=== PATIENT | male | born 1965 | race Caucasian/White ===

== ENCOUNTER 2017-09-16 13:00 | Inpatient (IN) | payer MEDICARE, MEDICAID ==
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
[2017-09-16 14:50] LABS: Amphetamine Screen,Urine Not Detected (NotDetected); Barbiturate Screen,Urine Not Detected (NotDetected); Benzodiazepines Screen,Urine Not Detected (NotDetected); Cocaine Screen,Urine Not Detected (NotDetected); Methadone Screen, Urine Not Detected (NotDetected); Opiate Screen,Urine Not Detected (NotDetected); Oxycodone Screen, Urine Not Detected (NotDetected); Phencyclidine Screen,Urine Not Detected (NotDetected); Tricyclic Antidepressant,Urine Not Detected (NotDetected); Urn Cannabinoid Scrn Not Detected (NotDetected)
[2017-09-16] MEDS ORDERED: MAGNESIUM HYDROXIDE 2,400 MG/10 ML CUP PO PRN (16:07)
[2017-09-16] MEDS ORDERED: ACETAMINOPHEN TAB 325 MG TAB PO PRN (16:07)
[2017-09-16] MEDS ORDERED: MAG HYDROX/AL HYDROX/SIMETH 30 ML CUP PO PRN (16:07)
[2017-09-16] MEDS ORDERED: LORazepam 1 MG TAB PO PRN (16:07)
[2017-09-16] MEDS ORDERED: ZIPRASIDONE 20 MG VIAL IM PRN (16:07)
[2017-09-16] MEDS ORDERED: busPIRone HCl 10 MG TAB PO SCH (16:15)
[2017-09-16 16:44] VITALS: BMI 35.2
[2017-09-16] MEDS ORDERED: INFLUENZA VACCINE (6 MOS+) 60 MCG/0.5 ML SYRINGE IM ONE (16:54)
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
[2017-09-16] MEDS: buPROPion XL 300 MG TAB.ER.24H PO SCH (19:01)
[2017-09-16] MEDS: OLANZapine 10 MG TAB PO SCH ×2 (19:01→21:06)
--- NOTE | 2017-09-16 20:11 | HP ---
HISTORY AND PHYSICAL DATE OF SERVICE: 09/16/2017 IDENTIFYING DATA: The patient is a 51-year-old male. He lives alone. He came to the emergency room for evaluation. CHIEF COMPLAINT: The patient was depressed. He had suicide thoughts. He had impulse to stab himself in the abdomen, which is behavior he has had in the past. He has voices that tell him to do bad things. HISTORY OF PRESENTING ILLNESS: The patient has had long-term psychiatric issues. He has had 3 previous psychiatric admission notes in this facility in the last 2 years, including October 24, November 09 and March 15, 2016. I refer the reader to admission notes and other records for Dr. Keyes and Dr. Wesley for details. His admissions at those times were similar to his current situation. In March 2016, he presented with depression and impulse to harm himself. He said he was sleeping excessively. He had decreased motivation, energy, interest. He had worthless and hopeless feelings. He had auditory hallucinations with command hallucinations telling him he is bad and that he should kill himself. He has had a lot of anxiety. He says currently he has had increasing problems over the last month. It is unclear how far back some depression has been going. He said he felt fairly well last summer, though I note from [facility] notes that he was having depression issues at least in the springtime of 2016. He has been on several psychotropic medications for an extended period of time. Currently he is on Prozac, which had been titrated up to 80 mg a day. He is on Depakote 250 mg 3 times a day, BuSpar 15 mg 3 times a day, trazodone 200 mg a day and Prolixin IM 25 mg every 2 weeks. He has been on those medications for at least 1-2 years going back. He also was on Prozac and BuSpar. In 2015, he was also on Seroquel 200 mg a day. In 2013 and 2014, he was on Tegretol up to 200 mg 3 times a day and had at a level at one point of 8.0. He was also on Invega Sustenna 234 mg monthly in 2013 and 2014. He also was on Effexor maximum dose 150 mg in 2013 and 2014. In reviewing the [facility] medication log going back to January of 2014, these have been the only medicines that he has been on. It is unclear what medications he may have been on in the more distant past. He notes that he is not very active. Mostly he is at home. He watches TV. He gets support from his mother and sister, who apparently watch over him. He is followed through [facility] and is prescribed medications by Dr. Trujillo. He was just in Mental Health August 31. He was asking for a medication change, saying his medicines were not working. He apparently he said that he saw an advertisement for Trintellix and wanted to try that. He got started on Trintellix as of Tuesday by what he reported to me 20 mg a day. He is not able to describe clear precipitants to his a downturn in mood. He is admitted for further evaluation. SUBSTANCE USE HISTORY: Uncertain. Medical records indicate a somewhat distant past history of alcohol abuse, though the patient himself denies that. There is no report of other abuse of substances. Past medical history includes obesity, vitamin B and D deficiency and shortness of breath. Further medical history and review of systems as per medical consultation of Dr. Ryan. FAMILY AND SOCIAL HISTORY: I refer the reader to previous admission notes and other medical records documented above from 2016 for details. MENTAL STATUS EXAM: The patient had an unkept appearance. Eye contact was fair. Psychomotor activity was slowed. Speech was monotone. He answered questions with brief responses. His thoughts were clear. He did not say a lot. He was not too spontaneous or interactive. His affect was flat. His mood depressed. He seemed moderately distressed. There was no immediate evidence for thought disorder. On cognitive exam, he was oriented and alert. He did make an effort to answer formal cognitive questions. Fund of knowledge and intellectual level below average. ASSESSMENT: This 51-year-old male is diagnosed with major depression with psychotic features. He has a long history of mental health difficulties. He has very limited function in the community. Strengths include that he has a family support system. Weakness includes relapsing problems with mood and impulse toward self-harm. DIAGNOSES: 1. Major depression, chronic and recurrent, severe with acute exacerbation with psychotic features. 2. Rule out mild intellectual disability. 3. Obesity. 4. Vitamin B and D deficiency. 5. Shortness of breath. RECOMMENDATIONS: Patient will be admitted for comprehensive medical psychiatric and psychosocial evaluation. We will engage the patient in individual and group therapeutic activities. Given that he has been on his current multiple medications over an extended period of time of several years without clear benefit, I will make an effort to: 1) Make a change in antidepressant therapy and 2) Make an effort to simplify medications to reduce risk of medication interactions and potentially improve compliance. I will discontinue Prozac and start the patient on Wellbutrin 300 mg a day. I will reduce BuSpar to 10 mg twice a day with the aim of tapering off altogether. For the patient's significant mood issues, the BuSpar is likely be to be not much of a contributor to therapeutic benefits. I will discontinue Trintellix. I will also discontinue Vistaril for likely minimal potential benefits. I will discontinue Latuda and start the patient on Zyprexa 10 mg twice a day. We will make an effort to get further information from family and will coordinate with [facility] for further diagnosis, treatment and discharge planning. MMREJI / CHEYENNE: [id number] /
[2017-09-16] MEDS ORDERED: traZODone HCL 100 MG TAB PO SCH (21:00)
[2017-09-16] MEDS ORDERED: LURASIDONE 40 MG TAB PO SCH (21:00)
[2017-09-16] MEDS ORDERED: DIVALPROEX ER 250 MG TAB.ER.24H PO SCH (21:00)
[2017-09-16] MEDS ORDERED: NON-FORMULARY DRUG (Omega-3 Fatty Acids/Fish Oil [Fish Oil 1,000 Mg Softgel] 1 CAP) PO SCH (21:00)
[2017-09-16] MEDS ORDERED: NON-FORMULARY DRUG (Vortioxetine Hydrobromide [Trintellix] 20 MG) PO SCH (21:00)
[2017-09-16] MEDS: busPIRone HCl 10 MG TAB PO SCH (21:06)
[2017-09-16] MEDS: traZODone HCL 100 MG TAB PO SCH (21:07)
[2017-09-17] MEDS ORDERED: FLUoxetine HCL 20 MG CAP PO SCH (08:00)
[2017-09-17] MEDS ORDERED: hydrOXYzine HCL 25 MG TAB PO SCH (09:00)
[2017-09-17 09:26] LABS: Basophils % (A) 1 %; Eosinophils # (A) 0.1 k/uL (0-0.7); Eosinophils % (A) 2 %; HCT 46.2 % (39.0-53.0); HGB 14.4 gm/dL (13.0-17.5); Lymphocytes # (A) 1.4 k/uL (1.0-4.8); Lymphocytes % (A) 22 %; MCH 29.6 pg (25.0-35.0); MCHC 31.2 g/dL (31.0-37.0); MCV 94.8 fL (80.0-100.0); Mean Platelet Volume 6.8; Monocytes # (A) 0.5 k/uL (0-1.0); Monocytes % (A) 8 %; Neutrophils # (A) 3.9 k/uL (1.3-7.7); Neutrophils % (A) 65 %; Platelet Count 435 k/uL (150-450); RBC 4.88 m/uL (4.30-5.90); RDW 14.3 % (11.5-15.5); WBC 6.1 k/uL (3.8-10.6)
[2017-09-17 09:29] LABS: Albumin 3.9 g/dL (3.5-5.0); Calcium 9.8 mg/dL (8.4-10.2); Potassium 4.9 mmol/L (3.5-5.1); Total Bilirubin 0.6 mg/dL (0.2-1.3); Total Protein 6.9 g/dL (6.3-8.2)
[2017-09-17 09:40] LABS: T4, Free (Free Thyroxine) 1.08 ng/dL (0.78-2.19)
[2017-09-17] MEDS: busPIRone HCl 10 MG TAB PO SCH ×2 (09:42→20:44)
[2017-09-17] MEDS: buPROPion XL 300 MG TAB.ER.24H PO SCH (09:42)
[2017-09-17] MEDS: OLANZapine 10 MG TAB PO SCH ×2 (09:43→20:44)
[2017-09-17 10:08] LABS: Valproic Acid (Depakene) 34.4 ug/mL
[2017-09-17] MEDS: CYANOCOBALAMIN 500 MCG TAB PO SCH (12:16)
[2017-09-17] MEDS: FERROUS SULFATE 325 MG TAB PO SCH (12:16)
[2017-09-17 18:22] LABS: Hemoglobin A1C 5.4 % (4.0-6.0)
--- NOTE | 2017-09-17 20:09 | PN ---
PROGRESS NOTE DATE OF SERVICE: 09/17/2017. CHIEF COMPLAINT: The patient was depressed. He had suicide thoughts. He had impulse to stab himself in the abdomen, which is behavior he has had in the past. He has voices telling him to do bad things. INTERVAL HISTORY: Patient has been doing fairly well. He had a quiet evening last night. He slept fair. Today he has been up. He says he feels better today. He has a better outlook. He says he has not had any problems with the change in his medications. He has been coming out in the day area. He tends to have a quiet manner. He does not interact too much with others. He tends to move about in a slow manner and keeps to himself. He has not been attending groups. He says his mood and outlook have improved with the medication changes. He has not had change in his general health. He tolerates his psychotropic medications. MENTAL STATUS: Patient gave fair eye contact. Psychomotor activity was slowed. Speech was somewhat soft. He answered questions with direct responses. His affect was somewhat blunted, though he seemed to show a little more emotional responsiveness today compared do the interview yesterday. His mood was quiet. He did not appear to be significantly distressed. ASSESSMENT: I will continue the current diagnosis and treatment plan, continue psychotropic medications the same. I reviewed issues relating to his psychotropics, noted that his Depakote level this morning was 34. I will discontinue Depakote, given that he is not likely to get much benefit from some therapeutic dosing. I would look to taper the patient off of BuSpar as well. We discussed medication management. We discussed the options of having his mother and sister come in for a family meeting. We will continue to focus on stabilization and discharge planning. MMODL / IJN: [id number] /
[2017-09-17] MEDS: BACITRACIN 500 UNIT/GM OINT 28.4 GM TUBE TOPICAL SCH (20:45)
[2017-09-17] MEDS: traZODone HCL 100 MG TAB PO SCH (20:45)
[2017-09-18] MEDS: buPROPion XL 300 MG TAB.ER.24H PO SCH (09:50)
[2017-09-18] MEDS: OLANZapine 10 MG TAB PO SCH ×2 (09:50→20:22)
[2017-09-18] MEDS: BACITRACIN 500 UNIT/GM OINT 28.4 GM TUBE TOPICAL SCH ×2 (09:50→20:22)
[2017-09-18] MEDS: busPIRone HCl 10 MG TAB PO SCH ×2 (09:50→20:22)
[2017-09-18 11:07] LABS: Anion Gap 10 mmol/L; Blood Urea Nitrogen 15 mg/dL (9-20); Carbon Dioxide 30 mmol/L (22-30); Chloride 104 mmol/L (98-107); Glucose 132 mg/dL (74-99); Potassium 4.7 mmol/L (3.5-5.1); Sodium 144 mmol/L (137-145)
[2017-09-18] MEDS: CYANOCOBALAMIN 500 MCG TAB PO SCH (12:56)
[2017-09-18] MEDS: FERROUS SULFATE 325 MG TAB PO SCH (12:57)
[2017-09-18] MEDS: traZODone HCL 100 MG TAB PO SCH (20:22)
--- NOTE | 2017-09-19 05:01 | PN ---
PROGRESS NOTE DATE OF SERVICE: 09/18/2017 CHIEF COMPLAINT: The patient was depressed. He had suicide thoughts. He had the impulse to stab himself in the abdomen, which is behavior he has had in the past. He has voices telling him to do bad things. INTERVAL HISTORY: Patient has been doing fair. He had a quiet evening last night. He slept fairly well. Today he seems to be isolating himself. He spent a lot of time in his room. He says he lays in his room, but he does not sleep. He just stares at the wall. It is not clear what his thought processes with that, when I talked about concerns that he seemed to be having problems he said the contrary that he has been getting out that he has been out several times during the day. He feels that overall his medications are helping at least to some extent. He has not been attending groups. He says if he gets into group that is over 5 people it causes him too much anxiety and then it sets off flashbacks to depression. It is not clear exactly what the issue is with this. He seemed to be a little disgruntled when I talked to him as compared yesterday when he was assuring me that his mood was better. He did say today that he thought his medications were okay and he was making some progress. He has not had change in his general health. He tolerates his psychotropic medications. MENTAL STATUS: Patient was in his room. He did not give any eye contact. Psychomotor activity was slowed. Speech was monotone. He answered questions with brief responses. His thoughts were clear. His affect was flat. His mood withdrawn. It is hard to say if he was significantly distressed. ASSESSMENT: I will continue the current diagnosis and treatment plan. Continue psychotropic medications the same. We will continue to focus on stabilization and discharge planning. We do have plans for a family meeting with the patient's mother and sister. We will continue to focus on stabilization and discharge planning. MMODL / IJN: [id number] /
[2017-09-19] MEDS: BACITRACIN 500 UNIT/GM OINT 28.4 GM TUBE TOPICAL SCH ×2 (08:54→21:55)
[2017-09-19] MEDS: OLANZapine 10 MG TAB PO SCH ×2 (08:56→21:55)
[2017-09-19] MEDS: busPIRone HCl 10 MG TAB PO SCH ×2 (08:56→21:57)
[2017-09-19] MEDS: buPROPion XL 300 MG TAB.ER.24H PO SCH (08:56)
--- NOTE | 2017-09-19 10:14 | P.PN ---
Progress Note - Text Interval history: The patient is found in his room he follows me to an interview room. The patient was admitted for acute psychosis. Medication changes were made those were reviewed. The patient feels comfortable with his current medications. It appears the plan was to continue tapering off of BuSpar. The patient is on Prolixin decanoate and he believes that is due this Tuesday. The patient states that he can't be around other people as much and is avoiding groups. He reports attending meals and reports sleeping throughout the evening. Mental status exam: The patient is a tall overweight male. He is a disheveled appearance he is dressed in clothing that appears dirty and stained. He is seated in the chair and he continually moves his upper body in a circular motion throughout the session. This continues even when we discuss it during the session. Eye contact is appropriate speech is spontaneous at times but mainly he answers questions asked. He presented with suicidal thoughts and auditory hallucinations. He reports feeling safe here in the hospital and he feels the hallucinations are manageable. He continues to states "I just want my medication right". Insight and judgment limited. He demonstrates no verbal or physical aggressiveness. He maintains a bland affect. He demonstrates no tangential thinking loose association or flight of ideas. Plan: The patient will continue on his current psychotropic medications. We will continue to monitor him for safety. He is encouraged to participate in the milieu but he feels he is not capable of being in a group setting. Labs reviewed his creatinine was elevated but mildly improved with the second measure. He is encouraged to hydrate. Vital signs reviewed.
[2017-09-19] MEDS: CYANOCOBALAMIN 500 MCG TAB PO SCH (12:50)
[2017-09-19] MEDS: FERROUS SULFATE 325 MG TAB PO SCH (12:50)
[2017-09-19] MEDS: traZODone HCL 100 MG TAB PO SCH (21:55)
[2017-09-20] MEDS: buPROPion XL 300 MG TAB.ER.24H PO SCH (09:13)
[2017-09-20] MEDS: busPIRone HCl 10 MG TAB PO SCH ×2 (09:13→21:39)
[2017-09-20] MEDS: OLANZapine 10 MG TAB PO SCH ×2 (09:13→21:39)
[2017-09-20] MEDS: BACITRACIN 500 UNIT/GM OINT 28.4 GM TUBE TOPICAL SCH ×2 (09:14→21:39)
--- NOTE | 2017-09-20 09:52 | P.PN ---
Progress Note - Text Interval history: The patient is found in his room he follows me to an interview room he reports he feels he is getting better. He is reporting no side effects from his medication. He feels he is due for his Prolixin injection tomorrow however the record indicates he just recently got that on the . We will need to confirm with [facility]. He continues to avoid attending groups but states he did get up and ambulate in the hallways during the day yesterday. He feels that his auditory hallucinations are resolving. He feels safe in the hospital and has had no self-injurious thoughts here. Again previously he presented with thoughts of stabbing himself in the abdomen. Mental status exam: The patient is alert he is a tall overweight male. He has a disheveled appearance his hair is not brushed he has been unable to shaved. He is dressed in a hospital gown. Again while seated in the chair he moves his upper body in a circular motion throughout the session. Eye contact is appropriate. He is pleasant and cooperative. He maintains a constricted affect. He is concrete in terms of thinking ability and struggles with providing answers to specific questions. Insight and judgment chronically limited. He demonstrates no verbal or physical aggressiveness. He does not appear hypomanic or manic. Plan: The patient will continue on his current medication we will verify the date of the next Prolixin Decanoate. He appears to be stabilizing here on the mental health unit he will likely be appropriate for discharge sometime this week. I will confer with the treatment team to review his behavior throughout the day. Vital signs reviewed. We will continue to monitor him for safety.
[2017-09-20] MEDS: FERROUS SULFATE 325 MG TAB PO SCH (11:36)
[2017-09-20] MEDS: CYANOCOBALAMIN 500 MCG TAB PO SCH (11:36)
[2017-09-20] MEDS ORDERED: LORazepam 1 MG TAB PO STA (17:32)
[2017-09-20] MEDS: traZODone HCL 100 MG TAB PO SCH (21:39)
[2017-09-21 06:40] VITALS: RESP 16
[2017-09-21] MEDS: buPROPion XL 300 MG TAB.ER.24H PO SCH (09:12)
[2017-09-21] MEDS: OLANZapine 10 MG TAB PO SCH ×2 (09:12→21:30)
[2017-09-21] MEDS: busPIRone HCl 10 MG TAB PO SCH ×2 (09:12→21:30)
[2017-09-21] MEDS: BACITRACIN 500 UNIT/GM OINT 28.4 GM TUBE TOPICAL SCH ×2 (09:12→21:30)
[2017-09-21] MEDS ORDERED: fluPHENAZine DECANOATE 25 MG/ML 5ML MDV IM ONE (11:32)
--- NOTE | 2017-09-21 11:35 | P.PN ---
Progress Note - Text Interval history: The patient is found in his room he follows me to an interview room. He continues to isolate in his room except for meals. He will at times walk in the hallways. He is happy to report that family will be visiting this evening. We reviewed his psychotropic medication he continues to feel it is helpful. He is due for his Prolixin Decanoate today which we will administer. Mental status exam: The patient is an overweight male he is a disheveled appearance. He is dressed in hospital gowns. Eye contact is appropriate. He does demonstrate increased psychomotor activity as previously noted. He will continue to move his upper body in a circular motion while seated. He is noted to have a rocking motion while lying in bed. He is endorsing no homicidal ideation he reports suicidal thoughts continue to fade away. He feels safe here in the hospital. He demonstrates no loose associations or flight of ideas. He can be circumstantial at times. He demonstrates no verbal or physical aggressiveness. He is oriented to person place and date. Plan: The patient is slowly stabilizing. He will most likely be appropriate for discharge towards the end of the week. We will continue his medications as written. He will be given the Prolixin Decanoate 50 mg today which has been given every 2 weeks as an outpatient. We will monitor him for safety and encourage his participation in the milieu.
[2017-09-21] MEDS: CYANOCOBALAMIN 500 MCG TAB PO SCH (12:10)
[2017-09-21] MEDS: FERROUS SULFATE 325 MG TAB PO SCH (12:10)
[2017-09-21] MEDS: traZODone HCL 100 MG TAB PO SCH (21:30)
[2017-09-22] MEDS: BACITRACIN 500 UNIT/GM OINT 28.4 GM TUBE TOPICAL SCH ×2 (08:47→21:30)
[2017-09-22] MEDS: buPROPion XL 300 MG TAB.ER.24H PO SCH (08:47)
[2017-09-22] MEDS: busPIRone HCl 10 MG TAB PO SCH ×2 (08:47→21:08)
[2017-09-22] MEDS: OLANZapine 10 MG TAB PO SCH ×2 (08:47→21:08)
--- NOTE | 2017-09-22 09:55 | P.PN ---
Progress Note - Text Interval history: The patient is found in his room he follows me to an interview room. He reports his suicidal thoughts continue to resolve. He feels safe. He expresses an unspecified discomfort around other patients and tends to isolate in his room still. He is ambulating in the halls at times and does eat his meals in the hallway. He is glad to hear that his sister will be coming for a family meeting tomorrow. He is endorsing no auditory or visual hallucinations. Mental status exam: The patient is a tall overweight male he is a disheveled appearance he is wearing his eyeglasses he is dressed in his own clothing. He does frequently moves while seated in his chair as previously noted. He reports his mood is improving he is endorsing no acute suicidal or homicidal ideation intent or plan. He is endorsing no auditory or visual hallucinations. I suspect he continues to have some residual symptoms of psychosis. He demonstrates no verbal or physical aggressiveness he is easily directed in the interview. Affect is constricted. Plan: The patient will continue on his current psychotropic medications. We will continue to monitor him for safety. He is encouraged to attend groups but he is resistant. We will await the outcome of his family meeting tomorrow we anticipate discharging him tomorrow if he demonstrates further improvement and remained stable.
[2017-09-22] MEDS: FERROUS SULFATE 325 MG TAB PO SCH (14:02)
[2017-09-22] MEDS: CYANOCOBALAMIN 500 MCG TAB PO SCH (14:02)
[2017-09-22 16:52] LABS: Appearance,Urine Clear (Clear); Bilirubin,Urine Negative (Negative); Blood,Urine Negative (Negative); Color,Urine Yellow; Glucose,Urine (UA) Negative (Negative); Ketones,Urine Negative (Negative); Leukocyte Esterase,Urine Negative (Negative); Nitrite,Urine Negative (Negative); PH, Urine 6.5 (5.0-8.0); Protein,Urine Negative (Negative); Specific Gravity,Urine 1.013 (1.001-1.035); Urobilinogen,Urine <2.0 mg/dL (<2.0)
[2017-09-22] MEDS: traZODone HCL 100 MG TAB PO SCH (21:08)
[2017-09-23 07:03] VITALS: BP 125/69; PULSE 80; TEMP 97.8
[2017-09-23] MEDS: buPROPion XL 300 MG TAB.ER.24H PO SCH (09:20)
[2017-09-23] MEDS: busPIRone HCl 10 MG TAB PO SCH (09:20)
[2017-09-23] MEDS: BACITRACIN 500 UNIT/GM OINT 28.4 GM TUBE TOPICAL SCH (09:20)
[2017-09-23] MEDS: OLANZapine 10 MG TAB PO SCH (09:20)
[2017-09-23] MEDS: CYANOCOBALAMIN 500 MCG TAB PO SCH (09:21)
[2017-09-23] MEDS: FERROUS SULFATE 325 MG TAB PO SCH (09:21)
--- NOTE | 2017-09-23 10:28 | P.DS ---
Providers Date of admission: 09/16/17 15:04 Expected date of discharge: 09/23/17 Attending physician: Robin Mojica Consults: 09/16/17 16:07 Consult Physician Routine Consulting Provider: Dipti Mccarthy Consult Reason/Comments: H&P, with medical follow up Do you want consulting provider notified?: Already Contacted Primary care physician: Stated None - Discharge Diagnosis(es) (1) Schizoaffective disorder Current Visit: No Status: Acute Priority: High Hospital Course: Brief summary of admission note: This patient is a 51-year-old single male who was admitted to the mental health unit through the emergency room for suicidal ideation in the context of experiencing command auditory hallucinations. The patient presented with thoughts of wanting to stab himself in the abdomen and stated that voices were directing him to "do bad things". The patient has a long known history of schizoaffective disorder he has had several inpatient psychiatric hospitalizations. He was initially evaluated by , and for full detail please refer to his psychiatric evaluation dated 09/16/2017. Summary of hospital course: After initial evaluation the patient was started on Zyprexa and trazodone. Latuda, Vistaril, Trintellix were discontinued BuSpar was reduced with the plan of tapering off of that medication. I assumed care of the patient the following Tuesday. The patient reported he was tolerating his medication changes well he reported a progressive improvement of symptoms while on the mental health unit. He participated in his activities of daily living in that he was eating and bathing. He did isolate from groups although he did ambulate in the hallway several times a day. He has noted a resolution of suicidal ideation and indicates he is no longer experiencing any hallucinations. We did continue his Prolixin decanoate and he was given an injection of 50 mg this past Tuesday. The patient has a family meeting scheduled involving his sister today. He demonstrates future oriented thinking and is glad he is going to be discharged soon. Mental status exam: The patient is a tall obese male he has a disheveled appearance hygiene is adequate. He is dressed in his own clothing. He is cooperative during the session. He reports his mood has improved he is reporting no suicidal or homicidal ideation intent or plan. He is reporting no auditory or visual hallucinations currently he is reporting no specific delusions however he likely has some residual delusional thought. He demonstrates no verbal or physical aggressiveness. He does continue to demonstrate movement of his upper body while seated. He remains oriented to person place and date. Affect is more appropriately expressive. Speech is fluent spontaneous nonpressured. He is directable during the session. Impressions 1. Schizoaffective disorder, rule out intellectual disability 2. Obesity 3. Issues relating to social environment when symptoms of psychosis are exacerbated Plan: The patient will be discharged from the mental health unit today to return home following a successful family meeting with his sister. The patient will continue on Prolixin decanoate 50 mg every 2 weeks his last administered dose was this past Tuesday09/21/2017. He will continue on Zyprexa 10 mg twice daily, Wellbutrin XL 300 mg daily, trazodone 100 mg at bedtime. He will continue following with [facility] for outpatient care. At this time the patient is not seen to be at an imminent safety risk, he is appropriate for transition back to outpatient care. He is instructed to return to the hospital with any acute safety concerns. He indicates he would return to the hospital if he needs help again. He will follow up with his primary care physician as needed. The patient is prescribed 2 antipsychotic medications due to the severity of his symptoms. He has not been able to be managed with a single antipsychotic medication for his psychosis. Patient Condition at Discharge: Stable Plan - Discharge Summary Discharge Rx Participant: No New Discharge Prescriptions: New buPROPion XL [Wellbutrin XL] 300 mg PO DAILY #30 tab.er.24h OLANZapine [ZyPREXA] 10 mg PO BID #60 tab traZODone HCL [Desyrel] 100 mg PO HS #30 tab fluPHENAZine DECANOATE [Prolixin Decanoate] 50 mg IM [id number] #1 vial Continue Cyanocobalamin [Vitamin B-12] 1,000 mcg PO DAILY [place]-3 Fatty Acids/Fish Oil [Fish Oil 1,000 mg Softgel] 1 cap PO BID Ergocalciferol [Vitamin D2 (DRISDOL)] 50,000 unit PO Q7D Ferrous Sulfate [Iron (65 MG Elemental)] 325 mg PO DAILY Discontinued busPIRone HCL [Buspar] 15 mg PO TID Divalproex ER [Depakote ER] 750 mg PO HS #90 tab.er.24h traZODone HCL [Desyrel] 200 mg PO HS hydrOXYzine HCL [Atarax] 25 mg PO DAILY Lurasidone HCl [Latuda] 120 mg PO HS FLUoxetine HCL [PROzac] 20 mg PO BID@0800,1200 Vortioxetine Hydrobromide [Trintellix] 20 mg PO HS Discharge Medication List Cyanocobalamin [Vitamin B-12] 1,000 mcg PO DAILY 03/15/16 [History] Ergocalciferol [Vitamin D2 (DRISDOL)] 50,000 unit PO Q7D 03/15/16 [History] [place]-3 Fatty Acids/Fish Oil [Fish Oil 1,000 mg Softgel] 1 cap PO BID 03/15/16 [ History] Ferrous Sulfate [Iron (65 MG Elemental)] 325 mg PO DAILY 09/16/17 [History] OLANZapine [ZyPREXA] 10 mg PO BID #60 tab 09/23/17 [Rx] buPROPion XL [Wellbutrin XL] 300 mg PO DAILY #30 tab.er.24h 09/23/17 [Rx] fluPHENAZine DECANOATE [Prolixin Decanoate] 50 mg IM [id number] #1 vial 09/23/17 [ Rx] traZODone HCL [Desyrel] 100 mg PO HS #30 tab 09/23/17 [Rx] Follow up Appointment(s)/Referral(s): [facility] [Outside] - 09/26/17 11:00 am (09-26-17 @ 11:[address] Trujillo 09-28-17 @ 10:30 with [facility] team ) [facility] - [facility] Week Patient Instructions/Handouts: Depression (DC), Suicide Prevention for Adults ( DC) Activity/Diet/Wound Care/Special Instructions: Take all medications as prescribed and keep your follow up appointment. Do not use alcohol or take any drugs or medications not prescribed for you. Call the crisis line if needed .
== END 2017-09-23 11:56 | disposition home or self-care (01) | DRG 885 ==
LOC: EC 13:00 → 3MHU 15:04
PROVIDERS: ADMIT Psychiatry & Neurology Psychiatry; ATTEND Psychiatry & Neurology Psychiatry
DX: F25.9 Schizoaffective disorder, unspecified (principal); R45.851 Suicidal ideations; E66.9 Obesity, unspecified; Z91.5 Personal history of self-harm; Z87.891 Personal history of nicotine dependence; I10 Essential (primary) hypertension; Z79.899 Other long term (current) drug therapy; M54.9 Dorsalgia, unspecified; G89.29 Other chronic pain; E53.8 Deficiency of other specified B group vitamins; E55.9 Vitamin D deficiency, unspecified; F90.9 Attention-deficit hyperactivity disorder, unspecified type; S31.139A Puncture wound of abdominal wall without foreign body, unspecified quadrant without penetration into peritoneal cavity, initial encounter; X78.1XXA Intentional self-harm by knife, initial encounter
CPT/HCPCS: 80048; 80053; 80061; 80164; 80306; 81003; 82075; 83036; 84439; 84443; 85025; 90686; 99285

== ENCOUNTER → 2017-11-30 | Outpatient (CLI) | payer MEDICARE, OTHER ==
[2017-11-30 12:45] LABS: Lithium 0.6 mmol/L
[2017-11-30 12:58] LABS: T4, Free (Free Thyroxine) 1.03 ng/dL (0.78-2.19)
== END | disposition home or self-care (01) ==
LOC: LABWHC1 10:12
PROVIDERS: ATTEND Psychiatry & Neurology Psychiatry
DX: Z51.81 Encounter for therapeutic drug level monitoring (principal); Z79.899 Other long term (current) drug therapy
CPT/HCPCS: 36415; 80178; 82565; 84439; 84443; 84520

== ENCOUNTER 2018-06-20 17:27 | Inpatient (IN) | payer MEDICARE, MEDICAID ==
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
[2018-06-20] MEDS ORDERED: LISINOPRIL 10 MG TAB PO STA (20:19)
[2018-06-20] MEDS ORDERED: MAG HYDROX/AL HYDROX/SIMETH 30 ML CUP PO PRN (20:23)
[2018-06-20] MEDS ORDERED: MAGNESIUM HYDROXIDE 2,400 MG/10 ML CUP PO PRN (20:23)
[2018-06-20] MEDS ORDERED: ZIPRASIDONE 20 MG VIAL IM PRN (20:23)
[2018-06-20] MEDS ORDERED: ACETAMINOPHEN TAB 325 MG TAB PO PRN (20:23)
[2018-06-20] MEDS: LORazepam 1 MG TAB PO PRN (20:36)
[2018-06-20] MEDS ORDERED: ERGOCALCIFEROL 50,000 UNIT CAP PO SCH (21:00)
[2018-06-20] MEDS ORDERED: QUEtiapine 400 MG TAB PO SCH (21:00)
[2018-06-20] MEDS ORDERED: cloNIDine HCL 0.1 MG TAB PO STA ×2 (21:07→22:23)
[2018-06-20 22:43] LABS: Appearance,Urine Clear (Clear); Bilirubin,Urine Negative (Negative); Blood,Urine Negative (Negative); Color,Urine Light Yellow; Glucose,Urine (UA) Negative (Negative); Ketones,Urine Negative (Negative); Leukocyte Esterase,Urine Negative (Negative); Nitrite,Urine Negative (Negative); PH, Urine 6.5 (5.0-8.0); Protein,Urine Negative (Negative); Specific Gravity,Urine 1.005 (1.001-1.035); Urobilinogen,Urine <2.0 mg/dL (<2.0)
[2018-06-20 22:54] LABS: Amphetamine Screen,Urine Not Detected (NotDetected); Barbiturate Screen,Urine Not Detected (NotDetected); Benzodiazepines Screen,Urine Not Detected (NotDetected); Cocaine Screen,Urine Not Detected (NotDetected); Methadone Screen, Urine Not Detected (NotDetected); Opiate Screen,Urine Not Detected (NotDetected); Oxycodone Screen, Urine Not Detected (NotDetected); Phencyclidine Screen,Urine Not Detected (NotDetected); Tricyclic Antidepressant,Urine Detected (NotDetected); Urn Cannabinoid Scrn Not Detected (NotDetected)
[2018-06-20 23:13] LABS: Albumin 3.7 g/dL (3.5-5.0); Calcium 9.4 mg/dL (8.4-10.2); Total Bilirubin 0.5 mg/dL (0.2-1.3); Total Protein 6.8 g/dL (6.3-8.2)
[2018-06-20 23:20] LABS: Basophils % (A) 0 %; Eosinophils # (A) 0.4 k/uL (0-0.7); Eosinophils % (A) 4 %; HCT 41.4 % (39.0-53.0); HGB 13.5 gm/dL (13.0-17.5); Lymphocytes # (A) 3.8 k/uL (1.0-4.8); Lymphocytes % (A) 38 %; MCH 32.1 pg (25.0-35.0); MCHC 32.7 g/dL (31.0-37.0); MCV 98.1 fL (80.0-100.0); Mean Platelet Volume 6.8; Monocytes # (A) 0.5 k/uL (0-1.0); Monocytes % (A) 5 %; Neutrophils # (A) 5.1 k/uL (1.3-7.7); Neutrophils % (A) 51 %; Platelet Count 476 k/uL (150-450); RBC 4.22 m/uL (4.30-5.90); RDW 13.1 % (11.5-15.5); WBC 10.1 k/uL (3.8-10.6)
[2018-06-20 23:35] LABS: Creatine Kinase 167 U/L (55-170)
[2018-06-20 23:48] LABS: Creatine Kinase MB 1.8 ng/mL (0.0-2.4); Troponin I <0.012 ng/mL (0.000-0.034)
[2018-06-21] MEDS: FISH OIL 1000MG PO SCH ×2 (00:08→08:23)
[2018-06-21] MEDS: busPIRone HCl 5 MG TAB PO SCH ×4 (00:09→20:54)
[2018-06-21] MEDS: NICOTINE 21MG/24HR PATCH TRANSDERM SCH (08:18)
[2018-06-21] MEDS ORDERED: amLODIPine 10 MG TAB PO STA (11:10)
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
[2018-06-21 12:17] LABS: Basophils % (A) 0 %; Eosinophils # (A) 0.2 k/uL (0-0.7); Eosinophils % (A) 3 %; Lymphocytes % (A) 26 %; MCH 31.1 pg (25.0-35.0); MCV 100.1 fL (80.0-100.0); Mean Platelet Volume 6.4; Monocytes # (A) 0.5 k/uL (0-1.0); Monocytes % (A) 6 %; Neutrophils # (A) 4.9 k/uL (1.3-7.7); Neutrophils % (A) 63 %; Platelet Count 456 k/uL (150-450); RBC 4.19 m/uL (4.30-5.90); RDW 13.2 % (11.5-15.5); WBC 7.7 k/uL (3.8-10.6)
[2018-06-21 12:36] LABS: Albumin 3.6 g/dL (3.5-5.0); Calcium 9.8 mg/dL (8.4-10.2); Potassium 4.4 mmol/L (3.5-5.1); Total Bilirubin 0.4 mg/dL (0.2-1.3); Total Protein 6.6 g/dL (6.3-8.2)
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
[2018-06-21] MEDS: FERROUS SULFATE 325 MG TAB PO SCH (13:24)
[2018-06-21 13:25] LABS: Hemoglobin A1C 5.2 % (4.0-6.0)
[2018-06-21] MEDS: LORazepam 1 MG TAB PO PRN (19:21)
[2018-06-21] MEDS ORDERED: fluPHENAZine DECANOATE 25 MG/ML 5ML MDV IM SCH (20:00)
[2018-06-21] MEDS: QUEtiapine 200 MG TAB PO SCH (20:54)
[2018-06-22] MEDS: NICOTINE 21MG/24HR PATCH TRANSDERM SCH (08:09)
[2018-06-22] MEDS: busPIRone HCl 5 MG TAB PO SCH ×3 (08:09→20:50)
[2018-06-22] MEDS: amLODIPine 10 MG TAB PO SCH (08:10)
[2018-06-22] MEDS ORDERED: HYDROCHLOROTHIAZIDE 25 MG TAB PO SCH (09:00)
[2018-06-22] MEDS ORDERED: buPROPion SR 150 MG TABLET.ER PO SCH (09:00)
[2018-06-22 10:30] LABS: Potassium 4.3 mmol/L (3.5-5.1)
--- NOTE | 2018-06-22 10:38 | P.PN ---
Subjective Progress Note Date: 06/22/18 the patient seen and examined at bedside, complain of lightheadedness and dizziness, denies any chest pain. Vision, blood pressure this morning 114/55 and 101/57 after taking morning regimen of Norvasc and hydrochlorothiazide Objective - Vital Signs Vital signs: Vital Signs Temp 98.2 F 06/21/18 00:37 Pulse 104 H 06/21/18 11:51 Resp 18 06/21/18 11:51 BP 120/68 06/21/18 11:51 Pulse Ox 97 06/21/18 00:37 - Exam Constitutional: No acute distress, conversant, pleasant Eyes: Anicteric sclerae, moist conjunctiva, no lid-lag, PERRLA ENMT: NC/AT,Oropharynx clear, no erythema, exudates Neck:Supple, FROM, no masses, or JVD, No carotid bruits; No thyromegaly Lungs: Clear to auscultation, Clear to percussion, Normal respiratory effort, no accessory muscle use Cardiovascular: Heart regular in rate and rhythm, No murmurs, gallops, or rubs no peripheral edema Abdominal: Soft Nontender, nom distended, no guarding, no rebound or rigidity, Normoactive bowel sounds No hepatomegaly, No splenomegaly, No palpable mass No abdominal wall hernia noted Skin: Normal temperature, tone, texture, turgor, No induration No subcutaneous nodules, No rash, lesions, No ulcers Extremities:No digital cyanosis No clubbing, Pedal pulses intact and symmetrical Radial pulses intact and symmetrical Normal gait and station, No calf tenderness Psychiatric: Alert and oriented to person, place and time, Appropriate affect Intact judgement Neuro: Muscles Strength 5/5 in all 4 extremities, Sensation to light touch grossly present throughout, Cranial nerves II-XII grossly intact. No focal sensory deficits - Labs CBC & Chem 7: 06/21/18 11:46 06/22/18 09:31 Labs: Abnormal Lab Results - Last 24 Hours (Table) 06/21/18 06/21/18 06/22/18 Range/Units 11:46 11:46 09:31 RBC 4.19 L (4.30-5.90) m/uL MCV 100.1 H (80.0-100.0) fL Plt Count 456 H (150-450) k/uL Chloride 110 H (98-107) mmol/L Carbon Dioxide 21 L (22-30) mmol/L Creatinine 1.58 H 1.29 H (0.66-1.25) mg/dL Glucose 118 H (74-99) mg/dL Triglycerides 172 H (<150) mg/dL LDL Cholesterol, Calc 105 H (0-99) mg/dL TSH 0.323 L (0.465-4.680) mIU/L Assessment and Plan (1) Essential hypertension Narrative/Plan: * Blood pressure improved control but now borderline, will plan to discontinue hydrochlorothiazide * Continue regimen milligrams by mouth daily Current Visit: Yes Status: Acute Code(s): I10 - ESSENTIAL (PRIMARY) HYPERTENSION SNOMED Code(s): 39704339 (2) Suicidal ideation Current Visit: Yes Status: Acute Code(s): R45.851 - SUICIDAL IDEATIONS SNOMED Code(s): 8068880 (3) Schizoaffective disorder Current Visit: No Status: Acute Priority: High Code(s): F25.9 - SCHIZOAFFECTIVE DISORDER, UNSPECIFIED SNOMED Code(s): 40117581 (4) Major depression Current Visit: No Status: Acute Code(s): F32.9 - MAJOR DEPRESSIVE DISORDER, SINGLE EPISODE, UNSPECIFIED SNOMED Code(s): 299608515 Plan: The patient is admitted to the mental health unit with suicidal ideation acute psychosis schizoaffective disorder with underlying major depression, will defer to inpatient psychiatry team regarding ongoing psychotropic medications and cognitive behavioral therapy. The patient is noted to have stage 2 hypertension and was given clonidine in the ER, will continue the patient on maintenance Norvasc 10 mg daily. We'll continue to monitor his blood pressure and follow as noted. Appreciate opportunity to be involved in ongoing care of this patient, for further questions please not hesitate to contact the [facility] inpatient team
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
[2018-06-22] MEDS: LORazepam 1 MG TAB PO PRN (18:19)
[2018-06-22] MEDS: QUEtiapine 200 MG TAB PO SCH (20:51)
[2018-06-23] MEDS: NICOTINE 21MG/24HR PATCH TRANSDERM SCH (07:41)
[2018-06-23] MEDS: busPIRone HCl 5 MG TAB PO SCH ×3 (07:41→20:29)
[2018-06-23] MEDS: buPROPion SR 100 MG TABLET.ER PO SCH (07:41)
[2018-06-23] MEDS: amLODIPine 10 MG TAB PO SCH (07:42)
--- NOTE | 2018-06-23 11:28 | P.PN ---
Subjective Progress Note Date: 06/23/18 Principal diagnosis: Schizoaffective disorder with underlying intellectual disorder, overweight, tobacco use disorder, vitamin D deficiency, vitamin D deficiency, hyperlipidemia mixed, anemia unspecified, Central primary hypertension Alexei reports that he is feeling less depressed 7 out of 10 and less thoughts of suicide today. He complains of difficulty sleeping and staying asleep. He is eating 3 meals a day. He feels slightly more motivated today after taking Wellbutrin. Objective - Vital Signs Vital signs: Vital Signs Temp 98.2 F 06/23/18 07:02 Pulse 80 06/23/18 07:02 Resp 16 06/23/18 07:02 BP 102/56 06/23/18 07:02 Pulse Ox 93 L 06/22/18 08:40 - Labs CBC & Chem 7: 06/21/18 11:46 06/22/18 09:31 Assessment and Plan Assessment: Musculoskeletal Examination - Abnormal/Involuntary Movements: [none] Strength: [greater than antigravity (greater than/equal to 3/5) in all extremities:] Muscle Tone: [no impairment] Gait: [grossly normal ] Station: [grossly normal] Mental Status Examination - General Appearance: [ disheveled, bizarre, appears stated age, Speech/Language: [slow, , rambled, mumbling, monotone, soft] Attitude/Behavior: [cooperative, guarded, withdrawn, indifferent] Mood: [depressed, euphoric, anxious, elated, irritable, angry, fearful, hopelessness] Affect: [flat, incongruent, labile, blunted constricted] Orientation: [time, person, place situation] Thought Content: [wnl, ] Risk Factors: [he has suicidal (ideations, plan), and/or Homicidal (ideations, plan), other] Perception: [wnl, hallucinations (auditory, visual,] Thought Processes: [ concrete, circumstantial, tangential, other] Concentration/Attention Span: [impaired] [Per observation and interview with the patient] Recent Memory: [ impaired] [0 out of 3 in 3 minutes] Remote Memory: [ impaired] [past events, as related history] Intelligence: [below average,] [based on history, based on vocabulary, syntax, grammar, and content] Judgement: [poor] [per patient's behavior/history of present illness] Insight: [ poor] [understanding severity of illness/history of present illness] Admitting Diagnosis: [schizophrenia versus schizoaffective] Patient Strengths - Housing stability: [] Able to vocalize needs: [] Past medications tried: Abilify, Artane, Effexor XR, invega sustenna, trazodone , Risperdal, Remeron, Pristiq, Ativan, loxapine, Geodon, Limbitrol DS, Wellbutrin, Depakote, Trileptal, Zyprexa, Lamictal, Vistaril, Cymbalta, and doxepin. Patient Limitations: [ pathological/unsupported environment, no interests, intellectual impairment, lack of social supports, other] Plan of Care: [Has been admitted in the psychiatric unit and will be treated for his depression and suicidality. He was placed on Wellbutrin 150 mg SR initially and now has been increased to 200 mg SR in the morning. His Seroquel was raised to 600 mg at bedtime due to the fact that he still is having auditory hallucinations and therefore justifying the need for her to antipsychotics in this individual since a Prolixin alone has not resolved hallucinations.] Estimated Length of Stay: [4 days] Initial Discharge Plan: [home, [facility], referred to therapist, Prognosis: guarded] Justification for Inpatient Hospitalization - [Hallucinations, delusions, agitation, anxiety, depression resulting in significant loss of functioning.] [Dangerous to self, others, or property with need for controlled environment.] [Emotional or behavioral conditions and complications requiring 24 hour medical and nursing care.] [Need for special drug therapy, or other therapeutic program requiring continuous hospitalization.] [Failure of social or occupational functioning.] [Inability to meet basic life and health needs.] (1) Suicidal ideation Current Visit: Yes Status: Acute Priority: Low Code(s): R45.851 - SUICIDAL IDEATIONS SNOMED Code(s): 9560575 (2) Major depression Current Visit: No Status: Acute Priority: Medium Code(s): F32.9 - MAJOR DEPRESSIVE DISORDER, SINGLE EPISODE, UNSPECIFIED SNOMED Code(s): 694493074 Plan: Plan: He will follow-up at [facility] for medication management and counseling. Increase Seroquel 600 mg po qhs Even though Wellbutrin is been tried before he states he has difficulty with motivation therefore I will try again Wellbutrin 200 mg SR in the morning which is made a difference in his motivation. I did discuss with him that he needs to get dressed today and participate in groups. Time with Patient: Less than 30
[2018-06-23] MEDS: FERROUS SULFATE 325 MG TAB PO SCH (11:34)
[2018-06-23] MEDS: QUEtiapine 200 MG TAB PO SCH (20:29)
[2018-06-23] MEDS ORDERED: carBAMazepine 200 MG TAB PO SCH (21:00)
[2018-06-24] MEDS: amLODIPine 10 MG TAB PO SCH (08:02)
[2018-06-24] MEDS: buPROPion SR 100 MG TABLET.ER PO SCH (08:02)
[2018-06-24] MEDS: busPIRone HCl 5 MG TAB PO SCH ×3 (08:02→20:15)
[2018-06-24] MEDS: NICOTINE 21MG/24HR PATCH TRANSDERM SCH (08:02)
--- NOTE | 2018-06-24 09:59 | P.PN ---
Progress Note - Text Interval history: The patient is found in his room he follows me to an interview room. The patient was admitted for symptoms of depression and suicidal ideation. He is well known to the psychiatric service. He states that his mood is still depressed at least moderately. He feels safe in the hospital and is reporting no suicidal ideation. He states that he was placed back on Wellbutrin his Seroquel was increased. He is not going to groups as he doesn't want to "hear other people's problems, I have my own". He states he has been ambulating in the hallway throughout the day. Sleep stable appetite stable. He reports that he showered yesterday. Mental status exam: The patient is a tall obese male he is dressed in his own clothing which appears small for him. He is very disheveled his hair is sticking out at various directions. Eye contact is appropriate. He has limited spontaneous speech she provides brief answers to questions asked. He does continue to have hopelessness thinking with depression he reports feeling safe in the hospital. He indicates having no homicidal ideation intent or plan. He is reporting no auditory or visual hallucinations or any specific delusions at this time. Insight and judgment limited is he is not willing to engage in help further by going to group. Affect is bland with little reactivity. Plan: The patient will continue on his current psychotropic medications. Typically he benefits from the supportive milieu despite his lack of participation in groups. We will monitor him for safety. Vital signs reviewed. He is encouraged ambulate throughout the day.
[2018-06-24] MEDS: LORazepam 1 MG TAB PO PRN (13:17)
[2018-06-24] MEDS: QUEtiapine 200 MG TAB PO SCH (20:15)
[2018-06-25 06:43] VITALS: RESP 16; TEMP 98.5
[2018-06-25] MEDS: NICOTINE 21MG/24HR PATCH TRANSDERM SCH (08:22)
[2018-06-25] MEDS: buPROPion SR 100 MG TABLET.ER PO SCH (08:23)
[2018-06-25] MEDS: busPIRone HCl 5 MG TAB PO SCH ×3 (08:23→20:26)
[2018-06-25] MEDS: amLODIPine 10 MG TAB PO SCH (08:24)
--- NOTE | 2018-06-25 11:23 | P.PN ---
Progress Note - Text interval history: the patient is found in his room he follows me to an interview room. he reports that he is doing better. He is hoping to be discharged soon. indicates he has no suicidal thoughts and his depression is a 5 out of 10 with 10 being the best. appetite stable. Staff report that he is showering but he is very malodorous still. We discussed having him get up and washes clothes as well as changing his bed linens. He has not been attending groups. He is hoping that his sister will visit this evening. Mental status exam: The patient is a tall obese male. He appears quite disheveled and is very malodorous. He is wearing his own clothing that is under sized. Eye contact is appropriate he's pleasant and cooperative he maintains a constricted affect. He is reporting no acute suicidal ideation intent or plan. He reports a mood that is "half way depressed". He reports no auditory or visual hallucinations or any specific delusions or is no observed evidence of psychosis at this time. He does not appear hypomanic or manic. Insight and judgment improving. He is directable. He is oriented to person place month and year. He is demonstrating no abnormal repetitive movements. Plan: the patient will continue on his current psychotropic medication. staff will direct him to attend to his hygiene better today. he is encouraged to participate in the milieu. vital signs reviewed. it does appear that he is slowly stabilizing.
[2018-06-25] MEDS: QUEtiapine 200 MG TAB PO SCH (20:26)
[2018-06-25 20:29] VITALS: BP 126/79; PULSE 108
[2018-06-26] MEDS: busPIRone HCl 5 MG TAB PO SCH (08:07)
[2018-06-26] MEDS: buPROPion SR 100 MG TABLET.ER PO SCH (08:07)
[2018-06-26] MEDS: amLODIPine 10 MG TAB PO SCH (08:07)
[2018-06-26] MEDS: NICOTINE 21MG/24HR PATCH TRANSDERM SCH (08:07)
--- NOTE | 2018-06-26 11:33 | P.DS ---
Providers Date of admission: 06/20/18 20:04 Expected date of discharge: 06/26/18 Attending physician: Stephon Booth DO Consults: 06/20/18 20:23 Consult Physician Routine Consulting Provider: Dipti Mccarthy Consult Reason/Comments: H&P for mental Health admission Do you want consulting provider notified?: Yes Primary care physician: [facility] - Discharge Diagnosis(es) (1) Suicidal ideation Patient 52-year-old male presented to the emergency room today with a chief complaint of suicidal ideations. Patient does admit that he's been having increased pressure over the last several weeks. He does admit that he's having thoughts of hurting himself. He denies also hurting anyone else patient states he has been taking medications as prescribed. Patient denies any other physical complaints. Patient denies any recent fever, chills, shortness of breath, chest pain, back pain, abdominal pain, nausea or vomiting, headaches or visual changes, or any other complaints.I have no motivation. Admitting Diagnosis: [schizophrenia versus schizoaffective] Current Visit: Yes Status: Acute Priority: Low (2) Major depression Current Visit: No Status: Acute Priority: Low Hospital Course: Mental status exam: The patient is a tall obese male. He appears quite disheveled and is very malodorous. He is wearing his own clothing that is under sized. Eye contact is appropriate he's pleasant and cooperative he maintains a constricted affect. He is reporting no acute suicidal ideation intent or plan. He reports a mood that is "half way depressed". He reports no auditory or visual hallucinations or any specific delusions or is no observed evidence of psychosis at this time. He does not appear hypomanic or manic. Insight and judgment improving. He is directable. He is oriented to person place month and year. He is demonstrating no abnormal repetitive movements. Number of Routinely Scheduled Antipsychotic Medication(s) Prescribed: [Baseline antipsychotic as Prolixin we added Seroquel to stabilize his mood. He was also because of his low motivation and Wellbutrin titrated to 200 mg SR in the morning.] Appropriate Justification for discharging the Patient on Two or More Antipsychotic Medications: [Due to his psychosis was refractory to Prolixin Seroquel was added to help his nighttime hallucinations at 300 mg.] Discharge Diagnosis: [Schizoaffective] Risk Factors: [Adherence to a medical treatment plan would be his risk and the fact that he may not take his medications. 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, and social work.] Patient Condition at Discharge: Stable Plan - Discharge Summary Discharge Rx Participant: Yes New Discharge Prescriptions: New amLODIPine [Norvasc] 10 mg PO DAILY tab buPROPion SR [Wellbutrin SR] 200 mg PO DAILY 30 Days #60 tablet.er fluPHENAZine DECANOATE [Prolixin Decanoate] 50 mg IM WE ml Nicotine 21Mg/24Hr Patch [Habitrol] 1 patch TRANSDERM DAILY 30 Days #30 patch QUEtiapine [SEROquel] 600 mg PO HS 30 Days #30 tab Continue [place]-3 Fatty Acids/Fish Oil [Fish Oil 1,000 mg Softgel] 1 cap PO BID Ferrous Sulfate [Iron (65 MG Elemental)] 325 mg PO MOWEFR hydrOXYzine HCL 25 mg PO DAILY busPIRone HCL 15 mg PO TID 30 Days #90 tablet Discontinued Ergocalciferol [Vitamin D2 (DRISDOL)] 50,000 unit PO Q7D fluPHENAZine DECANOATE [Prolixin Decanoate] 50 mg IM [id number] #1 vial QUEtiapine FUMARATE [SEROquel] 400 mg PO HS Discharge Medication List [place]-3 Fatty Acids/Fish Oil [Fish Oil 1,000 mg Softgel] 1 cap PO BID 03/15/16 [ History] Ferrous Sulfate [Iron (65 MG Elemental)] 325 mg PO MOWEFR 09/16/17 [History] hydrOXYzine HCL 25 mg PO DAILY 06/20/18 [History] Nicotine 21Mg/24Hr Patch [Habitrol] 1 patch TRANSDERM DAILY 30 Days #30 patch [Rx] QUEtiapine [SEROquel] 600 mg PO HS 30 Days #30 tab 06/26/18 [Rx] amLODIPine [Norvasc] 10 mg PO DAILY tab 06/26/18 [Rx] buPROPion SR [Wellbutrin SR] 200 mg PO DAILY 30 Days #60 tablet.er 06/26/18 [Rx] busPIRone HCL 15 mg PO TID 30 Days #90 tablet 10/22/18 [Rx] fluPHENAZine DECANOATE [Prolixin Decanoate] 50 mg IM WE ml 06/26/18 [Rx] Follow up Appointment(s)/Referral(s): [facility] [Outside] - 06/26/18 12:00 pm (06-26-18 @ 12:00 with ACT 06-29-28 @ 8:[address] Trujillo ) [facility] [Primary Care Provider] - 1-2 days Discharge Disposition: HOME SELF-CARE
[2018-06-28] MEDS ORDERED: fluPHENAZine DECANOATE 25 MG/ML 5ML MDV IM ONE (12:00)
== END 2018-06-26 12:32 | disposition home or self-care (01) | DRG 885 ==
LOC: EC 17:27 → 3MHU 20:04
PROVIDERS: ADMIT Psychiatry & Neurology Psychiatry; ATTEND Psychiatry & Neurology Psychiatry
DX: F25.9 Schizoaffective disorder, unspecified (principal); R45.851 Suicidal ideations; F32.9 Major depressive disorder, single episode, unspecified; D64.9 Anemia, unspecified; E55.9 Vitamin D deficiency, unspecified; E78.2 Mixed hyperlipidemia; F41.9 Anxiety disorder, unspecified; F90.9 Attention-deficit hyperactivity disorder, unspecified type; I10 Essential (primary) hypertension; Z72.0 Tobacco use; M54.9 Dorsalgia, unspecified; G89.29 Other chronic pain; F40.240 Claustrophobia; Z91.5 Personal history of self-harm; Z79.899 Other long term (current) drug therapy
CPT/HCPCS: 80048; 80053; 80061; 80306; 81003; 82075; 82550; 82553; 83036; 83735; 84439; 84443; 84484; 85025; 93005; 99285

== ENCOUNTER 2018-07-08 16:44 | Emergency (ER) | payer MEDICARE, OTHER ==
[2018-07-08 16:49] VITALS: TEMP 98.7
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
[2018-07-08 17:54] LABS: Basophils % (A) 0 %; Eosinophils # (A) 0.3 k/uL (0-0.7); Eosinophils % (A) 3 %; HCT 42.7 % (39.0-53.0); HGB 13.8 gm/dL (13.0-17.5); Lymphocytes # (A) 2.3 k/uL (1.0-4.8); Lymphocytes % (A) 26 %; MCH 30.6 pg (25.0-35.0); MCHC 32.3 g/dL (31.0-37.0); Mean Platelet Volume 6.4; Monocytes # (A) 0.4 k/uL (0-1.0); Monocytes % (A) 5 %; Neutrophils # (A) 5.7 k/uL (1.3-7.7); Neutrophils % (A) 65 %; Platelet Count 418 k/uL (150-450); RBC 4.51 m/uL (4.30-5.90); RDW 12.9 % (11.5-15.5); WBC 8.8 k/uL (3.8-10.6)
[2018-07-08 18:02] LABS: Albumin 3.8 g/dL (3.5-5.0); Calcium 9.6 mg/dL (8.4-10.2); Potassium 3.8 mmol/L (3.5-5.1); Total Bilirubin 0.5 mg/dL (0.2-1.3); Total Protein 6.9 g/dL (6.3-8.2)
[2018-07-08 18:05] LABS: MCV 94.7 fL (80.0-100.0)
[2018-07-08 18:34] VITALS: BP 160/82; PULSE 88; RESP 16
== END 2018-07-08 18:32 | disposition home or self-care (01) ==
LOC: EC 16:44
DX: F32.9 Major depressive disorder, single episode, unspecified (principal); I10 Essential (primary) hypertension; F17.200 Nicotine dependence, unspecified, uncomplicated; Z79.899 Other long term (current) drug therapy
CPT/HCPCS: 36415; 80053; 82075; 85025; 99284

== ENCOUNTER 2018-07-28 12:49 | Inpatient (IN) | payer MEDICARE, MEDICAID ==
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
[2018-07-28] MEDS ORDERED: ACETAMINOPHEN TAB 325 MG TAB PO PRN (15:58)
[2018-07-28] MEDS ORDERED: MAG HYDROX/AL HYDROX/SIMETH 30 ML CUP PO PRN (15:58)
[2018-07-28 16:20] LABS: Appearance,Urine Clear (Clear); Bilirubin,Urine Negative (Negative); Blood,Urine Negative (Negative); Color,Urine Light Yellow; Glucose,Urine (UA) Negative (Negative); Ketones,Urine Negative (Negative); Leukocyte Esterase,Urine Negative (Negative); Nitrite,Urine Negative (Negative); Protein,Urine Negative (Negative); Specific Gravity,Urine 1.009 (1.001-1.035); Urobilinogen,Urine <2.0 mg/dL (<2.0)
[2018-07-28 16:30] LABS: Amphetamine Screen,Urine Not Detected (NotDetected); Barbiturate Screen,Urine Not Detected (NotDetected); Benzodiazepines Screen,Urine Not Detected (NotDetected); Cocaine Screen,Urine Not Detected (NotDetected); Methadone Screen, Urine Not Detected (NotDetected); Opiate Screen,Urine Not Detected (NotDetected); Oxycodone Screen, Urine Not Detected (NotDetected); Phencyclidine Screen,Urine Not Detected (NotDetected); Tricyclic Antidepressant,Urine Detected (NotDetected); Urn Cannabinoid Scrn Not Detected (NotDetected)
[2018-07-28] MEDS ORDERED: LORazepam 1 MG TAB PO PRN (16:32)
[2018-07-28 16:38] VITALS: BMI 36.3
--- NOTE | 2018-07-28 17:53 | P.HP ---
Psychiatric H&P - . H&P Date: 07/28/18 History & Physical: Allergies Allergy/AdvReac Type Severity Reaction Status Date / Time Iodinated Contrast- Oral and Allergy Unknown Verified 07/28/18 14:02 IV Dye Vital Signs Temp 97.5 F L 07/28/18 16:30 Pulse 95 07/28/18 16:30 Resp 16 07/28/18 16:30 BP 143/94 07/28/18 16:30 Pulse Ox 98 07/28/18 16:30 Intake & Output 07/27/18 07/28/18 07/28/18 18:59 06:59 18:59 Weight 125.1 kg Laboratory Last Values Urine Color Light Yellow 07/28/18 14:53 Urine Appearance Clear (Clear) 07/28/18 14:53 Urine pH 6.0 (5.0-8.0) 07/28/18 14:53 Ur Specific [place] 1.009 (1.001-1.035) 07/28/18 14:53 Urine Protein Negative (Negative) 07/28/18 14:53 Urine Glucose (UA) Negative (Negative) 07/28/18 14:53 Urine Ketones Negative (Negative) 07/28/18 14:53 Urine Blood Negative (Negative) 07/28/18 14:53 Urine Nitrite Negative (Negative) 07/28/18 14:53 Urine Bilirubin Negative (Negative) 07/28/18 14:53 Urine Urobilinogen <2.0 mg/dL (<2.0) 07/28/18 14:53 Ur Leukocyte Esterase Negative (Negative) 07/28/18 14:53 Urine Opiates Screen Not Detected (NotDetected) 07/28/18 14:53 Ur Oxycodone Screen Not Detected (NotDetected) 07/28/18 14:53 Urine Methadone Screen Not Detected (NotDetected) 07/28/18 14:53 Ur Propoxyphene Screen Not Detected (NotDetected) 07/28/18 14:53 Ur Barbiturates Screen Not Detected (NotDetected) 07/28/18 14:53 U Tricyclic Antidepress Detected (NotDetected) H 07/28/18 14:53 Ur Phencyclidine Scrn Not Detected (NotDetected) 07/28/18 14:53 Ur Amphetamines Screen Not Detected (NotDetected) 07/28/18 14:53 U Methamphetamines Scrn Not Detected (NotDetected) 07/28/18 14:53 U Benzodiazepines Scrn Not Detected (NotDetected) 07/28/18 14:53 Urine Cocaine Screen Not Detected (NotDetected) 07/28/18 14:53 U Marijuana (THC) Screen Not Detected (NotDetected) 07/28/18 14:53 07/28/18 17:48 Chief Complaint: Suicidal attempt by cutting his wrist HPI : Mr. Ahuja is 52 yo single male with h/o Schizoaffective Disorder and Learning disorder admitted here secondary to suicidal attempt by cutting his wrist. Found him very depressed. He reports feeling very depressed for last few weeks and it was getting worse. He endorses severe anhedonia, irritability, sleep difficulties and worsening psychoses. He admits that he has been complaint on his medications. Past Psych History : Schizoaffective Disorder MSE : Patient is alert,a wake and oriented. Has fair grooming. Poor eye contact. Has thought blocking and minimally interactive. Speecj soft tomne, Mood dysphoroc with congruent affect. Has suicidal ideation. Has auditory and visual hallucination. Low intelligence. Insight and judgement poor A/P : Schizoaffective Disorder, Depressed type Will resume and dajust medications accordingly.
[2018-07-28] MEDS: QUEtiapine 200 MG TAB PO SCH (20:29)
[2018-07-28] MEDS: busPIRone HCl 5 MG TAB PO SCH (20:30)
[2018-07-28] MEDS ORDERED: NON-FORMULARY DRUG (Omega-3 Fatty Acids/Fish Oil [Fish Oil 1,000 Mg Softgel] 1 CAP) PO SCH (21:00)
[2018-07-29] MEDS: LISINOPRIL 10 MG TAB PO SCH (08:59)
[2018-07-29] MEDS: busPIRone HCl 5 MG TAB PO SCH ×3 (09:00→20:39)
[2018-07-29] MEDS: buPROPion XL 150 MG TAB.ER.24H PO SCH (09:00)
[2018-07-29] MEDS: NICOTINE 21MG/24HR PATCH TRANSDERM SCH (09:01)
--- NOTE | 2018-07-29 11:23 | P.PN ---
Subjective Progress Note Date: 07/29/18 Principal diagnosis: Major Depression Found him still very depressed and down. isolating and withdrawing. Has no energy or motivation. Still reports being suicidal. MSE : Patient is alert,a wake and oriented. Has fair grooming. Poor eye contact. Has thought blocking and minimally interactive. Speecj soft tomne, Mood dysphoroc with congruent affect. Has suicidal ideation. Has auditory and visual hallucination. Low intelligence. Insight and judgement poor A/P : Schizoaffective Disorder, Depressed type Will resume and adjust medications accordingly. Objective - Vital Signs Vital signs: Vital Signs Temp 98 F 07/29/18 06:22 Pulse 88 07/29/18 06:22 Resp 16 07/29/18 06:22 BP 80/58 07/29/18 06:22 Pulse Ox 98 07/28/18 16:30 Intake & Output 07/28/18 07/29/18 07/29/18 18:59 06:59 18:59 Weight 125.1 kg - Labs Labs: Abnormal Lab Results - Last 24 Hours (Table) 07/28/18 Range/Units 14:53 U Tricyclic Antidepress Detected H (NotDetected)
[2018-07-29 13:04] LABS: Basophils % (A) 0 %; Eosinophils # (A) 0.2 k/uL (0-0.7); Eosinophils % (A) 3 %; HCT 44.9 % (39.0-53.0); HGB 14.7 gm/dL (13.0-17.5); Lymphocytes % (A) 25 %; MCH 31.2 pg (25.0-35.0); MCHC 32.7 g/dL (31.0-37.0); MCV 95.5 fL (80.0-100.0); Mean Platelet Volume 6.6; Monocytes # (A) 0.3 k/uL (0-1.0); Monocytes % (A) 4 %; Neutrophils # (A) 5.2 k/uL (1.3-7.7); Neutrophils % (A) 66 %; Platelet Count 404 k/uL (150-450); WBC 7.8 k/uL (3.8-10.6)
[2018-07-29] MEDS: CYANOCOBALAMIN 500 MCG TAB PO SCH (13:05)
[2018-07-29 13:13] LABS: Albumin 4.2 g/dL (3.5-5.0); Calcium 9.9 mg/dL (8.4-10.2); Potassium 5.1 mmol/L (3.5-5.1); Total Bilirubin 0.5 mg/dL (0.2-1.3); Total Protein 7.2 g/dL (6.3-8.2)
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
[2018-07-29 18:06] LABS: Hemoglobin A1C 5.4 % (4.0-6.0)
[2018-07-29] MEDS: QUEtiapine 200 MG TAB PO SCH (20:39)
[2018-07-30 07:04] VITALS: RESP 18
[2018-07-30] MEDS: busPIRone HCl 5 MG TAB PO SCH ×3 (08:57→20:51)
[2018-07-30] MEDS: buPROPion XL 150 MG TAB.ER.24H PO SCH (08:57)
[2018-07-30] MEDS: LISINOPRIL 10 MG TAB PO SCH ×2 (08:57→09:03)
[2018-07-30] MEDS: NICOTINE 21MG/24HR PATCH TRANSDERM SCH (08:57)
[2018-07-30] MEDS: CYANOCOBALAMIN 500 MCG TAB PO SCH (13:01)
--- NOTE | 2018-07-30 18:25 | P.PN ---
Subjective Progress Note Date: 07/30/18 Principal diagnosis: Major Depression Found him still very depressed and down. isolating and withdrawing. Has no energy or motivation. Still reports being suicidal. MSE : Patient is alert,a wake and oriented. Has fair grooming. Poor eye contact. Has thought blocking and minimally interactive. Speecj soft tomne, Mood dysphoroc with congruent affect. Has suicidal ideation. Has auditory and visual hallucination. Low intelligence. Insight and judgement poor A/P : Schizoaffective Disorder, Depressed type Will adjust medications accordingly. Objective - Vital Signs Vital signs: Vital Signs Temp 97.6 F 07/30/18 06:39 Pulse 94 07/30/18 09:03 Resp 18 07/30/18 09:03 BP 98/57 07/30/18 09:03 Pulse Ox 98 07/28/18 16:30 - Labs CBC & Chem 7: 07/29/18 12:20 07/29/18 12:20
[2018-07-30] MEDS: QUEtiapine 200 MG TAB PO SCH (20:51)
[2018-07-31 07:04] VITALS: TEMP 97.7
[2018-07-31] MEDS: NICOTINE 21MG/24HR PATCH TRANSDERM SCH (08:02)
[2018-07-31] MEDS: busPIRone HCl 5 MG TAB PO SCH ×2 (08:02→15:10)
[2018-07-31] MEDS: LISINOPRIL 10 MG TAB PO SCH (08:02)
[2018-07-31] MEDS: buPROPion XL 150 MG TAB.ER.24H PO SCH (08:02)
[2018-07-31 08:06] VITALS: BP 105/62; PULSE 127
[2018-07-31] MEDS ORDERED: FERROUS SULFATE 325 MG TAB PO SCH (09:00)
[2018-07-31] MEDS: CYANOCOBALAMIN 500 MCG TAB PO SCH (11:57)
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
[2018-08-02] MEDS ORDERED: fluPHENAZine DECANOATE 25 MG/ML 5ML MDV IM SCH (09:00)
[2018-08-04] MEDS ORDERED: ERGOCALCIFEROL 50,000 UNIT CAP PO SCH (09:00)
== END 2018-07-31 17:25 | disposition home or self-care (01) | DRG 885 ==
LOC: EC 12:49 → 3MHU 15:33 → EEVIPCON 15:33
PROVIDERS: ADMIT Psychiatry & Neurology Psychiatry; ATTEND Psychiatry & Neurology Psychiatry
DX: F25.1 Schizoaffective disorder, depressive type (principal); R45.851 Suicidal ideations; E66.9 Obesity, unspecified; F17.200 Nicotine dependence, unspecified, uncomplicated; F41.9 Anxiety disorder, unspecified; F81.9 Developmental disorder of scholastic skills, unspecified; F90.9 Attention-deficit hyperactivity disorder, unspecified type; I12.9 Hypertensive chronic kidney disease with stage 1 through stage 4 chronic kidney disease, or unspecified chronic kidney disease; N18.3 Chronic kidney disease, stage 3 (moderate); Z79.899 Other long term (current) drug therapy; Z91.5 Personal history of self-harm; Z91.041 Radiographic dye allergy status
CPT/HCPCS: 80053; 80061; 80306; 81003; 82075; 83036; 84443; 85025; 99285

== ENCOUNTER 2018-08-12 15:33 | Inpatient (IN) | payer MEDICARE, OTHER ==
[2018-08-12] MEDS ORDERED: SODIUM CHLORIDE 0.9% 1,000 ML IV STA (16:32)
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
--- NOTE | 2018-08-12 16:51 | XR ---
Abdomen HISTORY: Pain Frontal view the abdomen on 2 images There is motion on the exam. No evident pneumoperitoneum or bowel obstruction. Surgical clips present right upper quadrant. IMPRESSION: No acute abnormalities evident.
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
[2018-08-12 17:13] LABS: Basophils % (A) 0 %; Eosinophils # (A) 0.2 k/uL (0-0.7); Eosinophils % (A) 1 %; HCT 45.3 % (39.0-53.0); HGB 14.7 gm/dL (13.0-17.5); Lymphocytes % (A) 13 %; MCH 30.6 pg (25.0-35.0); MCHC 32.4 g/dL (31.0-37.0); MCV 94.4 fL (80.0-100.0); Mean Platelet Volume 6.7; Monocytes # (A) 0.8 k/uL (0-1.0); Monocytes % (A) 5 %; Neutrophils # (A) 11.9 k/uL (1.3-7.7); Neutrophils % (A) 79 %; Platelet Count 408 k/uL (150-450); RDW 13.1 % (11.5-15.5)
[2018-08-12 17:26] LABS: Creatine Kinase 221 U/L (55-170)
[2018-08-12] MEDS ORDERED: diphenhydrAMINE 50 MG/ML 1 ML VIAL IVP STA (17:27)
[2018-08-12] MEDS ORDERED: FAMOTIDINE 20 MG/2 ML VIAL IV STA (17:27)
[2018-08-12] MEDS ORDERED: methylPREDNISolone SOD SUCCI 125 MG/2 ML VIAL IV STA (17:27)
[2018-08-12 17:28] LABS: ALT 40 U/L (21-72); AST 28 U/L (17-59); Albumin 4.1 g/dL (3.5-5.0); Alcohol <10 mg/dL; Alkaline Phosphatase 90 U/L (38-126); Amylase 40 U/L (30-110); Anion Gap 8 mmol/L; Blood Urea Nitrogen 10 mg/dL (9-20); Calcium 10.1 mg/dL (8.4-10.2); Carbon Dioxide 21 mmol/L (22-30); Chloride 109 mmol/L (98-107); Glucose 99 mg/dL (74-99); Lipase 79 U/L (23-300); Potassium 4.4 mmol/L (3.5-5.1); Sodium 138 mmol/L (137-145); Total Bilirubin 0.5 mg/dL (0.2-1.3); Total Protein 7.2 g/dL (6.3-8.2)
[2018-08-12 17:31] LABS: INR 0.9 (<1.2); Partial Thromboplastin Time 23.1 sec (22.0-30.0); Prothrombin Time 9.7 sec (9.0-12.0)
[2018-08-12 17:38] LABS: Creatine Kinase MB 1.7 ng/mL (0.0-2.4); Troponin I <0.012 ng/mL (0.000-0.034)
[2018-08-12] MEDS ORDERED: SODIUM CHLORIDE 0.9% 1,000 ML IV ONE ×2 (18:25→19:29)
[2018-08-12] MEDS ORDERED: MORPHINE SULFATE 2 MG/ML SYRINGE IV PRN (18:41)
[2018-08-12] MEDS ORDERED: HYDROmorphone 1 MG/ML 1 ML SYRINGE IVP PRN (18:41)
[2018-08-12] MEDS ORDERED: LORazepam 2 MG/ML INJ IV STA (18:43)
[2018-08-12] MEDS ORDERED: MIDAZOLAM 2 MG/2 ML VIAL ONE (19:29)
[2018-08-12] MEDS ORDERED: LIDOCAINE 1% INJ 10MG/ML (20 ML MDV) ONE (19:29)
[2018-08-12] MEDS ORDERED: ROCURONIUM BROMIDE 10 MG/ML 10 ML VIAL IV ONE (19:29)
[2018-08-12] MEDS ORDERED: PROPOFOL 10 MG/ML 20 ML VIAL IV ONE (19:29)
[2018-08-12] MEDS ORDERED: fentaNYL (PF) 50 MCG/ML 2 ML AMP ONE (19:29)
[2018-08-12] MEDS ORDERED: HEPARIN SODIUM,PORCINE 5,000 UNIT/ML 1 ML VIAL ONE (19:29)
[2018-08-12] MEDS ORDERED: GLYCOPYRROLATE 0.2 MG/ML 2 ML VIAL ONE (19:29)
[2018-08-12] MEDS ORDERED: PHENYLEPHRINE-0.9% NACL SYG 1 MG/10 ML SYRINGE ONE (19:29)
[2018-08-12] MEDS ORDERED: NEOSTIGMINE 1 MG/ML 10 ML VIAL ONE (19:29)
[2018-08-12] MEDS ORDERED: SUCCINYLCHOLINE CHLORIDE 100 MG/5 ML SYR IV ONE (19:29)
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
[2018-08-12] MEDS ORDERED: ceFAZolin 1,000 MG VIAL IVPB ONE (19:41)
[2018-08-12] MEDS ORDERED: NALOXONE 0.4 MG/ML 1 ML VIAL IV PRN (20:17)
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
[2018-08-12] MEDS: HYDROmorphone 1 MG/ML 1 ML SYRINGE IVP PRN (21:35)
[2018-08-12 21:46] VITALS: BMI 38.5
[2018-08-12] MEDS: LACTATED RINGERS 1,000 ML IV SCH (21:58)
[2018-08-12] MEDS: KETOROLAC 30 MG/ML 1 ML VIAL IVP SCH (22:37)
[2018-08-13] MEDS: HYDROmorphone 1 MG/ML 1 ML SYRINGE IVP PRN ×4 (00:38→19:48)
[2018-08-13] MEDS: HEPARIN SODIUM,PORCINE 5,000 UNIT/ML 1 ML VIAL SQ SCH ×4 (00:41→23:36)
[2018-08-13] MEDS: AMPICILLIN-SULBACTAM 3 GM in SODIUM CHLORIDE 0.9% 100 ML IVPB SCH ×4 (00:47→23:36)
[2018-08-13] MEDS: KETOROLAC 30 MG/ML 1 ML VIAL IVP SCH ×4 (03:04→20:33)
[2018-08-13 03:15] LABS: Appearance,Urine Clear (Clear); Bilirubin,Urine Negative (Negative); Blood,Urine Negative (Negative); Color,Urine Yellow; Glucose,Urine (UA) Negative (Negative); Ketones,Urine Trace (Negative); Leukocyte Esterase,Urine Negative (Negative); Nitrite,Urine Negative (Negative); PH, Urine 5.5 (5.0-8.0); Protein,Urine Trace (Negative); Specific Gravity,Urine 1.009 (1.001-1.035); Urobilinogen,Urine <2.0 mg/dL (<2.0)
[2018-08-13 03:24] LABS: Amphetamine Screen,Urine Not Detected (NotDetected); Barbiturate Screen,Urine Not Detected (NotDetected); Benzodiazepines Screen,Urine Detected (NotDetected); Cocaine Screen,Urine Not Detected (NotDetected); Methadone Screen, Urine Not Detected (NotDetected); Opiate Screen,Urine Not Detected (NotDetected); Oxycodone Screen, Urine Not Detected (NotDetected); Phencyclidine Screen,Urine Not Detected (NotDetected); Tricyclic Antidepressant,Urine Detected (NotDetected); Urn Cannabinoid Scrn Not Detected (NotDetected)
[2018-08-13] MEDS: LACTATED RINGERS 1,000 ML IV SCH ×3 (05:21→20:33)
[2018-08-13 07:21] LABS: Basophils % (A) 0 %; Eosinophils # (A) 0.1 k/uL (0-0.7); Eosinophils % (A) 1 %; HCT 42.7 % (39.0-53.0); HGB 13.5 gm/dL (13.0-17.5); Lymphocytes # (A) 1.7 k/uL (1.0-4.8); Lymphocytes % (A) 13 %; MCH 30.1 pg (25.0-35.0); MCHC 31.7 g/dL (31.0-37.0); Mean Platelet Volume 6.8; Monocytes # (A) 0.9 k/uL (0-1.0); Monocytes % (A) 7 %; Neutrophils # (A) 10.4 k/uL (1.3-7.7); Neutrophils % (A) 79 %; Platelet Count 378 k/uL (150-450); RBC 4.49 m/uL (4.30-5.90); RDW 13.1 % (11.5-15.5); WBC 13.2 k/uL (3.8-10.6)
[2018-08-13] MEDS: PANTOPRAZOLE 40 MG/10 ML VIAL IV SCH (07:38)
[2018-08-13 07:46] LABS: Albumin 3.2 g/dL (3.5-5.0); Calcium 9.1 mg/dL (8.4-10.2); Potassium 4.6 mmol/L (3.5-5.1); Total Bilirubin 0.6 mg/dL (0.2-1.3)
[2018-08-13] MEDS: HYDROcodone/APAP 5-325MG 1 EACH TAB PO PRN ×2 (09:16→14:32)
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
[2018-08-13] MEDS: busPIRone HCl 5 MG TAB PO SCH ×3 (13:17→23:36)
[2018-08-13] MEDS: LISINOPRIL 10 MG TAB PO SCH ×2 (13:17→14:01)
[2018-08-13] MEDS: buPROPion XL 150 MG TAB.ER.24H PO SCH ×2 (13:18→14:00)
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
[2018-08-13 19:06] VITALS: RESP 20
[2018-08-13] MEDS ORDERED: QUEtiapine 200 MG TAB PO SCH (21:00)
[2018-08-14] MEDS ORDERED: SODIUM CHLORIDE 0.9% 1,000 ML IV ONE (01:11)
[2018-08-14 01:48] LABS: Basophils % (A) 0 %; Eosinophils # (A) 0.2 k/uL (0-0.7); Eosinophils % (A) 2 %; HCT 37.1 % (39.0-53.0); HGB 12.5 gm/dL (13.0-17.5); Lymphocytes # (A) 2.6 k/uL (1.0-4.8); Lymphocytes % (A) 28 %; MCHC 33.6 g/dL (31.0-37.0); MCV 95.4 fL (80.0-100.0); Mean Platelet Volume 6.6; Monocytes # (A) 0.7 k/uL (0-1.0); Monocytes % (A) 8 %; Neutrophils # (A) 5.6 k/uL (1.3-7.7); Neutrophils % (A) 60 %; Platelet Count 302 k/uL (150-450); RBC 3.89 m/uL (4.30-5.90); RDW 13.2 % (11.5-15.5); WBC 9.3 k/uL (3.8-10.6)
[2018-08-14] MEDS: KETOROLAC 30 MG/ML 1 ML VIAL IVP SCH (03:16)
[2018-08-14] MEDS: LACTATED RINGERS 1,000 ML IV SCH ×2 (04:43→14:36)
[2018-08-14] MEDS: AMPICILLIN-SULBACTAM 3 GM in SODIUM CHLORIDE 0.9% 100 ML IVPB SCH ×2 (08:23→15:20)
[2018-08-14] MEDS: LISINOPRIL 10 MG TAB PO SCH (08:25)
[2018-08-14] MEDS: buPROPion XL 150 MG TAB.ER.24H PO SCH (08:29)
[2018-08-14] MEDS: HEPARIN SODIUM,PORCINE 5,000 UNIT/ML 1 ML VIAL SQ SCH ×2 (08:29→15:20)
[2018-08-14] MEDS: PANTOPRAZOLE 40 MG/10 ML VIAL IV SCH (08:29)
[2018-08-14] MEDS: busPIRone HCl 5 MG TAB PO SCH ×2 (08:29→15:20)
[2018-08-14 10:03] LABS: Basophils % (A) 0 %; Eosinophils # (A) 0.1 k/uL (0-0.7); Eosinophils % (A) 2 %; HCT 36.7 % (39.0-53.0); Lymphocytes # (A) 1.6 k/uL (1.0-4.8); Lymphocytes % (A) 18 %; MCH 31.2 pg (25.0-35.0); MCHC 32.6 g/dL (31.0-37.0); MCV 95.8 fL (80.0-100.0); Mean Platelet Volume 7.2; Monocytes # (A) 0.7 k/uL (0-1.0); Monocytes % (A) 8 %; Neutrophils % (A) 71 %; Platelet Count 318 k/uL (150-450); RBC 3.83 m/uL (4.30-5.90); RDW 13.3 % (11.5-15.5); WBC 8.5 k/uL (3.8-10.6)
[2018-08-14] MEDS: HYDROcodone/APAP 5-325MG 1 EACH TAB PO PRN ×2 (10:18→15:19)
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
[2018-08-14 10:47] LABS: Calcium 8.5 mg/dL (8.4-10.2); Potassium 4.1 mmol/L (3.5-5.1)
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
[2018-08-14 15:20] VITALS: BP 127/91; PULSE 94; TEMP 97.9
[2018-08-14] MEDS ORDERED: TAMSULOSIN 0.4 MG CAP.ER.24H PO SCH (19:15)
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
[2018-08-16] MEDS ORDERED: fluPHENAZine DECANOATE 25 MG/ML 5ML MDV IM SCH (09:00)
== END 2018-08-14 19:25 | DRG 580 ==
LOC: EC 15:33 → 4SSUR 18:25 → OBSVTOIN 08-13 12:02
PROVIDERS: ADMIT Surgery; ATTEND Surgery
PROC: 0DBU0ZZ Excision of Omentum, Open Approach (ICD-10-PCS; 2018-08-12)
PROC: 0WJG0ZZ Inspection of Peritoneal Cavity, Open Approach (ICD-10-PCS; principal; 2018-08-12 18:07)
DX: S31.119A Laceration without foreign body of abdominal wall, unspecified quadrant without penetration into peritoneal cavity, initial encounter (principal); N17.9 Acute kidney failure, unspecified; Z53.31 Laparoscopic surgical procedure converted to open procedure; D72.829 Elevated white blood cell count, unspecified; E66.01 Morbid (severe) obesity due to excess calories; Z68.38 Body mass index [BMI] 38.0-38.9, adult; E78.5 Hyperlipidemia, unspecified; F17.210 Nicotine dependence, cigarettes, uncomplicated; F25.1 Schizoaffective disorder, depressive type; F41.9 Anxiety disorder, unspecified; F79 Unspecified intellectual disabilities; F90.9 Attention-deficit hyperactivity disorder, unspecified type; I10 Essential (primary) hypertension; M19.90 Unspecified osteoarthritis, unspecified site; X78.1XXA Intentional self-harm by knife, initial encounter; Z79.899 Other long term (current) drug therapy; Z91.5 Personal history of self-harm; Z91.041 Radiographic dye allergy status
CPT/HCPCS: 36415; 71045; 74018; 80048; 80053; 80306; 80320; 81003; 82150; 82550; 82553; 83605; 83690; 84484; 85025; 85610; 85730; 86850; 86900; 86901; 88305; 93005; 96360; 96361; 99285

== ENCOUNTER 2018-08-14 18:40 | Inpatient (IN) | payer MEDICARE, MEDICAID ==
[2018-08-14] MEDS ORDERED: MAGNESIUM HYDROXIDE 2,400 MG/10 ML CUP PO PRN (20:10)
[2018-08-14] MEDS ORDERED: MAG HYDROX/AL HYDROX/SIMETH 30 ML CUP PO PRN (20:10)
[2018-08-14] MEDS: busPIRone HCl 5 MG TAB PO SCH (21:59)
[2018-08-14] MEDS: FISH OIL 1000MG PO SCH (21:59)
[2018-08-14] MEDS: MELOXICAM 7.5 MG TAB PO SCH (21:59)
[2018-08-14] MEDS: ERGOCALCIFEROL 50,000 UNIT CAP PO SCH (21:59)
[2018-08-14] MEDS: SULFAMETHOX-TMP 800-160MG 1 EACH TAB PO SCH (22:00)
[2018-08-15] MEDS: SULFAMETHOX-TMP 800-160MG 1 EACH TAB PO SCH ×2 (08:51→22:06)
[2018-08-15] MEDS: CYANOCOBALAMIN 500 MCG TAB PO SCH (08:51)
[2018-08-15] MEDS: busPIRone HCl 5 MG TAB PO SCH (08:51)
[2018-08-15] MEDS: MELOXICAM 7.5 MG TAB PO SCH ×2 (08:52→22:24)
[2018-08-15] MEDS: LISINOPRIL 10 MG TAB PO SCH (08:52)
[2018-08-15] MEDS ORDERED: buPROPion XL 150 MG TAB.ER.24H PO SCH (09:00)
[2018-08-15] MEDS: FISH OIL 1000MG PO SCH ×2 (09:05→22:05)
[2018-08-15 10:45] LABS: Albumin 3.4 g/dL (3.5-5.0); Calcium 9.3 mg/dL (8.4-10.2); Potassium 4.3 mmol/L (3.5-5.1); Total Bilirubin 0.6 mg/dL (0.2-1.3); Total Protein 6.4 g/dL (6.3-8.2)
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
[2018-08-15] MEDS: ACETAMINOPHEN TAB 325 MG TAB PO PRN ×2 (14:03→18:50)
[2018-08-15 17:22] LABS: Hemoglobin A1C 5.6 % (4.0-6.0)
[2018-08-15] MEDS: LORazepam 1 MG TAB PO PRN (18:50)
[2018-08-15] MEDS ORDERED: lamoTRIgine 25 MG TAB PO SCH (21:00)
[2018-08-15] MEDS ORDERED: PALIPERIDONE 3 MG TAB.ER.24 PO SCH (21:00)
[2018-08-16] MEDS: LISINOPRIL 10 MG TAB PO SCH (09:21)
[2018-08-16] MEDS: MELOXICAM 7.5 MG TAB PO SCH ×2 (09:21→20:38)
[2018-08-16] MEDS: buPROPion XL 300 MG TAB.ER.24H PO SCH (09:21)
[2018-08-16] MEDS: SULFAMETHOX-TMP 800-160MG 1 EACH TAB PO SCH ×2 (09:22→20:36)
[2018-08-16] MEDS: CYANOCOBALAMIN 500 MCG TAB PO SCH (09:22)
[2018-08-16] MEDS: FISH OIL 1000MG PO SCH ×2 (09:23→20:48)
[2018-08-16 10:05] LABS: Calcium 9.3 mg/dL (8.4-10.2)
[2018-08-16 10:43] LABS: Potassium 4.4 mmol/L (3.5-5.1)
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
--- NOTE | 2018-08-16 11:15 | P.PN ---
Subjective Progress Note Date: 08/16/18 Principal diagnosis: schizoaffective bipolar type acute psychosis with suicide attempt by stabbing abdomen this is the second time] "I want to go home" but is unable to discuss why or how he stabbed himself in abdomen. Discuss case in team this morning chart reviewed and discussed with nursing staff as well as social work. He has no insight into why he cuts himself other than in some impulse today he has no suicidal homicidal ideation and still remains depressed sad irritable and agitated. Objective - Vital Signs Vital signs: Vital Signs Temp 97.6 F 08/16/18 06:31 Pulse 118 H 08/16/18 10:21 Resp 22 08/16/18 10:21 BP 129/79 08/16/18 10:21 Pulse Ox 95 08/14/18 19:45 - Labs CBC & Chem 7: 08/16/18 09:28 Assessment and Plan Assessment: HPI: This is a 52-year-old the transferred from trauma service after he tried to stab himself, was taken to our appears to have some injury to the abdominal fascia. Patient was started on IV antibiotics. Patient is depressed and tried. Commit suicide. Patient denied any fever chills cough runny nose dysuria. Patient's urine is positive for benzodiazepines does have mild leukocytosis creatinine on admission was 1.5 by came down to 1.45 and the his baseline creatinine is around 1.2 Past Medical History Past Medical History: Hypertension Additional Past Medical History / Comment(s): Obesity, history of attempted suicide/33 stab wounds to abdomen History of Any Multi-Drug Resistant Organisms: None Reported Past Surgical History: Cholecystectomy Additional Past Surgical History / Comment(s): 3--16 exp lap,debridment of abd wall and lt wrist Past Anesthesia/Blood Transfusion Reactions: Motion Sickness Additional Past Anesthesia/Blood Transfusion Reaction / Comm: clausterphobia Past Psychological History: ADD/ADHD, Anxiety, Bipolar, Depression Smoking Status: Current every day smoker Past Alcohol Use History: None Reported Additional Past Alcohol Use History / Comment(s): Patient smokes 10-20 cigarettes per day since he was 10 years old. He denies any medical marijuana, marijuana, street drug use, alcohol use. Past Drug Use History: None Reported - Past Family History Mother Family Medical History: No Reported History Additional Family Medical History / Comment(s): Mother is alive at age 68 with no major medical problems. Father History Unknown: Yes Additional Family Medical History / Comment(s): Father is alive at age 69 with history of cerebral palsy. Sister(s) Additional Family Medical History / Comment(s): Patient has 3 sisters with no major medical problems. Patient does not have any brothers. Patient has one 28 -year-old son with no major medical problems. Medications and Allergies Home Medications Medication Instructions Recorded Confirmed Type busPIRone HCL 15 mg PO TID 30 Days #90 tablet 06/26/18 08/12/18 Rx Cyanocobalamin (Vitamin B-12) 1,000 mg PO DAILY 07/08/18 08/12/18 History [Vitamin B-12] Ergocalciferol [Vitamin D2 50,000 unit PO Q7D 07/08/18 08/12/18 History (DRISDOL)] buPROPion XL [Wellbutrin XL] 150 mg PO DAILY 07/08/18 08/12/18 History Lisinopril [Zestril] 10 mg PO DAILY 30 Days #30 tab 07/31/18 08/12/18 Rx QUEtiapine FUMARATE [SEROquel] 600 mg PO HS 30 Days #60 tablet 07/31/18 Rx fluPHENAZine DECANOATE [Prolixin 50 mg IM WE 7 Days #1 ml 07/31/18 08/12/18 Rx Decanoate] [place]-3 Fatty Acids/Fish Oil [Fish 1 cap PO BID 08/12/18 08/12/18 History Oil 1,000 mg Softgel] Ampicillin-Sulbactam [Unasyn] 3 gm IVPB Q8HR vial 08/13/18 Rx Allergies Allergy/AdvReac Type Severity Reaction Status Date / Time Iodinated Contrast- Oral and Allergy Unknown Verified 08/12/18 16:11 IV Dye Past psychiatric history: There is a report of a history of ADHD, being a slow reader, and he complained of memory problems. He reports that he has been with [facility] for the past 13-14 years. He reports that his mental illness started when he was about 29 years old when he started feeling depressed. He reports hearing voices when he is depressed. He reports that he has been diagnosed with bipolar and that he's had manic episodes in the past. He reports that he gets angry and agitated at times. He reports admission on this unit 2-3 times in the past. He reports that he has stabbed himself 37 different times. He reports a total of about 4 hospitalizations over the years. He denies any history of abuse or history of violence towards others. He was admitted on this unit on 11/09/2015 and was discharged on 11/13/2015. He was diagnosed with schizoaffective disorder, bipolar type and alcohol abuse in remission. According to the history when admitted on 11/09/2015: He was admitted to the mental health unit through a transfer from the medical floor. He apparently stabbed himself multiple times in the abdomen with a paring knife then attempted to cut his wrists in a suicide attempt. He apparently was upset over the prospect of being evicted. His mother and sister were in the home at the time of his impulsive act. That admission was apparently a readmission within 30 days. He has a long history of schizoaffective illness with multiple hospitalizations. He has had multiple medication trials. At the time of his admission, he was on carbamazepine 200 mg 3 times a day, Prolixin decanoate 25 mg IM every other week, BuSpar 10 mg 3 times a day, Artane 2 mg 3 times a day, Norvasc 2.5 daily, Seroquel 400 mg at bedtime, and Prozac 20 mg twice a day. His discharge medications were the same as his admission medications except that the Seroquel was increased to 600 mg at bedtime. Substance abuse history: The urine drug screen on admission was positive for tricyclics and benzodiazepine. He denies any alcohol or drug history. He admits to smoking tobacco. He reports smoking 20-40 cigarettes a day. There is a reported history of alcohol abuse. Past medical history: Hypertension, osteoarthritis, chronic back pain, history of cyst on one kidney Past surgical history: Exploratory laparotomy secondary to self-inflicted stab wound in the past, cholecystectomy, debridement of the abdominal wound and wrist wound. ALLERGIES: NO KNOWN DRUG ALLERGIES Past medications tried: He reports that he has tried Abilify in the past. He wants to try Latuda which he has seen on a TV commercial. Other medications tried per [facility] medication records: Artane, Effexor XR, Invega Sustenna, trazodone , Risperdal, Remeron, Pristiq, Ativan, loxapine, Geodon, Limbitrol DS, Wellbutrin, Depakote, Trileptal, Zyprexa, Lamictal, Vistaril, Cymbalta, and doxepin. Social history: He reports that he was born and raised in [place]. He has a seventh grade education. He reports having learning disability. He is single and has a 28-year-old son. He has no brothers but has 3 sisters. Both parents are alive. He lives with his mother and sister. He is currently on Social Security disability. He wants to be out of the hospital soon because he claims that he has a job interview on Tuesday through [facility]. Family history: None reported Musculoskeletal Examination - Abnormal/Involuntary Movements: [none] Strength: [greater than antigravity (greater than/equal to 3/5) in all extremities, weakness:] Muscle Tone: [no impairment Gait: [grossly normal Station: [unsteady Mental Status Examination - General Appearance: [casual, bizarre, appears older than stated age Speech/Language: [spontaneous, slow, rapid, slurred, rambled, mumbling, hesitant , halting, monotone, expressive, mute, loud, soft, other] Attitude/Behavior: [cooperative, guarded, irritable, withdrawn, indifferent] Mood: [ depressed, anxious, fearful, hopelessness] Affect: [flat, incongruent, labile, blunted constricted] Orientation: [time, person, place situation] Thought Content: [ delusions Risk Factors: [a significant attempt at suicidal (ideations, plan), and/or Homicidal (ideations, plan), other] Perception: [hallucinations (auditory, Thought Processes: [ concrete, circumstantial, tangential Concentration/Attention Span: impaired] [Per observation and interview with the patient] Recent Memory: [ impaired] [ 2 out of 3 in 3 minutes] Remote Memory: [impaired] [past events, as related history] Intelligence: [below average] [based on history, based on vocabulary, syntax, grammar, and content] Judgement: [ poor] [per patient's behavior/history of present illness] Insight: [ poor] [understanding severity of illness/history of present illness] Admitting Diagnosis: [schizoaffective bipolar type acute psychosis with suicide attempt by stabbing abdomen this is the second time] Patient Strengths - ] Housing stability: [x] Resources - social, interpersonal, monetary: [x] Interpersonal relationships and supports available - family, relatives, friends : [x] Patient Limitations: [medication, non-compliance, pathological/unsupported environment, no interests, intellectual impairment, complicated medical illness , legal issues, lack of social supports, other] Initial Plan of Care: [this is a voluntary admission due to his suicidal attempt and having his abdomen. He agreed to treatment for his schizoaffective bipolar type depressed at the present time. He will be evaluated by medicine, followed by surgery, psychiatry, nursing staff, social work, and recreational therapy and will be integrated in the [facility] therapeutic environment. He was discussed in team today to change in medication probably be more efficient is used Invega starting a dose of 3 and titrating to 234 mg IM injection.he will also be increased on his Wellbutrin to 300 mg XL in the morning, discontinue BuSpar, and Lamictal 25 mg by mouth daily at bedtime.] Estimated Length of Stay: [3 days] Initial Discharge Plan: [home, [facility], referred to therapist Prognosis: [guarded] Justification for Inpatient Hospitalization - [Hallucinations, delusions, agitation, anxiety, depression resulting in significant loss of functioning.] [Dangerous to self, others, or property with need for controlled environment.] [Emotional or behavioral conditions and complications requiring 24 hour medical and nursing care.] [Need for special drug therapy, or other therapeutic program requiring continuous hospitalization.] [Failure of social or occupational functioning.] [Inability to meet basic life and health needs.] (1) Schizoaffective disorder Current Visit: No Status: Acute Priority: High Code(s): F25.9 - SCHIZOAFFECTIVE DISORDER, UNSPECIFIED SNOMED Code(s): 94992907 (2) Self-inflicted injury Current Visit: No Status: Acute Priority: Low Code(s): Z72.89 - OTHER PROBLEMS RELATED TO LIFESTYLE SNOMED Code(s): 976629583 (3) Suicidal behavior Current Visit: No Status: Acute Priority: Low Code(s): R45.851 - SUICIDAL IDEATIONS SNOMED Code(s): 470613747 Plan: Increase Lamictal to 50 mg at bedtime, increase Invega to 6 mg at bedtime, maintain Wellbutrin 300 mg XL in the morning. He refuses to go to groups states that it makes him too depressed and I asked him to go to groups. Time with Patient: Less than 30
[2018-08-16] MEDS: LORazepam 1 MG TAB PO PRN (20:37)
[2018-08-16] MEDS ORDERED: ZIPRASIDONE 20 MG CAP PO STA (20:55)
[2018-08-16] MEDS ORDERED: lamoTRIgine 25 MG TAB PO SCH (21:00)
[2018-08-16] MEDS ORDERED: PALIPERIDONE 6 MG TAB.ER.24 PO SCH (21:00)
[2018-08-17] MEDS: LORazepam 1 MG TAB PO PRN (03:52)
[2018-08-17] MEDS: ACETAMINOPHEN TAB 325 MG TAB PO PRN (03:52)
[2018-08-17] MEDS: FISH OIL 1000MG PO SCH ×2 (09:09→20:44)
[2018-08-17] MEDS: buPROPion XL 300 MG TAB.ER.24H PO SCH (09:09)
[2018-08-17] MEDS: SULFAMETHOX-TMP 800-160MG 1 EACH TAB PO SCH (09:09)
[2018-08-17] MEDS: MELOXICAM 7.5 MG TAB PO SCH (09:09)
[2018-08-17] MEDS: LISINOPRIL 10 MG TAB PO SCH (09:09)
[2018-08-17] MEDS: CYANOCOBALAMIN 500 MCG TAB PO SCH (09:09)
--- NOTE | 2018-08-17 09:59 | P.PN ---
Subjective Progress Note Date: 08/17/18 Principal diagnosis: schizoaffective bipolar type acute psychosis with suicide attempt by stabbing abdomen this is the second time] "I want to go home" but I will stay until Tuesday so as to be stable on medications and is unable to discuss why or how he stabbed himself in abdomen. Discuss case in team this morning chart reviewed and discussed with nursing staff as well as social work. He has no insight into why he cuts himself other than in some impulse today he has no suicidal homicidal ideation and still remains depressed sad irritable and agitated. Today he has no suicidal homicidal ideation just low motivation Objective - Vital Signs Vital signs: Vital Signs Temp 98.1 F 08/17/18 03:55 Pulse 103 H 08/17/18 03:55 Resp 20 08/17/18 03:55 BP 133/81 08/17/18 03:55 Pulse Ox 95 08/14/18 19:45 - Labs CBC & Chem 7: 08/16/18 09:28 Assessment and Plan Assessment: HPI: This is a 52-year-old the transferred from trauma service after he tried to stab himself, was taken to our appears to have some injury to the abdominal fascia. Patient was started on IV antibiotics. Patient is depressed and tried. Commit suicide. Patient denied any fever chills cough runny nose dysuria. Patient's urine is positive for benzodiazepines does have mild leukocytosis creatinine on admission was 1.5 by came down to 1.45 and the his baseline creatinine is around 1.2 Past Medical History Past Medical History: Hypertension Additional Past Medical History / Comment(s): Obesity, history of attempted suicide/33 stab wounds to abdomen History of Any Multi-Drug Resistant Organisms: None Reported Past Surgical History: Cholecystectomy Additional Past Surgical History / Comment(s): 3-4-16 exp lap,debridment of abd wall and lt wrist Past Anesthesia/Blood Transfusion Reactions: Motion Sickness Additional Past Anesthesia/Blood Transfusion Reaction / Comm: clausterphobia Past Psychological History: ADD/ADHD, Anxiety, Bipolar, Depression Smoking Status: Current every day smoker Past Alcohol Use History: None Reported Additional Past Alcohol Use History / Comment(s): Patient smokes 10-20 cigarettes per day since he was 10 years old. He denies any medical marijuana, marijuana, street drug use, alcohol use. Past Drug Use History: None Reported - Past Family History Mother Family Medical History: No Reported History Additional Family Medical History / Comment(s): Mother is alive at age 68 with no major medical problems. Father History Unknown: Yes Additional Family Medical History / Comment(s): Father is alive at age 69 with history of cerebral palsy. Sister(s) Additional Family Medical History / Comment(s): Patient has 3 sisters with no major medical problems. Patient does not have any brothers. Patient has one 28 -year-old son with no major medical problems. Medications and Allergies Home Medications Medication Instructions Recorded Confirmed Type busPIRone HCL 15 mg PO TID 30 Days #90 tablet 06/26/18 08/12/18 Rx Cyanocobalamin (Vitamin B-12) 1,000 mg PO DAILY 07/08/18 08/12/18 History [Vitamin B-12] Ergocalciferol [Vitamin D2 50,000 unit PO Q7D 07/08/18 08/12/18 History (DRISDOL)] buPROPion XL [Wellbutrin XL] 150 mg PO DAILY 07/08/18 08/12/18 History Lisinopril [Zestril] 10 mg PO DAILY 30 Days #30 tab 07/31/18 08/12/18 Rx QUEtiapine FUMARATE [SEROquel] 600 mg PO HS 30 Days #60 tablet 07/31/18 Rx fluPHENAZine DECANOATE [Prolixin 50 mg IM WE 7 Days #1 ml 07/31/18 08/12/18 Rx Decanoate] [place]-3 Fatty Acids/Fish Oil [Fish 1 cap PO BID 08/12/18 08/12/18 History Oil 1,000 mg Softgel] Ampicillin-Sulbactam [Unasyn] 3 gm IVPB Q8HR vial 08/13/18 Rx Allergies Allergy/AdvReac Type Severity Reaction Status Date / Time Iodinated Contrast- Oral and Allergy Unknown Verified 08/12/18 16:11 IV Dye Past psychiatric history: There is a report of a history of ADHD, being a slow reader, and he complained of memory problems. He reports that he has been with [facility] for the past 13-14 years. He reports that his mental illness started when he was about 29 years old when he started feeling depressed. He reports hearing voices when he is depressed. He reports that he has been diagnosed with bipolar and that he's had manic episodes in the past. He reports that he gets angry and agitated at times. He reports admission on this unit 2-3 times in the past. He reports that he has stabbed himself 37 different times. He reports a total of about 4 hospitalizations over the years. He denies any history of abuse or history of violence towards others. He was admitted on this unit on 11/09/2015 and was discharged on 11/13/2015. He was diagnosed with schizoaffective disorder, bipolar type and alcohol abuse in remission. According to the history when admitted on 11/09/2015: He was admitted to the mental health unit through a transfer from the medical floor. He apparently stabbed himself multiple times in the abdomen with a paring knife then attempted to cut his wrists in a suicide attempt. He apparently was upset over the prospect of being evicted. His mother and sister were in the home at the time of his impulsive act. That admission was apparently a readmission within 30 days. He has a long history of schizoaffective illness with multiple hospitalizations. He has had multiple medication trials. At the time of his admission, he was on carbamazepine 200 mg 3 times a day, Prolixin decanoate 25 mg IM every other week, BuSpar 10 mg 3 times a day, Artane 2 mg 3 times a day, Norvasc 2.5 daily, Seroquel 400 mg at bedtime, and Prozac 20 mg twice a day. His discharge medications were the same as his admission medications except that the Seroquel was increased to 600 mg at bedtime. Substance abuse history: The urine drug screen on admission was positive for tricyclics and benzodiazepine. He denies any alcohol or drug history. He admits to smoking tobacco. He reports smoking 20-40 cigarettes a day. There is a reported history of alcohol abuse. Past medical history: Hypertension, osteoarthritis, chronic back pain, history of cyst on one kidney Past surgical history: Exploratory laparotomy secondary to self-inflicted stab wound in the past, cholecystectomy, debridement of the abdominal wound and wrist wound. ALLERGIES: NO KNOWN DRUG ALLERGIES Past medications tried: He reports that he has tried Abilify in the past. He wants to try Latuda which he has seen on a TV commercial. Other medications tried per [facility] medication records: Artane, Effexor XR, Invega Sustenna, trazodone , Risperdal, Remeron, Pristiq, Ativan, loxapine, Geodon, Limbitrol DS, Wellbutrin, Depakote, Trileptal, Zyprexa, Lamictal, Vistaril, Cymbalta, and doxepin. Social history: He reports that he was born and raised in [place]. He has a seventh grade education. He reports having learning disability. He is single and has a 28-year-old son. He has no brothers but has 3 sisters. Both parents are alive. He lives with his mother and sister. He is currently on Social Security disability. He wants to be out of the hospital soon because he claims that he has a job interview on Tuesday through [facility]. Family history: None reported Musculoskeletal Examination - Abnormal/Involuntary Movements: [none] Strength: [greater than antigravity (greater than/equal to 3/5) in all extremities, weakness:] Muscle Tone: [no impairment Gait: [grossly normal Station: [unsteady Mental Status Examination - General Appearance: [casual, bizarre, appears older than stated age Speech/Language: [spontaneous, slow, rapid, slurred, rambled, mumbling, hesitant , halting, monotone, expressive, mute, loud, soft, other] Attitude/Behavior: [cooperative, guarded, irritable, withdrawn, indifferent] Mood: [ depressed, anxious, fearful, hopelessness] Affect: [flat, incongruent, labile, blunted constricted] Orientation: [time, person, place situation] Thought Content: [ delusions Risk Factors: [a significant attempt at suicidal (ideations, plan), and/or Homicidal (ideations, plan), other] Perception: [hallucinations (auditory, Thought Processes: [ concrete, circumstantial, tangential Concentration/Attention Span: impaired] [Per observation and interview with the patient] Recent Memory: [ impaired] [ 2 out of 3 in 3 minutes] Remote Memory: [impaired] [past events, as related history] Intelligence: [below average] [based on history, based on vocabulary, syntax, grammar, and content] Judgement: [ poor] [per patient's behavior/history of present illness] Insight: [ poor] [understanding severity of illness/history of present illness] Admitting Diagnosis: [schizoaffective bipolar type acute psychosis with suicide attempt by stabbing abdomen this is the second time] Patient Strengths - ] Housing stability: [x] Resources - social, interpersonal, monetary: [x] Interpersonal relationships and supports available - family, relatives, friends : [x] Patient Limitations: [medication, non-compliance, pathological/unsupported environment, no interests, intellectual impairment, complicated medical illness , legal issues, lack of social supports, other] Initial Plan of Care: [this is a voluntary admission due to his suicidal attempt and having his abdomen. He agreed to treatment for his schizoaffective bipolar type depressed at the present time. He will be evaluated by medicine, followed by surgery, psychiatry, nursing staff, social work, and recreational therapy and will be integrated in the [facility] therapeutic environment. He was discussed in team today to change in medication probably be more efficient is used Invega starting a dose of 3 and titrating to 234 mg IM injection.he will also be increased on his Wellbutrin to 300 mg XL in the morning, discontinue BuSpar, and Lamictal 25 mg by mouth daily at bedtime.] Estimated Length of Stay: [1 days] Initial Discharge Plan: [home, [facility], referred to therapist Prognosis: [guarded] Justification for Inpatient Hospitalization - [Hallucinations, delusions, agitation, anxiety, depression resulting in significant loss of functioning.] [Dangerous to self, others, or property with need for controlled environment.] [Emotional or behavioral conditions and complications requiring 24 hour medical and nursing care.] [Need for special drug therapy, or other therapeutic program requiring continuous hospitalization.] [Failure of social or occupational functioning.] [Inability to meet basic life and health needs.] (1) Schizoaffective disorder Current Visit: No Status: Acute Priority: High Code(s): F25.9 - SCHIZOAFFECTIVE DISORDER, UNSPECIFIED SNOMED Code(s): 89289151 (2) Self-inflicted injury Current Visit: No Status: Acute Priority: Low Code(s): Z72.89 - OTHER PROBLEMS RELATED TO LIFESTYLE SNOMED Code(s): 458037777 (3) Suicidal behavior Current Visit: No Status: Acute Priority: Low Code(s): R45.851 - SUICIDAL IDEATIONS SNOMED Code(s): 617967732 Plan: Increase Lamictal to 100 mg at bedtime, increase Invega to 9 mg at bedtime, maintain Wellbutrin 300 mg XL in the morning. He refuses to go to groups states that it makes him too depressed and I asked him to go to groups. We will advance his diet as tolerated today Time with Patient: Less than 30
[2018-08-17 12:16] LABS: Basophils % (A) 0 %; Eosinophils # (A) 0.3 k/uL (0-0.7); Eosinophils % (A) 5 %; HCT 40.9 % (39.0-53.0); HGB 12.9 gm/dL (13.0-17.5); Lymphocytes # (A) 1.9 k/uL (1.0-4.8); Lymphocytes % (A) 28 %; MCH 29.9 pg (25.0-35.0); MCHC 31.6 g/dL (31.0-37.0); MCV 94.6 fL (80.0-100.0); Mean Platelet Volume 6.9; Monocytes # (A) 0.4 k/uL (0-1.0); Monocytes % (A) 6 %; Neutrophils % (A) 59 %; Platelet Count 450 k/uL (150-450); RBC 4.33 m/uL (4.30-5.90); RDW 13.5 % (11.5-15.5); WBC 6.7 k/uL (3.8-10.6)
[2018-08-17] MEDS ORDERED: HALOPERIDOL LACTATE 5 MG/ML 1 ML VIAL IM PRN (12:19)
[2018-08-17 13:30] LABS: Calcium 9.6 mg/dL (8.4-10.2); Potassium 3.9 mmol/L (3.5-5.1)
[2018-08-17] MEDS: lamoTRIgine 100 MG TAB PO SCH (20:45)
[2018-08-17] MEDS: PALIPERIDONE 3 MG TAB.ER.24 PO SCH (20:45)
[2018-08-18] MEDS: ACETAMINOPHEN TAB 325 MG TAB PO PRN ×3 (00:11→21:09)
[2018-08-18] MEDS ORDERED: cloZAPine 25 MG TAB PO SCH (09:00)
[2018-08-18] MEDS: FISH OIL 1000MG PO SCH ×2 (09:09→21:08)
[2018-08-18] MEDS: buPROPion XL 300 MG TAB.ER.24H PO SCH (09:09)
[2018-08-18] MEDS: CYANOCOBALAMIN 500 MCG TAB PO SCH (09:09)
[2018-08-18 09:19] LABS: Calcium 8.9 mg/dL (8.4-10.2); Potassium 4.2 mmol/L (3.5-5.1)
--- NOTE | 2018-08-18 10:25 | XR ---
EXAMINATION TYPE: XR chest 1V portable DATE OF EXAM: 08/18/2018 COMPARISON: Prior chest x-ray 08/12/2018 HISTORY: Abnormal physical exam, wheezing, abnormal chest x-ray TECHNIQUE: Single frontal view of the chest is obtained. FINDINGS: Patient is rotated. There is no focal air space opacity, pleural effusion, or pneumothorax seen. The cardiac silhouette size is enlarged, stable. The osseous structures are intact. IMPRESSION: Appearance of enlarged heart may be accentuated by rotation.
--- NOTE | 2018-08-18 11:32 | P.PN ---
Subjective Progress Note Date: 08/18/18 Principal diagnosis: schizoaffective bipolar type acute psychosis with suicide attempt by stabbing abdomen this is the second time] "I want to go home" but I will stay until Tuesday so as to be stable on medications and is unable to discuss why or how he stabbed himself in abdomen. Discuss case in team this morning chart reviewed and discussed with nursing staff as well as social work. He has no insight into why he cuts himself other than in some impulse today he has no suicidal homicidal ideation and still remains depressed sad irritable and agitated. Today he has no suicidal homicidal ideation just low motivation Objective - Vital Signs Vital signs: Vital Signs Temp 98.7 F 08/18/18 06:20 Pulse 95 08/18/18 06:20 Resp 20 08/18/18 06:20 BP 117/59 08/18/18 06:20 Pulse Ox 96 08/18/18 09:46 - Labs CBC & Chem 7: 08/17/18 11:47 08/18/18 08:57 Labs: Abnormal Lab Results - Last 24 Hours (Table) 08/17/18 08/17/18 08/18/18 Range/Units 11:47 11:47 08:57 Hgb 12.9 L (13.0-17.5) gm/dL Carbon Dioxide 21 L (22-30) mmol/L Creatinine 1.46 H 1.78 H (0.66-1.25) mg/dL Glucose 128 H 113 H (74-99) mg/dL Assessment and Plan Assessment: HPI: This is a 52-year-old the transferred from trauma service after he tried to stab himself, was taken to our appears to have some injury to the abdominal fascia. Patient was started on IV antibiotics. Patient is depressed and tried. Commit suicide. Patient denied any fever chills cough runny nose dysuria. Patient's urine is positive for benzodiazepines does have mild leukocytosis creatinine on admission was 1.5 by came down to 1.45 and the his baseline creatinine is around 1.2 Past Medical History Past Medical History: Hypertension Additional Past Medical History / Comment(s): Obesity, history of attempted suicide/33 stab wounds to abdomen History of Any Multi-Drug Resistant Organisms: None Reported Past Surgical History: Cholecystectomy Additional Past Surgical History / Comment(s): 3 exp lap,debridment of abd wall and lt wrist Past Anesthesia/Blood Transfusion Reactions: Motion Sickness Additional Past Anesthesia/Blood Transfusion Reaction / Comm: clausterphobia Past Psychological History: ADD/ADHD, Anxiety, Bipolar, Depression Smoking Status: Current every day smoker Past Alcohol Use History: None Reported Additional Past Alcohol Use History / Comment(s): Patient smokes 10-20 cigarettes per day since he was 10 years old. He denies any medical marijuana, marijuana, street drug use, alcohol use. Past Drug Use History: None Reported - Past Family History Mother Family Medical History: No Reported History Additional Family Medical History / Comment(s): Mother is alive at age 68 with no major medical problems. Father History Unknown: Yes Additional Family Medical History / Comment(s): Father is alive at age 69 with history of cerebral palsy. Sister(s) Additional Family Medical History / Comment(s): Patient has 3 sisters with no major medical problems. Patient does not have any brothers. Patient has one 28 -year-old son with no major medical problems. Medications and Allergies Home Medications Medication Instructions Recorded Confirmed Type busPIRone HCL 15 mg PO TID 30 Days #90 tablet 06/26/18 08/12/18 Rx Cyanocobalamin (Vitamin B-12) 1,000 mg PO DAILY 07/08/18 08/12/18 History [Vitamin B-12] Ergocalciferol [Vitamin D2 50,000 unit PO Q7D 07/08/18 08/12/18 History (DRISDOL)] buPROPion XL [Wellbutrin XL] 150 mg PO DAILY 07/08/18 08/12/18 History Lisinopril [Zestril] 10 mg PO DAILY 30 Days #30 tab 07/31/18 08/12/18 Rx QUEtiapine FUMARATE [SEROquel] 600 mg PO HS 30 Days #60 tablet 07/31/18 Rx fluPHENAZine DECANOATE [Prolixin 50 mg IM WE 7 Days #1 ml 07/31/18 08/12/18 Rx Decanoate] [place]-3 Fatty Acids/Fish Oil [Fish 1 cap PO BID 08/12/18 08/12/18 History Oil 1,000 mg Softgel] Ampicillin-Sulbactam [Unasyn] 3 gm IVPB Q8HR vial 08/13/18 Rx Allergies Allergy/AdvReac Type Severity Reaction Status Date / Time Iodinated Contrast- Oral and Allergy Unknown Verified 08/12/18 16:11 IV Dye Past psychiatric history: There is a report of a history of ADHD, being a slow reader, and he complained of memory problems. He reports that he has been with [facility] for the past 13-14 years. He reports that his mental illness started when he was about 29 years old when he started feeling depressed. He reports hearing voices when he is depressed. He reports that he has been diagnosed with bipolar and that he's had manic episodes in the past. He reports that he gets angry and agitated at times. He reports admission on this unit 2-3 times in the past. He reports that he has stabbed himself 37 different times. He reports a total of about 4 hospitalizations over the years. He denies any history of abuse or history of violence towards others. He was admitted on this unit on 11/09/2015 and was discharged on 11/13/2015. He was diagnosed with schizoaffective disorder, bipolar type and alcohol abuse in remission. According to the history when admitted on 11/09/2015: He was admitted to the mental health unit through a transfer from the medical floor. He apparently stabbed himself multiple times in the abdomen with a paring knife then attempted to cut his wrists in a suicide attempt. He apparently was upset over the prospect of being evicted. His mother and sister were in the home at the time of his impulsive act. That admission was apparently a readmission within 30 days. He has a long history of schizoaffective illness with multiple hospitalizations. He has had multiple medication trials. At the time of his admission, he was on carbamazepine 200 mg 3 times a day, Prolixin decanoate 25 mg IM every other week, BuSpar 10 mg 3 times a day, Artane 2 mg 3 times a day, Norvasc 2.5 daily, Seroquel 400 mg at bedtime, and Prozac 20 mg twice a day. His discharge medications were the same as his admission medications except that the Seroquel was increased to 600 mg at bedtime. Substance abuse history: The urine drug screen on admission was positive for tricyclics and benzodiazepine. He denies any alcohol or drug history. He admits to smoking tobacco. He reports smoking 20-40 cigarettes a day. There is a reported history of alcohol abuse. Past medical history: Hypertension, osteoarthritis, chronic back pain, history of cyst on one kidney Past surgical history: Exploratory laparotomy secondary to self-inflicted stab wound in the past, cholecystectomy, debridement of the abdominal wound and wrist wound. ALLERGIES: NO KNOWN DRUG ALLERGIES Past medications tried: He reports that he has tried Abilify in the past. He wants to try Latuda which he has seen on a TV commercial. Other medications tried per [facility] medication records: Artane, Effexor XR, Invega Sustenna, trazodone , Risperdal, Remeron, Pristiq, Ativan, loxapine, Geodon, Limbitrol DS, Wellbutrin, Depakote, Trileptal, Zyprexa, Lamictal, Vistaril, Cymbalta, and doxepin. Social history: He reports that he was born and raised in [place]. He has a seventh grade education. He reports having learning disability. He is single and has a 28-year-old son. He has no brothers but has 3 sisters. Both parents are alive. He lives with his mother and sister. He is currently on Social Security disability. He wants to be out of the hospital soon because he claims that he has a job interview on Tuesday through formerly [facility] [employer] mental [facility]. Family history: None reported Musculoskeletal Examination - Abnormal/Involuntary Movements: [none] Strength: [greater than antigravity (greater than/equal to 3/5) in all extremities, weakness:] Muscle Tone: [no impairment Gait: [grossly normal Station: [unsteady Mental Status Examination - General Appearance: [casual, bizarre, appears older than stated age Speech/Language: [spontaneous, slow, rapid, slurred, rambled, mumbling, hesitant , halting, monotone, expressive, mute, loud, soft, other] Attitude/Behavior: [cooperative, guarded, irritable, withdrawn, indifferent] Mood: [ depressed, anxious, fearful, hopelessness] Affect: [flat, incongruent, labile, blunted constricted] Orientation: [time, person, place situation] Thought Content: [ delusions Risk Factors: [a significant attempt at suicidal (ideations, plan), and/or Homicidal (ideations, plan), other] Perception: [hallucinations (auditory, Thought Processes: [ concrete, circumstantial, tangential Concentration/Attention Span: impaired] [Per observation and interview with the patient] Recent Memory: [ impaired] [ 2 out of 3 in 3 minutes] Remote Memory: [impaired] [past events, as related history] Intelligence: [below average] [based on history, based on vocabulary, syntax, grammar, and content] Judgement: [ poor] [per patient's behavior/history of present illness] Insight: [ poor] [understanding severity of illness/history of present illness] Admitting Diagnosis: [schizoaffective bipolar type acute psychosis with suicide attempt by stabbing abdomen this is the second time] Patient Strengths - ] Housing stability: [x] Resources - social, interpersonal, monetary: [x] Interpersonal relationships and supports available - family, relatives, friends : [x] Patient Limitations: [medication, non-compliance, pathological/unsupported environment, no interests, intellectual impairment, complicated medical illness , legal issues, lack of social supports, other] Initial Plan of Care: [this is a voluntary admission due to his suicidal attempt and having his abdomen. He agreed to treatment for his schizoaffective bipolar type depressed at the present time. He will be evaluated by medicine, followed by surgery, psychiatry, nursing staff, social work, and recreational therapy and will be integrated in the [facility] environment. He was discussed in team today to change in medication probably be more efficient is used Invega starting a dose of 3 and titrating to 234 mg IM injection.he will also be increased on his Wellbutrin to 300 mg XL in the morning, discontinue BuSpar, and Lamictal 25 mg by mouth daily at bedtime.] Estimated Length of Stay: [1 days] Initial Discharge Plan: [[facility], referred to therapist Prognosis: [guarded] Justification for Inpatient Hospitalization - [Hallucinations, delusions, agitation, anxiety, depression resulting in significant loss of functioning.] [Dangerous to self, others, or property with need for controlled environment.] [Emotional or behavioral conditions and complications requiring 24 hour medical and nursing care.] [Need for special drug therapy, or other therapeutic program requiring continuous hospitalization.] [Failure of social or occupational functioning.] [Inability to meet basic life and health needs.] (1) Schizoaffective disorder Current Visit: No Status: Acute Priority: High Code(s): F25.9 - SCHIZOAFFECTIVE DISORDER, UNSPECIFIED SNOMED Code(s): 50902132 (2) Self-inflicted injury Current Visit: No Status: Acute Priority: Low Code(s): Z72.89 - OTHER PROBLEMS RELATED TO LIFESTYLE SNOMED Code(s): 394524871 (3) Suicidal behavior Current Visit: No Status: Acute Priority: Low Code(s): R45.851 - SUICIDAL IDEATIONS SNOMED Code(s): 478489180 Plan: Increase Lamictal to 100 mg at bedtime, increase Invega to 9 mg at bedtime, maintain Wellbutrin 300 mg XL in the morning. He refuses to go to groups states that it makes him too depressed and I asked him to go to groups. We will advance his diet as tolerated today. He needs placement in a detention which one is not available today. On 08/18/2018 his creatinine continues to rise after he has gone back to a regular diet. Will ask medicine to come back and re-evaluate Time with Patient: Less than 30
[2018-08-18] MEDS ORDERED: TRIMETHOBENZAMIDE 300 MG CAP PO PRN (12:42)
--- NOTE | 2018-08-18 13:03 | P.PN ---
Subjective This is a pleasant 52 years old male with past medical history of hypertension, obesity, previous suicidal attempts by 33 stabbing wounds to the abdomen. Presents by a suicide attempt by stabbing himself in the abdomen with abdominal fascia is exposed. Today Vitas looks stable with temperature 99.1. His BMP showing sodium of 139. Potassium 4.3. Creatinine 1.1. Liver enzymes within normal limits patient already started by Bactrim and is on it already. 08/16/2018 Patient has no new complaints he is tolerating his clear liquid diet and has good bowel movement. His wound with florencia in the mid abdomen looks clean and the right wound on small ones also she looks better than yesterday. The area of cellulitis has decreased in size and discussed this pinkish today. Patient remains on Bactrim and his creatinine today is 1.2. Patient encouraged for oral hydration and he agrees. 08/17/2018 pt is seen and examined today at the psych unit. pt was lying in bed , no complaints. as per staff he was not eating or drinking enough although he was encouraged to eat and drink . no abd pain ,no nausea or vomiting. no dysuria, he is still making usual amount of urine as per pt, no change in bowel habits , no fever. abd cellulitis looks better , his antibiotic is already was stopped. BP is 08/18/18 pt is still not eating or drinking well, actually he vomited twice last night , today he was seen in the hallway and eating , he denies any other comlaint to me , no chest pain , no dyspnea, no abd pain, and his cellulites looks improving , on no antibiotic. pt states he has good urine . we will start iv fluid , zofran and call nephrology consult d/w staff Review of systems CONSTITUTIONAL: No fever, no malaise, no fatigue. HEENT: No recent visual problems or hearing problems. Denied any sore throat. CARDIOVASCULAR: No orthopnea, PND, no palpitations, no syncope. PULMONARY: No shortness of breath, no cough, no hemoptysis. GASTROINTESTINAL: No diarrhea, no nausea, no vomiting, no abdominal pain. Normoactive bowel sounds. NEUROLOGICAL: No headaches, no weakness, no numbness. HEMATOLOGICAL: Denies any bleeding or petechiae. GENITOURINARY: Denies any burning micturition, frequency, or urgency. MUSCULOSKELETAL/RHEUMATOLOGICAL: Denies any joint pain, swelling, or any muscle pain. ENDOCRINE: Denies any polyuria or polydipsia. Medication abuse and including: Tylenol, Maalox, Wellbutrin, vitamin D, vitamin B12, Lamictal, Ativan, milk of magnesia, in Lopes, normal saline, and Tigan. Objective - Vital Signs Vital signs: Vital Signs Temp 98.7 F 08/18/18 06:20 Pulse 95 08/18/18 06:20 Resp 20 08/18/18 06:20 BP 117/59 08/18/18 06:20 Pulse Ox 96 08/18/18 09:46 - Exam GENERAL: The patient is alert and oriented x3, not in any acute distress. Well developed, well nourished. HEENT: Pupils are round and equally reacting to light. EOMI. No scleral icterus. No conjunctival pallor. Normocephalic, atraumatic. No pharyngeal erythema. No thyromegaly. CARDIOVASCULAR: S1 and S2 present. No murmurs, rubs, or gallops. PULMONARY: Chest is clear to auscultation, no wheezing or crackles. -ABDOMEN: Soft, nontender, nondistended, normoactive bowel sounds. No palpable organomegaly. There is about less than centimeters wound in his right mid abdomen, looks better than yesterday . there is another larger vertical wound in the middle of the abdomen, with florencia in place. However it is surrounded by area of cellulitis about 10-15 cm in diameter, which elects less erythematous and is regressing MUSCULOSKELETAL: No joint swelling or deformity. EXTREMITIES: No cyanosis, clubbing, or pedal edema. NEUROLOGICAL: Gross neurological examination did not reveal any focal deficits. SKIN: No rashes. - Labs CBC & Chem 7: 08/17/18 11:47 08/18/18 08:57 Labs: Abnormal Lab Results - Last 24 Hours (Table) 08/17/18 08/18/18 Range/Units 11:47 08:57 Carbon Dioxide 21 L (22-30) mmol/L Creatinine 1.46 H 1.78 H (0.66-1.25) mg/dL Glucose 128 H 113 H (74-99) mg/dL Assessment and Plan Assessment: Acute kidney injury Nausea vomiting Hydration Abdominal wound, healing Abdominal wall cellulitis, improving Closed wound in the mid abdomen , from previous surgery History of hypothyroidism Depression, and other psychiatric illnesses Plan: This is a pleasant 52 years old male who presents because of suicidal attempts by stabbing himself. He has abdominal wound with surrounding cellulitis. Patient started on IV fluids, Tigan, call nephrology consult. No fever or leukocytosis. Labs and medication were reviewed.. Continue same treatment. Continue with symptomatic treatment. Resume home medication. Monitor lytes and vitals. DVT and GI prophylaxis. Further recommendations of the clinical course of the patient Prognosis is guarded
[2018-08-18] MEDS: SODIUM CHLORIDE 0.9% 1,000 ML IV SCH ×4 (13:51→22:20)
[2018-08-18] MEDS: SODIUM CHLORIDE 0.9% 500 ML 500 ML IV ONE ×2 (13:51→13:58)
[2018-08-18] MEDS: PALIPERIDONE 3 MG TAB.ER.24 PO SCH (21:08)
[2018-08-18] MEDS: lamoTRIgine 100 MG TAB PO SCH (21:08)
[2018-08-19] MEDS: LORazepam 1 MG TAB PO PRN ×2 (00:05→21:17)
[2018-08-19] MEDS: SODIUM CHLORIDE 0.9% 1,000 ML IV SCH ×2 (04:51→12:09)
[2018-08-19] MEDS: CYANOCOBALAMIN 500 MCG TAB PO SCH (07:44)
[2018-08-19] MEDS: FISH OIL 1000MG PO SCH ×2 (07:44→20:18)
[2018-08-19] MEDS: buPROPion XL 300 MG TAB.ER.24H PO SCH (07:44)
[2018-08-19 09:19] LABS: Basophils % (A) 0 %; Eosinophils # (A) 0.2 k/uL (0-0.7); Eosinophils % (A) 5 %; HCT 36.4 % (39.0-53.0); HGB 11.6 gm/dL (13.0-17.5); Lymphocytes # (A) 1.3 k/uL (1.0-4.8); Lymphocytes % (A) 29 %; MCH 30.5 pg (25.0-35.0); MCHC 31.9 g/dL (31.0-37.0); MCV 95.6 fL (80.0-100.0); Mean Platelet Volume 6.3; Monocytes # (A) 0.2 k/uL (0-1.0); Monocytes % (A) 4 %; Neutrophils # (A) 2.7 k/uL (1.3-7.7); Neutrophils % (A) 60 %; Platelet Count 437 k/uL (150-450); RBC 3.81 m/uL (4.30-5.90); RDW 13.5 % (11.5-15.5); WBC 4.5 k/uL (3.8-10.6)
[2018-08-19 09:27] LABS: Calcium 8.8 mg/dL (8.4-10.2); Potassium 4.2 mmol/L (3.5-5.1)
--- NOTE | 2018-08-19 11:31 | P.PN ---
Subjective This is a pleasant 52 years old male with past medical history of hypertension, obesity, previous suicidal attempts by 33 stabbing wounds to the abdomen. Presents by a suicide attempt by stabbing himself in the abdomen with abdominal fascia is exposed. Today Vitas looks stable with temperature 99.1. His BMP showing sodium of 139. Potassium 4.3. Creatinine 1.1. Liver enzymes within normal limits patient already started by Bactrim and is on it already. 08/16/2018 Patient has no new complaints he is tolerating his clear liquid diet and has good bowel movement. His wound with florencia in the mid abdomen looks clean and the right wound on small ones also she looks better than yesterday. The area of cellulitis has decreased in size and discussed this pinkish today. Patient remains on Bactrim and his creatinine today is 1.2. Patient encouraged for oral hydration and he agrees. 08/17/2018 pt is seen and examined today at the psych unit. pt was lying in bed , no complaints. as per staff he was not eating or drinking enough although he was encouraged to eat and drink . no abd pain ,no nausea or vomiting. no dysuria, he is still making usual amount of urine as per pt, no change in bowel habits , no fever. abd cellulitis looks better , his antibiotic is already was stopped. BP is 08/18/18 pt is still not eating or drinking well, actually he vomited twice last night , today he was seen in the hallway and eating , he denies any other comlaint to me , no chest pain , no dyspnea, no abd pain, and his cellulites looks improving , on no antibiotic. pt states he has good urine . we will start iv fluid , zofran and call nephrology consult d/w staff 08/19/2018 Patient was lying in bed comfortable but in distress. No nausea vomiting. No abdominal pain. Vitas looks stable and he is afebrile. His blood pressure this morning is 136/76. Heart rate 86. Patient creatinine came down to 1.3. And the rate of normal saline is lowered from 150 to 75 mL/h. His abdominal wound at the staff size showing some purulent discharge. will send wound culture , discussed with staff. pt was started on keflex Review of systems CONSTITUTIONAL: No fever, no malaise, no fatigue. HEENT: No recent visual problems or hearing problems. Denied any sore throat. CARDIOVASCULAR: No orthopnea, PND, no palpitations, no syncope. PULMONARY: No shortness of breath, no cough, no hemoptysis. GASTROINTESTINAL: No diarrhea, no nausea, no vomiting, no abdominal pain. Normoactive bowel sounds. NEUROLOGICAL: No headaches, no weakness, no numbness. HEMATOLOGICAL: Denies any bleeding or petechiae. GENITOURINARY: Denies any burning micturition, frequency, or urgency. MUSCULOSKELETAL/RHEUMATOLOGICAL: Denies any joint pain, swelling, or any muscle pain. ENDOCRINE: Denies any polyuria or polydipsia. Medication abuse and including: Tylenol, Maalox, Wellbutrin, vitamin D, vitamin B12, Lamictal, Ativan, milk of magnesia, in Lopes, normal saline, and Tigan. Objective - Vital Signs Vital signs: Vital Signs Temp 97.6 F 08/19/18 06:37 Pulse 86 08/19/18 06:37 Resp 16 08/19/18 06:37 BP 136/76 08/19/18 06:37 Pulse Ox 96 08/18/18 09:46 Intake & Output 08/18/18 08/19/18 08/19/18 18:59 06:59 18:59 Intake Total 1556 Balance 1556 Intake: IV 1556 Invasive Line 1 1556 - Exam GENERAL: The patient is alert and oriented x3, not in any acute distress. Well developed, well nourished. HEENT: Pupils are round and equally reacting to light. EOMI. No scleral icterus. No conjunctival pallor. Normocephalic, atraumatic. No pharyngeal erythema. No thyromegaly. CARDIOVASCULAR: S1 and S2 present. No murmurs, rubs, or gallops. PULMONARY: Chest is clear to auscultation, no wheezing or crackles. -ABDOMEN: Soft, nontender, nondistended, normoactive bowel sounds. No palpable organomegaly. There is about less than centimeters wound in his right mid abdomen, looks better than yesterday . there is another larger vertical wound in the middle of the abdomen, with florencia in place. However it is surrounded by area of cellulitis about 10-15 cm in diameter, which elects less erythematous and is regressing MUSCULOSKELETAL: No joint swelling or deformity. EXTREMITIES: No cyanosis, clubbing, or pedal edema. NEUROLOGICAL: Gross neurological examination did not reveal any focal deficits. SKIN: No rashes. - Labs CBC & Chem 7: 08/19/18 08:56 08/19/18 08:56 Labs: Abnormal Lab Results - Last 24 Hours (Table) 08/17/18 08/19/18 08/19/18 Range/Units 15:21 08:56 08:56 RBC 3.81 L (4.30-5.90) m/uL Hgb 11.6 L (13.0-17.5) gm/dL Hct 36.4 L (39.0-53.0) % Chloride 110 H (98-107) mmol/L Creatinine 1.35 H (0.66-1.25) mg/dL Glucose 165 H (74-99) mg/dL Lamotrigine 0.5 L (2.0-15.0) ug/mL Assessment and Plan Assessment: Acute kidney injury Nausea vomiting Hydration Abdominal wound, healing Abdominal wall cellulitis, improving Closed wound in the mid abdomen , from previous surgery History of hypothyroidism Depression, and other psychiatric illnesses Plan: This is a pleasant 52 years old male who presents because of suicidal attempts by stabbing himself. He has abdominal wound with surrounding cellulitis. Patient started on IV fluids, Tigan, call nephrology consult. No fever or leukocytosis. Labs and medication were reviewed.. Continue same treatment. Continue with symptomatic treatment. Resume home medication. Monitor lytes and vitals. DVT and GI prophylaxis. Further recommendations of the clinical course of the patient Prognosis is guarded
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
--- NOTE | 2018-08-19 12:01 | P.PN ---
Progress Note - Text Progress Note Date: 08/19/18 Interval history: Patient is seen in cross coverage today. He is found in his room lying in bed. He currently has an IV in. He relates that it's for his kidneys. He does not voice any adverse psychotropic medication side effects. He relates that his mood is doing all right. Mental status exam: He is alert, found in his room lying in bed. He is cooperative with the interview. His answers are somewhat brief. His affect is restricted. He describes his mood is doing all right. He denies any thoughts of harm to self or others. He does not show any agitation. He has not verbalize any hallucinations. Plan: Patient will be maintained on current psychotropic medication regimen. We 'll continue to monitor for any medication side effects monitor his ongoing response to treatment. We'll continue to cover this patient through the weekend
[2018-08-19] MEDS ORDERED: CEPHALEXIN 500 MG CAP PO SCH (13:00)
[2018-08-19] MEDS: CEPHALEXIN 500 MG CAP PO SCH ×2 (14:53→21:15)
[2018-08-19] MEDS: lamoTRIgine 100 MG TAB PO SCH (20:18)
[2018-08-19] MEDS: PALIPERIDONE 3 MG TAB.ER.24 PO SCH (20:18)
[2018-08-19] MEDS: ACETAMINOPHEN TAB 325 MG TAB PO PRN (20:19)
[2018-08-20] MEDS: ACETAMINOPHEN TAB 325 MG TAB PO PRN ×3 (01:44→20:25)
[2018-08-20] MEDS: SODIUM CHLORIDE 0.9% 1,000 ML IV SCH ×2 (05:29→13:48)
[2018-08-20 07:51] LABS: Glucose,Whole Blood 86 mg/dL (75-99)
[2018-08-20] MEDS ORDERED: FUROSEMIDE 40 MG TAB PO STA (07:57)
[2018-08-20] MEDS: buPROPion XL 300 MG TAB.ER.24H PO SCH (08:06)
[2018-08-20] MEDS: CEPHALEXIN 500 MG CAP PO SCH ×3 (08:06→20:25)
[2018-08-20] MEDS: CYANOCOBALAMIN 500 MCG TAB PO SCH (08:06)
[2018-08-20 08:58] LABS: Basophils % (A) 0 %; Eosinophils # (A) 0.2 k/uL (0-0.7); Eosinophils % (A) 5 %; HCT 36.5 % (39.0-53.0); HGB 11.7 gm/dL (13.0-17.5); Lymphocytes # (A) 1.7 k/uL (1.0-4.8); Lymphocytes % (A) 36 %; MCH 31.1 pg (25.0-35.0); MCHC 32.2 g/dL (31.0-37.0); MCV 96.6 fL (80.0-100.0); Monocytes # (A) 0.3 k/uL (0-1.0); Monocytes % (A) 7 %; Neutrophils # (A) 2.4 k/uL (1.3-7.7); Neutrophils % (A) 49 %; Platelet Count 432 k/uL (150-450); RBC 3.78 m/uL (4.30-5.90); RDW 13.6 % (11.5-15.5); WBC 4.8 k/uL (3.8-10.6)
[2018-08-20 09:09] LABS: Calcium 9.2 mg/dL (8.4-10.2); Potassium 4.7 mmol/L (3.5-5.1)
[2018-08-20] MEDS: FISH OIL 1000MG PO SCH ×2 (11:37→20:28)
[2018-08-20 12:15] LABS: Appearance,Urine Clear (Clear); Bilirubin,Urine Negative (Negative); Blood,Urine Negative (Negative); Color,Urine Yellow; Glucose,Urine (UA) Negative (Negative); Ketones,Urine Negative (Negative); Leukocyte Esterase,Urine Negative (Negative); Nitrite,Urine Negative (Negative); PH, Urine 6.5 (5.0-8.0); Protein,Urine Negative (Negative); Specific Gravity,Urine 1.013 (1.001-1.035); Urobilinogen,Urine <2.0 mg/dL (<2.0)
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
[2018-08-20] MEDS ORDERED: HYDROcodone/APAP 5-325MG 1 EACH TAB PO STA (13:04)
[2018-08-20] MEDS: LORazepam 1 MG TAB PO PRN ×2 (13:10→20:25)
--- NOTE | 2018-08-20 13:13 | P.PN ---
Progress Note - Text Progress Note Date: 08/20/18 Interval history: Patient seen in [facility] in today. Per nursing staff his blood pressure is elevated today. Patient complains of pain in his arms and legs. He is sleep was on and off last night. He does seem to be eating well. Per staff he was up and around earlier today and had his meal in the dining room. He was showing some affect. Currently he is verbalizing that he doesn't want to be a vegetable, makes reference to hospital putting him to sleep. Mental status exam: He is found in the library seated in a chair. He complains of pain in his arms and legs. His mood appears depressed. His affect is restricted. He denies any actual thoughts of suicide, makes reference to wondering if the hospital will put him to sleep, relays he doesn't want to be a vegetable. He does not show any agitation. Plan: We'll maintain current psychotropic medication regimen. Nursing staff is notified medical regarding current status with elevated blood pressure. We'll continue to monitor his status, monitor his blood pressure.
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
[2018-08-20] MEDS ORDERED: FUROSEMIDE 10 MG/ML 4 ML VIAL IV STA (15:51)
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
[2018-08-20] MEDS: PALIPERIDONE 3 MG TAB.ER.24 PO SCH (20:25)
[2018-08-20] MEDS: lamoTRIgine 100 MG TAB PO SCH (20:25)
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
[2018-08-21 08:23] VITALS: BMI 36.3
[2018-08-21] MEDS: CEPHALEXIN 500 MG CAP PO SCH ×2 (08:56→20:17)
[2018-08-21] MEDS: amLODIPine 5 MG TAB PO SCH (08:56)
[2018-08-21] MEDS: buPROPion XL 300 MG TAB.ER.24H PO SCH (08:56)
[2018-08-21] MEDS: CYANOCOBALAMIN 500 MCG TAB PO SCH (08:57)
[2018-08-21] MEDS: FISH OIL 1000MG PO SCH ×2 (09:10→21:40)
[2018-08-21 11:10] LABS: Basophils % (A) 1 %; Eosinophils # (A) 0.2 k/uL (0-0.7); Eosinophils % (A) 4 %; HCT 38.2 % (39.0-53.0); HGB 11.8 gm/dL (13.0-17.5); Lymphocytes # (A) 1.4 k/uL (1.0-4.8); Lymphocytes % (A) 25 %; MCH 29.6 pg (25.0-35.0); MCHC 30.9 g/dL (31.0-37.0); MCV 95.6 fL (80.0-100.0); Mean Platelet Volume 6.4; Monocytes # (A) 0.3 k/uL (0-1.0); Monocytes % (A) 6 %; Neutrophils # (A) 3.4 k/uL (1.3-7.7); Neutrophils % (A) 63 %; Platelet Count 545 k/uL (150-450); RDW 13.6 % (11.5-15.5); WBC 5.4 k/uL (3.8-10.6)
[2018-08-21 11:23] LABS: Calcium 9.9 mg/dL (8.4-10.2)
[2018-08-21 11:29] LABS: Potassium 4.5 mmol/L (3.5-5.1)
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
[2018-08-21] MEDS ORDERED: IPRATROPIUM-ALBUTEROL 3 ML NEB INHALATION PRN (19:03)
[2018-08-21] MEDS: ACETAMINOPHEN TAB 325 MG TAB PO PRN (19:44)
[2018-08-21 19:51] LABS: D-Dimer 1.28 mg/L FEU (<0.60); INR 0.9 (<1.2); Prothrombin Time 9.9 sec (9.0-12.0)
[2018-08-21] MEDS: lamoTRIgine 100 MG TAB PO SCH (20:17)
[2018-08-21] MEDS: PALIPERIDONE 3 MG TAB.ER.24 PO SCH (20:17)
[2018-08-21] MEDS: HEPARIN SODIUM,PORCINE 5,000 UNIT/ML 1 ML VIAL SQ SCH (20:18)
[2018-08-21] MEDS: LORazepam 1 MG TAB PO PRN (20:20)
[2018-08-21] MEDS: IPRATROPIUM-ALBUTEROL 3 ML NEB INHALATION SCH (20:41)
--- NOTE | 2018-08-21 21:25 | PN ---
PROGRESS NOTE DATE OF SERVICE: 08/21/2018. HISTORY: This 52-year-old gentleman who was admitted to the psych floor with multiple medical problems including acute kidney injury, nausea and dehydration also. The patient was hydrated. The patient apparently also given IV Lasix also. A chest x-ray done on 08/10/2018 was personally reviewed by me, showed some vascular congestion. The patient also felt cold and clammy according to the staff. The patient had presyncopal episode also. Patient is being closely monitored at this time. PAST MEDICAL HISTORY: Reviewed. REVIEW OF SYSTEMS: CARDIOVASCULAR: No angina. GI: As mentioned. : None. NERVOUS SYSTEM: No numbness or weakness. CURRENT MEDICATIONS: 1. Tylenol 650 every 4 hours p.r.n. 2. Maalox. 3. Norvasc 5 mg. 5. Vitamin D daily. 6. Vitamin B2 daily. 7. Lamictal. 8. Ativan p.r.n. 9. Milk of magnesia. 11.Tigan. PHYSICAL EXAM: Patient is alert, oriented x3. Pulse 95, blood pressure 143/87, respirations 16, temperature 97.9, pulse ox 94% room air. HEENT: Conjunctivae clear. Oral mucosa normal. NECK: No JVD. No lymph node enlargement. CARDIOVASCULAR: S1 and S2 muffled. LUNGS: Breath sounds diminished at the bases. Few scattered rhonchi and crackles. ABDOMEN: Soft, obese, nontender. EXTREMITIES: Legs no edema, no swelling. NERVOUS SYSTEM: Higher functions as mentioned. Moves all limbs equally. Focal motor deficits. LYMPHATICS: No lymph nodes palpable in the neck, axillae or groin. LYMPHATICS: No skin rashes. LAB STUDIES: WBC 5.4, hemoglobin 11.8, platelets are 545,000, glucose 112. ASSESSMENT: 1. Shortness of breath for evaluation, possibly congestive heart failure acute exacerbation or chronic obstructive pulmonary disease acute exacerbation. 2. Reason kidney injury. 3. Nausea and vomiting. 4. Rule out orthostatic hypotension. 5. Abdominal wound healing. 6. Abdominal cellulitis, improving. 7. Closed wound in the mid abdomen from previous surgery. 8. History of hypothyroidism. 9. History of depression. RECOMMENDATIONS: Recommend to continue current management and symptomatic treatment. I would recommend D- dimer. If the D-dimer is positive, I would also recommend CT angio of the chest. I would also recommend bronchodilators for possible chronic bronchitis. Continue the rest of the medications. Overall prognosis is guarded because of multiple complex medical issues. Further recommendations to follow. I would also repeat labs also on a stat basis also. See orders for further details. Further recommendations to follow. ELIGIO / MIHIRN: [id number] / MTDD
[2018-08-21] MEDS: ERGOCALCIFEROL 50,000 UNIT CAP PO SCH (22:51)
--- NOTE | 2018-08-22 | NM ---
EXAMINATION TYPE: NM pul vent and perfuse DATE OF EXAM: 08/21/2018 COMPARISON: NONE HISTORY: TECHNIQUE: Utilizing inhalation of 38.9 mCi Tc 99m DTPA aerosol and intravenous injection of 5.4 mCi of Tc 99m MAA, ventilation and perfusion images are acquired post injection in multiple projections. FINDINGS: There are linear defects along the major fissures consistent with some pulmonary congestion and pleur al fluid. There is no segmental type perfusion defect. There is no mismatch. There is fairly uniform perfusion of both lungs. IMPRESSION: There is a low probability of pulmonary embolism. There is linear defect along the fissures consisten t with congestive heart failure.
--- NOTE | 2018-08-22 00:34 | US ---
EXAMINATION TYPE: US venous doppler duplex LE BI DATE OF EXAM: 08/22/2018 12:25 AM COMPARISON: NONE CLINICAL HISTORY: r/o DVT. swelling. SIDE PERFORMED: Bilateral TECHNIQUE: The lower extremity deep venous system is examined utilizing real time linear array sonog sania with graded compression, doppler sonography and color-flow sonography. VESSELS IMAGED: External Iliac Vein (EIV) Common Femoral Vein Deep Femoral Vein Greater Saphenous Vein * Femoral Vein Popliteal Vein Small Saphenous Vein * Proximal Calf Veins (* superficial vessels) Right Leg: Negative for DVT Left Leg: Negative for DVT No evidence of DVT bilateral legs. IMPRESSION: No evidence of deep venous thrombosis in both legs. Negative exam.
[2018-08-22] MEDS: HEPARIN SODIUM,PORCINE 5,000 UNIT/ML 1 ML VIAL SQ SCH ×2 (09:05→20:38)
[2018-08-22] MEDS: CEPHALEXIN 500 MG CAP PO SCH (09:07)
[2018-08-22] MEDS: amLODIPine 5 MG TAB PO SCH (09:09)
[2018-08-22] MEDS: CYANOCOBALAMIN 500 MCG TAB PO SCH (09:09)
[2018-08-22] MEDS: buPROPion XL 300 MG TAB.ER.24H PO SCH (09:09)
[2018-08-22] MEDS: FISH OIL 1000MG PO SCH ×2 (09:10→20:36)
[2018-08-22] MEDS: IPRATROPIUM-ALBUTEROL 3 ML NEB INHALATION SCH ×3 (09:13→16:12)
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
[2018-08-22] MEDS ORDERED: IBUPROFEN 200 MG TAB PO PRN (11:50)
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
--- NOTE | 2018-08-22 12:44 | PN ---
PROGRESS NOTE DATE OF SERVICE: 08/22/2018 This 52-year-old gentleman who was admitted with shortness of breath possibly had CHF and COPD. The patient also complaining of bilateral leg pain also at this time. The D- dimer was elevated but V/Q scan is low probability. Venous Doppler was negative also. Patient was closely monitored. The patient is medically stable at this time. PHYSICAL EXAMINATION: On exam, alert and oriented x3. Pulse 92, blood pressure 145/93, respirations 18, temperature 97.8 pulse ox 100% on room air, minimal orthostatic changes. HEENT: Conjunctivae normal. Oral mucosa moist. Neck is no jugular venous distention. No carotid bruit. No lymph node enlargement. CARDIOVASCULAR: S1 and S2 muffled. RESPIRATORY: A few scattered rhonchi. Abdomen is soft, nontender. LEGS: No edema. NERVOUS SYSTEM: No focal deficits. LABS: WBC 5.4, hemoglobin 11.8. D-dimer is 1.28. ASSESSMENT: 1. Shortness of breath, possibly congestive heart failure acute exacerbation and as well as chronic obstructive pulmonary disease acute exacerbation. 2. Recent kidney injury. 3. Nausea, vomiting, improved. 4. Elevated D-dimer without any evidence of pulmonary embolism. 5. No evidence of orthostatic hypotension. 6. Bilateral leg pain, possibly musculoskeletal. 7. Abdominal wound healing. 8. Abdominal cellulitis, improving. 9. Closed wound in the abdomen from the previous surgery. 10.History of hypothyroidism. 11.History of depression. RECOMMENDATION AND DISCUSSION: This 52-year-old gentleman presented with multiple medical issues, at this time we will monitor the patient closely. Continue the current medications and continue symptomatic treatment. Otherwise at this time I recommend continue with current medications and symptomatic treatment. Also recommend close follow up with primary physician in the outpatient setting in 2 to 3 days. Also follow up with Surgery as well. Otherwise, will continue to monitor. Further recommendations to follow. MMODL / IJN: [id number] /
[2018-08-22 13:41] LABS: Basophils % (A) 0 %; Eosinophils # (A) 0.2 k/uL (0-0.7); Eosinophils % (A) 3 %; Lymphocytes # (A) 1.5 k/uL (1.0-4.8); Lymphocytes % (A) 25 %; MCH 30.6 pg (25.0-35.0); MCHC 31.6 g/dL (31.0-37.0); MCV 96.8 fL (80.0-100.0); Mean Platelet Volume 6.9; Monocytes # (A) 0.4 k/uL (0-1.0); Monocytes % (A) 6 %; Neutrophils # (A) 3.8 k/uL (1.3-7.7); Neutrophils % (A) 64 %; Platelet Count 513 k/uL (150-450); RBC 3.93 m/uL (4.30-5.90); RDW 13.6 % (11.5-15.5); WBC 5.9 k/uL (3.8-10.6)
[2018-08-22 13:46] LABS: Calcium 9.7 mg/dL (8.4-10.2); Magnesium 2.1 mg/dL (1.6-2.3); Potassium 4.7 mmol/L (3.5-5.1)
[2018-08-22] MEDS: SYMBICORT 160-4.5 MCG INHALER INHALATION SCH ×2 (16:12→19:45)
[2018-08-22] MEDS: LEVOFLOXACIN 500 MG TAB PO SCH (16:14)
[2018-08-22] MEDS ORDERED: SYMBICORT 160-4.5 MCG INHALER INHALATION SCH (20:00)
[2018-08-22] MEDS: PALIPERIDONE 3 MG TAB.ER.24 PO SCH (20:36)
[2018-08-22] MEDS: lamoTRIgine 100 MG TAB PO SCH (20:36)
[2018-08-22] MEDS: LORazepam 1 MG TAB PO PRN (20:38)
[2018-08-22] MEDS: ACETAMINOPHEN TAB 325 MG TAB PO PRN (20:45)
[2018-08-23 07:05] VITALS: TEMP 97.9
[2018-08-23] MEDS: CYANOCOBALAMIN 500 MCG TAB PO SCH (07:53)
[2018-08-23] MEDS: buPROPion XL 300 MG TAB.ER.24H PO SCH (07:53)
[2018-08-23] MEDS: amLODIPine 5 MG TAB PO SCH ×2 (07:53→21:27)
[2018-08-23] MEDS: HEPARIN SODIUM,PORCINE 5,000 UNIT/ML 1 ML VIAL SQ SCH ×2 (07:54→21:27)
[2018-08-23] MEDS: IPRATROPIUM-ALBUTEROL 3 ML NEB INHALATION SCH ×3 (09:01→21:14)
[2018-08-23] MEDS: SYMBICORT 160-4.5 MCG INHALER INHALATION SCH ×2 (09:01→21:14)
[2018-08-23 09:20] LABS: Calcium 9.4 mg/dL (8.4-10.2); Potassium 4.4 mmol/L (3.5-5.1)
[2018-08-23 09:21] LABS: Basophils % (A) 1 %; Eosinophils # (A) 0.2 k/uL (0-0.7); Eosinophils % (A) 4 %; HCT 37.6 % (39.0-53.0); HGB 11.8 gm/dL (13.0-17.5); Lymphocytes # (A) 1.5 k/uL (1.0-4.8); Lymphocytes % (A) 34 %; MCH 29.7 pg (25.0-35.0); MCHC 31.3 g/dL (31.0-37.0); MCV 94.9 fL (80.0-100.0); Mean Platelet Volume 7.1; Monocytes # (A) 0.2 k/uL (0-1.0); Monocytes % (A) 5 %; Neutrophils # (A) 2.3 k/uL (1.3-7.7); Neutrophils % (A) 55 %; Platelet Count 527 k/uL (150-450); RBC 3.97 m/uL (4.30-5.90); RDW 13.6 % (11.5-15.5); WBC 4.2 k/uL (3.8-10.6)
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
[2018-08-23] MEDS: FISH OIL 1000MG PO SCH ×2 (10:07→21:28)
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
[2018-08-23] MEDS: LEVOFLOXACIN 500 MG TAB PO SCH (15:45)
[2018-08-23] MEDS: PALIPERIDONE 3 MG TAB.ER.24 PO SCH (21:27)
[2018-08-23] MEDS: lamoTRIgine 100 MG TAB PO SCH (21:28)
[2018-08-23] MEDS: LORazepam 1 MG TAB PO PRN (23:26)
[2018-08-23] MEDS: ACETAMINOPHEN TAB 325 MG TAB PO PRN (23:27)
[2018-08-24] MEDS: HEPARIN SODIUM,PORCINE 5,000 UNIT/ML 1 ML VIAL SQ SCH (08:34)
[2018-08-24] MEDS: CYANOCOBALAMIN 500 MCG TAB PO SCH (08:35)
[2018-08-24] MEDS: buPROPion XL 300 MG TAB.ER.24H PO SCH (08:35)
[2018-08-24] MEDS: amLODIPine 5 MG TAB PO SCH (08:35)
[2018-08-24] MEDS: FISH OIL 1000MG PO SCH (08:35)
[2018-08-24] MEDS: LORazepam 1 MG TAB PO PRN (08:36)
[2018-08-24 09:36] LABS: Basophils % (A) 1 %; Eosinophils # (A) 0.2 k/uL (0-0.7); Eosinophils % (A) 4 %; HCT 36.9 % (39.0-53.0); HGB 11.9 gm/dL (13.0-17.5); Lymphocytes # (A) 1.7 k/uL (1.0-4.8); Lymphocytes % (A) 34 %; MCH 30.3 pg (25.0-35.0); MCHC 32.1 g/dL (31.0-37.0); MCV 94.3 fL (80.0-100.0); Mean Platelet Volume 6.4; Monocytes # (A) 0.3 k/uL (0-1.0); Monocytes % (A) 6 %; Neutrophils # (A) 2.7 k/uL (1.3-7.7); Neutrophils % (A) 53 %; Platelet Count 584 k/uL (150-450); RBC 3.92 m/uL (4.30-5.90); RDW 13.8 % (11.5-15.5); WBC 5.2 k/uL (3.8-10.6)
[2018-08-24] MEDS: SYMBICORT 160-4.5 MCG INHALER INHALATION SCH (09:51)
[2018-08-24] MEDS: IPRATROPIUM-ALBUTEROL 3 ML NEB INHALATION SCH (09:51)
[2018-08-24 10:01] VITALS: PULSE 84
[2018-08-24 10:07] LABS: Calcium 9.5 mg/dL (8.4-10.2); Potassium 4.6 mmol/L (3.5-5.1)
[2018-08-24 10:57] VITALS: BP 129/76; RESP 20
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
[2018-08-24] MEDS: LEVOFLOXACIN 500 MG TAB PO SCH (15:03)
[2018-08-24] MEDS ORDERED: ALBUTEROL INHALER 60 PUFF/8 GM INHALER INHALATION PRN (17:13)
== END 2018-08-24 18:21 | disposition home or self-care (01) | DRG 885 ==
LOC: 3MHU 19:30
PROVIDERS: ADMIT Psychiatry & Neurology Psychiatry; ATTEND Psychiatry & Neurology Psychiatry
DX: F25.0 Schizoaffective disorder, bipolar type (principal); N17.0 Acute kidney failure with tubular necrosis; L03.311 Cellulitis of abdominal wall; E03.9 Hypothyroidism, unspecified; E86.0 Dehydration; F10.11 Alcohol abuse, in remission; F17.200 Nicotine dependence, unspecified, uncomplicated; F41.9 Anxiety disorder, unspecified; F81.9 Developmental disorder of scholastic skills, unspecified; F90.9 Attention-deficit hyperactivity disorder, unspecified type; I10 Essential (primary) hypertension; I12.9 Hypertensive chronic kidney disease with stage 1 through stage 4 chronic kidney disease, or unspecified chronic kidney disease; N18.3 Chronic kidney disease, stage 3 (moderate); R79.1 Abnormal coagulation profile; Z91.5 Personal history of self-harm; Z79.899 Other long term (current) drug therapy; Z91.19 Patient's noncompliance with other medical treatment and regimen; Z91.041 Radiographic dye allergy status; E66.9 Obesity, unspecified; Z68.36 Body mass index [BMI] 36.0-36.9, adult; Z90.49 Acquired absence of other specified parts of digestive tract
CPT/HCPCS: 71045; 78582; 80048; 80053; 80061; 80175; 81003; 83036; 83735; 83880; 84484; 85025; 85379; 85610; 87070; 87205; 93005; 93970; 94640

== ENCOUNTER 2018-08-26 09:24 | Emergency (ER) | payer MEDICARE, OTHER ==
[2018-08-26 09:34] VITALS: RESP 16
[2018-08-26] MEDS ORDERED: ONDANSETRON 4 MG/2 ML VIAL IVP STA (09:45)
[2018-08-26] MEDS ORDERED: MORPHINE SULFATE 2 MG/ML SYRINGE IVP STA (09:45)
[2018-08-26] MEDS ORDERED: SODIUM CHLORIDE 0.9% 1,000 ML IV STA (09:45)
[2018-08-26] MEDS: diphenhydrAMINE 50 MG/ML 1 ML VIAL IVP STA ×3 (10:06→10:35)
[2018-08-26] MEDS: methylPREDNISolone SOD SUCCI 125 MG/2 ML VIAL IV STA ×2 (10:07→10:34)
[2018-08-26] MEDS: FAMOTIDINE 20 MG/2 ML VIAL IV STA ×2 (10:07→10:34)
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
[2018-08-26 10:27] LABS: Basophils % (A) 0 %; Eosinophils # (A) 0.2 k/uL (0-0.7); Eosinophils % (A) 3 %; HCT 39.7 % (39.0-53.0); Lymphocytes # (A) 1.4 k/uL (1.0-4.8); Lymphocytes % (A) 22 %; MCH 30.6 pg (25.0-35.0); MCHC 32.6 g/dL (31.0-37.0); MCV 93.8 fL (80.0-100.0); Mean Platelet Volume 6.6; Monocytes # (A) 0.4 k/uL (0-1.0); Monocytes % (A) 6 %; Neutrophils # (A) 4.2 k/uL (1.3-7.7); Neutrophils % (A) 66 %; Platelet Count 608 k/uL (150-450); RBC 4.24 m/uL (4.30-5.90); RDW 13.9 % (11.5-15.5); WBC 6.3 k/uL (3.8-10.6)
[2018-08-26 10:39] LABS: Calcium 9.6 mg/dL (8.4-10.2); Potassium 5.1 mmol/L (3.5-5.1); Total Bilirubin 0.4 mg/dL (0.2-1.3)
--- NOTE | 2018-08-26 11:15 | CT ---
EXAMINATION TYPE: CT abdomen pelvis w con DATE OF EXAM: 08/26/2018 COMPARISON: 12/01/2011 HISTORY: 52-year-old male Abdominal pain status post abdominal surgery TECHNIQUE: Contiguous axial scanning of the abdomen and pelvis following administration of 100 ml Iso kaylee 300 IV contrast. Delayed images through the kidneys and coronal/sagittal reconstructions perform ed. CT DLP: 1554.8 mGycm Automated exposure control for dose reduction was used. FINDINGS: Heart normal size without pericardial effusion. Some stringy atelectasis at the left base. No pleural effusion. Mild circumferential wall thickening of the lower esophagus may reflect esophagitis. A couple prominent nodes adjacent to the fundus of the stomach measuring up to 8 mm short axis. Liver normal size but with slightly diminished attenuation may reflect fatty infiltration. Portal iris ous system is patent. No biliary ductal dilatation. Cholecystectomy clips. A few prominent vaughn hepatic lymph nodes measuring up to 6 mm are unchanged from 2012. Adrenal glands, spleen, and pancreas appear within normal limits. Tiny cyst medial lower pole right k idney. A cyst in the upper pole of the right kidney measures 4.9 cm versus 4.0 cm in 2012 and now has suggestion of some internal thin septations. Indolent behavior suggests a benign etiology. 1.2 cm co rtical cyst lateral lower pole left kidney. No dilated small bowel, free fluid, or free air. Supraumbilical midline incision with prominent fat stranding and hazy density throughout the subcutan eous fat and within the underlying omentum. No abnormal fluid collection. The inflammatory changes sp an the distance of the skin florencia, approximately 15 cm. There is an epigastric ventral abdominal wall hernia containing omental fat. The abdominal wall defec t measures 2.0 cm and the hernia sac measures 4.4 cm, coronal image 21. No associated inflammation. Normal appendix. Mild scattered stool. No pericolonic inflammatory change. Bladder partially distended. Pelvic phlebolith. No abnormal fluid collection in the pelvis or pelvic lymphadenopathy seen. Bones: Reversal of the normal lumbar lordosis could be positional or due to muscle spasm. IMPRESSION: 1. POST LAPAROTOMY CHANGES ALONG THE SUPRAUMBILICAL REGION WITH ANTERIOR MIDLINE SKIN FLORENCIA. SPANNI NG THE DISTANCE OF THE SKIN FLORENCIA, APPROXIMATELY 15 CM, THERE IS INFLAMMATION IN THE UNDERLYING SUB CUTANEOUS ADIPOSE LAYER AND EXTENDING INTO THE UNDERLYING OMENTAL FAT WELL. CORRELATE FOR POSSIBLE INFECTION WITH CELLULITIS/OMENTITIS. IF NO SIGNS/SYMPTOMS OF INFECTION, THE INFLAMMATORY CHANGES MAY BE POSTSURGICAL. NO ABNORMAL FLUID COLLECTION. 2. EPIGASTRIC VENTRAL ABDOMINAL WALL HERNIA CONTAINING OMENTAL FAT (HERNIA NECK 2 CM AND HERNIA SAC 4 .4 CM). 3. CIRCUMFERENTIAL WALL THICKENING OF THE LOWER ESOPHAGUS COULD REPRESENT ESOPHAGITIS. 4. HEPATIC STEATOSIS. 5. A 4.9 CM RIGHT UPPER POLE RENAL CYST SHOWS APPROXIMATELY 1 CM OF ENLARGEMENT FROM 2012 AND NOW WIT H SOME INTERNAL THIN SEPTATIONS. THE INDOLENT BEHAVIOR SUGGESTS A BENIGN, BOSNIAK CATEGORY 2 CYST.
[2018-08-26 12:19] VITALS: BP 151/84; PULSE 80; TEMP 97.8
== END 2018-08-26 12:18 | disposition home or self-care (01) ==
LOC: EC 09:24
DX: R10.9 Unspecified abdominal pain (principal); M79.605 Pain in left leg; M79.604 Pain in right leg; K76.0 Fatty (change of) liver, not elsewhere classified; N28.1 Cyst of kidney, acquired; F31.9 Bipolar disorder, unspecified; F17.200 Nicotine dependence, unspecified, uncomplicated; Z79.899 Other long term (current) drug therapy; Z90.49 Acquired absence of other specified parts of digestive tract; Z98.890 Other specified postprocedural states
CPT/HCPCS: 96375 ×5; 96361 ×3; 96374 ×2; 99285 ×2; 36415; 80053; 82150; 83605; 83690; 85025; 74177; J1200; J2930; J2405; J2270; Q9967

== ENCOUNTER 2018-08-28 10:42 | Emergency (ER) | payer MEDICARE, OTHER ==
[2018-08-28] MEDS ORDERED: HYDROcodone/APAP 5-325MG 1 EACH TAB PO STA ×2 (11:16→18:40)
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
--- NOTE | 2018-08-28 12:03 | XR ---
EXAMINATION TYPE: XR Hip Bilateral and AP pelvis DATE OF EXAM: 08/28/2018 COMPARISON: CT from 2 days ago. HISTORY: Pain. TECHNIQUE: A single AP view of the pelvis is obtained. Two views of the bilateral hips are obtained. FINDINGS: There is no acute fracture/dislocation evident in the pelvis. The sacroiliac joints appea r symmetric and unremarkable. Partial visualization of overlying vertical skin florencia is noted. Two views of bilateral hips show no acute fracture or dislocation. No focal lytic or sclerotic lesio n seen in the proximal femurs bilaterally. Mild axial joint space loss in both hips is present. The overlying soft tissue is unremarkable. IMPRESSION: There is no acute fracture or dislocation in the pelvis or either hip. No significant ch kadeem from recent CT.
[2018-08-28 12:56] LABS: Basophils % (A) 0 %; Eosinophils # (A) 0.1 k/uL (0-0.7); Eosinophils % (A) 1 %; HCT 40.6 % (39.0-53.0); HGB 12.8 gm/dL (13.0-17.5); Lymphocytes # (A) 1.7 k/uL (1.0-4.8); Lymphocytes % (A) 18 %; MCH 29.7 pg (25.0-35.0); MCHC 31.6 g/dL (31.0-37.0); MCV 94.1 fL (80.0-100.0); Mean Platelet Volume 6.6; Monocytes # (A) 0.5 k/uL (0-1.0); Monocytes % (A) 5 %; Neutrophils # (A) 7.3 k/uL (1.3-7.7); Neutrophils % (A) 74 %; Platelet Count 601 k/uL (150-450); RBC 4.32 m/uL (4.30-5.90); RDW 13.8 % (11.5-15.5); WBC 9.8 k/uL (3.8-10.6)
[2018-08-28 13:02] LABS: Alcohol <10 mg/dL; Anion Gap 9 mmol/L; Blood Urea Nitrogen 24 mg/dL (9-20); Calcium 9.8 mg/dL (8.4-10.2); Carbon Dioxide 22 mmol/L (22-30); Chloride 108 mmol/L (98-107); Glucose 88 mg/dL (74-99); Potassium 4.7 mmol/L (3.5-5.1); Sodium 139 mmol/L (137-145)
[2018-08-28 16:33] LABS: Appearance,Urine Clear (Clear); Bilirubin,Urine Negative (Negative); Blood,Urine Negative (Negative); Color,Urine Yellow; Glucose,Urine (UA) Negative (Negative); Ketones,Urine 1+ (Negative); Leukocyte Esterase,Urine Negative (Negative); Nitrite,Urine Negative (Negative); PH, Urine 5.5 (5.0-8.0); Protein,Urine Trace (Negative); Specific Gravity,Urine 1.019 (1.001-1.035); Urobilinogen,Urine <2.0 mg/dL (<2.0)
[2018-08-28 16:44] LABS: Amphetamine Screen,Urine Not Detected (NotDetected); Barbiturate Screen,Urine Not Detected (NotDetected); Benzodiazepines Screen,Urine Not Detected (NotDetected); Cocaine Screen,Urine Not Detected (NotDetected); Methadone Screen, Urine Not Detected (NotDetected); Opiate Screen,Urine Detected (NotDetected); Oxycodone Screen, Urine Not Detected (NotDetected); Phencyclidine Screen,Urine Not Detected (NotDetected); Tricyclic Antidepressant,Urine Not Detected (NotDetected); Urn Cannabinoid Scrn Not Detected (NotDetected)
[2018-08-28] MEDS ORDERED: fluPHENAZine DECANOATE 25 MG/ML 5ML MDV IM SCH (22:00)
[2018-08-28] MEDS ORDERED: busPIRone HCl 5 MG TAB PO SCH (22:00)
[2018-08-28] MEDS ORDERED: QUEtiapine 200 MG TAB PO SCH (22:00)
[2018-08-28] MEDS ORDERED: lamoTRIgine 100 MG TAB PO SCH (22:00)
[2018-08-29] MEDS ORDERED: buPROPion XL 150 MG TAB.ER.24H PO SCH (09:00)
[2018-08-29] MEDS ORDERED: LISINOPRIL 10 MG TAB PO SCH (09:00)
[2018-08-29] MEDS ORDERED: amLODIPine 5 MG TAB PO SCH (09:00)
[2018-08-29] MEDS ORDERED: HYDROcodone/APAP 5-325MG 1 EACH TAB PO STA (14:22)
[2018-08-29] MEDS ORDERED: LORazepam 2 MG/ML INJ IV STA (15:27)
[2018-08-29 17:35] VITALS: BP 121/70; PULSE 84; RESP 16; TEMP 98
--- NOTE | 2018-08-31 07:21 | CDI ---
Documentation Clarification OP Dear Dr.Bayudan Gibbs Please provide clinical impression & disposition. Thank you, Sagar Amanda Window Draper If you have any questions, please contact [employer] Technician at [phone] [facility]
== END 2018-08-29 18:13 ==
LOC: EC 10:42
DX: R45.851 Suicidal ideations (principal); G89.18 Other acute postprocedural pain; M25.552 Pain in left hip; M25.551 Pain in right hip; I10 Essential (primary) hypertension; F41.9 Anxiety disorder, unspecified; F32.9 Major depressive disorder, single episode, unspecified; E66.9 Obesity, unspecified; Z68.38 Body mass index [BMI] 38.0-38.9, adult; Z91.5 Personal history of self-harm; Z87.891 Personal history of nicotine dependence; Z98.890 Other specified postprocedural states; Z53.8 Procedure and treatment not carried out for other reasons; Z79.899 Other long term (current) drug therapy
CPT/HCPCS: 36415; 80048; 85025; 81003; 80306; 73521; 99285; G0480; 80320

== ENCOUNTER → 2018-08-28 | Outpatient (CLI) | payer MEDICARE, OTHER ==
[2018-08-28 12:51] LABS: Basophils % (A) 1 %; Eosinophils # (A) 0.1 k/uL (0-0.7); Eosinophils % (A) 2 %; HCT 42.8 % (39.0-53.0); HGB 13.4 gm/dL (13.0-17.5); Lymphocytes # (A) 2.6 k/uL (1.0-4.8); Lymphocytes % (A) 31 %; MCH 30.1 pg (25.0-35.0); MCHC 31.3 g/dL (31.0-37.0); MCV 96.1 fL (80.0-100.0); Mean Platelet Volume 7.2; Monocytes # (A) 0.5 k/uL (0-1.0); Monocytes % (A) 6 %; Neutrophils % (A) 60 %; Platelet Count 694 k/uL (150-450); RBC 4.46 m/uL (4.30-5.90); WBC 8.3 k/uL (3.8-10.6)
[2018-08-28 15:54] LABS: Anion Gap 9.7 mmol/L (4.00-12.00); Calcium 9.4 mg/dL (8.7-10.3); Carbon Dioxide 22.3 mmol/L (21.6-31.8); Potassium 4.9 mmol/L (3.5-5.5)
== END ==
LOC: LABWHC1 09:29
PROVIDERS: ATTEND Nurse Practitioner
DX: N19 Unspecified kidney failure (principal); J40 Bronchitis, not specified as acute or chronic
CPT/HCPCS: 36415; 80048; 85025

== ENCOUNTER 2019-01-04 19:29 | Inpatient (IN) | payer MEDICARE, MEDICAID ==
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
[2019-01-05 06:34] LABS: Amphetamine Screen,Urine Not Detected (NotDetected); Barbiturate Screen,Urine Not Detected (NotDetected); Benzodiazepines Screen,Urine Not Detected (NotDetected); Cocaine Screen,Urine Not Detected (NotDetected); Methadone Screen, Urine Not Detected (NotDetected); Opiate Screen,Urine Not Detected (NotDetected); Oxycodone Screen, Urine Not Detected (NotDetected); Phencyclidine Screen,Urine Not Detected (NotDetected); Tricyclic Antidepressant,Urine Detected (NotDetected); Urn Cannabinoid Scrn Not Detected (NotDetected)
[2019-01-05] MEDS ORDERED: MAGNESIUM HYDROXIDE 2,400 MG/10 ML CUP PO PRN (07:43)
[2019-01-05] MEDS ORDERED: MAG HYDROX/AL HYDROX/SIMETH 30 ML CUP PO PRN (07:43)
[2019-01-05] MEDS: NICOTINE 21MG/24HR PATCH TRANSDERM SCH (09:33)
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
[2019-01-05] MEDS ORDERED: DIVALPROEX ER 250 MG TAB.ER.24H PO STA (11:52)
[2019-01-05] MEDS: LORazepam 1 MG TAB PO PRN (15:34)
[2019-01-05] MEDS: ZIPRASIDONE 20 MG VIAL IM PRN (16:31)
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
[2019-01-05] MEDS: FERROUS SULFATE 325 MG TAB PO SCH (17:30)
[2019-01-05] MEDS: DIVALPROEX ER 250 MG TAB.ER.24H PO SCH (20:44)
[2019-01-06] MEDS: amLODIPine 10 MG TAB PO SCH (07:52)
[2019-01-06] MEDS: LISINOPRIL 5 MG TAB PO SCH (07:52)
[2019-01-06] MEDS: DIVALPROEX ER 250 MG TAB.ER.24H PO SCH ×2 (07:53→20:33)
[2019-01-06] MEDS: NICOTINE 21MG/24HR PATCH TRANSDERM SCH (07:53)
[2019-01-06] MEDS: ZIPRASIDONE 20 MG VIAL IM PRN (08:24)
[2019-01-06] MEDS ORDERED: LORazepam 2 MG/ML INJ IM PRN (09:23)
[2019-01-06 10:04] LABS: Albumin 4.5 g/dL (3.5-5.0); Bilirubin, Delta 0.4 mg/dL (0.0-0.2); Bilirubin,Unconjugated 0.3 mg/dL (0.0-1.1); Calcium 9.6 mg/dL (8.4-10.2); Potassium 4.8 mmol/L (3.5-5.1); Total Bilirubin 0.7 mg/dL (0.2-1.3); Total Protein 7.6 g/dL (6.3-8.2)
--- NOTE | 2019-01-06 17:45 | P.PN ---
Subjective Progress Note Date: 01/06/19 Principal diagnosis: Schizoaffective Disorder, depressed type Found him in his room. Very withdrawn and minimally interactive. Isolating and withdrawing. Reports still hearing some voices but they are slowing down. Behaviorally well controlled. Did sleep okay last night. Has suicidal Ideaton MSE: Alert, awake, oriented in all spheres. Poor eye contact. Some what guarded appro ach. Mood anxious with flat affect. Has suicidal ideation. Has psychoses. Insight and judgment limited A/P : Schizoaffective Disorder, Depressed type Will continue to adjust medications accordingly Objective - Vital Signs Vital signs: Vital Signs Temp 98.3 F 01/06/19 06:52 Pulse 118 H 01/06/19 11:58 Resp 16 01/06/19 11:58 BP 129/77 01/06/19 11:58 Pulse Ox 98 01/05/19 11:42 - Labs CBC & Chem 7: 01/06/19 08:32 Labs: Abnormal Lab Results - Last 24 Hours (Table) 01/06/19 Range/Units 08:32 BUN 21 H (9-20) mg/dL Creatinine 1.40 H (0.66-1.25) mg/dL Glucose 145 H (74-99) mg/dL Delta Bilirubin 0.4 H (0.0-0.2) mg/dL Triglycerides 156 H (<150) mg/dL LDL Cholesterol, Calc 110 H (0-99) mg/dL
[2019-01-06 18:19] LABS: Hemoglobin A1C 5.6 % (4.0-6.0)
[2019-01-07] MEDS: IPRATROPIUM-ALBUTEROL 3 ML NEB INHALATION SCH ×5 (07:44→23:48)
[2019-01-07] MEDS: LORazepam 1 MG TAB PO PRN (08:09)
[2019-01-07] MEDS: NICOTINE 21MG/24HR PATCH TRANSDERM SCH (08:09)
[2019-01-07] MEDS: amLODIPine 10 MG TAB PO SCH (08:09)
[2019-01-07] MEDS: DIVALPROEX ER 250 MG TAB.ER.24H PO SCH ×2 (08:09→20:59)
[2019-01-07] MEDS: LISINOPRIL 5 MG TAB PO SCH (08:09)
--- NOTE | 2019-01-07 14:04 | P.PN ---
Subjective Progress Note Date: 01/07/19 Principal diagnosis: Schizoaffective Disorder, depressed type Found him in his room. Very withdrawn and minimally interactive. Isolating and withdrawing. Reports still hearing some voices but they are slowing down. Behaviorally well controlled. Did sleep okay last night. Has suicidal Ideaton MSE: Alert, awake, oriented in all spheres. Poor eye contact. Some what guarded appro ach. Mood anxious with flat affect. Has suicidal ideation. Has psychoses. Insight and judgment limited A/P : Schizoaffective Disorder, Depressed type Will continue to adjust medications accordingly Objective - Vital Signs Vital signs: Vital Signs Temp 97.3 F L 01/07/19 08:11 Pulse 109 H 01/07/19 08:11 Resp 18 01/07/19 08:11 BP 131/88 01/07/19 08:11 Pulse Ox 94 L 01/07/19 05:58 Intake & Output 01/06/19 01/07/19 01/07/19 18:59 06:59 18:59 Weight 118.1 kg - Labs CBC & Chem 7: 01/06/19 08:32
[2019-01-08] MEDS: IPRATROPIUM-ALBUTEROL 3 ML NEB INHALATION SCH ×6 (06:22→23:58)
[2019-01-08] MEDS: DIVALPROEX ER 250 MG TAB.ER.24H PO SCH ×2 (08:09→22:51)
[2019-01-08] MEDS: LISINOPRIL 5 MG TAB PO SCH (08:09)
[2019-01-08] MEDS: amLODIPine 10 MG TAB PO SCH (08:09)
[2019-01-08] MEDS: LORazepam 1 MG TAB PO PRN (09:39)
[2019-01-08] MEDS: NICOTINE 21MG/24HR PATCH TRANSDERM SCH (10:26)
[2019-01-08] MEDS: FERROUS SULFATE 325 MG TAB PO SCH (12:17)
--- NOTE | 2019-01-08 14:02 | P.PN ---
Subjective Progress Note Date: 01/08/19 Principal diagnosis: schizophrenia versus schizoaffective-depressed 01/08/2019: Chart reviewed, discussed with nursing staff and teamed this morning. Patient interviewed and discussed his treatment including that he needs to shower on a daily basis get dressed and participate in groups. He still looks severely depressed and admits to it. He is still hearing voices. D enies any suicidal or homicidal ideation at the current time. Objective - Vital Signs Vital signs: Vital Signs Temp 98.6 F 01/08/19 06:49 Pulse 89 01/08/19 06:49 Resp 20 01/08/19 06:49 BP 109/62 01/08/19 06:49 Pulse Ox 94 L 01/07/19 05:58 Intake & Output 01/07/19 01/08/19 01/08/19 18:59 06:59 18:59 Weight 118.1 kg - Labs CBC & Chem 7: 01/06/19 08:32 Assessment and Plan Assessment: Chief Complaint: 53-year-old male past medical history of hypertension, depression presents with suicidal ideation. History of Present Illness: Patient is 53-year-old male who presents today voluntarily. Patient states that been depressed for the last 2-3 days. Patient states he is afraid he might want to start hurting himself. Denies any homicidal ideation. Patient denies any visual or auditory hallucinations. Patient states he's been suicidal in the past. Patient denies any plan at this time. Pt. found resting on the stretcher and sleepy. Pt. admits to taking his HS meds prior to coming to the ER. Pt. wakes when spoken to and admits to "sitting on the porch smoking a cigarette today and just got suicidal. I called the crisis line but they told me to come here. I don't want to hurt myself." Pt. has had significant suicide attempts in the recent past. Mental Status Examination - General Appearance: [ disheveled, bizarre, appears stated age, Speech/Language: [slow, , rambled, mumbling, monotone, soft] Attitude/Behavior: [cooperative, guarded, withdrawn, indifferent] Mood: [depressed, euphoric, anxious, elated, irritable, angry, fearful, hopelessness] Affect: [flat, incongruent, labile, blunted constricted] Orientation: [time, person, place situation] Thought Content: [wnl, ] Risk Factors: [he has suicidal (ideations, plan), and/or Homicidal (ideations, plan), other] Perception: [wnl, hallucinations (auditory, visual,] Thought Processes: [ concrete, circumstantial, tangential, other] Concentration/Attention Span: [impaired] [Per observation and interview with the patient] Recent Memory: [ impaired] [0 out of 3 in 3 minutes] Remote Memory: [ impaired] [past events, as related history] Intelligence: [below average,] [based on history, based on vocabulary, syntax, grammar, and content] Judgement: [poor] [per patient's behavior/history of present illness] Insight: [ poor] [understanding severity of illness/history of present illness] Admitting Diagnosis: [schizophrenia versus schizoaffective-depressed] Past medications tried: Abilify, Artane, Effexor XR, invega sustenna, trazodone, Risperdal, Remeron, Pristiq, Ativan, loxapine, Geodon, Limbitrol DS, Wellbutrin, Depakote, Trileptal, Zyprexa, Lamictal, Vistaril, Cymbalta, and doxepin. Patient Limitations: [ pathological/unsupported environment, no interests, intellectual impairment, lack of social supports, other] Initial Plan of Care: [Patient voluntary admission to [facility] for he had suicidal thoughts from voices at nighttime that disturb his sleep. He'll be evaluated by medicine, psychiatry, nursing staff, social work and occupational therapy and teamed and a multi specialty approach. He will be placed on 15 minute checks due to his suicidal thoughts. He'll be integrated into a nicole milieu therapeutic environment whereby he'll be expected to take his medicines, go to groups and interact in a positive way with his peers within the mental health unit. After thorough evaluation reviewing his l ast hospitalizations I decided to go to more temporary approach and started using to antipsychotics, I'll maximize Prolixin and use 5 mg by mouth daily at bedtime and maintain him on the Prolixin Decanoate. Since he has depressed moods and cycling in nature and Depakote 250 mg by mouth twice a day. I will stop his Lamictal, BuSpar, Wellbutrin and further evaluate his psychiatric needs as these will take 2-3 days to leave his system. 01/08/2019: Patient remains on 15 minute checks due to his suicidal ideation. Encouraged him to get up and go to groups shower eat meals. We'll increase his Prolixin to 5 mg by mouth daily at bedtime and increase his Depakote to 750 mg extended release by mouth daily at bedtime. We'll obtain a valproic acid level in the morning on 01/09/2019.] (1) Schizoaffective disorder Current Visit: No Status: Acute Priority: High Code(s): F25.9 - SCHIZOAFFECTIVE DISORDER, UNSPECIFIED SNOMED Code(s): 77396060 Time with Patient: Less than 30
[2019-01-09] MEDS: IPRATROPIUM-ALBUTEROL 3 ML NEB INHALATION SCH ×5 (03:31→21:56)
[2019-01-09] MEDS: amLODIPine 10 MG TAB PO SCH (10:13)
[2019-01-09] MEDS: LISINOPRIL 5 MG TAB PO SCH (10:14)
[2019-01-09] MEDS: NICOTINE 21MG/24HR PATCH TRANSDERM SCH (10:19)
--- NOTE | 2019-01-09 14:11 | P.PN ---
Subjective Progress Note Date: 01/09/19 Principal diagnosis: schizophrenia versus schizoaffective-depressed 01/08/2019: Chart reviewed, discussed with nursing staff and teamed this morning. Patient interviewed and discussed his treatment including that he needs to shower on a daily basis get dressed and participate in groups. He still looks severely depressed and admits to it. He is still hearing voices. D enies any suicidal or homicidal ideation at the current time. 01/09/2019: Chart reviewed extensively with nursing staff and was also discussed in team today regarding disposition and discharge planning. Interview with the patient revealed that he has little motivation states that he is depressed but not suicidal or homicidal. He has little motivation to get up and do things throughout the day and to take care of himself. He states he does not hear any voices nor is he see things. Depression seems to be the main issue now. Objective - Vital Signs Vital signs: Vital Signs Temp 98.2 F 01/09/19 06:41 Pulse 101 H 01/09/19 09:56 Resp 20 01/09/19 09:56 BP 118/61 01/09/19 09:56 Pulse Ox 95 01/09/19 09:56 - Labs CBC & Chem 7: 01/06/19 08:32 Assessment and Plan Assessment: Chief Complaint: 53-year-old male past medical history of hypertension, depression presents with suicidal ideation. History of Present Illness: Patient is 53-year-old male who presents today voluntarily. Patient states that been depressed for the last 2-3 days. Patient states he is afraid he might want to start hurting himself. Denies any homicidal ideation. Patient denies any visual or auditory hallucinations. Patient states he's been suicidal in the past. Patient denies any plan at this time. Pt. found resting on the stretcher and sleepy. Pt. admits to taking his HS meds prior to coming to the ER. Pt. wakes when spoken to and admits to "sitting on the porch smoking a cigarette today and just got suicidal. I called the crisis line but they told me to come here. I don't want to hurt myself." Pt. has had significant suicide attempts in the recent past. Mental Status Examination - General Appearance: [ disheveled, bizarre, appears stated age, Speech/Language: [slow, , rambled, mumbling, monotone, soft] Attitude/Behavior: [cooperative, guarded, withdrawn, indifferent] Mood: [depressed, euphoric, anxious, elated, irritable, angry, fearful, hopelessness] Affect: [flat, incongruent, labile, blunted constricted] Orientation: [time, person, place situation] Thought Content: [wnl, ] Risk Factors: [he has suicidal (ideations, plan), and/or Homicidal (ideations, plan), other] Perception: [wnl, hallucinations (auditory, visual,] Thought Processes: [ concrete, circumstantial, tangential, other] Concentration/Attention Span: [impaired] [Per observation and interview with the patient] Recent Memory: [ impaired] [0 out of 3 in 3 minutes] Remote Memory: [ impaired] [past events, as related history] Intelligence: [below average,] [based on history, based on vocabulary, syntax, grammar, and content] Judgement: [poor] [per patient's behavior/history of present illness] Insight: [ poor] [understanding severity of illness/history of present illness] Admitting Diagnosis: [schizophrenia versus schizoaffective-depressed] Past medications tried: Abilify, Artane, Effexor XR, invega sustenna, trazodone, Risperdal, Remeron, Pristiq, Ativan, loxapine, Geodon, Limbitrol DS, Wellbutrin, Depakote, Trileptal, Zyprexa, Lamictal, Vistaril, Cymbalta, and doxepin. Patient Limitations: [ pathological/unsupported environment, no interests, intellectual impairment, lack of social supports, other] Initial Plan of Care: [Patient voluntary admission [facility] [place] for he had suicidal thoughts from voices at nighttime that disturb his sleep. He'll be evaluated by medicine, psychiatry, nursing staff, social work and occupational therapy and teamed and a multi specialty approach. He will be placed on 15 minute checks due to his suicidal thoughts. He'll be integrated into a nicole milieu therapeutic environment whereby he'll be expected to take his medicines, go to groups and interact in a positive way with his peers within the mental health unit. After thorough evaluation reviewing his last hospitalizations I decided to go to more temporary approach and started using to antipsychotics, I'll maximize Prolixin and use 5 mg by mouth daily at bedtime and maintain him on the Prolixin Decanoate. Since he has depressed moods and cycling in nature and Depakote 250 mg by mouth twice a day. I will stop his Lamictal, BuSpar, Wellbutrin and further evaluate his psychiatric needs as these will take 2-3 days to leave his system. 01/08/2019: Patient remains on 15 minute checks due to his suicidal ideation. Encouraged him to get up and go to groups shower eat meals. We'll increase his Prolixin to 5 mg by mouth daily at bedtime and increase his Depakote to 750 mg extended release by mouth daily at bedtime. We'll obtain a valproic acid level in the morning on 01/09/2019. 01/09/2019: Patient remains on 15 minute checks due to his history of suicidal ideation. I encouraged him each day get up and go to groups the meals shower take care of his hygiene. Due to the fact that he is stating that he is more depressed today Celexa 20 mg by mouth twice a day which will help with anxiety and depression.] (1) Schizoaffective disorder Current Visit: No Status: Acute Priority: High Code(s): F25.9 - SCHIZOAFFECTIVE DISORDER, UNSPECIFIED SNOMED Code(s): 78814108 Time with Patient: Less than 30
[2019-01-09] MEDS: DIVALPROEX ER 250 MG TAB.ER.24H PO SCH (21:13)
[2019-01-09] MEDS: CITALOPRAM HYDROBROMIDE 20 MG TAB PO SCH (21:14)
[2019-01-09] MEDS: LORazepam 1 MG TAB PO PRN (21:15)
[2019-01-10] MEDS: IPRATROPIUM-ALBUTEROL 3 ML NEB INHALATION SCH ×7 (00:36→23:49)
[2019-01-10] MEDS: NICOTINE 21MG/24HR PATCH TRANSDERM SCH (08:14)
[2019-01-10] MEDS: amLODIPine 10 MG TAB PO SCH (08:14)
[2019-01-10] MEDS: CITALOPRAM HYDROBROMIDE 20 MG TAB PO SCH ×2 (08:14→20:36)
[2019-01-10] MEDS: LISINOPRIL 5 MG TAB PO SCH (08:14)
--- NOTE | 2019-01-10 12:10 | XR ---
EXAMINATION TYPE: XR chest 2V DATE OF EXAM: 01/10/2019 COMPARISON: 08/20/2018 HISTORY: Shortness of breath TECHNIQUE: Frontal and lateral views of the chest are obtained. FINDINGS: Scattered senescent parenchymal changes noted. Hyperinflation compatible with COPD. No evidence for infiltrate. No evidence for atelectasis. Heart size is stable. Mediastinal structures are stable and grossly unremarkable. No evidence for hilar prominence. Degenerative changes dorsal spine. IMPRESSION: 1. No evidence for acute pulmonary disease.
[2019-01-10] MEDS: FERROUS SULFATE 325 MG TAB PO SCH (12:47)
[2019-01-10 13:34] LABS: Basophils # (A) 0.1 k/uL (0-0.2); Basophils % (A) 0 %; Eosinophils # (A) 0.1 k/uL (0-0.7); Eosinophils % (A) 1 %; HCT 49.1 % (39.0-53.0); Lymphocytes # (A) 2.3 k/uL (1.0-4.8); Lymphocytes % (A) 18 %; MCH 30.6 pg (25.0-35.0); MCHC 32.6 g/dL (31.0-37.0); MCV 93.9 fL (80.0-100.0); Mean Platelet Volume 6.8; Monocytes # (A) 0.6 k/uL (0-1.0); Monocytes % (A) 5 %; Neutrophils # (A) 9.3 k/uL (1.3-7.7); Neutrophils % (A) 75 %; Platelet Count 411 k/uL (150-450); RBC 5.22 m/uL (4.30-5.90); RDW 13.4 % (11.5-15.5); WBC 12.5 k/uL (3.8-10.6)
[2019-01-10 13:50] LABS: Albumin 4.6 g/dL (3.5-5.0); Calcium 10.3 mg/dL (8.4-10.2); Potassium 4.6 mmol/L (3.5-5.1); Total Bilirubin 0.7 mg/dL (0.2-1.3); Total Protein 7.6 g/dL (6.3-8.2)
--- NOTE | 2019-01-10 14:35 | P.PN ---
Subjective Progress Note Date: 01/10/19 Principal diagnosis: schizophrenia versus schizoaffective-depressed 01/08/2019: Chart reviewed, discussed with nursing staff and teamed this morning. Patient interviewed and discussed his treatment including that he needs to shower on a daily basis get dressed and participate in groups. He still looks severely depressed and admits to it. He is still hearing voices. D enies any suicidal or homicidal ideation at the current time. 01/09/2019: Chart reviewed extensively with nursing staff and was also discussed in team today regarding disposition and discharge planning. Interview with the patient revealed that he has little motivation states that he is depressed but not suicidal or homicidal. He has little motivation to get up and do things throughout the day and to take care of himself. He states he does not hear any voices nor is he see things. Depression seems to be the main issue now. 01/10/2019: Chart reviewed extensively and discussed his worsening of his breathing. He has little energy to get out he is having difficulty taking a breath and has rhonchi on examination. He remains depressed without hallucinations. Objective - Vital Signs Vital signs: Vital Signs Temp 97.9 F 01/10/19 06:34 Pulse 78 01/10/19 06:34 Resp 18 01/10/19 06:34 BP 109/59 01/10/19 06:34 Pulse Ox 95 01/09/19 09:56 Intake & Output 01/09/19 01/10/19 01/10/19 18:59 06:59 18:59 Intake Total 600 Balance 600 Intake: Oral 600 - Labs CBC & Chem 7: 01/10/19 13:16 01/10/19 13:16 Assessment and Plan Assessment: Chief Complaint: 53-year-old male past medical history of hypertension, depression presents with suicidal ideation. History of Present Illness: Patient is 53-year-old male who presents today voluntarily. Patient states that been depressed for the last 2-3 days. Patient states he is afraid he might want to start hurting himself. Denies any homicidal ideation. Patient denies any visual or auditory hallucinations. Patient states he's been suicidal in the past. Patient denies any plan at this time. Pt. found resting on the stretcher and sleepy. Pt. admits to taking his HS meds prior to coming to the ER. Pt. wakes when spoken to and admits to "sitting on the porch smoking a cigarette today and just got suicidal. I called the crisis line but they told me to come here. I don't want to hurt myself." Pt. has had significant suicide attempts in the recent past. Mental Status Examination - General Appearance: [ disheveled, bizarre, appears stated age, Speech/Language: [slow, , rambled, mumbling, monotone, soft] Attitude/Behavior: [cooperative, guarded, withdrawn, indifferent] Mood: [depressed, euphoric, anxious, elated, irritable, angry, fearful, hopelessness] Affect: [flat, incongruent, labile, blunted constricted] Orientation: [time, person, place situation] Thought Content: [wnl, ] Risk Factors: [he has suicidal (ideations, plan), and/or Homicidal (ideations, plan), other] Perception: [wnl, hallucinations (auditory, visual,] Thought Processes: [ concrete, circumstantial, tangential, other] Concentration/Attention Span: [impaired] [Per observation and interview with the patient] Recent Memory: [ impaired] [0 out of 3 in 3 minutes] Remote Memory: [ impaired] [past events, as related history] Intelligence: [below average,] [based on history, based on vocabulary, syntax, grammar, and content] Judgement: [poor] [per patient's behavior/history of present illness] Insight: [ poor] [understanding severity of illness/history of present illness] Admitting Diagnosis: [schizophrenia versus schizoaffective-depressed] Past medications tried: Abilify, Artane, Effexor XR, invega sustenna, trazodone, Risperdal, Remeron, Pristiq, Ativan, loxapine, Geodon, Limbitrol DS, Wellbutrin, Depakote, Trileptal, Zyprexa, Lamictal, Vistaril, Cymbalta, and doxepin. Patient Limitations: [ pathological/unsupported environment, no interests, intellectual impairment, lack of social supports, other] Initial Plan of Care: [Patient voluntary admission to [facility] unit [facility] for he had suicidal thoughts from voices at nighttime that disturb his sleep. He'll be evaluated by medicine, psychiatry, nursing staff, social work and occupational therapy and teamed and a multi specialty approach. He will be placed on 15 minute checks due to his suicidal thoughts. He'll be integrated into a nicole milieu therapeutic environment whereby he'll be expected to take his medicines, go to groups and interact in a positive way with his peers within the mental health unit. After thorough evaluation reviewing his last hospitalizations I decided to go to more temporary approach and started using to antipsychotics, I'll maximize Prolixin and use 5 mg by mouth daily at bedtime and maintain him on the Prolixin Decanoate. Since he has depressed moods and cycling in nature and Depakote 250 mg by mouth twice a day. I will stop his Lamictal, BuSpar, Wellbutrin and further evaluate his psychiatric needs as these will take 2-3 days to leave his system. 01/08/2019: Patient remains on 15 minute checks due to his suicidal ideation. Encouraged him to get up and go to groups shower eat meals. We'll increase his Prolixin to 5 mg by mouth daily at bedtime and increase his Depakote to 750 mg extended release by mouth daily at bedtime. We'll obtain a valproic acid level in the morning on 01/09/2019. 01/09/2019: Patient remains on 15 minute checks due to his history of suicidal ideation. I encouraged him each day get up and go to groups the meals shower take care of his hygiene. Due to the fact that he is stating that he is more depressed today Celexa 20 mg by mouth twice a day which will help with anxiety and depression. 01/10/2019: Patient remains on 15 minute checks to history of suicidal ideation. He is not able to take a deep breath and and he skin turgor looks worse in nature. He has rhonchi on examination of his lungs. We'll obtain chest x-ray CBC CMP and waiting valproic acid level and also ordering ammonia blood level. D-dimer was negative, chest x-ray -WBC 12,500, increase in BUN and creatinine, increase in neutrophils have to rule out infection and never obtained a urine analysis upon admission to the hospital will complete that today. We'll follow observed for further medication adjustments.] (1) Schizoaffective disorder Current Visit: No Status: Acute Priority: High Code(s): F25.9 - SCHIZOAFFECTIVE DISORDER, UNSPECIFIED SNOMED Code(s): 73912889
[2019-01-10] MEDS: DIVALPROEX ER 250 MG TAB.ER.24H PO SCH (20:36)
[2019-01-11] MEDS: IPRATROPIUM-ALBUTEROL 3 ML NEB INHALATION SCH ×6 (03:34→23:57)
[2019-01-11] MEDS: CITALOPRAM HYDROBROMIDE 20 MG TAB PO SCH ×2 (09:16→20:17)
[2019-01-11] MEDS: amLODIPine 10 MG TAB PO SCH (09:16)
[2019-01-11] MEDS: NICOTINE 21MG/24HR PATCH TRANSDERM SCH ×2 (09:16→09:46)
[2019-01-11] MEDS: LISINOPRIL 5 MG TAB PO SCH (09:41)
--- NOTE | 2019-01-11 12:35 | P.PN ---
Subjective Progress Note Date: 01/11/19 Principal diagnosis: schizophrenia versus schizoaffective-depressed 01/08/2019: Chart reviewed, discussed with nursing staff and teamed this morning. Patient interviewed and discussed his treatment including that he needs to shower on a daily basis get dressed and participate in groups. He still looks severely depressed and admits to it. He is still hearing voices. D enies any suicidal or homicidal ideation at the current time. 01/09/2019: Chart reviewed extensively with nursing staff and was also discussed in team today regarding disposition and discharge planning. Interview with the patient revealed that he has little motivation states that he is depressed but not suicidal or homicidal. He has little motivation to get up and do things throughout the day and to take care of himself. He states he does not hear any voices nor is he see things. Depression seems to be the main issue now. 01/10/2019: Chart reviewed extensively and discussed his worsening of his breathing. He has little energy to get out he is having difficulty taking a breath and has rhonchi on examination. He remains depressed without hallucinations. 01/11/2019: Chart reviewed and all lab work were evaluated. He still not motivated to get out of bed and do much for himself. Encouraged nursing staff to get him up and get them breakfast and participate in nicole milieu therapeutic environment. He still states that he is depressed without hallucinations. Objective - Vital Signs Vital signs: Vital Signs Temp 97.7 F 01/11/19 06:40 Pulse 88 01/11/19 09:25 Resp 16 01/11/19 06:40 BP 105/51 01/11/19 06:40 Pulse Ox 95 01/09/19 09:56 Intake & Output 01/10/19 01/11/19 01/11/19 18:59 06:59 18:59 Intake Total 600 480 Balance 600 480 Intake: Oral 600 480 - Labs CBC & Chem 7: 01/10/19 13:16 01/10/19 13:16 Labs: Abnormal Lab Results - Last 24 Hours (Table) 01/10/19 01/10/19 Range/Units 13:16 13:16 WBC 12.5 H (3.8-10.6) k/uL Neutrophils # 9.3 H (1.3-7.7) k/uL Carbon Dioxide 21 L (22-30) mmol/L BUN 23 H (9-20) mg/dL Creatinine 1.27 H (0.66-1.25) mg/dL Calcium 10.3 H (8.4-10.2) mg/dL Assessment and Plan Assessment: Chief Complaint: 53-year-old male past medical history of hypertension, depression presents with suicidal ideation. History of Present Illness: Patient is 53-year-old male who presents today voluntarily. Patient states that been depressed for the last 2-3 days. Patient states he is afraid he might want to start hurting himself. Denies any homicidal ideation. Patient denies any visual or auditory hallucinations. Patient states he's been suicidal in the past. Patient denies any plan at this time. Pt. found resting on the stretcher and sleepy. Pt. admits to taking his HS meds prior to coming to the ER. Pt. wakes when spoken to and admits to "sitting on the porch smoking a cigarette today and just got suicidal. I called the crisis line but they told me to come here. I don't want to hurt myself." Pt. has had significant suicide attempts in the recent past. Mental Status Examination - General Appearance: [ disheveled, bizarre, appears stated age, Speech/Language: [slow, , rambled, mumbling, monotone, soft] Attitude/Behavior: [cooperative, guarded, withdrawn, indifferent] Mood: [depressed, euphoric, anxious, elated, irritable, angry, fearful, hopelessness] Affect: [flat, incongruent, labile, blunted constricted] Orientation: [time, person, place situation] Thought Content: [wnl, ] Risk Factors: [he has suicidal (ideations, plan), and/or Homicidal (ideations, plan), other] Perception: [wnl, hallucinations (auditory, visual,] Thought Processes: [ concrete, circumstantial, tangential, other] Concentration/Attention Span: [impaired] [Per observation and interview with the patient] Recent Memory: [ impaired] [0 out of 3 in 3 minutes] Remote Memory: [ impaired] [past events, as related history] Intelligence: [below average,] [based on history, based on vocabulary, syntax, grammar, and content] Judgement: [poor] [per patient's behavior/history of present illness] Insight: [ poor] [understanding severity of illness/history of present illness] Admitting Diagnosis: [schizophrenia versus schizoaffective-depressed] Past medications tried: Abilify, Artane, Effexor XR, invega sustenna, trazodone, Risperdal, Remeron, Pristiq, Ativan, loxapine, Geodon, Limbitrol DS, Wellbutrin, Depakote, Trileptal, Zyprexa, Lamictal, Vistaril, Cymbalta, and doxepin. Patient Limitations: [ pathological/unsupported environment, no interests, intellectual impairment, lack of social supports, other] Initial Plan of Care: [Patient voluntary admission to [facility] for he had suicidal thoughts from voices at nighttime that disturb his sleep. He'll be evaluated by medicine, psychiatry, nursing staff, social work and occupational therapy and teamed and a multi specialty approach. He will be placed on 15 minute checks due to his suicidal thoughts. He'll be integrated into a nicole milieu therapeutic environment whereby he'll be expected to take his medicines, go to groups and interact in a positive way with his peers within the mental health unit. After thorough evaluation reviewing his last hospitalizations I decided to go to more temporary approach and started using to antipsychotics, I'll maximize Prolixin and use 5 mg by mouth daily at bedtime and maintain him on the Prolixin Decanoate. Since he has depressed moods and cycling in nature and Depakote 250 mg by mouth twice a day. I will stop his Lamictal, BuSpar, Wellbutrin and further evaluate his psychiatric needs as these will take 2-3 days to leave his system. 01/08/2019: Patient remains on 15 minute checks due to his suicidal ideation. Encouraged him to get up and go to groups shower eat meals. We'll increase his Prolixin to 5 mg by mouth daily at bedtime and increase his Depakote to 750 mg extended release by mouth daily at bedtime. We'll obtain a valproic acid level in the morning on 01/09/2019. 01/09/2019: Patient remains on 15 minute checks due to his history of suicidal ideation. I encouraged him each day get up and go to groups the meals shower take care of his hygiene. Due to the fact that he is stating that he is more depressed today Celexa 20 mg by mouth twice a day which will help with anxiety and depression. 01/10/2019: Patient remains on 15 minute checks to history of suicidal ideation. He is not able to take a deep breath and and he skin turgor looks worse in nature. He has rhonchi on examination of his lungs. We'll obtain chest x-ray CBC CMP and waiting valproic acid level and also ordering ammonia blood level. D-dimer was negative, chest x-ray -WBC 12,500, increase in BUN and creatinine, increase in neutrophils have to rule out infection and never obtained a urine analysis upon admission to the hospital will complete that today. We'll follow observed for further medication adjustments. 01/11/2019 patient remains on 15 minute checks due to his suicidal ideation. His metabolic workup yesterday revealed just an elevated 12,500 WBC and elevated BUN/creatinine. Awaiting urine analysis. Encourage him be participating in the nicole milieu therapeutic environment and will maintain his current medications until further lab work has returned.] (1) Schizoaffective disorder Current Visit: No Status: Acute Priority: High Code(s): F25.9 - SCHIZOAFFECTIVE DISORDER, UNSPECIFIED SNOMED Code(s): 73550691 Time with Patient: Less than 30
[2019-01-11] MEDS: DIVALPROEX ER 250 MG TAB.ER.24H PO SCH (20:17)
[2019-01-11] MEDS: ACETAMINOPHEN TAB 325 MG TAB PO PRN (21:45)
[2019-01-11] MEDS: ZIPRASIDONE 20 MG VIAL IM PRN (21:45)
[2019-01-12 02:21] LABS: Glucose,Whole Blood 103 mg/dL (75-99)
[2019-01-12] MEDS: IPRATROPIUM-ALBUTEROL 3 ML NEB INHALATION SCH (08:23)
[2019-01-12] MEDS: LISINOPRIL 5 MG TAB PO SCH (08:55)
[2019-01-12] MEDS: amLODIPine 10 MG TAB PO SCH (08:55)
[2019-01-12] MEDS: NICOTINE 21MG/24HR PATCH TRANSDERM SCH (08:55)
[2019-01-12] MEDS: CITALOPRAM HYDROBROMIDE 20 MG TAB PO SCH ×2 (08:55→21:30)
[2019-01-12] MEDS: FERROUS SULFATE 325 MG TAB PO SCH (11:18)
[2019-01-12] MEDS ORDERED: IPRATROPIUM-ALBUTEROL 3 ML NEB INHALATION PRN (11:36)
--- NOTE | 2019-01-12 11:43 | P.PN ---
Subjective Progress Note Date: 01/12/19 Principal diagnosis: schizophrenia versus schizoaffective-depressed 01/08/2019: Chart reviewed, discussed with nursing staff and teamed this morning. Patient interviewed and discussed his treatment including that he needs to shower on a daily basis get dressed and participate in groups. He still looks severely depressed and admits to it. He is still hearing voices. D enies any suicidal or homicidal ideation at the current time. 01/09/2019: Chart reviewed extensively with nursing staff and was also discussed in team today regarding disposition and discharge planning. Interview with the patient revealed that he has little motivation states that he is depressed but not suicidal or homicidal. He has little motivation to get up and do things throughout the day and to take care of himself. He states he does not hear any voices nor is he see things. Depression seems to be the main issue now. 01/10/2019: Chart reviewed extensively and discussed his worsening of his breathing. He has little energy to get out he is having difficulty taking a breath and has rhonchi on examination. He remains depressed without hallucinations. 01/11/2019: Chart reviewed and all lab work were evaluated. He still not motivated to get out of bed and do much for himself. Encouraged nursing staff to get him up and get them breakfast and participate in [facility] therapeutic environment. He still states that he is depressed without hallucinations. 01/12/2019: Chart reviewed reason why work and noticed that the urine and also has not been done yet. During the night and episode of being suicidal and was placed on one-to-one. He has minimal responses states that he is not hearing things or seeing things feels less depressed but he states that he is suicidal and has no plan. We'll continue one-to-one. Objective - Vital Signs Vital signs: Vital Signs Temp 98.7 F 01/12/19 06:27 Pulse 101 H 01/12/19 06:27 Resp 20 01/12/19 06:27 BP 118/65 01/12/19 06:27 Pulse Ox 94 L 01/12/19 06:27 Intake & Output 01/11/19 01/12/19 01/12/19 18:59 06:59 18:59 Intake Total 480 1 0 Balance 480 1 0 Intake: Oral 480 1 0 - Labs CBC & Chem 7: 01/10/19 13:16 01/10/19 13:16 Labs: Abnormal Lab Results - Last 24 Hours (Table) 01/12/19 Range/Units 02:09 POC Glucose (mg/dL) 103 H (75-99) mg/dL Assessment and Plan Assessment: Chief Complaint: 53-year-old male past medical history of hypertension, depression presents with suicidal ideation. History of Present Illness: Patient is 53-year-old male who presents today voluntarily. Patient states that been depressed for the last 2-3 days. Patient states he is afraid he might want to start hurting himself. Denies any homicidal ideation. Patient denies any visual or auditory hallucinations. Patient states he's been suicidal in the past. Patient denies any plan at this time. Pt. found resting on the stretcher and sleepy. Pt. admits to taking his HS meds prior to coming to the ER. Pt. wakes when spoken to and admits to "sitting on the porch smoking a cigarette today and just got suicidal. I called the crisis line but they told me to come here. I don't want to hurt myself." Pt. has had significant suicide attempts in the recent past. Mental Status Examination - General Appearance: [ disheveled, bizarre, appears stated age, Speech/Language: [slow, , rambled, mumbling, monotone, soft] Attitude/Behavior: [cooperative, guarded, withdrawn, indifferent] Mood: [depressed, euphoric, anxious, elated, irritable, angry, fearful, hopelessness] Affect: [flat, incongruent, labile, blunted constricted] Orientation: [time, person, place situation] Thought Content: [wnl, ] Risk Factors: [he has suicidal (ideations, plan), and/or Homicidal (ideations, plan), other] Perception: [wnl, hallucinations (auditory, visual,] Thought Processes: [ concrete, circumstantial, tangential, other] Concentration/Attention Span: [impaired] [Per observation and interview with the patient] Recent Memory: [ impaired] [0 out of 3 in 3 minutes] Remote Memory: [ impaired] [past events, as related history] Intelligence: [below average,] [based on history, based on vocabulary, syntax, grammar, and content] Judgement: [poor] [per patient's behavior/history of present illness] Insight: [ poor] [understanding severity of illness/history of present illness] Admitting Diagnosis: [schizophrenia versus schizoaffective-depressed] Past medications tried: Abilify, Artane, Effexor XR, invega sustenna, trazodone, Risperdal, Remeron, Pristiq, Ativan, loxapine, Geodon, Limbitrol DS, Wellbutrin, Depakote, Trileptal, Zyprexa, Lamictal, Vistaril, Cymbalta, and doxepin. Patient Limitations: [ pathological/unsupported environment, no interests, intellectual impairment, lack of social supports, other] Initial Plan of Care: [Patient voluntary admission to [facility] unit [facility] for he had suicidal thoughts from voices at nighttime that disturb his sleep. He'll be evaluated by medicine, psychiatry, nursing staff, social work and occupational therapy and teamed and a multi specialty approach. He will be placed on 15 minute checks due to his suicidal thoughts. He'll be integrated into a [facility] therapeutic environment whereby he'll be expected to take his medicines, go to groups and interact in a positive way with his peers within the mental health unit. After thorough evaluation reviewing his last hospitalizations I decided to go to more temporary approach and started using to antipsychotics, I'll maximize Prolixin and use 5 mg by mouth daily at bedtime and maintain him on the Prolixin Decanoate. Since he has depressed moods and cycling in nature and Depakote 250 mg by mouth twice a day. I will stop his Lamictal, BuSpar, Wellbutrin and further evaluate his psychiatric needs as these will take 2-3 days to leave his system. 01/08/2019: Patient remains on 15 minute checks due to his suicidal ideation. Encouraged him to get up and go to groups shower eat meals. We'll increase his Prolixin to 5 mg by mouth daily at bedtime and increase his Depakote to 750 mg extended release by mouth daily at bedtime. We'll obtain a valproic acid level in the morning on 01/09/2019. 01/09/2019: Patient remains on 15 minute checks due to his history of suicidal ideation. I encouraged him each day get up and go to groups the meals shower take care of his hygiene. Due to the fact that he is stating that he is more depressed today Celexa 20 mg by mouth twice a day which will help with anxiety and depression. 01/10/2019: Patient remains on 15 minute checks to history of suicidal ideation. He is not able to take a deep breath and and he skin turgor looks worse in nature. He has rhonchi on examination of his lungs. We'll obtain chest x-ray CBC CMP and waiting valproic acid level and also ordering ammonia blood level. D-dimer was negative, chest x-ray -WBC 12,500, increase in BUN and creatinine, increase in neutrophils have to rule out infection and never obtained a urine analysis upon admission to the hospital will complete that today. We'll follow observed for further medication adjustments. 01/11/2019 patient remains on 15 minute checks due to his suicidal ideation. His metabolic workup yesterday revealed just an elevated 12,500 WBC and elevated BUN/creatinine. Awaiting urine analysis. Encourage him be participating in the [facility] therapeutic environment and will maintain his current medications until further lab work has returned. 01/12/2019: Patient remains on 15 minute checks and now is on a one-to-one for safety due to his suicidal statement without a plan. He remains running most of the day and has to be really pushed to get any valuable information from him. I will decrease his Depakote and reevaluate his behaviors.] (1) Schizoaffective disorder Current Visit: No Status: Acute Priority: High Code(s): F25.9 - SCHIZOAFFECTIVE DISORDER, UNSPECIFIED SNOMED Code(s): 23118420
[2019-01-12] MEDS: DIVALPROEX ER 250 MG TAB.ER.24H PO SCH (21:30)
[2019-01-12] MEDS: ACETAMINOPHEN TAB 325 MG TAB PO PRN (21:42)
[2019-01-13] MEDS: NICOTINE 21MG/24HR PATCH TRANSDERM SCH (08:11)
[2019-01-13] MEDS: amLODIPine 10 MG TAB PO SCH (08:18)
[2019-01-13] MEDS: CITALOPRAM HYDROBROMIDE 20 MG TAB PO SCH ×2 (08:18→20:49)
[2019-01-13] MEDS: LISINOPRIL 5 MG TAB PO SCH (08:18)
--- NOTE | 2019-01-13 11:08 | P.PN ---
Progress Note - Text Progress Note Date: 01/13/09 Interval history: Patient seen in [facility] [place]. He reports that he is feeling down with his mood. He does seem to relay that he is trying to eat. He has one-to-one staff present. His answers to questions are very brief. Mental status exam: He is found in his room with one-to-one staff present. He is lying in bed. He describes depressed mood. He denies any thoughts of harm to self. His answers to questions are brief, sometimes he groans. He is not making reference to thoughts of harm to others. He does not show any significant agitation. Plan: We'll maintain current medication regimen. Continue to monitor for any medication side effects monitor his ongoing status. He is currently on one-to-one precautions.
[2019-01-13] MEDS: DIVALPROEX ER 250 MG TAB.ER.24H PO SCH (20:48)
[2019-01-13] MEDS: ACETAMINOPHEN TAB 325 MG TAB PO PRN (22:49)
--- NOTE | 2019-01-14 09:00 | P.PN ---
Progress Note - Text Progress Note Date: 01/14/19 Interval history: Patient is seen in [facility] today. He is found in his room lying in bed. He seems to relay he didn't sleep well last night. He her staff did have some and care this morning. He is encouraged regarding eating some lunch. Mental status exam: He is found in his room lying in bed. He describes his mood is depressed. He makes a groaning type noise frequently throughout the session. He is oriented to place. He does seem to relay having thoughts of harm to himself today. He does not show any significant agitation. Plan: We'll maintain current psychotropic medication regimen. Continue to monitor for any medication side effects monitor his ongoing response to t reatment. He is encouraged regarding trying to attend some groups and regarding eating lunch. Continue to monitor regarding any suicidal ideations.
[2019-01-14] MEDS: CITALOPRAM HYDROBROMIDE 20 MG TAB PO SCH ×2 (09:02→20:33)
[2019-01-14] MEDS: amLODIPine 10 MG TAB PO SCH (09:02)
[2019-01-14] MEDS: LISINOPRIL 5 MG TAB PO SCH (09:02)
[2019-01-14] MEDS: ACETAMINOPHEN TAB 325 MG TAB PO PRN ×3 (09:02→20:33)
[2019-01-14] MEDS: NICOTINE 21MG/24HR PATCH TRANSDERM SCH (09:06)
[2019-01-14] MEDS: LORazepam 1 MG TAB PO PRN (12:47)
[2019-01-14] MEDS: DIVALPROEX ER 250 MG TAB.ER.24H PO SCH (20:33)
[2019-01-15 08:49] LABS: Anion Gap 9 mmol/L; Blood Urea Nitrogen 21 mg/dL (9-20); Calcium 9.9 mg/dL (8.4-10.2); Carbon Dioxide 26 mmol/L (22-30); Chloride 103 mmol/L (98-107); Glucose 94 mg/dL (74-99); Potassium 4.1 mmol/L (3.5-5.1); Sodium 138 mmol/L (137-145)
[2019-01-15] MEDS: amLODIPine 10 MG TAB PO SCH (09:25)
[2019-01-15] MEDS: NICOTINE 21MG/24HR PATCH TRANSDERM SCH (09:25)
[2019-01-15] MEDS: FERROUS SULFATE 325 MG TAB PO SCH (09:26)
[2019-01-15] MEDS: LISINOPRIL 5 MG TAB PO SCH (09:26)
[2019-01-15] MEDS: CITALOPRAM HYDROBROMIDE 20 MG TAB PO SCH ×2 (09:26→20:45)
[2019-01-15 10:07] LABS: ALT 42 U/L (21-72); AST 36 U/L (17-59); Albumin 4.3 g/dL (3.5-5.0); Alkaline Phosphatase 77 U/L (38-126); Total Bilirubin 0.5 mg/dL (0.2-1.3); Total Protein 7.3 g/dL (6.3-8.2)
--- NOTE | 2019-01-15 13:14 | P.PN ---
Subjective Progress Note Date: 01/15/19 Principal diagnosis: schizophrenia versus schizoaffective-depressed 01/08/2019: Chart reviewed, discussed with nursing staff and teamed this morning. Patient interviewed and discussed his treatment including that he needs to shower on a daily basis get dressed and participate in groups. He still looks severely depressed and admits to it. He is still hearing voices. D enies any suicidal or homicidal ideation at the current time. 01/09/2019: Chart reviewed extensively with nursing staff and was also discussed in team today regarding disposition and discharge planning. Interview with the patient revealed that he has little motivation states that he is depressed but not suicidal or homicidal. He has little motivation to get up and do things throughout the day and to take care of himself. He states he does not hear any voices nor is he see things. Depression seems to be the main issue now. 01/10/2019: Chart reviewed extensively and discussed his worsening of his breathing. He has little energy to get out he is having difficulty taking a breath and has rhonchi on examination. He remains depressed without hallucinations. 01/11/2019: Chart reviewed and all lab work were evaluated. He still not motivated to get out of bed and do much for himself. Encouraged nursing staff to get him up and get them breakfast and participate in [facility] therapeutic environment. He still states that he is depressed without hallucinations. 01/12/2019: Chart reviewed reason noticed that the urine and also has not been done yet. During the night and episode of being suicidal and was placed on one-to-one. He has minimal responses states that he is not hearing things or seeing things feels less depressed but he states that he is suicidal and has no plan. We'll continue one-to-one. 01/15/2019: Chart reviewed, discussed with nursing staff and team meeting this morning. Patient still remains depressed and lethargic poor eating or sleeping not motivated and remains on one-to-one due to his suicidal ideation without a plan. He is now hearing voices. Objective - Vital Signs Vital signs: Vital Signs Temp 97.7 F 01/15/19 06:22 Pulse 107 H 01/15/19 12:48 Resp 18 01/15/19 06:22 BP 127/88 01/15/19 12:48 Pulse Ox 95 01/14/19 06:31 - Labs CBC & Chem 7: 01/10/19 13:16 01/15/19 08:17 Labs: Abnormal Lab Results - Last 24 Hours (Table) 01/15/19 Range/Units 08:17 BUN 21 H (9-20) mg/dL Assessment and Plan Assessment: Chief Complaint: 53-year-old male past medical history of hypertension, depression presents with suicidal ideation. History of Present Illness: Patient is 53-year-old male who presents today voluntarily. Patient states that been depressed for the last 2-3 days. Patient states he is afraid he might want to start hurting himself. Denies any homicidal ideation. Patient denies any visual or auditory hallucinations. Patient states he's been suicidal in the past. Patient denies any plan at this time. Pt. found resting on the stretcher and sleepy. Pt. admits to taking his HS meds prior to coming to the ER. Pt. wakes when spoken to and admits to "sitting on the porch smoking a cigarette today and just got suicidal. I called the crisis line but they told me to come here. I don't want to hurt myself." Pt. has had significant suicide attempts in the recent past. Mental Status Examination - General Appearance: [ disheveled, bizarre, appears stated age, Speech/Language: [slow, , rambled, mumbling, monotone, soft] Attitude/Behavior: [cooperative, guarded, withdrawn, indifferent] Mood: [depressed, euphoric, anxious, elated, irritable, angry, fearful, hopelessness] Affect: [flat, incongruent, labile, blunted constricted] Orientation: [time, person, place situation] Thought Content: [wnl, ] Risk Factors: [he has suicidal (ideations, plan), and/or Homicidal (ideations, plan), other] Perception: [wnl, hallucinations (auditory, visual,] Thought Processes: [ concrete, circumstantial, tangential, other] Concentration/Attention Span: [impaired] [Per observation and interview with the patient] Recent Memory: [ impaired] [0 out of 3 in 3 minutes] Remote Memory: [ impaired] [past events, as related history] Intelligence: [below average,] [based on history, based on vocabulary, syntax, grammar, and content] Judgement: [poor] [per patient's behavior/history of present illness] Insight: [ poor] [understanding severity of illness/history of present illness] Admitting Diagnosis: [schizophrenia versus schizoaffective-depressed] Past medications tried: Abilify, Artane, Effexor XR, invega sustenna, trazodone, Risperdal, Remeron, Pristiq, Ativan, loxapine, Geodon, Limbitrol DS, Wellbutrin, Depakote, Trileptal, Zyprexa, Lamictal, Vistaril, Cymbalta, and doxepin. Patient Limitations: [ pathological/unsupported environment, no interests, intellectual impairment, lack of social supports, other] Initial Plan of Care: [Patient voluntary admission to [facility] unit [facility] for he had suicidal thoughts from voices at nighttime that disturb his sleep. He'll be evaluated by medicine, psychiatry, nursing staff, social work and occupational therapy and teamed and a multi specialty approach. He will be placed on 15 minute checks due to his suicidal thoughts. He'll be integrated into a [facility] therapeutic environment whereby he'll be expected to take his medicines, go to groups and interact in a positive way with his peers within the mental health unit. After thorough evaluation reviewing his last hospitalizations I decided to go to more temporary approach and started using to antipsychotics, I'll maximize Prolixin and use 5 mg by mouth daily at bedtime and maintain him on the Prolixin Decanoate. Since he has depressed moods and cycling in nature and Depakote 250 mg by mouth twice a day. I will stop his Lamictal, BuSpar, Wellbutrin and further evaluate his psychiatric needs as these will take 2-3 days to leave his system. 01/08/2019: Patient remains on 15 minute checks due to his suicidal ideation. Encouraged him to get up and go to groups shower eat meals. We'll increase his Prolixin to 5 mg by mouth daily at bedtime and increase his Depakote to 750 mg extended release by mouth daily at bedtime. We'll obtain a valproic acid level in the morning on 01/09/2019. 01/09/2019: Patient remains on 15 minute checks due to his history of suicidal ideation. I encouraged him each day get up and go to groups the meals shower take care of his hygiene. Due to the fact that he is stating that he is more depressed today Celexa 20 mg by mouth twice a day which will help with anxiety and depression. 01/10/2019: Patient remains on 15 minute checks to history of suicidal ideation. He is not able to take a deep breath and and he skin turgor looks worse in nature. He has rhonchi on examination of his lungs. We'll obtain chest x-ray CBC CMP and waiting valproic acid level and also ordering ammonia blood level. D-dimer was negative, chest x-ray -WBC 12,500, increase in BUN and creatinine, increase in neutrophils have to rule out infection and never obtained a urine analysis upon admission to the hospital will complete that today. We'll follow observed for further medication adjustments. 01/11/2019 patient remains on 15 minute checks due to his suicidal ideation. His metabolic workup yesterday revealed just an elevated 12,500 WBC and elevated BUN/creatinine. Awaiting urine analysis. Encourage him be participating in the [facility] therapeutic environment and will maintain his current medications until further lab work has returned. 01/12/2019: Patient remains on 15 minute checks and now is on a one-to-one for safety due to his suicidal statement without a plan. He remains running most of the day and has to be really pushed to get any valuable information from him. I will decrease his Depakote and reevaluate his behaviors. 01/15/2019: Patient remains on 15 minute checks and now is on one-to-one due to his suicidal statements without a plan and now has auditory hallucinations. I've stopped his Depakote and started Lamictal again which had a better response in his previous hospitalization. I also stopped Prolixin and switch back to I nvega 3 mg by mouth daily at bedtime for his psychosis. Also added Wellbutrin 150 mg XL in the morning for his depression and suicidal thoughts which he did well on the previous hospitalization.] (1) Schizoaffective disorder Current Visit: No Status: Acute Priority: High Code(s): F25.9 - SCHIZOAFFECTIVE DISORDER, UNSPECIFIED SNOMED Code(s): 41778501 Time with Patient: Less than 30
[2019-01-15] MEDS: ACETAMINOPHEN TAB 325 MG TAB PO PRN (20:54)
[2019-01-15] MEDS ORDERED: lamoTRIgine 25 MG TAB PO SCH (21:00)
[2019-01-15] MEDS ORDERED: PALIPERIDONE 3 MG TAB.ER.24 PO SCH (21:00)
[2019-01-15] MEDS: TAMSULOSIN 0.4 MG CAP.ER.24H PO SCH (23:29)
[2019-01-16 04:31] LABS: Appearance,Urine Slightly Cloudy (Clear); Color,Urine Yellow; Glucose,Urine (UA) Negative (Negative); Ketones,Urine 1+ (Negative); Protein,Urine 2+ (Negative); Specific Gravity,Urine 1.026 (1.001-1.035)
[2019-01-16 04:32] LABS: Bilirubin,Urine Negative (Negative); Blood,Urine Small (Negative)
[2019-01-16 04:33] LABS: Leukocyte Esterase,Urine Negative (Negative); Nitrite,Urine Negative (Negative)
[2019-01-16 04:34] LABS: RBC,Urine 1 /hpf (0-5); Squamous Epithelial Cell,Urine 2 /hpf (0-4); WBC,Urine 2 /hpf (0-5)
[2019-01-16 04:35] LABS: Hyaline Casts,Urine 2 /lpf (0-2); Mucus,Urine Few /hpf
[2019-01-16] MEDS ORDERED: buPROPion XL 150 MG TAB.ER.24H PO SCH (09:00)
[2019-01-16] MEDS: FERROUS SULFATE 325 MG TAB PO SCH (09:30)
[2019-01-16] MEDS: LISINOPRIL 5 MG TAB PO SCH (09:30)
[2019-01-16] MEDS: NICOTINE 21MG/24HR PATCH TRANSDERM SCH ×2 (09:30→11:59)
[2019-01-16] MEDS: CITALOPRAM HYDROBROMIDE 20 MG TAB PO SCH ×2 (09:30→20:39)
[2019-01-16] MEDS: amLODIPine 10 MG TAB PO SCH (09:31)
--- NOTE | 2019-01-16 13:03 | P.PN ---
Subjective Progress Note Date: 01/16/19 Principal diagnosis: schizophrenia versus schizoaffective-depressed 01/08/2019: Chart reviewed, discussed with nursing staff and teamed this morning. Patient interviewed and discussed his treatment including that he needs to shower on a daily basis get dressed and participate in groups. He still looks severely depressed and admits to it. He is still hearing voices. D enies any suicidal or homicidal ideation at the current time. 01/09/2019: Chart reviewed extensively with nursing staff and was also discussed in team today regarding disposition and discharge planning. Interview with the patient revealed that he has little motivation states that he is depressed but not suicidal or homicidal. He has little motivation to get up and do things throughout the day and to take care of himself. He states he does not hear any voices nor is he see things. Depression seems to be the main issue now. 01/10/2019: Chart reviewed extensively and discussed his worsening of his breathing. He has little energy to get out he is having difficulty taking a breath and has rhonchi on examination. He remains depressed without hallucinations. 01/11/2019: Chart reviewed and all lab work were evaluated. He still not motivated to get out of bed and do much for himself. Encouraged nursing staff to get him up and get them breakfast and participate in [facility] therapeutic environment. He still states that he is depressed without hallucinations. 01/12/2019: Chart reviewed reason noticed that the urine and also has not been done yet. During the night and episode of being suicidal and was placed on one-to-one. He has minimal responses states that he is not hearing things or seeing things feels less depressed but he states that he is suicidal and has no plan. We'll continue one-to-one. 01/15/2019: Chart reviewed, discussed with nursing staff and team meeting this morning. Patient still remains depressed and lethargic poor eating or sleeping not motivated and remains on one-to-one due to his suicidal ideation without a plan. He is now hearing voices. 01/15/2019: Chart reviewed and discussed with nursing staff and treatment team this morning and discussed progress and continue one-to-one sitter due to his suicidal ideation. He is following instructions little bit better today and is able to sit up and have some food. He states he is depressed suicidal state he had a plan but did not share with me and he is hearing voices. Objective - Vital Signs Vital signs: Vital Signs Temp 98.3 F 01/16/19 03:57 Pulse 105 H 01/16/19 03:57 Resp 20 01/16/19 03:57 BP 102/73 01/16/19 03:57 Pulse Ox 95 01/16/19 03:57 Intake & Output 01/15/19 01/16/19 01/16/19 18:59 06:59 18:59 Intake Total 1920 Output Total 400 Balance -400 1920 Weight 118.1 kg Intake: Oral 1920 Output: Urine 400 Straight 400 - Labs CBC & Chem 7: 01/10/19 13:16 01/15/19 08:17 Labs: Abnormal Lab Results - Last 24 Hours (Table) 01/16/19 Range/Units 03:45 Urine Protein 2+ H (Negative) Urine Ketones 1+ H (Negative) Urine Blood Small H (Negative) Urine Mucus Few H (None) /hpf Microbiology - Last 24 Hours (Table) 01/16/19 03:45 Urine Culture - Preliminary Urine,Catheterized Assessment and Plan Assessment: Chief Complaint: 53-year-old male past medical history of hypertension, depression presents with suicidal ideation. History of Present Illness: Patient is 53-year-old male who presents today voluntarily. Patient states that been depressed for the last 2-3 days. Patient states he is afraid he might want to start hurting himself. Denies any homicidal ideation. Patient denies any visual or auditory hallucinations. Patient states he's been suicidal in the past. Patient denies any plan at this time. Pt. found resting on the stretcher and sleepy. Pt. admits to taking his HS meds prior to coming to the ER. Pt. wakes when spoken to and admits to "sitting on the porch smoking a cigarette today and just got suicidal. I called the crisis line but they told me to come here. I don't want to hurt myself." Pt. has had significant suicide attempts in the recent past. Mental Status Examination - General Appearance: [ disheveled, bizarre, appears stated age, Speech/Language: [slow, , rambled, mumbling, monotone, soft] Attitude/Behavior: [cooperative, guarded, withdrawn, indifferent] Mood: [depressed, euphoric, anxious, elated, irritable, angry, fearful, hopelessness] Affect: [flat, incongruent, labile, blunted constricted] Orientation: [time, person, place situation] Thought Content: [wnl, ] Risk Factors: [he has suicidal (ideations, plan), and/or Homicidal (ideations, plan), other] Perception: [wnl, hallucinations (auditory, visual,] Thought Processes: [ concrete, circumstantial, tangential, other] Concentration/Attention Span: [impaired] [Per observation and interview with the patient] Recent Memory: [ impaired] [0 out of 3 in 3 minutes] Remote Memory: [ impaired] [past events, as related history] Intelligence: [below average,] [based on history, based on vocabulary, syntax, grammar, and content] Judgement: [poor] [per patient's behavior/history of present illness] Insight: [ poor] [understanding severity of illness/history of present illness] Admitting Diagnosis: [schizophrenia versus schizoaffective-depressed] Past medications tried: Abilify, Artane, Effexor XR, invega sustenna, trazodone, Risperdal, Remeron, Pristiq, Ativan, loxapine, Geodon, Limbitrol DS, Wellbutrin, Depakote, Trileptal, Zyprexa, Lamictal, Vistaril, Cymbalta, and doxepin. Patient Limitations: [ pathological/unsupported environment, no interests, intellectual impairment, lack of social supports, other] Initial Plan of Care: [Patient voluntary admission to [facility] unit [facility] for he had suicidal thoughts from voices at nighttime that disturb his sleep. He'll be evaluated by medicine, psychiatry, nursing staff, social work and occupational therapy and teamed and a multi specialty approach. He will be placed on 15 minute checks due to his suicidal thoughts. He'll be integrated into a [facility] therapeutic environment whereby he'll be expected to take his medicines, go to groups and interact in a positive way with his peer s within the mental health unit. After thorough evaluation reviewing his last hospitalizations I decided to go to more temporary approach and started using to antipsychotics, I'll maximize Prolixin and use 5 mg by mouth daily at bedtime and maintain him on the Prolixin Decanoate. Since he has depressed moods and cycling in nature and Depakote 250 mg by mouth twice a day. I will stop his Lamictal, BuSpar, Wellbutrin and further evaluate his psychiatric needs as these will take 2-3 days to leave his system. 01/08/2019: Patient remains on 15 minute checks due to his suicidal ideation. Encouraged him to get up and go to groups shower eat meals. We'll increase his Prolixin to 5 mg by mouth daily at bedtime and increase his Depakote to 750 mg extended release by mouth daily at bedtime. We'll obtain a valproic acid level in the morning on 01/09/2019. 01/09/2019: Patient remains on 15 minute checks due to his history of suicidal ideation. I encouraged him each day get up and go to groups the meals shower take care of his hygiene. Due to the fact that he is stating that he is more d epressed today Celexa 20 mg by mouth twice a day which will help with anxiety and depression. 01/10/2019: Patient remains on 15 minute checks to history of suicidal ideation. He is not able to take a deep breath and and he skin turgor looks worse in nature. He has rhonchi on examination of his lungs. We'll obtain chest x-ray CBC CMP and waiting valproic acid level and also ordering ammonia blood level. D-dimer was negative, chest x-ray -WBC 12,500, increase in BUN and creatinine, increase in neutrophils have to rule out infection and never obtained a urine analysis upon admission to the hospital will complete that today. We'll follow observed for further medication adjustments. 01/11/2019 patient remains on 15 minute checks due to his suicidal ideation. His metabolic workup yesterday revealed just an elevated 12,500 WBC and elevated BUN/creatinine. Awaiting urine analysis. Encourage him be participating in the [facility] therapeutic environment and will maintain his current medications until further lab work has returned. 01/12/2019: Patient remains on 15 minute checks and now is on a one-to-one for safety due to his suicidal statement without a plan. He remains running most of the day and has to be really pushed to get any valuable information from him. I will decrease his Depakote and reevaluate his behaviors. 01/15/2019: Patient remains on 15 minute checks and now is on one-to-one due to his suicidal statements without a plan and now has auditory hallucinations. I've stopped his Depakote and started Lamictal again which had a better response in his previous hospitalization. I also stopped Prolixin and switch back to Invega 3 mg by mouth daily at bedtime for his psychosis. Also added Wellbutrin 150 mg XL in the morning for his depression and suicidal thoughts which he did well on the previous hospitalization. 01/16/2019: Patient mentions on 15 minute checks and has a one-to-one sitter due to suicidal ideation with a plan which he won't share. He states he has auditory hallucinations and remains depressed and anxious. Today will increase his Wellbutrin to 300 mg XL in the morning for depression and suicidal thoughts which he has done well on previously. Titrating his Lamictal up and currently at 50 mg by mouth daily at bedtime. His Invega was increased due to his auditory hallucinations to 6 mg by mouth daily at bedtime. We'll follow observed for symptom resolution.] (1) Schizoaffective disorder Current Visit: No Status: Acute Priority: High Code(s): F25.9 - SCHIZOAFFECTIVE DISORDER, UNSPECIFIED SNOMED Code(s): 11997997 Time with Patient: Less than 30
[2019-01-16] MEDS ORDERED: ALBUTEROL INHALER 60 PUFF/8 GM INHALER INHALATION PRN (16:03)
[2019-01-16] MEDS: TAMSULOSIN 0.4 MG CAP.ER.24H PO SCH (17:49)
[2019-01-16] MEDS: ACETAMINOPHEN TAB 325 MG TAB PO PRN (17:50)
[2019-01-16 20:07] LABS: Calcium 9.9 mg/dL (8.4-10.2); Potassium 3.6 mmol/L (3.5-5.1)
[2019-01-16] MEDS: ALBUTEROL INHALER 60 PUFF/8 GM INHALER INHALATION SCH (20:15)
--- NOTE | 2019-01-16 20:55 | P.PN ---
Subjective Progress Note Date: 01/16/19 Principal diagnosis: Follow-up for inability to urinate Patient was seen and examined, he is laying in bed with bedside sitter at bedside. Patient doesn't say much is just moaning in bed reports that he has some low back pain. Nurse has been concerned regarding his urine output, patient reports no discomfort in his abdomen at this time denies any chest pain or trouble breathing. Overnight patient went about 12 hours without any evidence of having urine output for which bladder scan was done showed possible more than 200 mL in the bladder a straight cath was done and more than 400 mL were drained. This showed no evidence of UTI upon reviewing his UA. Last night patient was started on Flomax to help him with his urine output Objective - Vital Signs Vital signs: Vital Signs Temp 98.0 F 01/16/19 18:35 Pulse 84 01/16/19 18:35 Resp 20 01/16/19 18:35 BP 104/55 01/16/19 18:35 Pulse Ox 95 01/16/19 18:35 Intake & Output 01/16/19 01/16/19 01/17/19 06:59 18:59 06:59 Intake Total 1920 Output Total 400 Balance -400 1920 Weight 118.1 kg Intake: Oral 1920 Output: Urine 400 Straight 400 - Exam Constitutional: vital signs stable, Not in acute distress, depressed mood Lungs: Clear to auscultation bilaterally, clear to percussion, normal respiratory effort no use of accessory muscles Cardiovascular: Regular rate and rhythm, no murmurs, no gallops, no rubs, no peripheral edema Gastrointestinal: Soft, no tenderness to palpation, no palpable hepatosplenomegally, bowel sounds positive, no abdominal wall hernias Extremities: No digital cyanosis or clubbing, peripheral pulses palpable and equ al over bilateral radial arteries and dorsalis pedis artery, no calf muscle tenderness - Labs CBC & Chem 7: 01/10/19 13:16 01/16/19 19:30 Labs: Abnormal Lab Results - Last 24 Hours (Table) 01/16/19 01/16/19 Range/Units 03:45 19:30 Sodium 134 L (137-145) mmol/L BUN 24 H (9-20) mg/dL Creatinine 1.38 H (0.66-1.25) mg/dL Glucose 109 H (74-99) mg/dL Urine Protein 2+ H (Negative) Urine Ketones 1+ H (Negative) Urine Blood Small H (Negative) Urine Mucus Few H (None) /hpf Microbiology - Last 24 Hours (Table) 01/16/19 03:45 Urine Culture - Preliminary Urine,Catheterized Assessment and Plan Plan: Acute kidney injury Rule out obstructive uropathy Continue to monitor urine output or evidence of urinating every 6 hours like wet pants or bruits. Perform bladder scan when needed collect urine to measure urine output over 24 hours She was started on Flomax for possible BPH which is thought to be exacerbated by his psych medications Discontinue lisinopril, avoid nephrotoxic meds Depression and suicidal ideation Management per psych Episodes of hypotension Continue close monitoring of vital signs Discontinue lisinopril Discontinue amlodipine Monitor urine output closely Monitor vital signs Check BMP in the morning Check troponins one time (patient looks clammy and sweaty however he denies any chest pain, EKG was reviewed showed normal sinus rhythm with possible right bundle branch block)
[2019-01-16] MEDS ORDERED: lamoTRIgine 25 MG TAB PO SCH (21:00)
[2019-01-16] MEDS ORDERED: PALIPERIDONE 6 MG TAB.ER.24 PO SCH (21:00)
[2019-01-17] MEDS: CITALOPRAM HYDROBROMIDE 20 MG TAB PO SCH ×2 (08:06→20:46)
[2019-01-17] MEDS: buPROPion XL 300 MG TAB.ER.24H PO SCH (08:06)
[2019-01-17] MEDS: NICOTINE 21MG/24HR PATCH TRANSDERM SCH (08:06)
[2019-01-17] MEDS: FINASTERIDE 5 MG TAB PO SCH (08:06)
[2019-01-17] MEDS ORDERED: amLODIPine 5 MG TAB PO SCH (09:00)
[2019-01-17 09:03] LABS: Basophils % (A) 0 %; Eosinophils # (A) 0.1 k/uL (0-0.7); Eosinophils % (A) 1 %; HGB 14.3 gm/dL (13.0-17.5); Lymphocytes # (A) 2.2 k/uL (1.0-4.8); Lymphocytes % (A) 19 %; MCH 31.2 pg (25.0-35.0); MCHC 33.3 g/dL (31.0-37.0); MCV 93.6 fL (80.0-100.0); Mean Platelet Volume 6.8; Monocytes # (A) 0.8 k/uL (0-1.0); Monocytes % (A) 7 %; Neutrophils # (A) 8.6 k/uL (1.3-7.7); Neutrophils % (A) 72 %; Platelet Count 403 k/uL (150-450); RBC 4.59 m/uL (4.30-5.90); RDW 13.5 % (11.5-15.5)
[2019-01-17 09:15] LABS: Calcium 9.8 mg/dL (8.4-10.2); Potassium 3.7 mmol/L (3.5-5.1)
[2019-01-17] MEDS: ACETAMINOPHEN TAB 325 MG TAB PO PRN (09:21)
[2019-01-17] MEDS: ALBUTEROL INHALER 60 PUFF/8 GM INHALER INHALATION SCH ×3 (10:15→20:41)
--- NOTE | 2019-01-17 11:27 | P.PN ---
Subjective Progress Note Date: 01/17/19 Principal diagnosis: schizophrenia versus schizoaffective-depressed 01/08/2019: Chart reviewed, discussed with nursing staff and teamed this morning. Patient interviewed and discussed his treatment including that he needs to shower on a daily basis get dressed and participate in groups. He still looks severely depressed and admits to it. He is still hearing voices. D enies any suicidal or homicidal ideation at the current time. 01/09/2019: Chart reviewed extensively with nursing staff and was also discussed in team today regarding disposition and discharge planning. Interview with the patient revealed that he has little motivation states that he is depressed but not suicidal or homicidal. He has little motivation to get up and do things throughout the day and to take care of himself. He states he does not hear any voices nor is he see things. Depression seems to be the main issue now. 01/10/2019: Chart reviewed extensively and discussed his worsening of his breathing. He has little energy to get out he is having difficulty taking a breath and has rhonchi on examination. He remains depressed without hallucinations. 01/11/2019: Chart reviewed and all lab work were evaluated. He still not motivated to get out of bed and do much for himself. Encouraged nursing staff to get him up and get them breakfast and participate in [facility] therapeutic environment. He still states that he is depressed without hallucinations. 01/12/2019: Chart reviewed reason noticed that the urine and also has not been done yet. During the night and episode of being suicidal and was placed on one-to-one. He has minimal responses states that he is not hearing things or seeing things feels less depressed but he states that he is suicidal and has no plan. We'll continue one-to-one. 01/15/2019: Chart reviewed, discussed with nursing staff and team meeting this morning. Patient still remains depressed and lethargic poor eating or sleeping not motivated and remains on one-to-one due to his suicidal ideation without a plan. He is now hearing voices. 01/16/2019: Chart reviewed and discussed with nursing staff and treatment team this morning and discussed progress and continue one-to-one sitter due to his suicidal ideation. He is following instructions little bit better today and is able to sit up and have some food. He states he is depressed suicidal state he had a plan but did not share with me and he is hearing voices. 01/17/2019: Chart reviewed and discussed nursing staff and still remains on one-to-one due to suicidal thoughts with a plan. Discussed in team and apparently he is not eating much and will add Megace 40 mg 4 times a day. Added Proscar 5 mg yesterday to help with urination. Patient states that he is hearing voices that tell him to kill himself and he is able to do that anymore articulate fashion and he did previously. He remains depressed and psychotic. Objective - Vital Signs Vital signs: Vital Signs Temp 98.1 F 01/17/19 08:12 Pulse 88 01/17/19 08:12 Resp 15 01/17/19 06:22 BP 98/57 01/17/19 08:12 Pulse Ox 95 01/16/19 18:35 Intake & Output 01/16/19 01/17/19 01/17/19 18:59 06:59 18:59 Intake Total 1920 Output Total 936 Balance 1920 -936 Weight 118.1 kg Intake: Oral 1920 Output: Urine 900 Post Void Residual 36 Other: # Voids 1 - Labs CBC & Chem 7: 01/17/19 08:40 01/17/19 08:40 Labs: Abnormal Lab Results - Last 24 Hours (Table) 01/16/19 01/17/19 01/17/19 Range/Units 19:30 08:40 08:40 WBC 12.0 H (3.8-10.6) k/uL Neutrophils # 8.6 H (1.3-7.7) k/uL Sodium 134 L 134 L (137-145) mmol/L BUN 24 H 25 H (9-20) mg/dL Creatinine 1.38 H 1.36 H (0.66-1.25) mg/dL Glucose 109 H 123 H (74-99) mg/dL Microbiology - Last 24 Hours (Table) 01/16/19 03:45 Urine Culture - Final Urine,Catheterized Assessment and Plan Assessment: Chief Complaint: 53-year-old male past medical history of hypertension, depression presents with suicidal ideation. History of Present Illness: Patient is 53-year-old male who presents today voluntarily. Patient states that been depressed for the last 2-3 days. Patient states he is afraid he might want to start hurting himself. Denies any homicidal ideation. Patient denies any visual or auditory hallucinations. Patient states he's been suicidal in the past. Patient denies any plan at this time. Pt. found resting on the stretcher and sleepy. Pt. admits to taking his HS meds prior to coming to the ER. Pt. wakes when spoken to and admits to "sitting on the porch smoking a cigarette today and just got suicidal. I called the crisis line but they told me to come here. I don't want to hurt myself." Pt. has had significant suicide attempts in the recent past. Mental Status Examination - General Appearance: [ disheveled, bizarre, appears stated age, Speech/Language: [slow, , rambled, mumbling, monotone, soft] Attitude/Behavior: [cooperative, guarded, withdrawn, indifferent] Mood: [depressed, euphoric, anxious, elated, irritable, angry, fearful, hopelessness] Affect: [flat, incongruent, labile, blunted constricted] Orientation: [time, person, place situation] Thought Content: [wnl, ] Risk Factors: [he has suicidal (ideations, plan), and/or Homicidal (ideations, plan), other] Perception: [wnl, hallucinations (auditory, visual,] Thought Processes: [ concrete, circumstantial, tangential, other] Concentration/Attention Span: [impaired] [Per observation and interview with the patient] Recent Memory: [ impaired] [0 out of 3 in 3 minutes] Remote Memory: [ impaired] [past events, as related history] Intelligence: [below average,] [based on history, based on vocabulary, syntax, grammar, and content] Judgement: [poor] [per patient's behavior/history of present illness] Insight: [ poor] [understanding severity of illness/history of present illness] Admitting Diagnosis: [schizophrenia versus schizoaffective-depressed] Past medications tried: Abilify, Artane, Effexor XR, invega sustenna, trazodone, Risperdal, Remeron, Pristiq, Ativan, loxapine, Geodon, Limbitrol DS, Wellbutrin, Depakote, Trileptal, Zyprexa, Lamictal, Vistaril, Cymbalta, and doxepin. Patient Limitations: [ pathological/unsupported environment, no interests, intellectual impairment, lack of social supports, other] Initial Plan of Care: [Patient voluntary admission to [facility] for he had suicidal thoughts from voices at nighttime that disturb his sleep. He'll be evaluated by medicine, psychiatry, nursing staff, s ocial work and occupational therapy and teamed and a multi specialty approach. He will be placed on 15 minute checks due to his suicidal thoughts. He'll be integrated into a [facility] therapeutic environment whereby he'll be expected to take his medicines, go to groups and interact in a positive way with his peers within the mental health unit. After thorough evaluation reviewing his last hospitalizations I decided to go to more temporary approach and started using to antipsychotics, I'll maximize Prolixin and use 5 mg by mouth daily at bedtime and maintain him on the Prolixin Decanoate. Since he has depressed moods and cycling in nature and Depakote 250 mg by mouth twice a day. I will stop his Lamictal, BuSpar, Wellbutrin and further evaluate his psychiatric needs as these will take 2-3 days to leave his system. 01/08/2019: Patient remains on 15 minute checks due to his suicidal ideation. Encouraged him to get up and go to groups shower eat meals. We'll increase his Prolixin to 5 mg by mouth daily at bedtime and increase his Depakote to 750 mg extended release by mouth daily at bedtime. We'll obtain a valproic acid level in the morning on 01/09/2019. 01/09/2019: Patient remains on 15 minute checks due to his history of suicidal ideation. I encouraged him each day get up and go to groups the meals shower take care of his hygiene. Due to the fact that he is stating that he is more depressed today Celexa 20 mg by mouth twice a day which will help with anxiety and depression. 01/10/2019: Patient remains on 15 minute checks to history of suicidal ideation. He is not able to take a deep breath and and he skin turgor looks worse in nature. He has rhonchi on examination of his lungs. We'll obtain chest x-ray CBC CMP and waiting valproic acid level and also ordering ammonia blood level. D-dimer was negative, chest x-ray -WBC 12,500, increase in BUN and creatinine, increase in neutrophils have to rule out infection and never obtained a urine analysis upon admission to the hospital will complete that today. We'll follow observed for further medication adjustments. 01/11/2019 patient remains on 15 minute checks due to his suicidal ideation. His metabolic workup yesterday revealed just an elevated 12,500 WBC and elevated BUN/creatinine. Awaiting urine analysis. Encourage him be participating in the [facility] therapeutic environment and will maintain his current medications until further lab work has returned. 01/12/2019: Patient remains on 15 minute checks and now is on a one-to-one for safety due to his suicidal statement without a plan. He remains running most of the day and has to be really pushed to get any valuable information from him. I will decrease his Depakote and reevaluate his behaviors. 01/15/2019: Patient remains on 15 minute checks and now is on one-to-one due to his suicidal statements without a plan and now has auditory hallucinations. I've stopped his Depakote and started Lamictal again which had a better response in his previous hospitalization. I also stopped Prolixin and switch back to Invega 3 mg by mouth daily at bedtime for his psychosis. Also added Wellbutrin 150 mg XL in the morning for his depression and suicidal thoughts which he did well on the previous hospitalization. 01/16/2019: Patient mentions on 15 minute checks and has a one-to-one sitter due to suicidal ideation with a plan which he won't share. He states he has auditory hallucinations and remains depressed and anxious. Today will increase his Wellbutrin to 300 mg XL in the morning for depression and suicidal thoughts which he has done well on previously. Titrating his Lamictal up and currently at 50 mg by mouth daily at bedtime. His Invega was increased due to his auditory hallucinations to 6 mg by mouth daily at bedtime. We'll follow observed for symptom resolution.] 01/17/2019 patient is currently on one-to-one for safety due to suicidal ideation with a plan which in relieving depression. Hallucinations are still prominent and will increase Lamictal 100 mg and increase Invega to 9 mg. . He states today that the voices are telling him that he should kill himself. He remains depressed and anxious. Increase of Wellbutrin appearing to have some result. Continue sitter for safety for him. Encourage him to be ambulate and take care of himself. (1) Schizoaffective disorder Current Visit: No Status: Acute Priority: High Code(s): F25.9 - SCHIZOAFFECTIVE DISORDER, UNSPECIFIED SNOMED Code(s): 25771472 Time with Patient: Less than 30
[2019-01-17] MEDS: MEGESTROL 40 MG TAB PO SCH ×3 (12:43→20:47)
[2019-01-17] MEDS: TAMSULOSIN 0.4 MG CAP.ER.24H PO SCH (17:03)
[2019-01-17] MEDS ORDERED: PALIPERIDONE 3 MG TAB.ER.24 PO SCH (21:00)
[2019-01-17] MEDS ORDERED: lamoTRIgine 100 MG TAB PO SCH (21:00)
[2019-01-18] MEDS ORDERED: NYSTAT-TRIAMCIN 100,000-0.1 UNIT/GM-% OINT 30 GM TUBE TOPICAL SCH (01:45)
[2019-01-18] MEDS: buPROPion XL 300 MG TAB.ER.24H PO SCH (08:49)
[2019-01-18] MEDS: CITALOPRAM HYDROBROMIDE 20 MG TAB PO SCH ×2 (08:49→20:13)
[2019-01-18] MEDS: FINASTERIDE 5 MG TAB PO SCH (08:49)
[2019-01-18] MEDS: MEGESTROL 40 MG TAB PO SCH ×4 (08:49→20:14)
[2019-01-18] MEDS: TRIAMCINOLONE ACET 0.1% OINTMENT 15 GM TUBE TOPICAL SCH ×2 (08:50→20:14)
[2019-01-18] MEDS: NYSTATIN 100,000 UNIT/GM OINT 30 GM TUBE TOPICAL SCH ×2 (08:50→20:13)
[2019-01-18] MEDS: NICOTINE 21MG/24HR PATCH TRANSDERM SCH (08:52)
[2019-01-18] MEDS: ALBUTEROL INHALER 60 PUFF/8 GM INHALER INHALATION SCH ×4 (10:00→20:48)
--- NOTE | 2019-01-18 12:30 | P.PN ---
Subjective Progress Note Date: 01/18/19 Principal diagnosis: schizophrenia versus schizoaffective-depressed 01/08/2019: Chart reviewed, discussed with nursing staff and teamed this morning. Patient interviewed and discussed his treatment including that he needs to shower on a daily basis get dressed and participate in groups. He still looks severely depressed and admits to it. He is still hearing voices. D enies any suicidal or homicidal ideation at the current time. 01/09/2019: Chart reviewed extensively with nursing staff and was also discussed in team today regarding disposition and discharge planning. Interview with the patient revealed that he has little motivation states that he is depressed but not suicidal or homicidal. He has little motivation to get up and do things throughout the day and to take care of himself. He states he does not hear any voices nor is he see things. Depression seems to be the main issue now. 01/10/2019: Chart reviewed extensively and discussed his worsening of his breathing. He has little energy to get out he is having difficulty taking a breath and has rhonchi on examination. He remains depressed without hallucinations. 01/11/2019: Chart reviewed and all lab work were evaluated. He still not motivated to get out of bed and do much for himself. Encouraged nursing staff to get him up and get them breakfast and participate in [facility] therapeutic environment. He still states that he is depressed without hallucinations. 01/12/2019: Chart reviewed reason noticed that the urine and also has not been done yet. During the night and episode of being suicidal and was placed on one-to-one. He has minimal responses states that he is not hearing things or seeing things feels less depressed but he states that he is suicidal and has no plan. We'll continue one-to-one. 01/15/2019: Chart reviewed, discussed with nursing staff and team meeting this morning. Patient still remains depressed and lethargic poor eating or sleeping not motivated and remains on one-to-one due to his suicidal ideation without a plan. He is now hearing voices. 01/16/2019: Chart reviewed and discussed with nursing staff and treatment team this morning and discussed progress and continue one-to-one sitter due to his suicidal ideation. He is following instructions little bit better today and is able to sit up and have some food. He states he is depressed suicidal state he had a plan but did not share with me and he is hearing voices. 01/17/2019: Chart reviewed and discussed nursing staff and still remains on one-to-one due to suicidal thoughts with a plan. Discussed in team and apparently he is not eating much and will add Megace 40 mg 4 times a day. Added Proscar 5 mg yesterday to help with urination. Patient states that he is hearing voices that tell him to kill himself and he is able to do that anymore articulate fashion and he did previously. He remains depressed and psychotic. 01/18/2018: Chart reviewed and discussed with nursing staff regarding his physical care and continuing his one-to-one due to suicidal thoughts or plan. This is second day of Megace and he has a slight increase in appetite. He states that he still suicidal and hears voices that are telling him to kill himself. He is not motivated to participate in treatment and tends to isolate and stay in his room. Objective - Vital Signs Vital signs: Vital Signs Temp 97.5 F L 01/18/19 06:51 Pulse 75 01/18/19 06:51 Resp 18 01/18/19 06:51 BP 131/71 01/18/19 06:51 Pulse Ox 95 01/16/19 18:35 Intake & Output 01/17/19 01/18/19 01/18/19 18:59 06:59 18:59 Intake Total 240 Output Total 1182 Balance -1182 240 Intake: Oral 240 Output: Urine 900 Post Void Residual 282 Other: # Voids 1 - Labs CBC & Chem 7: 01/17/19 08:40 01/17/19 08:40 Labs: Microbiology - Last 24 Hours (Table) 01/16/19 03:45 Urine Culture - Final Urine,Catheterized Assessment and Plan Assessment: Chief Complaint: 53-year-old male past medical history of hypertension, depression presents with suicidal ideation. History of Present Illness: Patient is 53-year-old male who presents today voluntarily. Patient states that been depressed for the last 2-3 days. Patient states he is afraid he might want to start hurting himself. Denies any homicidal ideation. Patient denies any visual or auditory hallucinations. Patient states he's been suicidal in the past. Patient denies any plan at this time. Pt. found resting on the stretcher and sleepy. Pt. admits to taking his HS meds prior to coming to the ER. Pt. wakes when spoken to and admits to "sitting on the porch smoking a cigarette today and just got suicidal. I called the crisis line but they told me to come here. I don't want to hurt myself." Pt. has had significant suicide attempts in the recent past. Mental Status Examination - General Appearance: [ disheveled, bizarre, appears stated age, Speech/Language: [slow, , rambled, mumbling, monotone, soft] Attitude/Behavior: [cooperative, guarded, withdrawn, indifferent] Mood: [depressed, euphoric, anxious, elated, irritable, angry, fearful, hopelessness] Affect: [flat, incongruent, labile, blunted constricted] Orientation: [time, person, place situation] Thought Content: [wnl, ] Risk Factors: [he has suicidal (ideations, plan), and/or Homicidal (ideations, plan), other] Perception: [wnl, hallucinations (auditory, visual,] Thought Processes: [ concrete, circumstantial, tangential, other] Concentration/Attention Span: [impaired] [Per observation and interview with the patient] Recent Memory: [ impaired] [0 out of 3 in 3 minutes] Remote Memory: [ impaired] [past events, as related history] Intelligence: [below average,] [based on history, based on vocabulary, syntax, grammar, and content] Judgement: [poor] [per patient's behavior/history of present illness] Insight: [ poor] [understanding severity of illness/history of present illness] Admitting Diagnosis: [schizophrenia versus schizoaffective-depressed] Past medications tried: Abilify, Artane, Effexor XR, invega sustenna, trazodone, Risperdal, Remeron, Pristiq, Ativan, loxapine, Geodon, Limbitrol DS, Wellbutrin, Depakote, Trileptal, Zyprexa, Lamictal, Vistaril, Cymbalta, and doxepin. Patient Limitations: [ pathological/unsupported environment, no interests, intellectual impairment, lack of social supports, other] Initial Plan of Care: [Patient voluntary admission to [facility] for he had suicidal thoughts from voices at nighttime that disturb his sleep. He'll be evaluated by medicine, psychiatry, nursing staff, social work and occupational therapy and teamed and a multi specialty approach. He will be placed on 15 minute checks due to his suicidal thoughts. He'll be integrated into a [facility] therapeutic environment whereby he'll be expected to take his medicines, go to groups and interact in a positive way with his peers within the mental health unit. After thorough evaluation reviewing his last hospitalizations I decided to go to more temporary approach and started using to antipsychotics, I'll maximize Prolixin and use 5 mg by mouth daily at bedtime and maintain him on the Prolixin Decanoate. Since he has depressed moods and cycling in nature and Depakote 250 mg by mouth twice a day. I will stop his Lamictal, BuSpar, Wellbutrin and further evaluate his psychiatric needs as these will take 2-3 days to leave his system. 01/08/2019: Patient remains on 15 minute checks due to his suicidal ideation. Encouraged him to get up and go to groups shower eat meals. We'll increase his Prolixin to 5 mg by mouth daily at bedtime and increase his Depakote to 750 mg extended release by mouth daily at bedtime. We'll obtain a valproic acid level in the morning on 01/09/2019. 01/09/2019: Patient remains on 15 minute checks due to his history of suicidal ideation. I encouraged him each day get up and go to groups the meals shower take care of his hygiene. Due to the fact that he is stating that he is more depressed today Celexa 20 mg by mouth twice a day which will help with anxiety and depression. 01/10/2019: Patient remains on 15 minute checks to history of suicidal ideation. He is not able to take a deep breath and and he skin turgor looks worse in nature. He has rhonchi on examination of his lungs. We'll obtain chest x-ray CBC CMP and waiting valproic acid level and also ordering ammonia blood level. D-dimer was negative, chest x-ray -WBC 12,500, increase in BUN and creatinine, increase in neutrophils have to rule out infection and never obtained a urine analysis upon admission to the hospital will complete that today. We'll follow observed for further medication adjustments. 01/11/2019 patient remains on 15 minute checks due to his suicidal ideation. His metabolic workup yesterday revealed just an elevated 12,500 WBC and elevated BUN/creatinine. Awaiting urine analysis. Encourage him be participating in the [facility] therapeutic environment and will maintain his current medications until further lab work has returned. 01/12/2019: Patient remains on 15 minute checks and now is on a one-to-one for safety due to his suicidal statement without a plan. He remains running most of the day and has to be really pushed to get any valuable information from him. I will decrease his Depakote and reevaluate his behaviors. 01/15/2019: Patient remains on 15 minute checks and now is on one-to-one due to his suicidal statements without a plan and now has auditory hallucinations. I've stopped his Depakote and started Lamictal again which had a better response in his previous hospitalization. I also stopped Prolixin and switch back to Invega 3 mg by mouth daily at bedtime for his psychosis. Also added Wellbutrin 150 mg XL in the morning for his depression and suicidal thoughts which he did well on the previous hospitalization. 01/16/2019: Patient mentions on 15 minute checks and has a one-to-one sitter due to suicidal ideation with a plan which he won't share. He states he has auditory hallucinations and remains depressed and anxious. Today will increase his Wellbutrin to 300 mg XL in the morning for depression and suicidal thoughts which he has done well on previously. Titrating his Lamictal up and currently at 50 mg by mouth daily at bedtime. His Invega was increased due to his auditory hallucinations to 6 mg by mouth daily at bedtime. We'll follow observed for symptom resolution.] 01/17/2019 patient is currently on one-to-one for safety due to suicidal ideation with a plan which in relieving depression. Hallucinations are still prominent and will increase Lamictal 100 mg and increase Invega to 9 mg. . He states today that the voices are telling him that he should kill himself. He remains depressed and anxious. Increase of Wellbutrin appearing to have some result. Continue sitter for safety for him. Encourage him to be ambulate and take care of himself. 01/18/2019: Patient is currently on one-to-one for safety due to suicidal ideation on maintain on that and until he is not suicidal. He still has prominent hallucinations and will increase his Invega to 12 mg by mouth daily at bedtime and increase his Lamictal to 200 mg twice a day. Continue sitter for safety for him. Encourage him to ambulate and take care of himself. (1) Schizoaffective disorder Current Visit: No Status: Acute Priority: High Code(s): F25.9 - SCHIZOAFFECTIVE DISORDER, UNSPECIFIED SNOMED Code(s): 10266105 Time with Patient: Less than 30
[2019-01-18] MEDS: TAMSULOSIN 0.4 MG CAP.ER.24H PO SCH (17:40)
[2019-01-18] MEDS: PALIPERIDONE 6 MG TAB.ER.24 PO SCH (20:13)
[2019-01-18] MEDS: lamoTRIgine 100 MG TAB PO SCH (20:13)
[2019-01-19] MEDS: ALBUTEROL INHALER 60 PUFF/8 GM INHALER INHALATION SCH ×4 (09:10→20:45)
[2019-01-19] MEDS: lamoTRIgine 100 MG TAB PO SCH ×2 (09:49→21:08)
[2019-01-19] MEDS: MEGESTROL 40 MG TAB PO SCH ×4 (09:49→21:09)
[2019-01-19] MEDS: CITALOPRAM HYDROBROMIDE 20 MG TAB PO SCH ×2 (09:50→21:08)
[2019-01-19] MEDS: FINASTERIDE 5 MG TAB PO SCH (09:50)
[2019-01-19] MEDS: buPROPion XL 300 MG TAB.ER.24H PO SCH (09:50)
[2019-01-19] MEDS: TRIAMCINOLONE ACET 0.1% OINTMENT 15 GM TUBE TOPICAL SCH ×2 (09:52→21:09)
[2019-01-19] MEDS: NYSTATIN 100,000 UNIT/GM OINT 30 GM TUBE TOPICAL SCH ×2 (09:53→21:09)
[2019-01-19] MEDS: ACETAMINOPHEN TAB 325 MG TAB PO PRN (10:02)
[2019-01-19] MEDS: FERROUS SULFATE 325 MG TAB PO SCH (12:47)
[2019-01-19] MEDS: PALIPERIDONE 6 MG TAB.ER.24 PO SCH (21:09)
[2019-01-20] MEDS: TAMSULOSIN 0.4 MG CAP.ER.24H PO SCH ×2 (06:28→17:45)
[2019-01-20] MEDS: lamoTRIgine 100 MG TAB PO SCH ×2 (08:35→20:55)
[2019-01-20] MEDS: buPROPion XL 300 MG TAB.ER.24H PO SCH (08:35)
[2019-01-20] MEDS: CITALOPRAM HYDROBROMIDE 20 MG TAB PO SCH ×2 (08:36→20:54)
[2019-01-20] MEDS: FINASTERIDE 5 MG TAB PO SCH (08:36)
[2019-01-20] MEDS: MEGESTROL 40 MG TAB PO SCH ×4 (08:36→20:55)
[2019-01-20] MEDS: NYSTATIN 100,000 UNIT/GM OINT 30 GM TUBE TOPICAL SCH ×2 (08:36→20:55)
[2019-01-20] MEDS: TRIAMCINOLONE ACET 0.1% OINTMENT 15 GM TUBE TOPICAL SCH ×2 (08:37→20:55)
--- NOTE | 2019-01-20 08:42 | P.PN ---
Progress Note - Text Interval history: The patient is found resting in bed. He is lying on his side in a bizarre position. When asked how he is doing he states terrible. He states he can't move his legs. He states he can't move his arms. He asks me to assist in moving him. With very minimal assistance and encouragement he is able to move his extremities. He describes a depressed mood with hopelessness thoughts and suicidal ideation. His breakfast tray was interviewing he consumed about half of his meal which included supplements. He seems to be isolating in his room. Mental status exam: The patient is a tall overweight male appearing his stated age. He has impaired hygiene grooming he is dressed in hospital gowns. He is partially covered with a sheet. Eye contact is intermittent. He speaks without much mouth movement. He indicates he can't move his legs but does demonstrate that he can. His movements are almost characteristic of a waxy flexibility. He reports hopelessness thinking depressed mood and suicidal ideation. He feels safe in the hospital. He initiates no conversation but provides brief answers to questions. Insight and judgment are impaired. He demonstrates no verbal or physical aggressiveness. Plan: The patient will continue on his current medications Invega has just been titrated. We will utilize more of the Ativan today just to see if this will help with his catatonic-like symptoms of psychosis. He requires continued psychiatric hospitalization. Vital signs reviewed.
[2019-01-20] MEDS: LORazepam 1 MG TAB PO PRN (08:45)
[2019-01-20] MEDS: ALBUTEROL INHALER 60 PUFF/8 GM INHALER INHALATION SCH ×4 (10:45→21:39)
[2019-01-20] MEDS: PALIPERIDONE 6 MG TAB.ER.24 PO SCH (20:54)
[2019-01-21] MEDS: ALBUTEROL INHALER 60 PUFF/8 GM INHALER INHALATION SCH ×5 (07:39→21:19)
[2019-01-21] MEDS: FINASTERIDE 5 MG TAB PO SCH (08:39)
[2019-01-21] MEDS: lamoTRIgine 100 MG TAB PO SCH ×2 (08:39→21:00)
[2019-01-21] MEDS: CITALOPRAM HYDROBROMIDE 20 MG TAB PO SCH ×2 (08:39→21:28)
[2019-01-21] MEDS: MEGESTROL 40 MG TAB PO SCH ×4 (08:39→21:00)
[2019-01-21] MEDS: NYSTATIN 100,000 UNIT/GM OINT 30 GM TUBE TOPICAL SCH ×2 (08:40→21:00)
[2019-01-21] MEDS: buPROPion XL 300 MG TAB.ER.24H PO SCH (08:40)
[2019-01-21] MEDS: TRIAMCINOLONE ACET 0.1% OINTMENT 15 GM TUBE TOPICAL SCH ×2 (08:40→21:00)
--- NOTE | 2019-01-21 12:30 | P.PN ---
Progress Note - Text Interval history: The patient is found in his room lying in bed. He is been sleeping throughout the morning. Staff report that he has been requiring much assistance in completing ADLs and getting to the dining room. He reports that he is paralyzed. He states he's embarrassed for his sister to visit him because he's like this now. He reports his mood is stable. We reviewed his psychotropic medications he has no questions or concerns. Mental status exam: The patient is an overweight male he is dressed in hospital gowns. He is lying in bed. He was observed moving his lower extremities including his feet as he describes being paralyzed. He is in no acute distress. Eye contact is appropriate he was cooperative. He reports his mood is good today. He reports no suicidal or homicidal thoughts he endorses no hallucinations. Insight and judgment are impaired. He demonstrates no involuntary repetitive movements. He is oriented to day of the week as Tuesday and the date as January 20. Plan: The patient will continue on his current psychotropic medication. He continues to experience symptoms of psychosis. During this admission his psychosis seems to be involving somatic complaints. Vital signs reviewed. He has been isolating in his room but he is encouraged to participate in the milieu. We'll continue to monitor for safety.
[2019-01-21] MEDS: TAMSULOSIN 0.4 MG CAP.ER.24H PO SCH (17:30)
[2019-01-21] MEDS: ACETAMINOPHEN TAB 325 MG TAB PO PRN ×2 (17:39→21:26)
[2019-01-21] MEDS: PALIPERIDONE 6 MG TAB.ER.24 PO SCH (21:00)
[2019-01-22] MEDS: CIPROFLOXACIN 0.3% OPHTH SOLN 5 ML BTL BOTH EYES SCH ×12 (00:05→22:09)
[2019-01-22] MEDS ORDERED: IBUPROFEN 600 MG TAB PO STA (01:17)
[2019-01-22] MEDS: LORazepam 1 MG TAB PO PRN (03:03)
[2019-01-22] MEDS: ACETAMINOPHEN TAB 325 MG TAB PO PRN (03:04)
[2019-01-22] MEDS: lamoTRIgine 100 MG TAB PO SCH ×2 (08:50→21:23)
[2019-01-22] MEDS: MEGESTROL 40 MG TAB PO SCH ×4 (08:50→21:25)
[2019-01-22] MEDS: CITALOPRAM HYDROBROMIDE 20 MG TAB PO SCH ×2 (08:51→21:23)
[2019-01-22] MEDS: buPROPion XL 300 MG TAB.ER.24H PO SCH (08:51)
[2019-01-22] MEDS: FINASTERIDE 5 MG TAB PO SCH (08:51)
[2019-01-22] MEDS: TRIAMCINOLONE ACET 0.1% OINTMENT 15 GM TUBE TOPICAL SCH ×2 (08:52→21:24)
[2019-01-22] MEDS: NYSTATIN 100,000 UNIT/GM OINT 30 GM TUBE TOPICAL SCH ×2 (08:52→21:24)
[2019-01-22] MEDS: ALBUTEROL INHALER 60 PUFF/8 GM INHALER INHALATION SCH ×3 (09:01→16:20)
[2019-01-22 10:41] VITALS: BMI 24.9
[2019-01-22] MEDS: FERROUS SULFATE 325 MG TAB PO SCH (12:08)
--- NOTE | 2019-01-22 13:08 | P.PN ---
Subjective Progress Note Date: 01/22/19 Principal diagnosis: schizophrenia versus schizoaffective-depressed 01/08/2019: Chart reviewed, discussed with nursing staff and teamed this morning. Patient interviewed and discussed his treatment including that he needs to shower on a daily basis get dressed and participate in groups. He still looks severely depressed and admits to it. He is still hearing voices. D enies any suicidal or homicidal ideation at the current time. 01/09/2019: Chart reviewed extensively with nursing staff and was also discussed in team today regarding disposition and discharge planning. Interview with the patient revealed that he has little motivation states that he is depressed but not suicidal or homicidal. He has little motivation to get up and do things throughout the day and to take care of himself. He states he does not hear any voices nor is he see things. Depression seems to be the main issue now. 01/10/2019: Chart reviewed extensively and discussed his worsening of his breathing. He has little energy to get out he is having difficulty taking a breath and has rhonchi on examination. He remains depressed without hallucinations. 01/11/2019: Chart reviewed and all lab work were evaluated. He still not motivated to get out of bed and do much for himself. Encouraged nursing staff to get him up and get them breakfast and participate in [facility] therapeutic environment. He still states that he is depressed without hallucinations. 01/12/2019: Chart reviewed reason noticed that the urine and also has not been done yet. During the night and episode of being suicidal and was placed on one-to-one. He has minimal responses states that he is not hearing things or seeing things feels less depressed but he states that he is suicidal and has no plan. We'll continue one-to-one. 01/15/2019: Chart reviewed, discussed with nursing staff and team meeting this morning. Patient still remains depressed and lethargic poor eating or sleeping not motivated and remains on one-to-one due to his suicidal ideation without a plan. He is now hearing voices. 01/16/2019: Chart reviewed and discussed with nursing staff and treatment team this morning and discussed progress and continue one-to-one sitter due to his suicidal ideation. He is following instructions little bit better today and is able to sit up and have some food. He states he is depressed suicidal state he had a plan but did not share with me and he is hearing voices. 01/17/2019: Chart reviewed and discussed nursing staff and still remains on one-to-one due to suicidal thoughts with a plan. Discussed in team and apparently he is not eating much and will add Megace 40 mg 4 times a day. Added Proscar 5 mg yesterday to help with urination. Patient states that he is hearing voices that tell him to kill himself and he is able to do that anymore articulate fashion and he did previously. He remains depressed and psychotic. 01/18/2018: Chart reviewed and discussed with nursing staff regarding his physical care and continuing his one-to-one due to suicidal thoughts or plan. This is second day of Megace and he has a slight increase in appetite. He states that he still suicidal and hears voices that are telling him to kill himself. He is not motivated to participate in treatment and tends to isolate and stay in his room. 01/22/2018: Chart reviewed and discussed nursing staff regarding his physical care. He was taken off one-to-one on 01/19/2019. He is able to ambulate to breakfast lunch and dinner and then returns to his room to isolate. He denies any suicidal or homicidal ideation. He denies any auditory or visual hallucinations. He is not motivated in treatment. Objective - Vital Signs Vital signs: Vital Signs Temp 98.6 F 01/22/19 03:22 Pulse 92 01/22/19 03:22 Resp 20 01/22/19 03:22 BP 132/92 01/22/19 03:22 Pulse Ox 94 L 01/21/19 06:41 Intake & Output 01/21/19 01/22/19 01/22/19 18:59 06:59 18:59 Weight 118.1 kg 85.729 kg 85.729 kg - Labs CBC & Chem 7: 01/17/19 08:40 01/17/19 08:40 Assessment and Plan Assessment: Chief Complaint: 53-year-old male past medical history of hypertension, depression presents with suicidal ideation. History of Present Illness: Patient is 53-year-old male who presents today voluntarily. Patient states that been depressed for the last 2-3 days. Patient states he is afraid he might want to start hurting himself. Denies any homicidal ideation. Patient denies any visual or auditory hallucinations. Patient states he's been suicidal in the past. Patient denies any plan at this time. Pt. found resting on the stretcher and sleepy. Pt. admits to taking his HS meds prior to coming to the ER. Pt. wakes when spoken to and admits to "sitting on the porch smoking a cigarette today and just got suicidal. I called the crisis line but they told me to come here. I don't want to hurt myself." Pt. has had significant suicide attempts in the recent past. Mental Status Examination - General Appearance: [ disheveled, bizarre, appears stated age, Speech/Language: [slow, , rambled, mumbling, monotone, soft] Attitude/Behavior: [cooperative, guarded, withdrawn, indifferent] Mood: [depressed, euphoric, anxious, elated, irritable, angry, fearful, hopelessness] Affect: [flat, incongruent, labile, blunted constricted] Orientation: [time, person, place situation] Thought Content: [wnl, ] Risk Factors: [he has suicidal (ideations, plan), and/or Homicidal (ideations, plan), other] Perception: [wnl, hallucinations (auditory, visual,] Thought Processes: [ concrete, circumstantial, tangential, other] Concentration/Attention Span: [impaired] [Per observation and interview with the patient] Recent Memory: [ impaired] [0 out of 3 in 3 minutes] Remote Memory: [ impaired] [past events, as related history] Intelligence: [below average,] [based on history, based on vocabulary, syntax, grammar, and content] Judgement: [poor] [per patient's behavior/history of present illness] Insight: [ poor] [understanding severity of illness/history of present illness] Admitting Diagnosis: [schizophrenia versus schizoaffective-depressed] Past medications tried: Abilify, Artane, Effexor XR, invega sustenna, trazodone, Risperdal, Remeron, Pristiq, Ativan, loxapine, Geodon, Limbitrol DS, Wellbutrin, Depakote, Trileptal, Zyprexa, Lamictal, Vistaril, Cymbalta, and doxepin. Patient Limitations: [ pathological/unsupported environment, no interests, inte llectual impairment, lack of social supports, other] Initial Plan of Care: [Patient voluntary admission to [facility] for he had suicidal thoughts from voices at nighttime that disturb his sleep. He'll be evaluated by medicine, psychiatry, nursing staff, social work and occupational therapy and teamed and a multi specialty approach. He will be placed on 15 minute checks due to his suicidal thoughts. He'll be integrated into a [facility] therapeutic environment whereby he'll be expected to take his medicines, go to groups and interact in a positive way with his peers within the mental health unit. After thorough evaluation reviewing his last hospitalizations I decided to go to more temporary approach and started using to antipsychotics, I'll maximize Prolixin and use 5 mg by mouth daily at bedtime and maintain him on the Prolixin Decanoate. Since he has depressed moods and cycling in nature and Depakote 250 mg by mouth twice a day. I will stop his Lamictal, BuSpar, Wellbutrin and further evaluate his psychiatric needs as these will take 2-3 days to leave his system. 01/08/2019: Patient remains on 15 minute checks due to his suicidal ideation. Encouraged him to get up and go to groups shower eat meals. We'll increase his Prolixin to 5 mg by mouth daily at bedtime and increase his Depakote to 750 mg extended release by mouth daily at bedtime. We'll obtain a valproic acid level in the morning on 01/09/2019. 01/09/2019: Patient remains on 15 minute checks due to his history of suicidal ideation. I encouraged him each day get up and go to groups the meals shower take care of his hygiene. Due to the fact that he is stating that he is more depressed today Celexa 20 mg by mouth twice a day which will help with anxiety and depression. 01/10/2019: Patient remains on 15 minute checks to history of suicidal ideation. He is not able to take a deep breath and and he skin turgor looks worse in nature. He has rhonchi on examination of his lungs. We'll obtain chest x-ray CBC CMP and waiting valproic acid level and also ordering ammonia blood level. D-dimer was negative, chest x-ray -WBC 12,500, increase in BUN and creatinine, increase in neutrophils have to rule out infection and never obtained a urine analysis upon admission to the hospital will complete that today. We'll follow observed for further medication adjustments. 01/11/2019 patient remains on 15 minute checks due to his suicidal ideation. His metabolic workup yesterday revealed just an elevated 12,500 WBC and elevated BUN/creatinine. Awaiting urine analysis. Encourage him be participating in the [facility] therapeutic environment and will maintain his current medications until further lab work has returned. 01/12/2019: Patient remains on 15 minute checks and now is on a one-to-one for safety due to his suicidal statement without a plan. He remains running most of the day and has to be really pushed to get any valuable information from him. I will decrease his Depakote and reevaluate his behaviors. 01/15/2019: Patient remains on 15 minute checks and now is on one-to-one due to his suicidal statements without a plan and now has auditory hallucinations. I've stopped his Depakote and started Lamictal again which had a better response in his previous hospitalization. I also stopped Prolixin and switch back to Invega 3 mg by mouth daily at bedtime for his psychosis. Also added Wellbutrin 150 mg XL in the morning for his depression and suicidal thoughts which he did well on the previous hospitalization. 01/16/2019: Patient mentions on 15 minute checks and has a one-to-one sitter due to suicidal ideation with a plan which he won't share. He states he has auditory hallucinations and remains depressed and anxious. Today will increase his Wellbutrin to 300 mg XL in the morning for depression and suicidal thoughts which he has done well on previously. Titrating his Lamictal up and currently at 50 mg by mouth daily at bedtime. His Invega was increased due to his auditory hallucinations to 6 mg by mouth daily at bedtime. We'll follow observed for symptom resolution.] 01/17/2019 patient is currently on one-to-one for safety due to suicidal ideation with a plan which in relieving depression. Hallucinations are still prominent and will increase Lamictal 100 mg and increase Invega to 9 mg. . He states today that the voices are telling him that he should kill himself. He remains depressed and anxious. Increase of Wellbutrin appearing to have some result. Continue sitter for safety for him. Encourage him to be ambulate and take care of himself. 01/18/2019: Patient is currently on one-to-one for safety due to suicidal ideation on maintain on that and until he is not suicidal. He still has promin ent hallucinations and will increase his Invega to 12 mg by mouth daily at bedtime and increase his Lamictal to 200 mg twice a day. Continue sitter for safety for him. Encourage him to ambulate and take care of himself. 01/22/2019: Patient currently off one-to-one and is on 15 minute checks usual protocol.. He remains on Invega and Lamictal which seems has improved his mood. Since he is not suicidal homicidal need to talk with [facility] regarding disposition and discharge planning. He has had trouble sleeping and then gets and Ativan in the morning and then sleeps all day. We'll stop the Ativan. We'll add Cogentin 2 mg at bedtime because he may be having tardive dyskinesia side effects to the increased Invega. (1) Schizoaffective disorder Current Visit: No Status: Acute Priority: Medium Code(s): F25.9 - SCHIZOAFFECTIVE DISORDER, UNSPECIFIED SNOMED Code(s): 68984569 Time with Patient: Less than 30
[2019-01-22] MEDS: TAMSULOSIN 0.4 MG CAP.ER.24H PO SCH (17:44)
[2019-01-22] MEDS: BENZTROPINE MESYLATE 1 MG TAB PO SCH (21:23)
[2019-01-22] MEDS: PALIPERIDONE 6 MG TAB.ER.24 PO SCH (21:23)
[2019-01-23] MEDS: CIPROFLOXACIN 0.3% OPHTH SOLN 5 ML BTL BOTH EYES SCH ×11 (03:41→23:12)
[2019-01-23] MEDS: ALBUTEROL INHALER 60 PUFF/8 GM INHALER INHALATION SCH ×4 (07:54→20:23)
[2019-01-23] MEDS: lamoTRIgine 100 MG TAB PO SCH ×2 (08:36→20:20)
[2019-01-23] MEDS: MEGESTROL 40 MG TAB PO SCH ×4 (08:37→20:21)
[2019-01-23] MEDS: FINASTERIDE 5 MG TAB PO SCH (08:37)
[2019-01-23] MEDS: CITALOPRAM HYDROBROMIDE 20 MG TAB PO SCH ×2 (08:37→20:20)
[2019-01-23] MEDS: buPROPion XL 300 MG TAB.ER.24H PO SCH (08:37)
[2019-01-23] MEDS: NYSTATIN 100,000 UNIT/GM OINT 30 GM TUBE TOPICAL SCH ×2 (08:38→20:22)
[2019-01-23] MEDS: TRIAMCINOLONE ACET 0.1% OINTMENT 15 GM TUBE TOPICAL SCH ×2 (08:38→20:19)
--- NOTE | 2019-01-23 12:22 | P.PN ---
Subjective Progress Note Date: 01/23/19 Principal diagnosis: schizophrenia versus schizoaffective-depressed 01/08/2019: Chart reviewed, discussed with nursing staff and teamed this morning. Patient interviewed and discussed his treatment including that he needs to shower on a daily basis get dressed and participate in groups. He still looks severely depressed and admits to it. He is still hearing voices. D enies any suicidal or homicidal ideation at the current time. 01/09/2019: Chart reviewed extensively with nursing staff and was also discussed in team today regarding disposition and discharge planning. Interview with the patient revealed that he has little motivation states that he is depressed but not suicidal or homicidal. He has little motivation to get up and do things throughout the day and to take care of himself. He states he does not hear any voices nor is he see things. Depression seems to be the main issue now. 01/10/2019: Chart reviewed extensively and discussed his worsening of his breathing. He has little energy to get out he is having difficulty taking a breath and has rhonchi on examination. He remains depressed without hallucinations. 01/11/2019: Chart reviewed and all lab work were evaluated. He still not motivated to get out of bed and do much for himself. Encouraged nursing staff to get him up and get them breakfast and participate in [facility] therapeutic environment. He still states that he is depressed without hallucinations. 01/12/2019: Chart reviewed reason noticed that the urine and also has not been done yet. During the night and episode of being suicidal and was placed on one-to-one. He has minimal responses states that he is not hearing things or seeing things feels less depressed but he states that he is suicidal and has no plan. We'll continue one-to-one. 01/15/2019: Chart reviewed, discussed with nursing staff and team meeting this morning. Patient still remains depressed and lethargic poor eating or sleeping not motivated and remains on one-to-one due to his suicidal ideation without a plan. He is now hearing voices. 01/16/2019: Chart reviewed and discussed with nursing staff and treatment team this morning and discussed progress and continue one-to-one sitter due to his suicidal ideation. He is following instructions little bit better today and is able to sit up and have some food. He states he is depressed suicidal state he had a plan but did not share with me and he is hearing voices. 01/17/2019: Chart reviewed and discussed nursing staff and still remains on one-to-one due to suicidal thoughts with a plan. Discussed in team and apparently he is not eating much and will add Megace 40 mg 4 times a day. Added Proscar 5 mg yesterday to help with urination. Patient states that he is hearing voices that tell him to kill himself and he is able to do that anymore articulate fashion and he did previously. He remains depressed and psychotic. 01/18/2018: Chart reviewed and discussed with nursing staff regarding his physical care and continuing his one-to-one due to suicidal thoughts or plan. This is second day of Megace and he has a slight increase in appetite. He states that he still suicidal and hears voices that are telling him to kill himself. He is not motivated to participate in treatment and tends to isolate and stay in his room. 01/22/2019: Chart reviewed and discussed nursing staff regarding his physical care. He was taken off one-to-one on 01/19/2019. He is able to ambulate to breakfast lunch and dinner and then returns to his room to isolate. He denies any suicidal or homicidal ideation. He denies any auditory or visual hallucinations. He is not motivated in treatment. 01/23/2019: Chart reviewed and discussed with team as well as nursing and social work. He is sitting up today and Sotero chair out in the hallway with a smile on his face and communicating but still low motivation and not able to ambulate on his own. He denies any suicidal or homicidal ideation. Denies any auditory command hallucinations. Objective - Vital Signs Vital signs: Vital Signs Temp 98.6 F 01/23/19 06:20 Pulse 78 01/23/19 06:20 Resp 13 01/23/19 06:20 BP 119/58 01/23/19 06:20 Pulse Ox 94 L 01/21/19 06:41 Intake & Output 01/22/19 01/23/19 01/23/19 18:59 06:59 18:59 Weight 85.729 kg - Labs CBC & Chem 7: 01/17/19 08:40 01/17/19 08:40 Assessment and Plan Assessment: Chief Complaint: 53-year-old male past medical history of hypertension, depression presents with suicidal ideation. History of Present Illness: Patient is 53-year-old male who presents today voluntarily. Patient states that been depressed for the last 2-3 days. Patient states he is afraid he might want to start hurting himself. Denies any homicidal ideation. Patient denies any visual or auditory hallucinations. Patient states he's been suicidal in the past. Patient denies any plan at this time. Pt. found resting on the stretcher and sleepy. Pt. admits to taking his HS meds prior to coming to the ER. Pt. wakes when spoken to and admits to "sitting on the porch smoking a cigarette today and just got suicidal. I called the crisis line but they told me to come here. I don't want to hurt myself." Pt. has had significant suicide attempts in the recent past. Mental Status Examination - General Appearance: [ disheveled, bizarre, appears stated age, Speech/Language: [slow, , rambled, mumbling, monotone, soft] Attitude/Behavior: [cooperative, guarded, withdrawn, indifferent] Mood: [depressed, euphoric, anxious, elated, irritable, angry, fearful, hopelessness] Affect: [flat, incongruent, labile, blunted constricted] Orientation: [time, person, place situation] Thought Content: [wnl, ] Risk Factors: [he has suicidal (ideations, plan), and/or Homicidal (ideations, plan), other] Perception: [wnl, hallucinations (auditory, visual,] Thought Processes: [ concrete, circumstantial, tangential, other] Concentration/Attention Span: [impaired] [Per observation and interview with the patient] Recent Memory: [ impaired] [0 out of 3 in 3 minutes] Remote Memory: [ impaired] [past events, as related history] Intelligence: [below average,] [based on history, based on vocabulary, syntax, grammar, and content] Judgement: [poor] [per patient's behavior/history of present illness] Insight: [ poor] [understanding severity of illness/history of present illness] Admitting Diagnosis: [schizophrenia versus schizoaffective-depressed] Past medications tried: Abilify, Artane, Effexor XR, invega sustenna, trazodone, Risperdal, Remeron, Pristiq, Ativan, loxapine, Geodon, Limbitrol DS, Wellbutrin, Depakote, Trileptal, Zyprexa, Lamictal, Vistaril, Cymbalta, and doxepin. Patient Limitations: [ pathological/unsupported environment, no interests, intellectual impairment, lack of social supports, other] Initial Plan of Care: [Patient voluntary admission to [facility] for he had suicidal thoughts from voices at nighttime that disturb his sleep. He'll be evaluated by medicine, psychiatry, nursing staff, social work and occupational therapy and teamed and a multi specialty approach. He will be placed on 15 minute checks due to his suicidal thoughts. He'll be integrated into a [facility] therapeutic environment whereby he'll be expected to take his medicines, go to groups and interact in a positive way with his peers within the mental health unit. After thorough evaluation reviewing his last hospitalizations I decided to go to more temporary approach and started using to antipsychotics, I'll maximize Prolixin and use 5 mg by mouth daily at bedtime and maintain him on the Prolixin Decanoate. Since he has depressed moods and cycling in nature and Depakote 250 mg by mouth twice a day. I will stop his Lamictal, BuSpar, Wellbutrin and further evaluate his psychiatric needs as these will take 2-3 days to leave his system. 01/08/2019: Patient remains on 15 minute checks due to his suicidal ideation. Encouraged him to get up and go to groups shower eat meals. We'll increase his Prolixin to 5 mg by mouth daily at bedtime and increase his Depakote to 750 mg extended release by mouth daily at bedtime. We'll obtain a valproic acid level in the morning on 01/09/2019. 01/09/2019: Patient remains on 15 minute checks due to his history of suicidal ideation. I encouraged him each day get up and go to groups the meals shower take care of his hygiene. Due to the fact that he is stating that he is more depressed today Celexa 20 mg by mouth twice a day which will help with anxiety and depression. 01/10/2019: Patient remains on 15 minute checks to history of suicidal ideation. He is not able to take a deep breath and and he skin turgor looks worse in nature. He has rhonchi on examination of his lungs. We'll obtain chest x-ray CBC CMP and waiting valproic acid level and also ordering ammonia blood level. D-dimer was negative, chest x-ray -WBC 12,500, increase in BUN and creatinine, increase in neutrophils have to rule out infection and never obtained a urine analysis upon admission to the hospital will complete that today. We'll follow observed for further medication adjustments. 01/11/2019 patient remains on 15 minute checks due to his suicidal ideation. His metabolic workup yesterday revealed just an elevated 12,500 WBC and elevated BUN/creatinine. Awaiting urine analysis. Encourage him be participating in the [facility] therapeutic environment and will maintain his current medications until further lab work has returned. 01/12/2019: Patient remains on 15 minute checks and now is on a one-to-one for safety due to his suicidal statement without a plan. He remains running most of the day and has to be really pushed to get any valuable information from him. I will decrease his Depakote and reevaluate his behaviors. 01/15/2019: Patient remains on 15 minute checks and now is on one-to-one due to his suicidal statements without a plan and now has auditory hallucinations. I've stopped his Depakote and started Lamictal again which had a better response in his previous hospitalization. I also stopped Prolixin and switch back to Invega 3 mg by mouth daily at bedtime for his psychosis. Also added Wellbutrin 150 mg XL in the morning for his depression and suicidal thoughts which he did well on the previous hospitalization. 01/16/2019: Patient mentions on 15 minute checks and has a one-to-one sitter due to suicidal ideation with a plan which he won't share. He states he has auditory hallucinations and remains depressed and anxious. Today will increase his Wellbutrin to 300 mg XL in the morning for depression and suicidal thoughts which he has done well on previously. Titrating his Lamictal up and currently at 50 mg by mouth daily at bedtime. His Invega was increased due to his auditory hallucinations to 6 mg by mouth daily at bedtime. We'll follow observed for symptom resolution.] 01/17/2019 patient is currently on one-to-one for safety due to suicidal ideation with a plan which in relieving depression. Hallucinations are still prominent and will increase Lamictal 100 mg and increase Invega to 9 mg. . He states today that the voices are telling him that he should kill himself. He remains depressed and anxious. Increase of Wellbutrin appearing to have some result. Continue sitter for safety for him. Encourage him to be ambulate and take care of himself. 01/18/2019: Patient is currently on one-to-one for safety due to suicidal ideation on maintain on that and until he is not suicidal. He still has prominent hallucinations and will increase his Invega to 12 mg by mouth daily at bedtime and increase his Lamictal to 200 mg twice a day. Continue sitter for safety for him. Encourage him to ambulate and take care of himself. 01/22/2019: Patient currently off one-to-one and is on 15 minute checks usual protocol.. He remains on Invega and Lamictal which seems has improved his mood. Since he is not suicidal homicidal need to talk with [facility] regarding disposition and discharge planning. He has had trouble sleeping and then gets and Ativan in the morning and then sleeps all day. We'll stop the Ativan. We'll add Cogentin 2 mg at bedtime because he may be having tardive dyskinesia side effects to the increased Invega. 01/23/2019: Patient currently off his one-to-one and doing well. He remains on 15 minute checks. He remains on Invega Lamictal which is stabilized his mood and his thought disorder. The addition of the Cogentin 2 mg at bedtime has relieved his anxiety and made him feel better. He slept 7 hours last night continuously with the addition of Cogentin 2 mg. He is more alert and awake today and first day without Ativan so he isn't narcotized. (1) Schizoaffective disorder Current Visit: No Status: Acute Priority: Medium Code(s): F25.9 - SCHIZOAFFECTIVE DISORDER, UNSPECIFIED SNOMED Code(s): 44321442 Time with Patient: Less than 30
[2019-01-23] MEDS: TAMSULOSIN 0.4 MG CAP.ER.24H PO SCH (17:20)
[2019-01-23] MEDS: BENZTROPINE MESYLATE 1 MG TAB PO SCH (20:20)
[2019-01-23] MEDS: PALIPERIDONE 6 MG TAB.ER.24 PO SCH (20:22)
[2019-01-23] MEDS: ACETAMINOPHEN TAB 325 MG TAB PO PRN (21:55)
[2019-01-24] MEDS: CIPROFLOXACIN 0.3% OPHTH SOLN 5 ML BTL BOTH EYES SCH ×4 (08:33→20:58)
[2019-01-24] MEDS: ALBUTEROL INHALER 60 PUFF/8 GM INHALER INHALATION SCH ×5 (08:33→21:53)
[2019-01-24] MEDS: buPROPion XL 300 MG TAB.ER.24H PO SCH (08:34)
[2019-01-24] MEDS: MEGESTROL 40 MG TAB PO SCH ×4 (08:34→20:57)
[2019-01-24] MEDS: CITALOPRAM HYDROBROMIDE 20 MG TAB PO SCH ×2 (08:34→20:57)
[2019-01-24] MEDS: lamoTRIgine 100 MG TAB PO SCH ×2 (08:35→20:57)
[2019-01-24] MEDS: FINASTERIDE 5 MG TAB PO SCH (08:35)
[2019-01-24] MEDS: TRIAMCINOLONE ACET 0.1% OINTMENT 15 GM TUBE TOPICAL SCH ×2 (10:11→20:58)
[2019-01-24] MEDS: NYSTATIN 100,000 UNIT/GM OINT 30 GM TUBE TOPICAL SCH ×2 (10:11→20:59)
--- NOTE | 2019-01-24 11:14 | P.PN ---
Subjective Progress Note Date: 01/24/19 Principal diagnosis: schizophrenia versus schizoaffective-depressed 01/08/2019: Chart reviewed, discussed with nursing staff and teamed this morning. Patient interviewed and discussed his treatment including that he needs to shower on a daily basis get dressed and participate in groups. He still looks severely depressed and admits to it. He is still hearing voices. D enies any suicidal or homicidal ideation at the current time. 01/09/2019: Chart reviewed extensively with nursing staff and was also discussed in team today regarding disposition and discharge planning. Interview with the patient revealed that he has little motivation states that he is depressed but not suicidal or homicidal. He has little motivation to get up and do things throughout the day and to take care of himself. He states he does not hear any voices nor is he see things. Depression seems to be the main issue now. 01/10/2019: Chart reviewed extensively and discussed his worsening of his breathing. He has little energy to get out he is having difficulty taking a breath and has rhonchi on examination. He remains depressed without hallucinations. 01/11/2019: Chart reviewed and all lab work were evaluated. He still not motivated to get out of bed and do much for himself. Encouraged nursing staff to get him up and get them breakfast and participate in [facility] therapeutic environment. He still states that he is depressed without hallucinations. 01/12/2019: Chart reviewed reason noticed that the urine and also has not been done yet. During the night and episode of being suicidal and was placed on one-to-one. He has minimal responses states that he is not hearing things or seeing things feels less depressed but he states that he is suicidal and has no plan. We'll continue one-to-one. 01/15/2019: Chart reviewed, discussed with nursing staff and team meeting this morning. Patient still remains depressed and lethargic poor eating or sleeping not motivated and remains on one-to-one due to his suicidal ideation without a plan. He is now hearing voices. 01/16/2019: Chart reviewed and discussed with nursing staff and treatment team this morning and discussed progress and continue one-to-one sitter due to his suicidal ideation. He is following instructions little bit better today and is able to sit up and have some food. He states he is depressed suicidal state he had a plan but did not share with me and he is hearing voices. 01/17/2019: Chart reviewed and discussed nursing staff and still remains on one-to-one due to suicidal thoughts with a plan. Discussed in team and apparently he is not eating much and will add Megace 40 mg 4 times a day. Added Proscar 5 mg yesterday to help with urination. Patient states that he is hearing voices that tell him to kill himself and he is able to do that anymore articulate fashion and he did previously. He remains depressed and psychotic. 01/18/2018: Chart reviewed and discussed with nursing staff regarding his physical care and continuing his one-to-one due to suicidal thoughts or plan. This is second day of Megace and he has a slight increase in appetite. He states that he still suicidal and hears voices that are telling him to kill himself. He is not motivated to participate in treatment and tends to isolate and stay in his room. 01/22/2019: Chart reviewed and discussed nursing staff regarding his physical care. He was taken off one-to-one on 01/19/2019. He is able to ambulate to breakfast lunch and dinner and then returns to his room to isolate. He denies any suicidal or homicidal ideation. He denies any auditory or visual hallucinations. He is not motivated in treatment. 01/23/2019: Chart reviewed and discussed with team as well as nursing and social work. He is sitting up today and Sotero chair out in the hallway with a smile on his face and communicating but still low motivation and not able to ambulate on his own. He denies any suicidal or homicidal ideation. Denies any auditory command hallucinations. 01/24/2019: Chart reviewed and discussed in team this morning he is sitting up today doing some walking minimal interaction denies suicidal or homicidal ideation Objective - Vital Signs Vital signs: Vital Signs Temp 98 F 01/24/19 06:24 Pulse 67 01/24/19 06:24 Resp 16 01/24/19 06:24 BP 108/67 01/24/19 06:24 Pulse Ox 94 L 01/21/19 06:41 - Labs CBC & Chem 7: 01/17/19 08:40 01/17/19 08:40 Assessment and Plan Assessment: Chief Complaint: 53-year-old male past medical history of hypertension, depression presents with suicidal ideation. History of Present Illness: Patient is 53-year-old male who presents today voluntarily. Patient states that been depressed for the last 2-3 days. Patient states he is afraid he might want to start hurting himself. Denies any homicidal ideation. Patient denies any visual or auditory hallucinations. Patient states he's been suicidal in the past. Patient denies any plan at this time. Pt. found resting on the stretcher and sleepy. Pt. admits to taking his HS meds prior to coming to the ER. Pt. wakes when spoken to and admits to "sitting on the porch smoking a cigarette today and just got suicidal. I called the crisis line but they told me to come here. I don't want to hurt myself." Pt. has had significant suicide attempts in the recent past. Mental Status Examination - General Appearance: [ disheveled, bizarre, appears stated age, Speech/Language: [slow, , rambled, mumbling, monotone, soft] Attitude/Behavior: [cooperative, guarded, withdrawn, indifferent] Mood: [depressed, euphoric, anxious, elated, irritable, angry, fearful, hopelessness] Affect: [flat, incongruent, labile, blunted constricted] Orientation: [time, person, place situation] Thought Content: [wnl, ] Risk Factors: [he has suicidal (ideations, plan), and/or Homicidal (ideations, plan), other] Perception: [wnl, hallucinations (auditory, visual,] Thought Processes: [ concrete, circumstantial, tangential, other] Concentration/Attention Span: [impaired] [Per observation and interview with the patient] Recent Memory: [ impaired] [0 out of 3 in 3 minutes] Remote Memory: [ impaired] [past events, as related history] Intelligence: [below average,] [based on history, based on vocabulary, syntax, grammar, and content] Judgement: [poor] [per patient's behavior/history of present illness] Insight: [ poor] [understanding severity of illness/history of present illness] Admitting Diagnosis: [schizophrenia versus schizoaffective-depressed] Past medications tried: Abilify, Artane, Effexor XR, invega sustenna, trazodone, Risperdal, Remeron, Pristiq, Ativan, loxapine, Geodon, Limbitrol DS, Wellbutrin, Depakote, Trileptal, Zyprexa, Lamictal, Vistaril, Cymbalta, and doxepin. Patient Limitations: [ pathological/unsupported environment, no interests, intellectual impairment, lack of social supports, other] Initial Plan of Care: [Patient voluntary admission to [facility] unit [facility] for he had suicidal thoughts from voices at nighttime that disturb his sleep. He'll be evaluated by medicine, psychiatry, nursing staff, social work and occupational therapy and teamed and a multi specialty approach. He will be placed on 15 minute checks due to his suicidal thoughts. He'll be integrated into a [facility] therapeutic environment whereby he'll be expected to take his medicines, go to groups and interact in a positive way with his peers within the mental health unit. After thorough evaluation reviewing his last hospitalizations I decided to go to more temporary approach and started using to antipsychotics, I'll maximize Prolixin and use 5 mg by mouth daily at bedtime and maintain him on the Prolixin Decanoate. Since he has depressed moods and cycling in nature and Depakote 250 mg by mouth twice a day. I will stop his Lamictal, BuSpar, Wellbutrin and further evaluate his psychiatric needs as these will take 2-3 days to leave his system. 01/08/2019: Patient remains on 15 minute checks due to his suicidal ideation. Encouraged him to get up and go to groups shower eat meals. We'll increase his Prolixin to 5 mg by mouth daily at bedtime and increase his Depakote to 750 mg extended release by mouth daily at bedtime. We'll obtain a valproic acid level in the morning on 01/09/2019. 01/09/2019: Patient remains on 15 minute checks due to his history of suicidal ideation. I encouraged him each day get up and go to groups the meals shower take care of his hygiene. Due to the fact that he is stating that he is more depressed today Celexa 20 mg by mouth twice a day which will help with anxiety and depression. 01/10/2019: Patient remains on 15 minute checks to history of suicidal ideation. He is not able to take a deep breath and and he skin turgor looks worse in nature. He has rhonchi on examination of his lungs. We'll obtain chest x-ray CBC CMP and waiting valproic acid level and also ordering ammonia blood level. D-dimer was negative, chest x-ray -WBC 12,500, increase in BUN and creatinine, increase in neutrophils have to rule out infection and never obtained a urine analysis upon admission to the hospital will complete that today. We'll follow observed for further medication adjustments. 01/11/2019 patient remains on 15 minute checks due to his suicidal ideation. His metabolic workup yesterday revealed just an elevated 12,500 WBC and elevated BUN/creatinine. Awaiting urine analysis. Encourage him be participating in the [facility] therapeutic environment and will maintain his current medications until further lab work has returned. 01/12/2019: Patient remains on 15 minute checks and now is on a one-to-one for safety due to his suicidal statement without a plan. He remains running most of the day and has to be really pushed to get any valuable information from him. I will decrease his Depakote and reevaluate his behaviors. 01/15/2019: Patient remains on 15 minute checks and now is on one-to-one due to his suicidal statements without a plan and now has auditory hallucinations. I've stopped his Depakote and started Lamictal again which had a better response in his previous hospitalization. I also stopped Prolixin and switch back to Invega 3 mg by mouth daily at bedtime for his psychosis. Also added Wellbutrin 150 mg XL in the morning for his depression and suicidal thoughts which he did well on the previous hospitalization. 01/16/2019: Patient mentions on 15 minute checks and has a one-to-one sitter due to suicidal ideation with a plan which he won't share. He states he has auditory hallucinations and remains depressed and anxious. Today will increase his Wellbutrin to 300 mg XL in the morning for depression and suicidal thoughts which he has done well on previously. Titrating his Lamictal up and currently at 50 mg by mouth daily at bedtime. His Invega was increased due to his auditory hallucinations to 6 mg by mouth daily at bedtime. We'll follow observed for symptom resolution.] 01/17/2019 patient is currently on one-to-one for safety due to suicidal ideation with a plan which in relieving depression. Hallucinations are still prominent and will increase Lamictal 100 mg and increase Invega to 9 mg. . He states today that the voices are telling him that he should kill himself. He remains depressed and anxious. Increase of Wellbutrin appearing to have some result. Continue sitter for safety for him. Encourage him to be ambulate and take care of himself. 01/18/2019: Patient is currently on one-to-one for safety due to suicidal ideation on maintain on that and until he is not suicidal. He still has prominent hallucinations and will increase his Invega to 12 mg by mouth daily at bedtime and increase his Lamictal to 200 mg twice a day. Continue sitter for safety for him. Encourage him to ambulate and take care of himself. 01/22/2019: Patient currently off one-to-one and is on 15 minute checks usual pr otocol.. He remains on Invega and Lamictal which seems has improved his mood. Since he is not suicidal homicidal need to talk with [facility] regarding disposition and discharge planning. He has had trouble sleeping and then gets and Ativan in the morning and then sleeps all day. We'll stop the Ativan. We'll add Cogentin 2 mg at bedtime because he may be having tardive dyskinesia side effects to the increased Invega. 01/23/2019: Patient currently off his one-to-one and doing well. He remains on 15 minute checks. He remains on Invega Lamictal which is stabilized his mood an d his thought disorder. The addition of the Cogentin 2 mg at bedtime has relieved his anxiety and made him feel better. He slept 7 hours last night continuously with the addition of Cogentin 2 mg. He is more alert and awake today and first day without Ativan so he isn't narcotized. 01/24/2019: Patient currently is ambulating and eating. He remains on 15 minute checks. He remains on Invega Lamictal which is stabilized his mood and his thought disorder. The Cogentin has helped him sleep and decrease demand for anxiolytic (1) Schizoaffective disorder Current Visit: No Status: Acute Priority: Medium Code(s): F25.9 - SCHIZOAFFECTIVE DISORDER, UNSPECIFIED SNOMED Code(s): 66134176 Time with Patient: Less than 30
[2019-01-24] MEDS: FERROUS SULFATE 325 MG TAB PO SCH (12:18)
[2019-01-24] MEDS: TAMSULOSIN 0.4 MG CAP.ER.24H PO SCH (18:32)
[2019-01-24] MEDS: ACETAMINOPHEN TAB 325 MG TAB PO PRN (18:37)
[2019-01-24] MEDS: PALIPERIDONE 6 MG TAB.ER.24 PO SCH (20:57)
[2019-01-24] MEDS: BENZTROPINE MESYLATE 1 MG TAB PO SCH (20:57)
[2019-01-25] MEDS: CIPROFLOXACIN 0.3% OPHTH SOLN 5 ML BTL BOTH EYES SCH ×6 (01:24→21:15)
--- NOTE | 2019-01-25 10:24 | P.PN ---
Subjective Progress Note Date: 01/25/19 Principal diagnosis: schizophrenia versus schizoaffective-depressed 01/08/2019: Chart reviewed, discussed with nursing staff and teamed this morning. Patient interviewed and discussed his treatment including that he needs to shower on a daily basis get dressed and participate in groups. He still looks severely depressed and admits to it. He is still hearing voices. D enies any suicidal or homicidal ideation at the current time. 01/09/2019: Chart reviewed extensively with nursing staff and was also discussed in team today regarding disposition and discharge planning. Interview with the patient revealed that he has little motivation states that he is depressed but not suicidal or homicidal. He has little motivation to get up and do things throughout the day and to take care of himself. He states he does not hear any voices nor is he see things. Depression seems to be the main issue now. 01/10/2019: Chart reviewed extensively and discussed his worsening of his breathing. He has little energy to get out he is having difficulty taking a breath and has rhonchi on examination. He remains depressed without hallucinations. 01/11/2019: Chart reviewed and all lab work were evaluated. He still not motivated to get out of bed and do much for himself. Encouraged nursing staff to get him up and get them breakfast and participate in [facility]ole milieu therapeutic environment. He still states that he is depressed without hallucinations. 01/12/2019: Chart reviewed reason noticed that the urine and also has not been done yet. During the night and episode of being suicidal and was placed on one-to-one. He has minimal responses states that he is not hearing things or seeing things feels less depressed but he states that he is suicidal and has no plan. We'll continue one-to-one. 01/15/2019: Chart reviewed, discussed with nursing staff and team meeting this morning. Patient still remains depressed and lethargic poor eating or sleeping not motivated and remains on one-to-one due to his suicidal ideation without a plan. He is now hearing voices. 01/16/2019: Chart reviewed and discussed with nursing staff and treatment team this morning and discussed progress and continue one-to-one sitter due to his suicidal ideation. He is following instructions little bit better today and is able to sit up and have some food. He states he is depressed suicidal state he had a plan but did not share with me and he is hearing voices. 01/17/2019: Chart reviewed and discussed nursing staff and still remains on one-to-one due to suicidal thoughts with a plan. Discussed in team and apparently he is not eating much and will add Megace 40 mg 4 times a day. Added Proscar 5 mg yesterday to help with urination. Patient states that he is hearing voices that tell him to kill himself and he is able to do that anymore articulate fashion and he did previously. He remains depressed and psychotic. 01/18/2018: Chart reviewed and discussed with nursing staff regarding his physical care and continuing his one-to-one due to suicidal thoughts or plan. This is second day of Megace and he has a slight increase in appetite. He states that he still suicidal and hears voices that are telling him to kill himself. He is not motivated to participate in treatment and tends to isolate and stay in his room. 01/22/2019: Chart reviewed and discussed nursing staff regarding his physical care. He was taken off one-to-one on 01/19/2019. He is able to ambulate to breakfast lunch and dinner and then returns to his room to isolate. He denies any suicidal or homicidal ideation. He denies any auditory or visual hallucinations. He is not motivated in treatment. 01/23/2019: Chart reviewed and discussed with team as well as nursing and social work. He is sitting up today and Sotero chair out in the hallway with a smile on his face and communicating but still low motivation and not able to ambulate on his own. He denies any suicidal or homicidal ideation. Denies any auditory command hallucinations. 01/24/2019: Chart reviewed and discussed in team this morning he is sitting up today doing some walking minimal interaction denies suicidal or homicidal ideation 01/25/2019: Chart reviewed and discussed in team with nursing staff. Patient s grey he is unable to walk well even though he walked to breakfast went to dinner last night lunch yesterday. He denies any suicidal homicidal ideation. He actually has a smile after I woke him up at 9:30 in the morning. He denies any auditory or visual hallucinations. Objective - Vital Signs Vital signs: Vital Signs Temp 98.6 F 01/25/19 06:57 Pulse 76 01/25/19 06:57 Resp 16 01/25/19 06:57 BP 125/71 01/25/19 06:57 Pulse Ox 94 L 01/21/19 06:41 - Labs CBC & Chem 7: 01/17/19 08:40 01/17/19 08:40 Assessment and Plan Assessment: Chief Complaint: 53-year-old male past medical history of hypertension, de pression presents with suicidal ideation. History of Present Illness: Patient is 53-year-old male who presents today voluntarily. Patient states that been depressed for the last 2-3 days. Patient states he is afraid he might want to start hurting himself. Denies any homicidal ideation. Patient denies any visual or auditory hallucinations. Patient states he's been suicidal in the past. Patient denies any plan at this time. Pt. found resting on the stretcher and sleepy. Pt. admits to taking his HS meds prior to coming to the ER. Pt. wakes when spoken to and admits to "sitting on the porch smoking a cigarette today and just got suicidal. I called the crisis line but they told me to come here. I don't want to hurt myself." Pt. has had significant suicide attempts in the recent past. Mental Status Examination - General Appearance: [ disheveled, bizarre, appears stated age, Speech/Language: [slow, , rambled, mumbling, monotone, soft] Attitude/Behavior: [cooperative, guarded, withdrawn, indifferent] Mood: [depressed, euphoric, anxious, elated, irritable, angry, fearful, hopelessness] Affect: [flat, incongruent, labile, blunted constricted] Orientation: [time, person, place situation] Thought Content: [wnl, ] Risk Factors: [he has suicidal (ideations, plan), and/or Homicidal (ideations, plan), other] Perception: [wnl, hallucinations (auditory, visual,] Thought Processes: [ concrete, circumstantial, tangential, other] Concentration/Attention Span: [impaired] [Per observation and interview with the patient] Recent Memory: [ impaired] [0 out of 3 in 3 minutes] Remote Memory: [ impaired] [past events, as related history] Intelligence: [below average,] [based on history, based on vocabulary, syntax, grammar, and content] Judgement: [poor] [per patient's behavior/history of present illness] Insight: [ poor] [understanding severity of illness/history of present illness] Admitting Diagnosis: [schizophrenia versus schizoaffective-depressed] Past medications tried: Abilify, Artane, Effexor XR, invega sustenna, trazodone, Risperdal, Remeron, Pristiq, Ativan, loxapine, Geodon, Limbitrol DS, Wellbutrin, Depakote, Trileptal, Zyprexa, Lamictal, Vistaril, Cymbalta, and doxepin. Patient Limitations: [ pathological/unsupported environment, no interests, intellectual impairment, lack of social supports, other] Initial Plan of Care: [Patient voluntary admission to [facility] for he had suicidal thoughts from voices at nighttime that disturb his sleep. He'll be evaluated by medicine, psychiatry, nursing staff, social work and occupational therapy and teamed and a multi specialty approach. He will be placed on 15 minute checks due to his suicidal thoughts. He'll be integrated into a nicole milieu therapeutic environment whereby he'll be expected to take his medicines, go to groups and interact in a positive way with his peers within the mental health unit. After thorough evaluation reviewing his last hospitalizations I decided to go to more temporary approach and started using to antipsychotics, I'll maximize Prolixin and use 5 mg by mouth daily at bedtime and maintain him on the Prolixin Decanoate. Since he has depressed moods and cycling in nature and Depakote 250 mg by mouth twice a day. I will stop his Lamictal, BuSpar, Wellbutrin and further evaluate his psychiatric needs as these will take 2-3 days to leave his system. 01/08/2019: Patient remains on 15 minute checks due to his suicidal ideation. Encouraged him to get up and go to groups shower eat meals. We'll increase his Prolixin to 5 mg by mouth daily at bedtime and increase his Depakote to 750 mg extended release by mouth daily at bedtime. We'll obtain a valproic acid level in the morning on 01/09/2019. 01/09/2019: Patient remains on 15 minute checks due to his history of suicidal ideation. I encouraged him each day get up and go to groups the meals shower take care of his hygiene. Due to the fact that he is stating that he is more depressed today Celexa 20 mg by mouth twice a day which will help with anxiety and depression. 01/10/2019: Patient remains on 15 minute checks to history of suicidal ideation. He is not able to take a deep breath and and he skin turgor looks worse in nature. He has rhonchi on examination of his lungs. We'll obtain chest x-ray CBC CMP and waiting valproic acid level and also ordering ammonia blood level. D-dimer was negative, chest x-ray -WBC 12,500, increase in BUN and creatinine, increase in neutrophils have to rule out infection and never obtained a urine analysis upon admission to the hospital will complete that today. We'll follow observed for further medication adjustments. 01/11/2019 patient remains on 15 minute checks due to his suicidal ideation. His metabolic workup yesterday revealed just an elevated 12,500 WBC and elevated BUN/creatinine. Awaiting urine analysis. Encourage him be participating in the nicole milieu therapeutic environment and will maintain his current medications until further lab work has returned. 01/12/2019: Patient remains on 15 minute checks and now is on a one-to-one for safety due to his suicidal statement without a plan. He remains running most of the day and has to be really pushed to get any valuable information from him. I will decrease his Depakote and reevaluate his behaviors. 01/15/2019: Patient remains on 15 minute checks and now is on one-to-one due to his suicidal statements without a plan and now has auditory hallucinations. I've stopped his Depakote and started Lamictal again which had a better response in his previous hospitalization. I also stopped Prolixin and switch back to Invega 3 mg by mouth daily at bedtime for his psychosis. Also added Wellbutrin 150 mg XL in the morning for his depression and suicidal thoughts which he did well on the previous hospitalization. 01/16/2019: Patient mentions on 15 minute checks and has a one-to-one sitter due to suicidal ideation with a plan which he won't share. He states he has auditory hallucinations and remains depressed and anxious. Today will increase his Wellbutrin to 300 mg XL in the morning for depression and suicidal thoughts which he has done well on previously. Titrating his Lamictal up and currently at 50 mg by mouth daily at bedtime. His Invega was increased due to his auditory hallucinations to 6 mg by mouth daily at bedtime. We'll follow observed for symptom resolution.] 01/17/2019 patient is currently on one-to-one for safety due to suicidal ideation with a plan which in relieving depression. Hallucinations are still prominent and will increase Lamictal 100 mg and increase Invega to 9 mg. . He states today that the voices are telling him that he should kill himself. He remains depressed and anxious. Increase of Wellbutrin appearing to have some result. Continue sitter for safety for him. Encourage him to be ambulate and take care of himself. 01/18/2019: Patient is currently on one-to-one for safety due to suicidal ideation on maintain on that and until he is not suicidal. He still has prominent hallucinations and will increase his Invega to 12 mg by mouth daily at bedtime and increase his Lamictal to 200 mg twice a day. Continue sitter for safety for him. Encourage him to ambulate and take care of himself. 01/22/2019: Patient currently off one-to-one and is on 15 minute checks usual protocol.. He remains on Invega and Lamictal which seems has improved his mood. Since he is not suicidal homicidal need to [facility] with [facility] regarding disposition and discharge planning. He has had trouble sleeping and then gets and Ativan in the morning and then sleeps all day. We'll stop the Ativan. We'll add Cogentin 2 mg at bedtime because he may be having tardive dyskinesia side effects to the increased Invega. 01/23/2019: Patient currently off his one-to-one and doing well. He remains on 15 minute checks. He remains on Invega Lamictal which is stabilized his mood and his thought disorder. The addition of the Cogentin 2 mg at bedtime has relieved his anxiety and made him feel better. He slept 7 hours last night continuously with the addition of Cogentin 2 mg. He is more alert and awake today and first day without Ativan so he isn't narcotized. 01/24/2019: Patient currently is ambulating and eating. He remains on 15 minute checks. He remains on Invega Lamictal which is stabilized his mood and his t hought disorder. The Cogentin has helped him sleep and decrease demand for anxiolytic. 01/25/2019: Patient remains on 15 minute checks. He remains on Invega Lamictal and his mood is stable and his thought disorder has stabilized. He'll be teamed smiling for whether to discharge or transfer for physical therapy. I ordered a physical therapy and recommendation on his ambulation. (1) Schizoaffective disorder Current Visit: No Status: Acute Priority: Medium Code(s): F25.9 - S CHIZOAFFECTIVE DISORDER, UNSPECIFIED SNOMED Code(s): 71894759
[2019-01-25] MEDS: lamoTRIgine 100 MG TAB PO SCH ×2 (11:00→21:16)
[2019-01-25] MEDS: CITALOPRAM HYDROBROMIDE 20 MG TAB PO SCH ×2 (11:00→21:16)
[2019-01-25] MEDS: buPROPion XL 300 MG TAB.ER.24H PO SCH (11:00)
[2019-01-25] MEDS: MEGESTROL 40 MG TAB PO SCH ×4 (11:01→21:16)
[2019-01-25] MEDS: FERROUS SULFATE 325 MG TAB PO SCH (11:01)
[2019-01-25] MEDS: POLYETHYLENE GLYCOL 3350 17 GM POWD.PACK PO SCH ×2 (11:39→21:15)
[2019-01-25] MEDS: TRIAMCINOLONE ACET 0.1% OINTMENT 15 GM TUBE TOPICAL SCH ×2 (11:40→21:16)
[2019-01-25] MEDS: NYSTATIN 100,000 UNIT/GM OINT 30 GM TUBE TOPICAL SCH ×2 (11:40→21:16)
--- NOTE | 2019-01-25 11:50 | XR ---
Abdomen HISTORY: Chronic constipation, distended abdomen Abdomen submitted on 3 images Compared to previous exam 08/12/2018 Metallic density in the left hemipelvis is stable, there are vascular calcifications also present. Zhao rgical clips present right upper quadrant. Lung bases are clear. There is no evident pneumoperitoneum or bowel obstruction. Some retained fecal debris present within the colon and rectum. Degenerative d isc changes in the visualized spine. IMPRESSION: Nonspecific bowel gas pattern. There is retained fecal debris rectum.
[2019-01-25] MEDS: FINASTERIDE 5 MG TAB PO SCH (12:14)
[2019-01-25] MEDS: ALBUTEROL INHALER 60 PUFF/8 GM INHALER INHALATION SCH ×3 (13:02→21:15)
[2019-01-25] MEDS: TAMSULOSIN 0.4 MG CAP.ER.24H PO SCH (18:02)
[2019-01-25] MEDS: PALIPERIDONE 6 MG TAB.ER.24 PO SCH (21:16)
[2019-01-25] MEDS: BENZTROPINE MESYLATE 1 MG TAB PO SCH (21:16)
[2019-01-25] MEDS: ACETAMINOPHEN TAB 325 MG TAB PO PRN (21:28)
[2019-01-26] MEDS: CIPROFLOXACIN 0.3% OPHTH SOLN 5 ML BTL BOTH EYES SCH ×6 (04:37→21:05)
[2019-01-26] MEDS: FINASTERIDE 5 MG TAB PO SCH (09:13)
[2019-01-26] MEDS: MEGESTROL 40 MG TAB PO SCH ×4 (09:13→21:05)
[2019-01-26] MEDS: lamoTRIgine 100 MG TAB PO SCH ×2 (09:13→21:04)
[2019-01-26] MEDS: buPROPion XL 300 MG TAB.ER.24H PO SCH (09:13)
[2019-01-26] MEDS: CITALOPRAM HYDROBROMIDE 20 MG TAB PO SCH ×2 (09:13→21:05)
[2019-01-26] MEDS: POLYETHYLENE GLYCOL 3350 17 GM POWD.PACK PO SCH ×2 (09:14→21:06)
[2019-01-26] MEDS: TRIAMCINOLONE ACET 0.1% OINTMENT 15 GM TUBE TOPICAL SCH ×2 (09:14→21:06)
[2019-01-26] MEDS: NYSTATIN 100,000 UNIT/GM OINT 30 GM TUBE TOPICAL SCH ×2 (09:14→21:06)
[2019-01-26] MEDS: ALBUTEROL INHALER 60 PUFF/8 GM INHALER INHALATION SCH ×4 (09:14→21:05)
[2019-01-26] MEDS: ACETAMINOPHEN TAB 325 MG TAB PO PRN (12:04)
[2019-01-26] MEDS: TAMSULOSIN 0.4 MG CAP.ER.24H PO SCH (17:19)
[2019-01-26] MEDS ORDERED: IBUPROFEN 800 MG TAB PO PRN (20:36)
[2019-01-26] MEDS: BENZTROPINE MESYLATE 1 MG TAB PO SCH (21:05)
[2019-01-26] MEDS: PALIPERIDONE 6 MG TAB.ER.24 PO SCH (21:05)
--- NOTE | 2019-01-26 21:49 | PN ---
PROGRESS NOTE DATE OF SERVICE: 01/26/2019 CHIEF COMPLAINT: The patient was depressed with thoughts and impulses towards self-harm and suicide. INTERVAL HISTORY: The patient had a quiet evening last night. He did not make an effort to get involved in some paperwork that was a part of the admission process. He slept fairly well last night. Today he has been up. He tends to keep to himself. He will watch TV. He did attend one group though was somewhat withdrawn and did not make a lot of effort in engagement. He seemed to be attentive, verbal and appropriate. When I saw the patient, he did not say much. He did not have any complaints today. He was uncertain about discharge planning, though my understanding is that he may be set up to go into a detention. When I asked him about this, he said he did not know. He said he had been living in an apartment independently with others. He did not provide details. He reported no problems with mood or thoughts. He tolerates his psychotropic medications. MENTAL STATUS: Patient gave fair eye contact. He walked slowly when he came into the room. He was generally slowed in his movements. He answered questions with brief responses. His affect was flat, his mood reserved. He did not say a lot. He was not interactive. He did not appear to be significantly distressed. There was no indication of thought disorder. ASSESSMENT: I will continue the current diagnosis and treatment plan. We will continue to engage the patient in individual and group therapeutic activities. I will continue psychotropic medications the same, including Wellbutrin 300 mg a day, Celexa 20 mg twice a day, Lamictal 200 mg twice a day, Invega 12 mg a day and Cogentin 2 mg twice a day. We will focus on stabilization and discharge planning. MMODL / IJN: [id number] /
[2019-01-27] MEDS: CIPROFLOXACIN 0.3% OPHTH SOLN 5 ML BTL BOTH EYES SCH ×6 (00:48→20:13)
[2019-01-27] MEDS: POLYETHYLENE GLYCOL 3350 17 GM POWD.PACK PO SCH ×2 (09:21→20:13)
[2019-01-27] MEDS: FINASTERIDE 5 MG TAB PO SCH (09:22)
[2019-01-27] MEDS: CITALOPRAM HYDROBROMIDE 20 MG TAB PO SCH ×2 (09:22→20:14)
[2019-01-27] MEDS: buPROPion XL 300 MG TAB.ER.24H PO SCH (09:22)
[2019-01-27] MEDS: ALBUTEROL INHALER 60 PUFF/8 GM INHALER INHALATION SCH ×4 (09:22→20:20)
[2019-01-27] MEDS: lamoTRIgine 100 MG TAB PO SCH ×2 (09:22→20:14)
[2019-01-27] MEDS: MEGESTROL 40 MG TAB PO SCH ×4 (09:22→20:14)
[2019-01-27] MEDS: IBUPROFEN 800 MG TAB PO SCH ×3 (09:24→22:17)
[2019-01-27] MEDS: TRIAMCINOLONE ACET 0.1% OINTMENT 15 GM TUBE TOPICAL SCH ×2 (09:29→20:13)
[2019-01-27] MEDS: NYSTATIN 100,000 UNIT/GM OINT 30 GM TUBE TOPICAL SCH ×2 (09:29→20:13)
--- NOTE | 2019-01-27 12:02 | PN ---
PROGRESS NOTE DATE OF SERVICE: 01/27/2019 CHIEF COMPLAINT: The patient was depressed with thoughts and impulses toward self-harm and suicide. INTERVAL HISTORY: The patient has been doing fair. He had a quiet evening last night. Mostly he sat in the TV lounge and watched TV. He does not interact much with others. He will come out on the unit and walk around some, though he walks in a very slow manner and is limited. He continues to have complaint of sore legs in both legs from his hips on down. He asked about a medical consult for that, saying that Dr. Booth had indicated that that would happen. He notes that he was at [facility] about one month ago, and at that time he got some kind of topical wrap that he said helped significantly. He is on Motrin, though he has only been taking about one tablet a day. He says his mood is fair. He understands that he will need to get guidance from [facility] in regards to follow-up plans and housing. He tolerates his psychotropic medications. MENTAL STATUS: Patient was slow to walk from the lounge to the office. He sat quietly. He was a little restless. He answered questions with brief responses. His thoughts were clear, his affect flat, his mood reserved. It was difficult to say if he was significantly distressed. There was no outward evidence of thought disorder. ASSESSMENT: I will continue the current diagnosis and treatment plan. I will increase his Motrin so he gets 800 mg 3 times a day on a regular basis. We will try to get records from [facility] in regards to treatment for leg pain. We will be getting a medical consultation for that as well. I discussed discharge planning issues. We will continue to focus on stabilization and discharge planning. MMSUJITL / MIHIRN: [id number] /
[2019-01-27] MEDS: TAMSULOSIN 0.4 MG CAP.ER.24H PO SCH (17:52)
[2019-01-27] MEDS: BENZTROPINE MESYLATE 1 MG TAB PO SCH (20:14)
[2019-01-27] MEDS: PALIPERIDONE 6 MG TAB.ER.24 PO SCH (20:14)
[2019-01-28] MEDS: CIPROFLOXACIN 0.3% OPHTH SOLN 5 ML BTL BOTH EYES SCH ×7 (01:34→21:13)
[2019-01-28] MEDS: ALBUTEROL INHALER 60 PUFF/8 GM INHALER INHALATION SCH ×4 (09:29→21:26)
[2019-01-28] MEDS: CITALOPRAM HYDROBROMIDE 20 MG TAB PO SCH ×2 (09:30→21:14)
[2019-01-28] MEDS: buPROPion XL 300 MG TAB.ER.24H PO SCH (09:30)
[2019-01-28] MEDS: IBUPROFEN 800 MG TAB PO SCH ×3 (09:30→21:14)
[2019-01-28] MEDS: lamoTRIgine 100 MG TAB PO SCH ×2 (09:30→21:14)
[2019-01-28] MEDS: NYSTATIN 100,000 UNIT/GM OINT 30 GM TUBE TOPICAL SCH ×3 (09:31→21:20)
[2019-01-28] MEDS: TRIAMCINOLONE ACET 0.1% OINTMENT 15 GM TUBE TOPICAL SCH ×3 (09:32→21:21)
[2019-01-28] MEDS: POLYETHYLENE GLYCOL 3350 17 GM POWD.PACK PO SCH ×2 (09:32→21:17)
[2019-01-28] MEDS: ACETAMINOPHEN TAB 325 MG TAB PO PRN (10:25)
[2019-01-28] MEDS: MEGESTROL 40 MG TAB PO SCH ×4 (10:26→21:53)
[2019-01-28] MEDS: FINASTERIDE 5 MG TAB PO SCH (10:26)
[2019-01-28] MEDS: DICLOFENAC SODIUM GEL 100 GM TUBE TOPICAL SCH ×3 (14:19→21:19)
[2019-01-28] MEDS: TAMSULOSIN 0.4 MG CAP.ER.24H PO SCH (18:08)
[2019-01-28] MEDS: BENZTROPINE MESYLATE 1 MG TAB PO SCH (21:14)
[2019-01-28] MEDS: PALIPERIDONE 6 MG TAB.ER.24 PO SCH (21:14)
--- NOTE | 2019-01-28 21:31 | PN ---
PROGRESS NOTE DATE OF SERVICE: 01/28/2019. CHIEF COMPLAINT: The patient was depressed with thoughts and impulses towards self-harm and suicide. INTERVAL HISTORY: Patient has been doing fair. He had a quiet evening last night. He tends to keep to himself. He will interact a little with others. Typically, he watches TV in the evening. He will just sit in 1 chair quietly. He slept fairly well last night. Today he has been up. It is noted that he is walking a little bit more. He attended 1 group. He did not engage a lot in the group though states through the whole group he is showing some improvement in his mood. He has been smiling some. Staff note that he would initiate some conversation and was joking some with staff. He has been paying a little more attention to things going on around him. He still has some complaints about leg pain. Based on the patient's report of what seemed to help him at [facility] a month ago, we started him on Voltaren cream. We are trying to get records from [facility]. Other than that, the patient seems to be making progress. He has a better outlook. He talked some about discharge planning. He tolerates his psychotropic medications. MENTAL STATUS: Patient gave fair eye contact. Psychomotor activity was a little restless. He answered questions with brief responses. He did not say a lot. His thoughts were clear. His affect somewhat blunted. He smiled some. His mood was in a good range. He did not appear to be distressed. ASSESSMENT: I will continue the current diagnosis and treatment plan. We will continue psychotropic medications the same. The patient appears to be making good progress. He has shown significant brightening of his mood today. He was doing a little better yesterday compared to the day before. We will continue to focus on stabilization and discharge planning. MMODL / IJN: [id number] /
[2019-01-29] MEDS: CITALOPRAM HYDROBROMIDE 20 MG TAB PO SCH ×2 (09:26→19:59)
[2019-01-29] MEDS: MEGESTROL 40 MG TAB PO SCH ×3 (09:26→17:26)
[2019-01-29] MEDS: lamoTRIgine 100 MG TAB PO SCH ×2 (09:26→19:59)
[2019-01-29] MEDS: buPROPion XL 300 MG TAB.ER.24H PO SCH (09:26)
[2019-01-29] MEDS: FINASTERIDE 5 MG TAB PO SCH (09:26)
[2019-01-29] MEDS: IBUPROFEN 800 MG TAB PO SCH ×3 (09:27→20:00)
[2019-01-29] MEDS: ALBUTEROL INHALER 60 PUFF/8 GM INHALER INHALATION SCH ×4 (09:32→19:59)
[2019-01-29] MEDS: DICLOFENAC SODIUM GEL 100 GM TUBE TOPICAL SCH ×4 (09:33→20:04)
[2019-01-29] MEDS: POLYETHYLENE GLYCOL 3350 17 GM POWD.PACK PO SCH ×2 (09:53→19:59)
[2019-01-29] MEDS: NYSTATIN 100,000 UNIT/GM OINT 30 GM TUBE TOPICAL SCH ×2 (09:54→20:05)
[2019-01-29] MEDS: TRIAMCINOLONE ACET 0.1% OINTMENT 15 GM TUBE TOPICAL SCH ×2 (09:54→20:05)
--- NOTE | 2019-01-29 10:59 | PN ---
PROGRESS NOTE DATE OF SERVICE: 01/29/2019. CHIEF COMPLAINT: The patient was depressed with thoughts and impulses towards self-harm and suicide. INTERVAL HISTORY: Patient continues to do about the same. He had a quiet evening last night. He continues to be fairly reserved. He watches TV, does not make too much effort to interact with others. He may attend 1 group a day though generally declines making most of the groups. He had no specific complaint today when I talked to him. His only concern was when he would be discharged. He asked if he could be discharged today or what plans could be put in place so that he could be discharged tomorrow. He has a good appetite. He sleeps well at night. He tolerates his psychotropic medications. MENTAL STATUS: Patient gave fair eye contact. Psychomotor activity was slowed. Speech was monotone. He did not say a lot. His affect was blunted. His mood quiet. He did not appear to be distressed. ASSESSMENT: I will continue the current diagnosis and treatment plan. I will continue psychotropic medications the same. The patient may be approaching baseline. I would anticipate discharge fairly soon. He will continue to focus on stabilization and discharge planning. Will need to coordinate with [facility] in regards to placement. MMODL / IJN: [id number] /
[2019-01-29] MEDS: FERROUS SULFATE 325 MG TAB PO SCH (13:01)
[2019-01-29] MEDS: ACETAMINOPHEN TAB 325 MG TAB PO PRN (15:51)
[2019-01-29] MEDS: TAMSULOSIN 0.4 MG CAP.ER.24H PO SCH (17:36)
[2019-01-29] MEDS: PALIPERIDONE 6 MG TAB.ER.24 PO SCH (20:01)
[2019-01-29] MEDS: BENZTROPINE MESYLATE 1 MG TAB PO SCH (20:01)
[2019-01-30 06:32] VITALS: BP 140/59; PULSE 85; RESP 16; TEMP 98.7
[2019-01-30] MEDS: CITALOPRAM HYDROBROMIDE 20 MG TAB PO SCH (08:11)
[2019-01-30] MEDS: lamoTRIgine 100 MG TAB PO SCH (08:11)
[2019-01-30] MEDS: IBUPROFEN 800 MG TAB PO SCH (08:11)
[2019-01-30] MEDS: POLYETHYLENE GLYCOL 3350 17 GM POWD.PACK PO SCH (08:11)
[2019-01-30] MEDS: buPROPion XL 300 MG TAB.ER.24H PO SCH (08:11)
[2019-01-30] MEDS: FINASTERIDE 5 MG TAB PO SCH (08:14)
[2019-01-30] MEDS: DICLOFENAC SODIUM GEL 100 GM TUBE TOPICAL SCH ×2 (08:14→13:32)
[2019-01-30] MEDS: TRIAMCINOLONE ACET 0.1% OINTMENT 15 GM TUBE TOPICAL SCH (08:16)
[2019-01-30] MEDS: NYSTATIN 100,000 UNIT/GM OINT 30 GM TUBE TOPICAL SCH (08:16)
--- NOTE | 2019-01-30 12:38 | P.DS ---
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 1 % Basophils % 0 % Neutrophils # 8.6 H (1.3-7.7) k/uL Lymphocytes # 2.2 (1.0-4.8) k/uL Monocytes # 0.8 (0-1.0) k/uL Eosinophils # 0.1 (0-0.7) k/uL Basophils # 0.0 (0-0.2) k/uL D-Dimer (<0.60) mg/L FEU Sodium 134 L (137-145) mmol/L Potassium 3.7 (3.5-5.1) mmol/L Chloride 102 (98-107) mmol/L Carbon Dioxide 24 (22-30) mmol/L Anion Gap 8 mmol/L BUN 25 H (9-20) mg/dL Creatinine 1.36 H (0.66-1.25) mg/dL Est GFR (CKD-EPI)AfAm 69 (>60 ml/min/1.73 sqM) Est GFR (CKD-EPI)NonAf 59 (>60 ml/min/1.73 sqM) Glucose 123 H (74-99) mg/dL POC Glucose (mg/dL) (75-99) mg/dL POC Glu Booster Pump Operator ID Estimated Ave Glu mg/dL Hemoglobin A1c (4.0-6.0) % Calcium 9.8 (8.4-10.2) mg/dL Total Bilirubin (0.2-1.3) mg/dL Conjugated Bilirubin (0.0-0.3) mg/dL Unconjugated Bilirubin (0.0-1.1) mg/dL Delta Bilirubin (0.0-0.2) mg/dL AST (17-59) U/L ALT (21-72) U/L Alkaline Phosphatase (38-126) U/L Ammonia (<30) umol/L Troponin I <0.012 (0.000-0.034) ng/mL Total Protein (6.3-8.2) g/dL Albumin (3.5-5.0) g/dL Triglycerides (<150) mg/dL Cholesterol (<200) mg/dL LDL Cholesterol, Calc (0-99) mg/dL HDL Cholesterol (40-60) mg/dL TSH (0.465-4.680) mIU/L Urine Color Urine Appearance (Clear) Urine pH (5.0-8.0) Ur Specific [place] (1.001-1.035) Urine Protein (Negative) Urine Glucose (UA) (Negative) Urine Ketones (Negative) Urine Blood (Negative) Urine Nitrite (Negative) Urine Bilirubin (Negative) Urine Urobilinogen (<2.0) mg/dL Ur Leukocyte Esterase (Negative) Urine RBC (0-5) /hpf Urine WBC (0-5) /hpf Ur Squamous Epith Cells (0-4) /hpf Hyaline Casts (0-2) /lpf Urine Mucus (None) /hpf Urine Opiates Screen (NotDetected) Ur Oxycodone Screen (NotDetected) Urine Methadone Screen (NotDetected) Ur Propoxyphene Screen (NotDetected) Ur Barbiturates Screen (NotDetected) Free Valproic Acid (4.8-17.3) mg/L U Tricyclic Antidepress (NotDetected) Ur Phencyclidine Scrn (NotDetected) Ur Amphetamines Screen (NotDetected) U Methamphetamines Scrn (NotDetected) U Benzodiazepines Scrn (NotDetected) Urine Cocaine Screen (NotDetected) U Marijuana (THC) Screen (NotDetected) Patient Condition at Discharge: Stable Plan - Discharge Summary Discharge Rx Participant: Yes New Discharge Prescriptions: New Citalopram Hydrobromide [CeleXA] 20 mg PO BID 30 Days #60 tab Benztropine Mesylate [Cogentin] 2 mg PO HS 30 Days #60 tab Tamsulosin [Flomax] 0.4 mg PO PC-SUPPER 30 Days #30 cap.er.24h Paliperidone [Invega] 12 mg PO 2100 30 Days #60 tab.er.24 lamoTRIgine [LaMICtal] 200 mg PO BID 30 Days #120 tab Ibuprofen [Motrin] 800 mg PO TID tab Nystatin 100,000 Unit/gm Oint [Mycostatin Oint] 1 tube TOPICAL BID 30 Days #1 applic Finasteride [Proscar] 5 mg PO DAILY 30 Days #30 tab Albuterol Inhaler [Ventolin Hfa Inhaler] 2 puff INHALATION RT-QID 30 Days #1 puff Diclofenac Sodium Gel [Voltaren Gel] 4 gm TOPICAL QID 30 Days #1 tube Continue [place]-3 Fatty Acids/Fish Oil [Fish Oil 1,000 mg Softgel] 1 cap PO BID Ferrous Sulfate [Feosol] 325 mg PO MOWEFR Cyanocobalamin (Vitamin B-12) [Vitamin B-12] 1,000 mcg PO DAILY Docusate [Colace] 100 mg PO BID Hydrochlorothiazide 25 mg PO DAILY 30 Days #30 tablet amLODIPine [Norvasc] 10 mg PO DAILY 30 Days #30 tab Lisinopril [Prinivil] 5 mg PO DAILY 30 Days #30 tablet Ergocalciferol [Vitamin D2 (DRISDOL)] 50,000 unit PO Q7D 30 Days #4 cap buPROPion HCL [Wellbutrin XL] 300 mg PO DAILY 30 Days #30 tab.er.24h Discontinued QUEtiapine FUMARATE 600 mg PO HS fluPHENAZine DECANOATE [Prolixin Decanoate] 50 mg IM Q14D busPIRone HCL [Buspar] 15 mg PO TID lamoTRIgine [LaMICtal] 200 mg PO DAILY Discharge Medication List Cyanocobalamin (Vitamin B-12) [Vitamin B-12] 1,000 mcg PO DAILY 12/24/18 [History] Ferrous Sulfate [Feosol] 325 mg PO MOWEFR 08/28/18 [History] [place]-3 Fatty Acids/Fish Oil [Fish Oil 1,000 mg Softgel] 1 cap PO BID 08/28/18 [History] Docusate [Colace] 100 mg PO BID 01/04/19 [History] Albuterol Inhaler [Ventolin Hfa Inhaler] 2 puff INHALATION RT-QID 30 Days #1 puff 01/30/19 [Rx] Benztropine Mesylate [Cogentin] 2 mg PO HS 30 Days #60 tab 01/30/19 [Rx] Citalopram Hydrobromide [CeleXA] 20 mg PO BID 30 Days #60 tab 01/30/19 [Rx] Diclofenac Sodium Gel [Voltaren Gel] 4 gm TOPICAL QID 30 Days #1 tube 01/30/19 [Rx] Ergocalciferol [Vitamin D2 (DRISDOL)] 50,000 unit PO Q7D 30 Days #4 cap 01/30/19 [Rx] Finasteride [Proscar] 5 mg PO DAILY 30 Days #30 tab 01/30/19 [Rx] Hydrochlorothiazide 25 mg PO DAILY 30 Days #30 tablet 01/30/19 [Rx] Ibuprofen [Motrin] 800 mg PO TID tab 01/30/19 [Rx] Lisinopril [Prinivil] 5 mg PO DAILY 30 Days #30 tablet 01/30/19 [Rx] Nystatin 100,000 Unit/gm Oint [Mycostatin Oint] 1 tube TOPICAL BID 30 Days #1 applic 01/30/19 [Rx] Paliperidone [Invega] 12 mg PO 2100 30 Days #60 tab.er.24 01/30/19 [Rx] Tamsulosin [Flomax] 0.4 mg PO PC-SUPPER 30 Days #30 cap.er.24h 01/30/19 [Rx] amLODIPine [Norvasc] 10 mg PO DAILY 30 Days #30 tab 01/30/19 [Rx] buPROPion HCL [Wellbutrin XL] 300 mg PO DAILY 30 Days #30 tab.er.24h 01/30/19 [Rx] lamoTRIgine [LaMICtal] 200 mg PO BID 30 Days #120 tab 01/30/19 [Rx] Follow up Appointment(s)/Referral(s): [facility] [Primary Care Provider] - 1-2 days Patient Instructions/Handouts: Depression (ED), Help Prevent Suicide (DC) Activity/Diet/Wound Care/Special Instructions: Activity and diet as tolerated. No guns or weapons in the home. Refrain from alcohol and street drugs, not prescribed by your physician. Take all medications as prescribed. Attend all follow up appointments as scheduled. If in need of medications please go to your primary care physician, or your out patient psychiatric provider. If in crisis, please call
== END 2019-01-30 15:49 | disposition home or self-care (01) | DRG 885 ==
LOC: EC 19:29 → 3MHU 01-05 05:53
PROVIDERS: ADMIT Psychiatry & Neurology Psychiatry; ATTEND Psychiatry & Neurology Psychiatry
DX: F25.1 Schizoaffective disorder, depressive type (principal); R45.851 Suicidal ideations; N17.9 Acute kidney failure, unspecified; I95.9 Hypotension, unspecified; I10 Essential (primary) hypertension; M54.5 Low back pain; R26.2 Difficulty in walking, not elsewhere classified; M79.606 Pain in leg, unspecified; F41.9 Anxiety disorder, unspecified; E66.9 Obesity, unspecified; Z68.34 Body mass index [BMI] 34.0-34.9, adult; F17.210 Nicotine dependence, cigarettes, uncomplicated; Z79.899 Other long term (current) drug therapy; Z91.5 Personal history of self-harm; Z71.3 Dietary counseling and surveillance; Z90.49 Acquired absence of other specified parts of digestive tract; Z98.890 Other specified postprocedural states; F90.9 Attention-deficit hyperactivity disorder, unspecified type; Z82.0 Family history of epilepsy and other diseases of the nervous system
CPT/HCPCS: 71046; 74018; 80048; 80053; 80061; 80165; 80306; 81001; 82075; 82140; 82248; 83036; 84443; 84484; 85025; 85379; 87086; 93005; 94640; 99285

== ENCOUNTER → 2019-09-18 | Outpatient (CLI) | payer MEDICARE, MEDICAID ==
[2019-09-18 19:30] LABS: African American GFR (CKD) 72.7 (60.0-200.0); BUN/Creat Ratio 16.15 Ratio (12.00-20.00); Calcium 9.2 mg/dL (8.7-10.3); Carbon Dioxide 25.2 mmol/L (21.6-31.8); Chloride 103 mmol/L (96-109); Glucose 134 mg/dL (70-110); Non-African American GFR(CKD) 62.7 (60.0-200.0); Phosphorus 3.1 mg/dL (2.4-5.1); Sodium 136 mmol/L (135-145)
[2019-09-24 08:49] LABS: Total Protein 6.4
[2019-09-24 08:50] LABS: Total Bilirubin 0.3
[2019-09-24 08:51] LABS: AST 35; Bilirubin, Conjugated <0.20
[2019-09-24 08:52] LABS: ALT 40; Alkaline Phosphatase 56
== END | disposition home or self-care (01) ==
LOC: LABWHC1 14:26
PROVIDERS: ATTEND Psychiatry & Neurology Psychiatry
DX: Z51.81 Encounter for therapeutic drug level monitoring (principal); Z79.899 Other long term (current) drug therapy
CPT/HCPCS: 36415; 80069; 80076; 84443

== ENCOUNTER → 2019-11-21 | Outpatient (CLI) | payer MEDICARE, MEDICAID | END | disposition home or self-care (01) | LOC: LABWHC1 07:31 | PROVIDERS: ATTEND Psychiatry & Neurology Psychiatry | DX: Z51.81 Encounter for therapeutic drug level monitoring (principal); Z79.899 Other long term (current) drug therapy | CPT/HCPCS: 36415; 80299 ==

== ENCOUNTER 2022-01-07 16:25 | Observation (INO) | payer MEDICARE, OTHER ==
[2022-01-07] MEDS ORDERED: SODIUM CHLORIDE 0.9% 1,000 ML IV STA ×2 (17:04→17:52)
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
[2022-01-07 17:31] LABS: Basophils % (A) 0 %; Eosinophils # (A) 0.2 k/uL (0-0.7); Eosinophils % (A) 2 %; HCT 46.8 % (39.0-53.0); HGB 15.8 gm/dL (13.0-17.5); Lymphocytes # (A) 2.3 k/uL (1.0-4.8); Lymphocytes % (A) 21 %; MCH 32.6 pg (25.0-35.0); MCHC 33.7 g/dL (31.0-37.0); MCV 96.8 fL (80.0-100.0); Mean Platelet Volume 7.1; Monocytes # (A) 0.8 k/uL (0-1.0); Monocytes % (A) 7 %; Neutrophils # (A) 7.7 k/uL (1.3-7.7); Neutrophils % (A) 69 %; Platelet Count 452 k/uL (150-450); RBC 4.83 m/uL (4.30-5.90); RDW 13.1 % (11.5-15.5); WBC 11.2 k/uL (3.8-10.6)
[2022-01-07 17:41] LABS: Albumin 4.1 g/dL (3.5-5.0); Calcium 9.6 mg/dL (8.4-10.2); Magnesium 2.1 mg/dL (1.6-2.3); Total Bilirubin 0.6 mg/dL (0.2-1.3); Total Protein 6.9 g/dL (6.3-8.2)
--- NOTE | 2022-01-07 17:44 | XR ---
EXAMINATION TYPE: XR chest 1V portable DATE OF EXAM: 01/07/2022 5:24 PM COMPARISON: Chest radiograph 01/10/2019 TECHNIQUE: XR chest 1V portable Frontal view of the chest. CLINICAL INDICATION:Male, 56 years old with history of epigastric pain; FINDINGS: Lungs/Pleura: Low lung volumes are present with bibasilar atelectasis. There is no evidence of pleura l effusion, focal consolidation, or pneumothorax. Pulmonary vascularity: Unremarkable. Heart/mediastinum: Cardiomediastinal silhouette is prominent in size. Musculoskeletal: No acute osseous pathology. IMPRESSION: Low lung volumes with a generalized hazy appearance which could represent atelectasis.
[2022-01-07 17:52] LABS: INR 0.9 (<1.2); Partial Thromboplastin Time 23.6 sec (22.0-30.0); Prothrombin Time 9.9 sec (9.0-12.0)
--- NOTE | 2022-01-07 18:36 | CT ---
EXAMINATION TYPE: CT chest abdomen wo con CT DLP: 1311.8 mGycm, Automated exposure control for dose reduction was used. DATE OF EXAM: 01/07/2022 6:20 PM COMPARISON: CT of the chest 08/26/2018. CLINICAL INDICATION:Male, 56 years old with history of odynophagia, hypotension, Sensation of food st uck Technique: Multiple axial images of the chest, and abdomen,were obtained following the intravenous ad ministration of 100 mL Isovue-300. Two-dimensional coronal and sagittal reconstructions were obtained . Findings: CHEST: LUNGS/ PLEURA: No evidence focal consolidation, pneumothorax or pleural effusion. Left apical scarrin g atelectasis changes are present. Mild paraseptal emphysema changes are noted in the right lung apex . AIRWAY: Patent and unremarkable.. HEART: Size within normal limits. Prominent left epicardial fat pad extending into the left major fis sure. MEDIASTINUM: No gross evidence of adenopathy. No evidence of large quantity of ingested contents with in the esophagus. Esophageal mohmaud appear within normal limits for thickness. VASCULATURE: No aortic aneurysm. MUSCULOSKELETAL: No acute osseous abnormalities. Straightening of the thoracic spine. There is multil evel disc degeneration changes. Subacute fracture of left rib #6 with healing changes. SOFT TISSUES/LYMPH NODES: Unremarkable. LOWER NECK: No significant findings. ABDOMEN: ABDOMEN LIVER: Unremarkable GALLBLADDER AND BILE DUCTS: The gallbladder is surgically absent. PANCREAS: Fat stranding changes around the duodenum and pancreatic head are present SPLEEN: Unremarkable. ADRENAL GLANDS: Unremarkable. KIDNEYS AND URETERS: No evidence of hydronephrosis or renal calculus. The ureters are unremarkable. Similar right renal cyst measuring before the 44 mm with similar calcification present.. Left renal c yst measuring up to 17 mm. ABDOMEN STOMACH AND BOWEL: No evidence of bowel obstruction. PERITONEUM: No evidence of pneumoperitoneum or free fluid. VASCULATURE: No evidence of aortic aneurysm. Atherosclerosis of the arterial vasculature. MUSCULOSKELETAL: No acute osseous abnormalities LYMPH NODES: No gross evidence for lymphadenopathy. SOFT TISSUE/ABDOMINAL WALL: Multiple ventral hernias containing fat largest in the lower abdomen jean-paul uring 3.4 x 7.8 cm. IMPRESSION: 1. No evidence for acute process within the chest. Subacute left rib 6 fracture. 2. Fat stranding centered around the pancreatic head and duodenum, correlate for pancreatitis with li pase. 3. Multiple ventral abdominal wall hernias containing fat. 4. Similar bilateral renal cysts. On the right calcification similar prior.
[2022-01-07] MEDS ORDERED: NITROGLYCERIN SL TABS 0.4 MG TAB SUBLINGUAL STA (18:40)
[2022-01-07] MEDS ORDERED: HEPARIN SODIUM 1,000 UN/ML (10ML VL) IV ONE (18:41)
[2022-01-07] MEDS ORDERED: MAG HYDROX/AL HYDROX/SIMETH 30 ML, HYOSCYAMINE ELIXIR 10 ML, LIDOCAINE VISCOUS 2% 10 ML PO STA ×3 (18:41)
[2022-01-07] MEDS ORDERED: HEPARIN SODIUM 1,000 UN/ML (10ML VL) IV PRN (18:41)
[2022-01-07] MEDS ORDERED: ASPIRIN 81 MG PO STA (18:42)
[2022-01-07] MEDS ORDERED: HEPARIN SOD,PORK IN 0.45% NACL 25,000 UNIT in 0.45% NACL 1 250ML.BAG IV SCH (18:45)
[2022-01-07] MEDS ORDERED: NITROGLYCERIN SL TABS 0.4 MG TAB SUBLINGUAL PRN (19:08)
[2022-01-07] MEDS: SODIUM CHLORIDE 0.9% 1,000 ML IV SCH (20:39)
[2022-01-07] MEDS ORDERED: CYCLOBENZAPRINE 5 MG TAB PO PRN (22:21)
[2022-01-07] MEDS: busPIRone HCl 10 MG TAB PO SCH (22:48)
[2022-01-07] MEDS: QUEtiapine 200 MG TAB PO SCH (22:58)
[2022-01-07] MEDS: PANTOPRAZOLE 40 MG/10 ML VIAL IVP SCH (22:58)
[2022-01-07] MEDS: LORazepam 1 MG TAB PO SCH (22:58)
[2022-01-08] MEDS ORDERED: ASPIRIN 325 MG TAB PO SCH (09:00)
[2022-01-08] MEDS ORDERED: CAFFEINE CITRATE 60 MG/3 ML VIAL IV PRN (09:11)
[2022-01-08] MEDS ORDERED: AMINOPHYLLINE 500 MG/20 ML VIAL IV PRN (09:11)
[2022-01-08] MEDS ORDERED: REGADENOSON 0.4 MG/5 ML SYRINGE IV PRN (09:11)
[2022-01-08 09:30] LABS: Chol/HDL Ratio 2.85 Ratio; LDL Cholesterol,Calculated 52.5 mg/dL (0.0-131.0)
[2022-01-08] MEDS: busPIRone HCl 10 MG TAB PO SCH ×4 (09:47→21:18)
[2022-01-08] MEDS: PANTOPRAZOLE 40 MG/10 ML VIAL IVP SCH ×2 (09:47→21:19)
[2022-01-08] MEDS: ASPIRIN 81 MG PO SCH (09:51)
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
[2022-01-08 11:29] LABS: Calcium 8.4 mg/dL (8.4-10.2); Potassium 4.3 mmol/L (3.5-5.1)
[2022-01-08] MEDS ORDERED: ERGOCALCIFEROL 1,250 MCG (50,000 IU) CAPSULE PO SCH (11:45)
[2022-01-08] MEDS ORDERED: FERROUS SULFATE 325 MG TAB PO SCH (11:45)
--- NOTE | 2022-01-08 12:35 | CA ---
Transthoracic Echo Report Name: Alexei Ahuja Age: 56 Gender: M : 1965 Exam Date: 01/08/2022 10:50 Exam Location: [place] [facility] Ht (in): 73 Wt (lb): 272 Ordering Physician: Binta Herrera Attending/Referring Phys: Parking Assistant Jaye Hebert RDCS Procedure CPT: Indications: Chest Pain Cardiac Hx: Technical Quality: Very technically difficult study Contrast 1: Lumason Total Dose (mL): 4 Contrast 2: Total Dose (mL): MEASUREMENTS (Male / Female) Normal Values 2D ECHO LV Diastolic Diameter PLAX 4.1 cm 4.2 - 5.9 / 3.9 - 5.3 cm LV Systolic Diameter PLAX 2.5 cm IVS Diastolic Thickness 1.6 cm 0.6 - 1.0 / 0.6 - 0.9 cm LVPW Diastolic Thickness 1.4 cm 0.6 - 1.0 / 0.6 - 0.9 cm LV Relative Wall Thickness 0.7 M-MODE Aortic Root Diameter MM 4.1 cm LA Systolic Diameter MM 3.4 cm LA Ao Ratio MM 0.8 AV Cusp Separation MM 2.1 cm DOPPLER AV Peak Velocity 118.2 cm/s AV Peak Gradient 5.6 mmHg LVOT Peak Velocity 96.9 cm/s LVOT Peak Gradient 3.8 mmHg MV Area PHT 4.4 cm??? Mitral E Point Velocity 59.4 cm/s Mitral A Point Velocity 67.4 cm/s Mitral E to A Ratio 0.9 MV Deceleration Time 172.8 ms TR Peak Velocity 213.0 cm/s TR Peak Gradient 18.2 mmHg Right Ventricular Systolic Press 22.9 mmHg FINDINGS Left Ventricle Left ventricular cavity size normal. Moderately increased left ventricular wall thickness. Left ventricular ejection fraction is estimated at 50-55 %. Right Ventricle Right ventricle not well visualized. Right Atrium Right atrium not well visualized. Left Atrium Normal left atrial size. No evidence for an atrial septal defect. Mitral Valve Mitral valve not well visualized. No mitral stenosis. Mild mitral regurgitation. Aortic Valve Aortic valve sclerosis. No aortic stenosis. No aortic regurgitation. Tricuspid Valve Mild tricuspid regurgitation. Pulmonic Valve Pulmonic valve not well visualized. Pericardium No pericardial effusion. Aorta Aortic root and proximal ascending aorta not well visualized. CONCLUSIONS Normal LV systolic function without segmental wall motion abnormalities Previewed by: Dr. Nito Winn MD (Electronically Signed) Final Date: 08 Jan 2022 12:35
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
[2022-01-08] MEDS: SODIUM CHLORIDE 0.9% 1,000 ML IV SCH ×4 (17:15→23:36)
[2022-01-08] MEDS ORDERED: ACETAMINOPHEN TAB 500 MG TAB PO PRN (17:30)
[2022-01-08] MEDS: LORazepam 1 MG TAB PO SCH (21:18)
[2022-01-08] MEDS: QUEtiapine 200 MG TAB PO SCH (21:19)
[2022-01-09 07:51] LABS: Basophils # (A) 0.1 k/uL (0-0.2); Basophils % (A) 1 %; Calcium 8.3 mg/dL (8.4-10.2); Eosinophils # (A) 0.3 k/uL (0-0.7); Eosinophils % (A) 5 %; HCT 37.8 % (39.0-53.0); Lymphocytes # (A) 2.9 k/uL (1.0-4.8); Lymphocytes % (A) 45 %; MCH 32.3 pg (25.0-35.0); MCHC 32.7 g/dL (31.0-37.0); MCV 98.8 fL (80.0-100.0); Mean Platelet Volume 6.8; Monocytes # (A) 0.5 k/uL (0-1.0); Monocytes % (A) 7 %; Neutrophils # (A) 2.5 k/uL (1.3-7.7); Neutrophils % (A) 40 %; Platelet Count 366 k/uL (150-450); Potassium 4.4 mmol/L (3.5-5.1); RBC 3.83 m/uL (4.30-5.90); RDW 13.3 % (11.5-15.5); WBC 6.4 k/uL (3.8-10.6)
[2022-01-09 07:56] LABS: HGB 12.4 gm/dL (13.0-17.5)
--- NOTE | 2022-01-09 08:53 | P.PN ---
Subjective Progress Note Date: 01/09/22 Principal diagnosis: Renal failure The patient is a 56-year-old gentleman with hypertension and dyslipidemia and history of psychiatric disease who was admitted to the hospital with epigastric discomfort we felt to be noncardiac in nature. He also was found to be in acute renal failure which is related to acute kidney injury and dehydration. He was seen this morning. He reports no angina or chest pain or chest discomfort and no shortness of breath. He is hemodynamically stable. Was still awaiting for the result of the blood work this morning. He underwent an echo which revealed normal LV function with no significant valvular abnormalities and no evidence of any wall motion abnormalities concerning for severe underlying coronary artery disease. From the cardiac vascular standpoint of view, the patient did initially E discharge home and he might benefit from a stress test as an outpatient. Objective - Vital Signs Vital signs: Vital Signs Temp 97.9 F 01/09/22 04:00 Pulse 91 01/09/22 04:00 Resp 16 01/09/22 04:00 BP 114/73 01/09/22 04:00 Pulse Ox 96 01/09/22 07:57 Intake & Output 01/08/22 01/09/22 01/09/22 18:59 06:59 18:59 Intake Total 1200 480 Output Total 1300 1740 Balance -100 -1740 480 Intake: Oral 1200 480 Output: Urine 1300 1740 Other: # Bowel Movements 1 - Constitutional General appearance: Present: no acute distress - Respiratory Respiratory: bilateral: CTA - Cardiovascular Rhythm: regular Heart sounds: normal: S1, S2 - Labs CBC & Chem 7: 01/09/22 07:10 01/09/22 07:10 Labs: Abnormal Lab Results - Last 24 Hours (Table) 01/08/22 01/09/22 01/09/22 Range/Units 10:27 07:10 07:10 RBC 3.83 L (4.30-5.90) m/uL Hgb 12.4 L D (13.0-17.5) gm/dL Hct 37.8 L (39.0-53.0) % Sodium 135 L (137-145) mmol/L Chloride 112 H 115 H (98-107) mmol/L Carbon Dioxide 18 L 18 L (22-30) mmol/L BUN 32 H 24 H (9-20) mg/dL Creatinine 1.73 H 1.38 H (0.66-1.25) mg/dL Calcium 8.3 L (8.4-10.2) mg/dL Microbiology - Last 24 Hours (Table) 01/08/22 17:01 Gram Stain - Preliminary Toe - Left Fifth Wound Culture - Preliminary 01/08/22 17:01 Anaerobic Culture - Preliminary Toe - Left Fifth 01/07/22 17:37 Blood Culture - Preliminary Blood No Growth after 24 hours Assessment and Plan Assessment: Assessment #1 atypical chest discomfort #2 acute renal failure #3 I'll double comorbid conditions Plan #1 the patient can be discharged home if the kidney function normalized #2 acute coronary event was ruled out #3 he'll benefit from a stress test as an outpatient
[2022-01-09] MEDS: busPIRone HCl 10 MG TAB PO SCH ×4 (09:05→20:56)
[2022-01-09] MEDS: DOCUSATE 100 MG CAP PO SCH (09:05)
[2022-01-09] MEDS: ASPIRIN 81 MG PO SCH (09:06)
[2022-01-09] MEDS: ATORVASTATIN 10 MG TAB PO SCH (09:06)
[2022-01-09] MEDS: PANTOPRAZOLE 40 MG/10 ML VIAL IVP SCH ×2 (09:06→20:56)
[2022-01-09] MEDS: METOPROLOL TARTRATE 25 MG TAB PO SCH ×2 (15:44→23:20)
[2022-01-09] MEDS: SODIUM CHLORIDE 0.9% 1,000 ML IV SCH ×2 (15:48→20:55)
--- NOTE | 2022-01-09 18:49 | P.PN ---
Subjective Progress Note Date: 01/09/22 56-year-old male past medical history significant for hypertension, chronic nicotine dependence, dyslipidemia and obesity, ADHD/AHT, anxiety, bipolar, depression, history of suicidal attempts. 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 Patient did used to have a guardian. We have been asked to see in consultation for "acute coronary syndrome symptoms". Patient presents to the emergency department with complaints of epigastric pain, right-sided chest pain. He also endorses food/water being stuck in his throat. This has been occurring for 2-3 days. Pain is non-radiating, non-exertional. He has no associated symptoms. Denies shortness of breath, leg numbness, dizziness, syncope or near-syncope, nausea, vomiting, diaphoresis. He denies any history of coronary disease, [place], stroke, diabetes. He currently smokes 510 cigarettes per day. Denies any alcohol or illicit drug use. He has no further chest discomfort. Workup in ED reveals acute kidney injury. EKG with no acute findings. Troponin negative x 3. EKG reveals sinus rhythm, heart rate 71, right bundle-branch block, no acute ST- T wave abnormalities. Prior EKG in 2019 with similar findings. Telemetry tracings indicate sinus mechanism Chest xray no acute cardiopulmonary process CT chest abdomen and pelvis, no evidence of acute process chest. Subacute left rib 6 fracture. Fat stranding incidentally pancreaticoduodenal. Multiple ventral abdominal wall hernias, similar bilateral renal cysts Laboratory reviewed, troponin negative 3, d-dimer 0.8, decrease 11.2, hemoglobin 15.8, platelets 452, sodium 131, potassium 4.0, BUN/creatinine 39, serum creatinine 2.99, magnesium 2.1 Current home cardiac medications include lisinopril 10 mg daily, atorvastatin 10 mg daily Objective - Vital Signs Vital signs: Vital Signs Temp 98.0 F 01/09/22 12:00 Pulse 91 01/09/22 12:00 Resp 18 01/09/22 12:00 BP 152/79 01/09/22 12:00 Pulse Ox 97 01/09/22 12:00 Intake & Output 01/08/22 01/09/22 01/09/22 18:59 06:59 18:59 Intake Total 1200 480 Output Total 1300 1740 675 Balance -100 -1740 -195 Intake: Oral 1200 480 Output: Urine 1300 1740 675 Other: # Bowel Movements 1 - Exam GENERAL: The patient is alert and oriented x3, not in any acute distress. Well developed, well nourished. HEENT: Pupils are round and equally reacting to light. EOMI. No scleral icterus. No conjunctival pallor. Normocephalic, atraumatic. No pharyngeal erythema. No thyromegaly. CARDIOVASCULAR: S1 and S2 present. No murmurs, rubs, or gallops. PULMONARY: Chest is clear to auscultation, no wheezing or crackles. ABDOMEN: Soft, nontender, nondistended, normoactive bowel sounds. No palpable organomegaly. MUSCULOSKELETAL: No joint swelling or deformity. EXTREMITIES: No cyanosis, clubbing, or pedal edema. NEUROLOGICAL: Gross neurological examination did not reveal any focal deficits. SKIN: No rashes. - Labs CBC & Chem 7: 01/09/22 07:10 01/09/22 07:10 Labs: Abnormal Lab Results - Last 24 Hours (Table) 01/09/22 01/09/22 Range/Units 07:10 07:10 RBC 3.83 L (4.30-5.90) m/uL Hgb 12.4 L D (13.0-17.5) gm/dL Hct 37.8 L (39.0-53.0) % Chloride 115 H (98-107) mmol/L Carbon Dioxide 18 L (22-30) mmol/L BUN 24 H (9-20) mg/dL Creatinine 1.38 H (0.66-1.25) mg/dL Calcium 8.3 L (8.4-10.2) mg/dL Microbiology - Last 24 Hours (Table) 01/08/22 17:01 Gram Stain - Preliminary Toe - Left Fifth Wound Culture - Preliminary 01/08/22 17:01 Anaerobic Culture - Preliminary Toe - Left Fifth 01/07/22 17:37 Blood Culture - Preliminary Blood No Growth after 24 hours Assessment and Plan Assessment: 1. Chest pain rule out acute coronary syndrome - We will monitor EKG and trend troponin; cardiology is consulted; EKG reveals NSR with right bundle branch block without any acute ST or T-wave changes; cardiology recommends 2-D echo for further evaluation 2. Epigastric discomfort/intractable nausea; patient is placed on Protonix 40 mg IV every 12 hours; symptomatic treatment for nausea; consult GI for further recommendations 3. Acute renal injury; IV fluid hydration in form of normal saline at rate of 120 mL an hour; creatinine upon admission was found to be 2.9 and has trended down to 1.73; we will continue to hold all nephrotoxic agents; monitor renal fu nction and electrolytes; monitor strict CAROL ANN's; avoid hypotension 4. Ulcers/cellulitis left fifth toe; we will start patient on cefazolin 1 g IV every 8 hours; order wound cultures; consult ID for further recommendations; monitor CBC, CMP and pro-calcitonin 5. Hypertension; blood pressure is soft at this time; patient takes lisinopril at home which has been placed on hold until blood pressure improves 6. Hyperlipidemia; Lipitor 10 mg by mouth daily at bedtime 7. Subacute left sixth rib fracture; patient is currently asymptomatic; saturating above 95% on room air DVT prophylaxis; SCDs/subcu heparin CODE STATUS; full code
[2022-01-09] MEDS: LORazepam 1 MG TAB PO SCH (20:56)
[2022-01-09] MEDS: QUEtiapine 200 MG TAB PO SCH (20:56)
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
[2022-01-10 04:16] VITALS: RESP 18
[2022-01-10 07:36] LABS: Basophils % (A) 1 %; Eosinophils # (A) 0.4 k/uL (0-0.7); Eosinophils % (A) 6 %; HCT 40.6 % (39.0-53.0); HGB 12.7 gm/dL (13.0-17.5); Lymphocytes # (A) 2.8 k/uL (1.0-4.8); Lymphocytes % (A) 42 %; MCH 31.6 pg (25.0-35.0); MCHC 31.4 g/dL (31.0-37.0); MCV 100.5 fL (80.0-100.0); Mean Platelet Volume 6.9; Monocytes # (A) 0.5 k/uL (0-1.0); Monocytes % (A) 7 %; Neutrophils # (A) 2.8 k/uL (1.3-7.7); Neutrophils % (A) 42 %; Platelet Count 343 k/uL (150-450); RBC 4.04 m/uL (4.30-5.90); RDW 12.6 % (11.5-15.5); WBC 6.6 k/uL (3.8-10.6)
[2022-01-10 07:45] LABS: Calcium 8.9 mg/dL (8.4-10.2); Potassium 5.2 mmol/L (3.5-5.1)
[2022-01-10] MEDS: SODIUM CHLORIDE 0.9% 1,000 ML IV SCH ×2 (08:36→14:18)
[2022-01-10] MEDS: METOPROLOL TARTRATE 25 MG TAB PO SCH (08:41)
[2022-01-10] MEDS: DOCUSATE 100 MG CAP PO SCH (08:41)
[2022-01-10] MEDS: ATORVASTATIN 10 MG TAB PO SCH (08:41)
[2022-01-10] MEDS: ASPIRIN 81 MG PO SCH (08:41)
[2022-01-10] MEDS: busPIRone HCl 10 MG TAB PO SCH ×2 (08:41→11:57)
[2022-01-10] MEDS: PANTOPRAZOLE 40 MG/10 ML VIAL IVP SCH (08:42)
--- NOTE | 2022-01-10 09:44 | P.PN ---
Subjective Progress Note Date: 01/10/22 Principal diagnosis: Renal failure The patient is a 56-year-old gentleman with hypertension and dyslipidemia and history of psychiatric disease who was admitted to the hospital with epigastric discomfort we felt to be noncardiac in nature. He also was found to be in acute renal failure which is related to acute kidney injury and dehydration. The patient underwent an echo which revealed normal LV function with no significant valvular abnormalities. The patient was seen this morning. He remains chest pain-free. He requested to go home. His pressure continues to be slightly elevated and I'm going to add oral nitrates with isosorbide mononitrate to the current medical regimen. The chest discomfort need to be investigated as an outpatient with possible stress test. Objective - Vital Signs Vital signs: Vital Signs Temp 98.0 F 01/10/22 04:00 Pulse 64 01/10/22 04:00 Resp 18 01/10/22 04:00 BP 154/84 01/10/22 04:00 Pulse Ox 98 01/10/22 04:00 Intake & Output 01/09/22 01/10/22 01/10/22 18:59 06:59 18:59 Intake Total 1440 600 Output Total 1575 1500 Balance -135 -900 Intake: Oral 1440 600 Output: Urine 1575 1500 - Constitutional General appearance: Present: no acute distress - Respiratory Respiratory: bilateral: CTA - Cardiovascular Rhythm: regular Heart sounds: normal: S1, S2 - Labs CBC & Chem 7: 01/10/22 07:21 01/10/22 07:21 Labs: Abnormal Lab Results - Last 24 Hours (Table) 01/10/22 01/10/22 Range/Units 07:21 07:21 RBC 4.04 L (4.30-5.90) m/uL Hgb 12.7 L (13.0-17.5) gm/dL MCV 100.5 H (80.0-100.0) fL Potassium 5.2 H (3.5-5.1) mmol/L Chloride 113 H (98-107) mmol/L BUN 22 H (9-20) mg/dL Creatinine 1.41 H (0.66-1.25) mg/dL Microbiology - Last 24 Hours (Table) 01/07/22 17:37 Blood Culture - Preliminary Blood No Growth after 48 hours 01/08/22 17:01 Gram Stain - Preliminary Toe - Left Fifth Wound Culture - Preliminary Assessment and Plan Assessment: Assessment #1 atypical chest discomfort #2 acute renal failure #3 hypertension Plan #1 continue the current medical regimen #2 add oral nitrates to the current medical regimen #3 stress test probably as an outpatient
[2022-01-10 11:55] VITALS: BP 138/74; PULSE 62; TEMP 98.4
--- NOTE | 2022-01-10 21:38 | P.PN ---
Subjective Progress Note Date: 01/10/22 Principal diagnosis: Left fifth toe wound and cellulitis Patient is a 56-year-old male presented to hospital with multiple symptoms including some chest pain shortness of breath in this patient who did have a wound to the left fifth toe on the medial border of the last few weeks. Was concern for possible cellulitis. On today's evaluation that is 01/10/2022, the patient denies having any fever or chills, the patient is breathing comfortably no chest pain shortness of breath or cough no abdominal pain or pain to the left fifth toe wound area Objective - Vital Signs Vital signs: Vital Signs Temp 98.4 F 01/10/22 11:54 Pulse 62 01/10/22 11:54 Resp 18 01/10/22 11:54 BP 138/74 01/10/22 11:54 Pulse Ox 98 01/10/22 11:54 Intake & Output 01/09/22 01/10/22 01/10/22 18:59 06:59 18:59 Intake Total 1440 600 Output Total 1575 1500 1100 Balance -135 -900 -1100 Intake: Oral 1440 600 Output: Urine 1575 1500 1100 Other: # Voids 2 # Bowel Movements 1 - Exam GENERAL DESCRIPTION: A middle-age male lying in bed in no distress RESPIRATORY SYSTEM: Unlabored breathing , decreased breath sounds at bases HEART: S1 S2 regular rate and rhythm , ABDOMEN: Soft , no tenderness EXTREMITIES: No edema feet, left fifth toe medial border with no slough tissue no redness or drainage - Labs CBC & Chem 7: 01/10/22 07:21 01/10/22 07:21 Labs: Abnormal Lab Results - Last 24 Hours (Table) 01/10/22 01/10/22 Range/Units 07:21 07:21 RBC 4.04 L (4.30-5.90) m/uL Hgb 12.7 L (13.0-17.5) gm/dL MCV 100.5 H (80.0-100.0) fL Potassium 5.2 H (3.5-5.1) mmol/L Chloride 113 H (98-107) mmol/L BUN 22 H (9-20) mg/dL Creatinine 1.41 H (0.66-1.25) mg/dL Microbiology - Last 24 Hours (Table) 01/07/22 17:37 Blood Culture - Preliminary Blood No Growth after 48 hours Assessment and Plan (1) Open toe wound Status: Acute Code(s): S91.109A - UNSP OPEN WOUND OF UNSP TOE(S) W/O DAMAGE TO NAIL, INIT SNOMED Code(s): 443509980 Plan: 1patient with a left fifth toe medial border wound more likely a pressure ulcer with fifth toe pressing against his left fourth toe and possible mild cellulitis more likely from gram-positive skin alexa 2patient is feeling better and insisting on going home, will give short course of oral Keflex 3local wound care with dry Aquacel silver dressing and put a spacer between the fourth and fifth toe to take the pressure off Time with Patient: Less than 30
[2022-01-11] MEDS ORDERED: ISOSORBIDE MONONITRATE ER 30 MG TAB.ER.24H PO SCH (09:00)
--- NOTE | 2022-02-05 18:58 | P.DS ---
Providers Date of admission: 01/07/22 19:08 Attending physician: Radha Dinero MD Consults: 01/07/22 19:08 Consult Physician Urgent Consulting Provider: Houston Whalen Consult Reason/Comments: ACS symptoms Do you want consulting provider notified?: Yes 01/08/22 11:39 Consult Physician Routine Consulting Provider: Mayte Marie Consult Reason/Comments: Epigastric pain/prersistent Nausea Do you want consulting provider notified?: Yes 01/08/22 16:34 Consult Physician Routine Consulting Provider: Vi Trujillo Consult Reason/Comments: Cellulitis/abscess R toe Do you want consulting provider notified?: Yes Primary care physician: Stated None Hospital Course: 56-year-old male past medical history significant for hypertension, chronic nicotine dependence, dyslipidemia and obesity, ADHD/AHT, anxiety, bipolar, depression, history of suicidal attempts. 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 Patient did used to have a guardian. We have been asked to see in consultation for "acute coronary syndrome symptoms". Patient presents to the emergency department with complaints of epigastric pain, right-sided chest pain. He also endorses food/water being stuck in his throat. This has been occurring for 2-3 days. Pain is non-radiating, non-exertional. He has no associated symptoms. Denies shortness of breath, leg numbness, dizziness, syncope or near-syncope, nausea, vomiting, diaphoresis. He denies any history of coronary disease, AR, stroke, diabetes. He currently smokes 510 cigarettes per day. Denies any alcohol or illicit drug use. He has no further chest discomfort. Workup in ED reveals acute kidney injury. EKG with no acute findings. Troponin negative x 3. EKG reveals sinus rhythm, heart rate 71, right bundle-branch block, no acute ST- T wave abnormalities. Prior EKG in 2019 with similar findings. Telemetry tracings indicate sinus mechanism Chest xray no acute cardiopulmonary process CT chest abdomen and pelvis, no evidence of acute process chest. Subacute left rib 6 fracture. Fat stranding incidentally pancreaticoduodenal. Multiple ventral abdominal wall hernias, similar bilateral renal cysts Laboratory reviewed, troponin negative 3, d-dimer 0.8, decrease 11.2, hemoglobin 15.8, platelets 452, sodium 131, potassium 4.0, BUN/creatinine 39, serum creatinine 2.99, magnesium 2.1 Current home cardiac medications include lisinopril 10 mg daily, atorvastatin 10 mg daily 1. Chest pain rule out acute coronary syndrome - We will monitor EKG and trend troponin; cardiology is consulted; EKG reveals NSR with right bundle branch block without any acute ST or T-wave changes; cardiology recommends 2-D echo for further evaluation 2. Epigastric discomfort/intractable nausea; patient is placed on Protonix 40 mg IV every 12 hours; symptomatic treatment for nausea; consult GI for further recommendations 3. Acute renal injury; IV fluid hydration in form of normal saline at rate of 120 mL an hour; creatinine upon admission was found to be 2.9 and has trended down to 1.73; we will continue to hold all nephrotoxic agents; monitor renal function and electrolytes; monitor strict CAROL ANN's; avoid hypotension 4. Ulcers/cellulitis left fifth toe; we will start patient on cefazolin 1 g IV every 8 hours; order wound cultures; consult ID for further recommendations; monitor CBC, CMP and pro-calcitonin 5. Hypertension; blood pressure is soft at this time; patient takes lisinopril at home which has been placed on hold until blood pressure improves 6. Hyperlipidemia; Lipitor 10 mg by mouth daily at bedtime 7. Subacute left sixth rib fracture; patient is currently asymptomatic; saturating above 95% on room air DVT prophylaxis; SCDs/subcu heparin CODE STATUS; full code Patient Condition at Discharge: Serious Plan - Discharge Summary Discharge Rx Participant: No New Discharge Prescriptions: New Aspirin 81 mg PO DAILY Cephalexin [Keflex] 500 mg PO Q8HR 10 Days #30 cap Metoprolol Tartrate [Lopressor] 25 mg PO BID 30 Days #30 tab Pantoprazole Sodium [Protonix] 40 mg PO AC-BRKFST 30 Days #30 tab Continue Ferrous Sulfate [Feosol] 325 mg PO MOWEFR Docusate [Colace] 100 mg PO DAILY Atorvastatin [Lipitor] 10 mg PO DAILY busPIRone HCL 15 mg PO QID LORazepam [Ativan] 1 mg PO HS QUEtiapine FUMARATE [SEROquel] 600 mg PO HS Cyclobenzaprine [Flexeril] 5 mg PO BID PRN PRN Reason: Muscle Spasm Meloxicam [Mobic] 15 mg PO DAILY [place]-3 Acid Ethyl Esters [Lovaza] 2 gm PO BID No Action Ergocalciferol [Vitamin D2 (DRISDOL)] 50,000 unit PO FR Isosorbide Mononitrate ER [Imdur] 15 mg PO DAILY 30 Days #30 Discharge Medication List Ferrous Sulfate [Feosol] 325 mg PO MOWEFR 08/28/18 [History] Docusate [Colace] 100 mg PO DAILY 01/04/19 [History] Atorvastatin [Lipitor] 10 mg PO DAILY 01/07/22 [History] Cyclobenzaprine [Flexeril] 5 mg PO BID PRN 01/07/22 [History] LORazepam [Ativan] 1 mg PO HS 01/07/22 [History] Meloxicam [Mobic] 15 mg PO DAILY 01/07/22 [History] [place]-3 Acid Ethyl Esters [Lovaza] 2 gm PO BID 01/07/22 [History] QUEtiapine FUMARATE [SEROquel] 600 mg PO HS 01/07/22 [History] busPIRone HCL 15 mg PO QID 01/07/22 [History] Aspirin 81 mg PO DAILY 01/10/22 [Rx] Cephalexin [Keflex] 500 mg PO Q8HR 10 Days #30 cap 01/10/22 [Rx] Metoprolol Tartrate [Lopressor] 25 mg PO BID 30 Days #30 tab 01/10/22 [Rx] Pantoprazole Sodium [Protonix] 40 mg PO AC-BRKFST 30 Days #30 tab 01/10/22 [Rx] Ergocalciferol [Vitamin D2 (DRISDOL)] 50,000 unit PO FR 01/14/22 [History] Isosorbide Mononitrate ER [Imdur] 15 mg PO DAILY 30 Days #30 01/17/22 [Rx] Follow up Appointment(s)/Referral(s): [facility] [REFERRING] - Ajith Cuellar MD [STAFF PHYSICIAN] - 1 Week (Office closed, please call to schedule) None,Stated [Primary Care Provider] - 1-2 days Discharge/Stand Alone Forms: Who Do I Call?, Personal Java Engineer Discharge Disposition: HOME SELF-CARE
== END 2022-01-10 15:12 | disposition home or self-care (01) ==
LOC: EC 16:25 → INTOOBSV 19:08 → 3SCARD 19:08 → EEVIPCON 19:08 → 3SCARD 19:31 → UNDODISIN 01-10 15:12
PROVIDERS: ADMIT Internal Medicine; ATTEND Internal Medicine
DX: R07.89 Other chest pain (principal); I45.10 Unspecified right bundle-branch block; R10.13 Epigastric pain; R11.2 Nausea with vomiting, unspecified; N17.9 Acute kidney failure, unspecified; L03.031 Cellulitis of right toe; L89.899 Pressure ulcer of other site, unspecified stage; L02.611 Cutaneous abscess of right foot; L03.032 Cellulitis of left toe; I10 Essential (primary) hypertension; E78.5 Hyperlipidemia, unspecified; S22.32XD Fracture of one rib, left side, subsequent encounter for fracture with routine healing; I08.3 Combined rheumatic disorders of mitral, aortic and tricuspid valves; E86.0 Dehydration; E66.9 Obesity, unspecified; Z68.36 Body mass index [BMI] 36.0-36.9, adult; F90.9 Attention-deficit hyperactivity disorder, unspecified type; F41.9 Anxiety disorder, unspecified; F31.9 Bipolar disorder, unspecified; K43.2 Incisional hernia without obstruction or gangrene; N28.1 Cyst of kidney, acquired; I95.9 Hypotension, unspecified; F17.210 Nicotine dependence, cigarettes, uncomplicated; Z91.51 Personal history of suicidal behavior; Z79.899 Other long term (current) drug therapy; Z79.1 Long term (current) use of non-steroidal anti-inflammatories (NSAID); Z90.49 Acquired absence of other specified parts of digestive tract; Z71.9 Counseling, unspecified; Z82.69 Family history of other diseases of the musculoskeletal system and connective tissue
CPT/HCPCS: 96376 ×4; 96361 ×3; 96366 ×4; 96367; 96375; 96365; 99285; 36415; 94760; 93005; 85379; 80061; 80053; 80048 ×3; 83605; 83690; 83735; 84484 ×2; 85025 ×3; 85610; 85730 ×2; 87040; 87070; 87205; 87075; 84145; 71045; 71250; 74150; G0378 ×4; C8929; J0690 ×3; J1644 ×2; C9113 ×4; Q9950; 93306; 96374

== ENCOUNTER 2022-01-14 10:48 | Inpatient (IN) | payer MEDICARE, OTHER ==
[2022-01-14] MEDS ORDERED: ALBUTEROL NEBULIZED 2.5 MG/3 ML INHALATION STA (15:20)
[2022-01-14] MEDS ORDERED: SODIUM CHLORIDE 0.9% 500 ML 500 ML IV STA (15:20)
[2022-01-14] MEDS ORDERED: methylPREDNISolone SOD SUCCI 125 MG/2 ML VIAL IV STA (15:20)
[2022-01-14] MEDS ORDERED: IPRATROPIUM 0.5 MG/2.5 ML NEBU INHALATION STA (15:20)
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
[2022-01-14 15:57] LABS: Basophils # (A) 0.1 k/uL (0-0.2); Basophils % (A) 1 %; Eosinophils # (A) 0.4 k/uL (0-0.7); Eosinophils % (A) 3 %; HCT 44.8 % (39.0-53.0); Lymphocytes # (A) 3.7 k/uL (1.0-4.8); Lymphocytes % (A) 30 %; MCH 31.2 pg (25.0-35.0); MCHC 31.3 g/dL (31.0-37.0); MCV 99.7 fL (80.0-100.0); Monocytes # (A) 0.8 k/uL (0-1.0); Monocytes % (A) 6 %; Neutrophils # (A) 7.2 k/uL (1.3-7.7); Neutrophils % (A) 59 %; Platelet Count 431 k/uL (150-450); RBC 4.49 m/uL (4.30-5.90); RDW 12.5 % (11.5-15.5); WBC 12.3 k/uL (3.8-10.6)
[2022-01-14 16:05] LABS: INR 0.9 (<1.2); Partial Thromboplastin Time 22.7 sec (22.0-30.0); Prothrombin Time 9.9 sec (9.0-12.0)
[2022-01-14 16:08] LABS: Albumin 3.8 g/dL (3.5-5.0); Calcium 9.8 mg/dL (8.4-10.2); Magnesium 1.9 mg/dL (1.6-2.3); Potassium 4.9 mmol/L (3.5-5.1); Total Bilirubin 0.4 mg/dL (0.2-1.3); Total Protein 6.4 g/dL (6.3-8.2)
--- NOTE | 2022-01-14 16:35 | XR ---
EXAMINATION TYPE: XR chest 2V DATE OF EXAM: 01/14/2022 COMPARISON: CT dated 01/07/2022 HISTORY: Difficulty breathing TECHNIQUE: Frontal and lateral views of the chest are obtained. FINDINGS: Small left upper lung zone atelectasis/fibrotic changes, appreciated previously. Slightly increased d ensity of the left lower lung zone, likely artifactual. Subtle groundglass opacity at that location c annot be excluded. Grossly unremarkable remainder of the lungs. No sizable pleural effusion or definite pneumothorax. No gross cardiomegaly. No gross aggressive bone lesion. IMPRESSION: As above.
[2022-01-14] MEDS ORDERED: ACETAMINOPHEN TAB 325 MG TAB PO PRN (16:36)
[2022-01-14] MEDS ORDERED: NALOXONE 0.4 MG/ML 1 ML VIAL IV PRN (16:36)
--- NOTE | 2022-01-14 18:31 | HP ---
HISTORY AND PHYSICAL DATE OF SERVICE: 01/14/2022 CHIEF COMPLAINTS: Weakness, shortness of breath and chest pain. HISTORY OF PRESENT ILLNESS: This 56-year-old gentleman with a past medical history of multiple medical problems, including hypertension and obesity, was recently admitted to [facility] with features of chest pain, acute renal failure, ulcers and cellulitis. The patient apparently felt better and went home, and currently the patient is complaining of some shortness of breath for the last 5 days and chest pain in the anterior part of the chest. Patient was found to have hypotension with blood pressure systolic 70. The renal function is also impaired more than indicating acute on chronic renal failure. Patient was admitted for further evaluation and treatment. The basic labs are not available at this time. Chest x-ray is underway. The patient at this point. There is no history any headache, loss of consciousness or seizures. PAST MEDICAL HISTORY: History of recent chest pain, renal failure, multiple complex medical issues. HOME MEDICATIONS: Reviewed. Again list is not confirmed. They include Zestril, buspirone. Doses and the rest of the medications are reviewed. ALLERGIES: NONE. FAMILY HISTORY: No history of heart disease or strokes in the family. SOCIAL HISTORY: Smoking. REVIEW OF SYSTEMS: Fourteen-point review of systems negative except as mentioned earlier. PHYSICAL EXAMINATION: Pulse is 71, blood pressure 70/54, respiration 18. HEENT: Conjunctivae normal. Oral mucosa dry. NECK: No jugular venous distention. CARDIOVASCULAR: S1, S2 muffled. RESPIRATION: A few scattered rhonchi. ABDOMEN: Soft, non-tender. LEGS: Bilateral leg edema. NERVOUS SYSTEM: Diffusely weak. SKIN: No ulcer, rash, bleeding. JOINTS: No active deforming arthropathy. LABS: WBC . Hemoglobin noted. Other labs are noted. ASSESSMENT: 1. Dehydration with hypovolemic shock and acute renal failure with creatinine 2.93. 2. Chronic kidney disease, stage 3. 3. Rule out pneumonia. 4. Chest pain for evaluation. 5. History of recent kidney failure. 6. Hypertension. 7. Anxiety, bipolar, attention deficit disorder, attention deficit hyperactivity disorder. RECOMMENDATIONS AND DISCUSSION: In this 56-year-old gentleman with multiple complex medical issues, we will monitor the patient closely. Will continue IV fluids. Repeat labs. Chest x-ray. Cultures. Nephrology evaluation. Resume the home medications. Discontinue any nephrotoxic medications. Further recommendations to follow. Prognosis guarded. Discussed with the patient. See orders for further details. And further control prognosis guarded discussed the patient. See orders for details. Will wait for the initial lab reports to come back at this time. MMODL / IJN: [id number] /
[2022-01-15] MEDS: SODIUM CHLORIDE 0.9% 1,000 ML IV SCH ×3 (12:24→17:10)
[2022-01-15] MEDS ORDERED: CYCLOBENZAPRINE 5 MG TAB PO PRN (14:01)
[2022-01-15] MEDS ORDERED: LORazepam 1 MG TAB PO PRN (14:04)
--- NOTE | 2022-01-15 15:01 | P.PN ---
Subjective Progress Note Date: 01/15/22 56-year-old male presents for evaluation of dyspnea. Patient symptoms have been present throughout the day today. He denies fever. He states she's had a mild cough and some mild chest discomfort in the center of his chest. No vomiting. Patient states he had minor fall which she felt was related to his medication. He does have a history of schizophrenia and states that when he takes his medication he sometimes feels lightheaded. He's not had fever. Cough is nonproductive. Patient states he has not been drinking much water. Patient was found to be hypotensive and had had workup completed in ED which revealed an elevated white blood count of 12.3, BUN and creatinine markedly elevated at 37/2.93 Patient was given IV fluid hydration in ED with slight improvement in blood pressure; given patient's acute renal failure and hypotension he was admitted to the hospital for further evaluation and treatment Objective - Vital Signs Vital signs: Vital Signs Temp 97.5 F L 01/15/22 14:06 Pulse 78 01/15/22 14:06 Resp 14 01/15/22 14:06 BP 117/77 01/15/22 14:06 Pulse Ox 99 01/15/22 14:06 Intake & Output 01/14/22 01/15/22 01/15/22 18:59 06:59 18:59 Intake Total 420 Output Total 550 Balance -130 Weight 130.635 kg 130.635 kg Intake: Oral 420 Output: Urine 550 - Exam - Constitutional General appearance: Present: average body habitus, cooperative, no acute distress - EENT Eyes: Present: anicteric sclerae, EOMI, PERRLA, normal appearance ENT: Present: hearing grossly normal, normal oropharynx Ears: bilateral: normal - Neck Neck: Present: normal ROM. Absent: lymphadenopathy, rigidity, thyromegaly Carotids: negative: bruit present Thyroid: bilateral: normal size, negative: enlarged, nodule - Respiratory Respiratory: bilateral: CTA, negative: rales, rhonchi, wheezing - Cardiovascular Rhythm: regular Heart sounds: normal: S1, S2 Abnormal Heart Sounds: Absent: systolic murmur, diastolic murmur - Gastrointestinal General gastrointestinal: Present: normal bowel sounds, soft. Absent: distended, organomegaly, tenderness - Genitourinary Genitourinary Comment(s): deferred - Integumentary Integumentary: Present: normal turgor. Absent: jaundiced, rash, ulcer - Neurologic Neurologic: Present: CNII-XII intact. Absent: focal deficits - Musculoskeletal Musculoskeletal: Present: gait normal, strength equal bilaterally - Psychiatric Psychiatric: Present: A&O x's 3, appropriate affect, intact judgment & insight - Labs CBC & Chem 7: 01/14/22 15:35 01/14/22 15:35 Labs: Abnormal Lab Results - Last 24 Hours (Table) 01/14/22 01/14/22 Range/Units 15:35 15:35 WBC 12.3 H (3.8-10.6) k/uL Sodium 132 L (137-145) mmol/L BUN 37 H (9-20) mg/dL Creatinine 2.93 H (0.66-1.25) mg/dL Glucose 101 H (74-99) mg/dL Assessment and Plan Assessment: 1. Acute renal failure/ history of CKD stage III; patient has a baseline creatinine of 1.3; admitted with markedly elevated creatinine of 2.93; we will continue with IV fluid hydration in form of normal saline at rate of 1 30 mL an hour 2. Chest pain; acute coronary syndrome ruled out - Patient was evaluated by cardiology past admission at which time no acute EKG Changes are found and patient had the echocardiogram completed 3. Possible pneumonia; chest x-ray completed in ED didn't reveal some changes consistent with possible pneumonia; we will plan to repeat chest x-ray and make further recommendations 4. Ulcers/cellulitis left fifth toe; patient was recently admitted to the hospital and treated with IV cefazolin with transition to oral Augmentin at time of discharge; patient does show improvement in cellulitis; we will continue with oral antibiotics at this time 5. Hypertension/ currently hypotensive; likely hypovolemic shock; patient has been placed on IV fluid hydration; we will continue to hold antihypertensive medications 6. Hyperlipidemia; Lipitor 10 mg by mouth daily at bedtime 7. Subacute left sixth rib fracture; patient remains asymptomatic 8. Bipolar disorder; continue with Seroquel 300 mg daily at bedtime DVT prophylaxis; SCDs/subcu heparin CODE STATUS; full code
[2022-01-15 16:35] LABS: African American GFR (CKD) 60 (>60 ml/min/1.73 sqM); Anion Gap 7 mmol/L; Blood Urea Nitrogen 33 mg/dL (9-20); Calcium 9.5 mg/dL (8.4-10.2); Carbon Dioxide 23 mmol/L (22-30); Chloride 106 mmol/L (98-107); Glucose 96 mg/dL (74-99); Non-African American GFR(CKD) 52 (>60 ml/min/1.73 sqM); Potassium 4.3 mmol/L (3.5-5.1); Sodium 136 mmol/L (137-145)
[2022-01-15] MEDS: CEPHALEXIN 500 MG CAP PO SCH (17:10)
[2022-01-15] MEDS: busPIRone HCl 5 MG TAB PO SCH ×2 (17:10→20:52)
[2022-01-15] MEDS: QUEtiapine 200 MG TAB PO SCH (20:54)
[2022-01-16] MEDS: SODIUM CHLORIDE 0.9% 1,000 ML IV SCH ×3 (00:03→23:43)
[2022-01-16] MEDS: CEPHALEXIN 500 MG CAP PO SCH ×3 (00:56→17:21)
[2022-01-16] MEDS: ATORVASTATIN 10 MG TAB PO SCH (08:45)
[2022-01-16] MEDS: PANTOPRAZOLE 40 MG TABLET PO SCH (08:45)
[2022-01-16] MEDS: ASPIRIN 81 MG PO SCH (08:46)
[2022-01-16] MEDS: DOCUSATE 100 MG CAP PO SCH (08:46)
[2022-01-16] MEDS: busPIRone HCl 5 MG TAB PO SCH ×4 (08:46→20:26)
[2022-01-16 08:56] LABS: Basophils # (A) 0.03 X 10*3/uL (0.00-0.10); Basophils % (A) 0.3 %; Eosinophils % (A) 1.1 %; HCT 41.7 % (39.6-50.0); HGB 13.5 g/dL (13.0-17.0); Immature Grans, Automated 0.2 %; Lymphocytes % (A) 48.5 %; MCH 31.5 pg (27.0-32.0); MCHC 32.4 g/dL (32.0-37.0); MCV 97.2 fL (80.0-97.0); Monocytes # (A) 0.73 X 10*3/uL (0.20-1.00); Monocytes % (A) 8.2 %; NRBC Per 100 WBC 0 /100 WBCS (0.0-0.0); Neutrophils # (A) 3.69 X 10*3/uL (1.80-7.70); Neutrophils % (A) 41.7 %; Platelet Count 378 X 10*3/uL (140-440); RBC 4.29 X 10*6/uL (4.40-5.60); RDW 13.6 % (11.5-14.5); WBC 8.87 X 10*3/uL (4.50-10.00)
[2022-01-16] MEDS ORDERED: ISOSORBIDE MONONITRATE ER 30 MG TAB.ER.24H PO SCH (09:00)
[2022-01-16 11:41] LABS: African American GFR (CKD) 55.4 (60.0-200.0); Anion Gap 9.8 mmol/L (10.00-18.00); BUN/Creat Ratio 17.38 Ratio (12.00-20.00); Blood Urea Nitrogen 27.8 mg/dL (9.0-27.0); Calcium 9.2 mg/dL (8.7-10.3); Carbon Dioxide 22.2 mmol/L (20.0-27.5); Non-African American GFR(CKD) 47.8 (60.0-200.0); Potassium 4.9 mmol/L (3.5-5.5)
--- NOTE | 2022-01-16 16:05 | P.PN ---
Subjective Progress Note Date: 01/16/22 56-year-old male presents for evaluation of dyspnea. Patient symptoms have been present throughout the day today. He denies fever. He states she's had a mild cough and some mild chest discomfort in the center of his chest. No vomiting. Patient states he had minor fall which she felt was related to his medication. He does have a history of schizophrenia and states that when he takes his medication he sometimes feels lightheaded. He's not had fever. Cough is nonproductive. Patient states he has not been drinking much water. Patient was found to be hypotensive and had had workup completed in ED which revealed an elevated white blood count of 12.3, BUN and creatinine markedly elevated at 37/2.93 Patient was given IV fluid hydration in ED with slight improvement in blood pressure; given patient's acute renal failure and hypotension he was admitted to the hospital for further evaluation and treatment 01/16/2022 Patient is seen and evaluated in room at bedside; reports improvement in symptoms Vital signs are reviewed and patient remains hypotensive despite holding lisinopril and metoprolol We will plan to continue IV fluids still blood pressure improves and decrease Imdur from 30 mg down to 15 mg daily Labs are reviewed and revealed downtrending creatinine with hold off nephrotoxins agents including lisinopril Objective - Vital Signs Vital signs: Vital Signs Temp 97.4 F L 01/16/22 07:00 Pulse 85 01/16/22 07:00 Resp 16 01/16/22 07:00 BP 95/67 01/16/22 07:00 Pulse Ox 94 L 01/16/22 07:00 Intake & Output 01/15/22 01/16/22 01/16/22 18:59 06:59 18:59 Intake Total 1058 180 Output Total 1000 1050 Balance 58 -1050 180 Weight 130.635 kg Intake: Intake, IV Titration 520 Amount Sodium Chloride 0.9% 1, 520 000 ml @ 130 mls/hr IV . Q7H42M [facility] Rx#:[id number] Oral 538 180 Output: Urine 1000 1050 Other: # Voids 3 - Exam - Constitutional General appearance: Present: average body habitus, cooperative, no acute distress - EENT Eyes: Present: anicteric sclerae, EOMI, PERRLA, normal appearance ENT: Present: hearing grossly normal, normal oropharynx Ears: bilateral: normal - Neck Neck: Present: normal ROM. Absent: lymphadenopathy, rigidity, thyromegaly Carotids: negative: bruit present Thyroid: bilateral: normal size, negative: enlarged, nodule - Respiratory Respiratory: bilateral: CTA, negative: rales, rhonchi, wheezing - Cardiovascular Rhythm: regular Heart sounds: normal: S1, S2 Abnormal Heart Sounds: Absent: systolic murmur, diastolic murmur - Gastrointestinal General gastrointestinal: Present: normal bowel sounds, soft. Absent: distended, organomegaly, tenderness - Genitourinary Genitourinary Comment(s): deferred - Integumentary Integumentary: Present: normal turgor. Absent: jaundiced, rash, ulcer - Neurologic Neurologic: Present: CNII-XII intact. Absent: focal deficits - Musculoskeletal Musculoskeletal: Present: gait normal, strength equal bilaterally - Psychiatric Psychiatric: Present: A&O x's 3, appropriate affect, intact judgment & insight - Labs CBC & Chem 7: 01/16/22 06:37 01/16/22 06:37 Labs: Abnormal Lab Results - Last 24 Hours (Table) 01/15/22 01/16/22 01/16/22 Range/Units 15:53 06:37 06:37 RBC 4.29 L (4.40-5.60) X 10*6/uL MCV 97.2 H (80.0-97.0) fL MPV 9.0 L (9.5-12.2) fL Sodium 136 L (137-145) mmol/L Anion Gap 9.80 L (10.00-18.00) mmol/L BUN 33 H 27.8 H (9-20) mg/dL Creatinine 1.51 H 1.6 H (0.66-1.25) mg/dL Est GFR (CKD-EPI)AfAm 55.4 L (60.0-200.0) Est GFR (CKD-EPI)NonAf 47.8 L (60.0-200.0) Assessment and Plan Assessment: 1. Acute renal failure/ history of CKD stage III; patient has a baseline creatinine of 1.3; admitted with markedly elevated creatinine of 2.93; we will continue with IV fluid hydration in form of normal saline at rate of 1 30 mL an hour 2. Chest pain; acute coronary syndrome ruled out - Patient was evaluated by cardiology past admission at which time no acute EKG Changes are found and patient had the echocardiogram completed 3. Possible pneumonia; chest x-ray completed in ED didn't reveal some changes consistent with possible pneumonia; we will plan to repeat chest x-ray and make further recommendations 4. Ulcers/cellulitis left fifth toe; patient was recently admitted to the [facility] and treated with IV cefazolin with transition to oral Augmentin at time of discharge; patient does show improvement in cellulitis; we will continue with oral antibiotics at this time 5. Hypertension/ currently hypotensive; likely hypovolemic shock; patient has been placed on IV fluid hydration; we will continue to hold antihypertensive medications 6. Hyperlipidemia; Lipitor 10 mg by mouth daily at bedtime 7. Subacute left sixth rib fracture; patient remains asymptomatic 8. Bipolar disorder; continue with Seroquel 300 mg daily at bedtime DVT prophylaxis; SCDs/subcu heparin CODE STATUS; full code
[2022-01-16] MEDS: QUEtiapine 200 MG TAB PO SCH (20:26)
[2022-01-17] MEDS: CEPHALEXIN 500 MG CAP PO SCH ×2 (00:10→08:08)
[2022-01-17 02:34] VITALS: PULSE 79
[2022-01-17] MEDS: SODIUM CHLORIDE 0.9% 1,000 ML IV SCH (05:24)
[2022-01-17 07:38] VITALS: BP 114/82; RESP 18; TEMP 97
[2022-01-17] MEDS: busPIRone HCl 5 MG TAB PO SCH ×2 (08:08→12:32)
[2022-01-17] MEDS: DOCUSATE 100 MG CAP PO SCH (08:08)
[2022-01-17] MEDS: ASPIRIN 81 MG PO SCH (08:08)
[2022-01-17] MEDS: ATORVASTATIN 10 MG TAB PO SCH (08:08)
[2022-01-17] MEDS: PANTOPRAZOLE 40 MG TABLET PO SCH (08:08)
[2022-01-17] MEDS ORDERED: ISOSORBIDE MONONITRATE ER 15 MG TAB PO SCH (09:00)
--- NOTE | 2022-01-17 16:06 | P.DS ---
Providers Date of admission: 01/16/22 14:10 Expected date of discharge: 01/17/22 Attending physician: Alex Mcconnell Primary care physician: Stated None Hospital Course: 56-year-old male presents for evaluation of dyspnea. Patient symptoms have been present throughout the day today. He denies fever. He states she's had a mild cough and some mild chest discomfort in the center of his chest. No vomiting. Patient states he had minor fall which she felt was related to his medication. He does have a history of schizophrenia and states that when he takes his medication he sometimes feels lightheaded. He's not had fever. Cough is non productive. Patient states he has not been drinking much water. Patient was found to be hypotensive and had had workup completed in ED which revealed an elevated white blood count of 12.3, BUN and creatinine markedly elevated at 37/2.93 Patient was given IV fluid hydration in ED with slight improvement in blood pressure; given patient's acute renal failure and hypotension he was admitted to the hospital for further evaluation and treatment 01/16/2022 Patient is seen and evaluated in room at bedside; reports improvement in symptoms Vital signs are reviewed and patient remains hypotensive despite holding lisinopril and metoprolol We will plan to continue IV fluids still blood pressure improves and decrease Imdur from 30 mg down to 15 mg daily Labs are reviewed and revealed downtrending creatinine with hold off nephrotoxins agents including lisinopril 01/17/2022 ; Patient is seen and evaluated; blood pressure remained soft; we will hold lisinopril and discharge patient home on low dose of Imdur Patient Condition at Discharge: Stable Plan - Discharge Summary Discharge Rx Participant: No New Discharge Prescriptions: New Isosorbide Mononitrate ER [Imdur] 15 mg PO DAILY 30 Days #30 Continue Ferrous Sulfate [Feosol] 325 mg PO MOWEFR Docusate [Colace] 100 mg PO DAILY Atorvastatin [Lipitor] 10 mg PO DAILY busPIRone HCL 15 mg PO QID LORazepam [Ativan] 1 mg PO HS QUEtiapine FUMARATE [SEROquel] 600 mg PO HS Aspirin 81 mg PO DAILY Cephalexin [Keflex] 500 mg PO Q8HR 10 Days #30 cap Metoprolol Tartrate [Lopressor] 25 mg PO BID 30 Days #30 tab Pantoprazole Sodium [Protonix] 40 mg PO AC-BRKFST 30 Days #30 tab Cyclobenzaprine [Flexeril] 5 mg PO BID PRN PRN Reason: Muscle Spasm Meloxicam [Mobic] 15 mg PO DAILY [place]-3 Acid Ethyl Esters [Lovaza] 2 gm PO BID Ergocalciferol [Vitamin D2 (DRISDOL)] 50,000 unit PO FR Discontinued lisinopriL [Zestril] 10 mg PO DAILY Isosorbide Mononitrate ER [Imdur] 30 mg PO DAILY 30 Days #30 Discharge Medication List Ferrous Sulfate [Feosol] 325 mg PO MOWEFR 08/28/18 [History] Docusate [Colace] 100 mg PO DAILY 01/04/19 [History] Atorvastatin [Lipitor] 10 mg PO DAILY 01/07/22 [History] Cyclobenzaprine [Flexeril] 5 mg PO BID PRN 01/07/22 [History] LORazepam [Ativan] 1 mg PO HS 01/07/22 [History] Meloxicam [Mobic] 15 mg PO DAILY 01/07/22 [History] [place]-3 Acid Ethyl Esters [Lovaza] 2 gm PO BID 01/07/22 [History] QUEtiapine FUMARATE [SEROquel] 600 mg PO HS 01/07/22 [History] busPIRone HCL 15 mg PO QID 01/07/22 [History] Aspirin 81 mg PO DAILY 01/10/22 [Rx] Cephalexin [Keflex] 500 mg PO Q8HR 10 Days #30 cap 01/10/22 [Rx] Metoprolol Tartrate [Lopressor] 25 mg PO BID 30 Days #30 tab 01/10/22 [Rx] Pantoprazole Sodium [Protonix] 40 mg PO AC-BRKFST 30 Days #30 tab 01/10/22 [Rx] Ergocalciferol [Vitamin D2 (DRISDOL)] 50,000 unit PO FR 01/14/22 [History] Isosorbide Mononitrate ER [Imdur] 15 mg PO DAILY 30 Days #30 01/17/22 [Rx] Follow up Appointment(s)/Referral(s): None,Stated [Primary Care Provider] - 1-2 days Discharge Disposition: HOME SELF-CARE
== END 2022-01-17 15:02 | disposition home or self-care (01) | DRG 682 ==
LOC: EC 10:48 → 6NMEDSUR 16:36 → OBSVTOIN 01-16 14:10
PROVIDERS: ADMIT Hospitalist; ATTEND Hospitalist
DX: N17.9 Acute kidney failure, unspecified (principal); R57.1 Hypovolemic shock; S22.32XA Fracture of one rib, left side, initial encounter for closed fracture; E86.0 Dehydration; I12.9 Hypertensive chronic kidney disease with stage 1 through stage 4 chronic kidney disease, or unspecified chronic kidney disease; N18.30 Chronic kidney disease, stage 3 unspecified; F31.9 Bipolar disorder, unspecified; R07.89 Other chest pain; F90.9 Attention-deficit hyperactivity disorder, unspecified type; E66.9 Obesity, unspecified; F20.9 Schizophrenia, unspecified; F40.240 Claustrophobia; F17.200 Nicotine dependence, unspecified, uncomplicated; L97.529 Non-pressure chronic ulcer of other part of left foot with unspecified severity; F41.9 Anxiety disorder, unspecified; L03.032 Cellulitis of left toe; W19.XXXA Unspecified fall, initial encounter; Z68.38 Body mass index [BMI] 38.0-38.9, adult; Z79.82 Long term (current) use of aspirin; Z79.1 Long term (current) use of non-steroidal anti-inflammatories (NSAID); Z91.51 Personal history of suicidal behavior
CPT/HCPCS: 36415; 71046; 80048; 80053; 80178; 83605; 83735; 83880; 84484; 85025; 85610; 85730; 93005; 94640; 96361; 96374; 99285

== ENCOUNTER → 2022-08-24 | Outpatient (CLI) | payer MEDICARE, OTHER ==
--- NOTE | 2022-08-24 15:03 | US ---
EXAMINATION TYPE: US kidneys/renal and bladder DATE OF EXAM: 08/24/2022 COMPARISON: CT 01/07/2022. CLINICAL HISTORY: R94.4 ABNORMAL RESULTS OF KIDNEY FUNCTION STUDIES. Abnormal labs EXAM MEASUREMENTS: Right Kidney: 10.4 x 5.6 x 5.6 cm Left Kidney: 10.5 x 5.7 x 5.3 cm Right Kidney: Cyst with thick septation upper pole as visualized on prior CT= 5.0 x 4.0 x 4.2 cm. No evidence of hydro, lobulated contour Left Kidney: Cyst mid/lower pole= 1.6 x 1.6 x 1.8 cm. No evidence of hydro, lobulated contour . Bladder: wnl Bilateral Jets seen: Yes There is no evidence for hydronephrosis at this point in time. No nephrolithiasis is seen. Simple le ft renal cyst measuring up to 1.8 cm. A cyst within the upper pole the right kidney with thick septat ion measures up to 5.0 cm as demonstrated on prior CT. The urinary bladder is anechoic. Bilateral u reteral jets are seen. IMPRESSION: 1. No hydronephrosis or shadowing renal calculi. 2. Complex right upper pole renal cystic lesion with thick septation as demonstrated on prior CT. Fur ther evaluation with CT or MR abdomen renal mass protocol with IV contrast is recommended. Otherwise consider short-term follow-up ultrasound in 6 months if patient cannot receive contrast. 3. Simple 1.6 cm left renal cyst.
--- NOTE | 2022-08-24 15:32 | XR ---
EXAMINATION TYPE: XR abdomen acute w cxr DATE OF EXAM: 08/24/2022 COMPARISON: NONE HISTORY: Pain TECHNIQUE: Single view of the chest and 2 views of the abdomen are submitted. FINDINGS: Single view of the chest fails demonstrate evidence for acute pulmonary disease. There is no evidence for pneumoperitoneum. The bowel gas pattern is unremarkable as there is air throughout nondilated small and large bowel. No sizeable air fluid levels.No mass effects are seen. No unusual calcifications. IMPRESSION: 1. Unremarkable study.
--- NOTE | 2022-08-24 15:40 | XR ---
EXAMINATION TYPE: XR thoracic spine complete DATE OF EXAM: 08/24/2022 CLINICAL HISTORY: pain TECHNIQUE: Frontal, lateral, and swimmer's view of thoracic spine are obtained. COMPARISON: None. FINDINGS: Thoracic spine show satisfactory alignment without evidence of acute fracture or dislocatio n. Vertebral body heights are preserved. [id number] multilevel degenerative disc space narrowi ng and spondylosis. Visualized ribs are unremarkable. IMPRESSION: No acute fracture or dislocation is seen in the thoracic spine. ICD 10 NO FRACTURE, INIT IAL EVALUATION
--- NOTE | 2022-08-24 15:45 | XR ---
EXAMINATION TYPE: XR lumbosacral spine min 4V DATE OF EXAM: 08/24/2022 CLINICAL HISTORY: pain COMPARISON: NONE TECHNIQUE: Frontal, lateral, and oblique images of the lumbar spine are obtained. FINDINGS: There are 5 lumbar type vertebral bodies identified. The lumbar spine shows satisfactory alignment without evidence of acute fracture or dislocation. Vertebral body heights are within normal limits. Mild multilevel degenerative disc space narrowing and spondylosis. The overlying soft tiss ue appears unremarkable. IMPRESSION: No acute fracture or dislocation is seen in the lumbar spine.ICD 10 NO FRACTURE, INITIAL EVALUATION
--- NOTE | 2022-08-24 16:54 | XR ---
EXAMINATION TYPE: XR cervical spine comp DATE OF EXAM: 08/24/2022 CLINICAL HISTORY: pain COMPARISON: NONE TECHNIQUE: Frontal, lateral, oblique, swimmers, and open mouth view of the cervical spine are obtaine d. FINDINGS: The cervical spine is visualized in its entirety from C1 thru the top of T1 level. It is s atisfactory in alignment without evidence of acute fracture or dislocation. The pre-vertebral soft t issue appears within normal limits. Mild degenerative narrowing at C6-7. The C1-C2 articulation is un remarkable on the open mouth view. The oblique images are within normal limits. IMPRESSION: No acute fracture or dislocation is seen in the cervical spine.ICD 10 NO FRACTURE, INITI AL EVALUATION
== END | disposition home or self-care (01) ==
LOC: RADUSWWP 14:08
PROVIDERS: ATTEND Family Medicine
DX: N28.1 Cyst of kidney, acquired (principal); N28.9 Disorder of kidney and ureter, unspecified; G89.29 Other chronic pain; M54.50 Low back pain, unspecified; M54.2 Cervicalgia; R94.4 Abnormal results of kidney function studies
CPT/HCPCS: 72050; 72072; 72110; 74022; 76770

== ENCOUNTER → 2022-09-30 | Outpatient (CLI) | payer MEDICARE, OTHER ==
--- NOTE | 2022-09-30 15:07 | CT ---
EXAMINATION TYPE: CT abdomen pelvis w con DATE OF EXAM: 09/30/2022 COMPARISON: 01/07/2022 HISTORY: abdominal and back pain. abn ultrasound of kidneys. CT DLP: 1764 mGycm CONTRAST: CT scan of the abdomen and pelvis is performed with Oral Contrast and with IV Contrast, patient injec bryan with 70 mL of Isovue 300. FINDINGS: LUNG BASES-: No visible nodule. No infiltrate. LIVER/GB: No calcified gallstones. No space occupying hepatic lesion. Biliary tree is of normal ca liber. PANCREAS: No inflammation. No distinct mass. SPLEEN: No splenic enlargement. No lesion seen. ADRENALS: No nodule. No thickening. KIDNEYS/BLADDER: No hydronephrosis. No nephrolithiasis. Cystic mass upper pole right kidney demonst rates internal septations and measures approximately 4.0 x 3.8 x 3.9 cm. Further characterization wit h MRI is advised to exclude malignancy. Exophytic simple appearing cyst lower pole left kidney measur es 1.3 cm. Urinary bladder grossly unremarkable. BOWEL: Normal appendix. Normal bowel caliber. No inflammation. Moderate fecal stasis sigmoid colon. Mural wall thickening or spasm proximal sigmoid colon seen best on coronal image 65 of 139 sequence 5. If felt to be clinically indicated consider colonoscopy GENITAL ORGANS: No gross abnormality. LYMPH NODES: No greater than 1cm abdominal or pelvic lymph nodes are appreciated. AORTA: No significant abnormality. OSSEOUS STRUCTURES: No significant abnormality is seen. OTHER: [place] fat containing umbilical hernia. Additional fat-containing epigastric hernia within the midline and just to the right of midline. IMPRESSION: 1. Nonspecific cystic lesion upper pole right kidney with internal septations which I cannot classify as a simple cyst. MRI correlation is recommended. 2.Mural wall thickening or spasm proximal sigmoid colon seen best on coronal image 65 of 139 sequence 5. If felt to be clinically indicated consider colonoscopy 3. anterior abdominal wall ventral hernias containing fat.
== END | disposition home or self-care (01) ==
LOC: RADCTMAIN 12:25
PROVIDERS: ATTEND Family Medicine
DX: N28.9 Disorder of kidney and ureter, unspecified (principal); K44.9 Diaphragmatic hernia without obstruction or gangrene; R93.429 Abnormal radiologic findings on diagnostic imaging of unspecified kidney
CPT/HCPCS: 82565; 84520; 74177; 36415; Q9967

== ENCOUNTER 2022-10-04 12:05 | Day surgery (SDC) | payer MEDICARE, OTHER ==
[2022-10-01 11:26] VITALS: BMI 35.2
[~2022-10-04 12:05] MED LIST: LACTATED RINGERS 1,000 ML IV SCH; LIDOCAINE 1% (10MG/ML) FOR IV START INTRADERMA PRN
[2022-10-04 12:47] VITALS: TEMP 97.2
[2022-10-04] MEDS ORDERED: LIDOCAINE 2% INJ 20 MG/ML (2 ML VIAL) ONE (14:14)
[2022-10-04] MEDS ORDERED: PROPOFOL 10 MG/ML 20 ML VIAL IV ONE (14:14)
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
--- NOTE | 2022-10-04 14:42 | P.OP ---
Date of Procedure: 10/04/22 Preoperative Diagnosis: GERD Screening colonoscopy Postoperative Diagnosis: Eitshe will gastritis Hiatal hernia Colon polyp DiverticulosisD Procedure(s) Performed: EGD Colonoscopy Anesthesia: MAC Surgeon: Homero Lawler Pathology: other (antrum, esophagus, colon polyp) Condition: stable Disposition: PACU Description of Procedure: the patient was placed on the endoscopy table in the lateral position. She received IV sedation. The gastro-/oropharynx passed in the esophagus and stomach. Scope was placed through the pylorus. The first and second portion of the duodenum appeared normal. Scope was then brought back the antrum this was mildly inflamed. A biopsies performed. Scope was unretroflexed and remainder of the stomach appeared normal. The GE junction was at 38 cm. There was a small hiatal hernia. The distal esophagus appeared inflamed. A biopsies performed. The proximal esophagus appeared normal. Scope withdrawn for patient. Next digital rectal exam was performed.. This revealed some external hemorrhoids the flexible colonoscope was then placed patient anus and passed throughout the entire colon. Tthe cecum a large liquid stool which reminded me from using the ileocecal valve. Scope was then brought back. In the right colon there was a plica polyp was removed with the snare. The remainder the transverse colon appeared normal. In the descending; a few diverticula. The scope was brought back the rectum this appeared normal. Scope withdrawn for patient.
[2022-10-04 14:46] VITALS: RESP 16
[2022-10-04 15:45] VITALS: BP 135/72; PULSE 72
== END 2022-10-04 15:30 | disposition home or self-care (01) ==
LOC: ORWHC2ENDO 12:05
PROVIDERS: ATTEND Surgery
DX: Z12.11 Encounter for screening for malignant neoplasm of colon (principal); K63.5 Polyp of colon; K21.00 Gastro-esophageal reflux disease with esophagitis, without bleeding; E78.5 Hyperlipidemia, unspecified; F17.210 Nicotine dependence, cigarettes, uncomplicated; F52.9 Unspecified sexual dysfunction not due to a substance or known physiological condition; E66.9 Obesity, unspecified; F25.9 Schizoaffective disorder, unspecified; I10 Essential (primary) hypertension; K29.70 Gastritis, unspecified, without bleeding; K31.9 Disease of stomach and duodenum, unspecified; K44.9 Diaphragmatic hernia without obstruction or gangrene; M19.90 Unspecified osteoarthritis, unspecified site; Z90.49 Acquired absence of other specified parts of digestive tract
CPT/HCPCS: 88305; 45385; 43239; J2704; J2001

== ENCOUNTER → 2022-11-15 | Outpatient (CLI) | payer MEDICARE, OTHER | END | disposition home or self-care (01) | LOC: RADCTMAIN 13:31 | PROVIDERS: ATTEND Family Medicine | DX: Z53.9 Procedure and treatment not carried out, unspecified reason (principal) ==

== ENCOUNTER 2022-11-27 19:06 | Inpatient (IN) | payer MEDICARE, MEDICAID ==
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
[2022-11-27] MEDS ORDERED: ACETAMINOPHEN TAB 325 MG TAB PO PRN (22:34)
[2022-11-27] MEDS ORDERED: HALOPERIDOL LACTATE 5 MG/ML 1 ML VIAL IM PRN (22:34)
[2022-11-27] MEDS ORDERED: MAG HYDROX/AL HYDROX/SIMETH 30 ML CUP PO PRN (22:34)
[2022-11-27] MEDS ORDERED: MAGNESIUM HYDROXIDE 2,400 MG/10 ML CUP PO PRN (22:34)
[2022-11-27] MEDS ORDERED: LORazepam 2 MG/ML INJ IM PRN (22:39)
[2022-11-27] MEDS ORDERED: haloperidoL 5 MG TAB PO PRN (22:40)
[2022-11-28] MEDS: DIVALPROEX ER 500 MG TAB.ER.24H PO SCH ×2 (00:04→21:04)
[2022-11-28] MEDS: QUEtiapine 200 MG TAB PO SCH ×2 (00:04→21:04)
[2022-11-28] MEDS: ATORVASTATIN 10 MG TAB PO SCH ×2 (00:10→08:09)
[2022-11-28 07:35] LABS: ALT 23 U/L (4-49); AST 28 U/L (17-59); African American GFR (CKD) 86 (>60 ml/min/1.73 sqM); Alkaline Phosphatase 64 U/L (38-126); Anion Gap 6 mmol/L; Basophils % (A) 1 %; Bilirubin, Delta 0.3 mg/dL (0.0-0.2); Bilirubin,Unconjugated 0.3 mg/dL (0.0-1.1); Blood Urea Nitrogen 11 mg/dL (9-20); Calcium 9.5 mg/dL (8.4-10.2); Carbon Dioxide 27 mmol/L (22-30); Chloride 109 mmol/L (98-107); Eosinophils # (A) 0.4 k/uL (0-0.7); Eosinophils % (A) 8 %; Glucose 81 mg/dL (74-99); HCT 45.5 % (39.0-53.0); Lymphocytes # (A) 2.6 k/uL (1.0-4.8); Lymphocytes % (A) 49 %; MCH 31.5 pg (25.0-35.0); MCHC 32.2 g/dL (31.0-37.0); MCV 97.8 fL (80.0-100.0); Mean Platelet Volume 6.9; Monocytes # (A) 0.4 k/uL (0-1.0); Monocytes % (A) 6 %; Neutrophils # (A) 1.9 k/uL (1.3-7.7); Neutrophils % (A) 35 %; Non-African American GFR(CKD) 75 (>60 ml/min/1.73 sqM); Platelet Count 466 k/uL (150-450); Potassium 4.9 mmol/L (3.5-5.1); RBC 4.65 m/uL (4.30-5.90); RDW 14.3 % (11.5-15.5); Sodium 142 mmol/L (137-145); Total Bilirubin 0.6 mg/dL (0.2-1.3); Total Protein 6.8 g/dL (6.3-8.2); WBC 5.4 k/uL (3.8-10.6)
[2022-11-28 07:36] LABS: HGB 14.6 gm/dL (13.0-17.5)
[2022-11-28] MEDS: PANTOPRAZOLE 40 MG TABLET PO SCH (08:09)
[2022-11-28] MEDS: TAMSULOSIN 0.4 MG CAP.ER.24H PO SCH (08:09)
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
[2022-11-28] MEDS ORDERED: NICOTINE 14MG/24HR PATCH TRANSDERM SCH (09:00)
[2022-11-28 11:53] LABS: Chol/HDL Ratio 3.63 Ratio; LDL Cholesterol,Calculated 73.9 mg/dL (0.0-131.0)
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
[2022-11-28] MEDS: LORazepam 1 MG TAB PO PRN (21:05)
[2022-11-29] MEDS: ATORVASTATIN 10 MG TAB PO SCH (08:16)
[2022-11-29] MEDS: NICOTINE 21MG/24HR PATCH TRANSDERM SCH (08:16)
[2022-11-29] MEDS: PANTOPRAZOLE 40 MG TABLET PO SCH (08:16)
[2022-11-29] MEDS: TAMSULOSIN 0.4 MG CAP.ER.24H PO SCH (08:16)
[2022-11-29] MEDS ORDERED: SERTRALINE 25 MG TAB PO STA (10:09)
--- NOTE | 2022-11-29 11:58 | P.PN ---
Progress Note - Text Progress Note Date: 11/29/22 Interval History: Patient was seen resting in bed and was directable and agreeable to speak with senior underwriter in the office. Currently, the patient is not reporting any suicidal or homicidal ideation, intention, and/or plan. He does report elevated anxiety. He states that he feels like he is not able to accomplish things he wants to accomplish. He remains fixated on receiving education. He is asking this provider if he is able to obtain his GED while admitted into the psychiatric unit. He is informed that this is not possible here on the psychiatric unit. He is otherwise not reporting any auditory or visual hallucinations. He is denying any paranoia or other delusions. He has been adherent with his medication and is not endorsing any significant side effects at this time. He is denying any overt symptoms of depression however does endorse feeling overwhelmed and helpless. He is in agreement to start Zoloft for management of depression and anxiety. Mental Status Exam: General Appearance: Patient appears to be stated age is alert, directable, and cooperative. Behavior: Patient is calmly seated without any agitated behavior. Speech: Patient's speech is fluent and nonpressured. Mood/Affect: Mood is "I'm depressed." Affect is constricted Suicidality/Homicidality: Patient is not endorsing any suicidal or homicidal ideation. Perceptions: Patient denies any visual hallucinations and denies any auditory hallucinations Though content/process: There is no evidence of any delusional thought content and thought process is linear and goal-directed. Fixated on education. Memory and concentration: AOX3, grossly intact for the purposes of this session Judgment and insight: Fair Vital Signs Temp 97.9 F 11/29/22 06:33 Pulse 79 11/29/22 06:33 Resp 16 11/29/22 06:33 BP 137/63 11/29/22 06:33 Pulse Ox 98 11/29/22 06:33 FiO2 Assessment Schizophrenia Unspecified anxiety disorder Plan: -Patient continues to meet criteria for inpatient psychiatric admission for symptom stabilization and safety. Patient has signed adult voluntary form and medication consent and was placed in patient's chart. -Medications: Continue Seroquel 400 mg by mouth at bedtime for schizophrenia Continue Depakote 1000 mg by mouth at bedtime for mood augmentation/stabilization Start Zoloft 25 mg by mouth daily for depression/anxiety -When necessary Ativan and Haldol for agitation/aggression. -NRT - nicotine patch -SW on board for discharge planning. Encouraged the patient to participate in milieu.
[2022-11-29] MEDS: DIVALPROEX ER 500 MG TAB.ER.24H PO SCH (20:24)
[2022-11-29] MEDS: QUEtiapine 200 MG TAB PO SCH (20:24)
[2022-11-29] MEDS: LORazepam 1 MG TAB PO PRN (20:25)
[2022-11-30] MEDS: NICOTINE 21MG/24HR PATCH TRANSDERM SCH (08:19)
[2022-11-30] MEDS: TAMSULOSIN 0.4 MG CAP.ER.24H PO SCH (08:19)
[2022-11-30] MEDS: PANTOPRAZOLE 40 MG TABLET PO SCH (08:20)
[2022-11-30] MEDS: ATORVASTATIN 10 MG TAB PO SCH (08:20)
[2022-11-30] MEDS ORDERED: SERTRALINE 25 MG TAB PO SCH (09:00)
--- NOTE | 2022-11-30 11:54 | P.PN ---
Progress Note - Text Progress Note Date: 11/30/22 Interval History: Patient was seen resting in bed and was directable and agreeable to speak with racebook writer in the office. Currently, the patient continues to be fixated on "receiving my education, I want a GED." He was informed that he can read books in the common area however states that he does not want to. He is not reporting any suicidal or homicidal ideation, intention, and/or plan. He is not reporting any auditory or visual hallucinations. He is denying any paranoia or other delusions. The patient denies any issues regarding his sleep or his appetite. He has been adherent with his medication and is not endorsing any significant side effects. Mental Status Exam: General Appearance: Patient appears to be stated age is alert, directable, and cooperative. Behavior: Patient is calmly seated without any agitated behavior. Speech: Patient's speech is fluent and nonpressured. Mood/Affect: Mood is "I feel so-so." Affect is constricted Suicidality/Homicidality: Patient is not endorsing any suicidal or homicidal ideation. Perceptions: Patient denies any visual hallucinations and denies any auditory hallucinations Though content/process: There is no evidence of any delusional thought content and thought process is linear and goal-directed. Fixated on education. Memory and concentration: AOX3, grossly intact for the purposes of this session Judgment and insight: Fair Vital Signs Temp 97.8 F 11/30/22 07:15 Pulse 74 11/30/22 07:15 Resp 18 11/30/22 07:15 BP 119/70 11/30/22 07:15 Pulse Ox 95 11/30/22 07:15 FiO2 Assessment Schizophrenia Unspecified anxiety disorder Plan: -Patient continues to meet criteria for inpatient psychiatric admission for symptom stabilization and safety. Patient has signed adult voluntary form and medication consent and was placed in patient's chart. -Medications: Continue Seroquel 400 mg by mouth at bedtime for schizophrenia Continue Depakote 1000 mg by mouth at bedtime for mood augmentation/stabilization Increase Zoloft to 50 mg by mouth daily for depression/anxiety -When necessary Ativan and Haldol for agitation/aggression. -NRT - nicotine patch -SW on board for discharge planning. Encouraged the patient to participate in milieu.
[2022-11-30] MEDS: QUEtiapine 200 MG TAB PO SCH (20:15)
[2022-11-30] MEDS: LORazepam 1 MG TAB PO PRN (20:15)
[2022-11-30] MEDS: DIVALPROEX ER 500 MG TAB.ER.24H PO SCH (20:15)
[2022-12-01 06:39] VITALS: BP 107/61; PULSE 73; RESP 16; TEMP 98.3
[2022-12-01] MEDS ORDERED: SERTRALINE 50 MG TAB PO SCH (09:00)
[2022-12-01] MEDS: TAMSULOSIN 0.4 MG CAP.ER.24H PO SCH (09:57)
[2022-12-01] MEDS: NICOTINE 21MG/24HR PATCH TRANSDERM SCH (09:57)
[2022-12-01] MEDS: ATORVASTATIN 10 MG TAB PO SCH (09:57)
[2022-12-01] MEDS: PANTOPRAZOLE 40 MG TABLET PO SCH (09:57)
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
== END 2022-12-01 14:10 | disposition home or self-care (01) | DRG 885 ==
LOC: EC 19:06 → 3MHU 22:31
PROVIDERS: ADMIT Psychiatry & Neurology Psychiatry; ATTEND Psychiatry & Neurology Psychiatry
DX: F25.9 Schizoaffective disorder, unspecified (principal); R45.851 Suicidal ideations; F17.210 Nicotine dependence, cigarettes, uncomplicated; F79 Unspecified intellectual disabilities; I10 Essential (primary) hypertension; Z20.822 Contact with and (suspected) exposure to COVID-19; Z79.82 Long term (current) use of aspirin; Z79.899 Other long term (current) drug therapy; Z91.51 Personal history of suicidal behavior
CPT/HCPCS: 80053; 80061; 82075; 82248; 83036; 84443; 85025; 87635; 99285

== ENCOUNTER 2022-12-16 18:52 | Inpatient (IN) | payer MEDICARE, MEDICAID ==
[2022-12-16 23:19] LABS: Amphetamine Screen,Urine Not Detected (NotDetected); Barbiturate Screen,Urine Not Detected (NotDetected); Benzodiazepines Screen,Urine Not Detected (NotDetected); Cocaine Screen,Urine Not Detected (NotDetected); Methadone Screen, Urine Not Detected (NotDetected); Opiate Screen,Urine Not Detected (NotDetected); Oxycodone Screen, Urine Not Detected (NotDetected); Phencyclidine Screen,Urine Not Detected (NotDetected); Tricyclic Antidepressant,Urine Not Detected (NotDetected); Urn Cannabinoid Scrn Not Detected (NotDetected)
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
[2022-12-17] MEDS ORDERED: MAG HYDROX/AL HYDROX/SIMETH 30 ML CUP PO PRN (01:01)
[2022-12-17] MEDS ORDERED: ACETAMINOPHEN TAB 325 MG TAB PO PRN (01:01)
[2022-12-17] MEDS ORDERED: HALOPERIDOL LACTATE 5 MG/ML 1 ML VIAL IM PRN (01:01)
[2022-12-17] MEDS ORDERED: MAGNESIUM HYDROXIDE 2,400 MG/10 ML CUP PO PRN (01:01)
[2022-12-17] MEDS ORDERED: haloperidoL 5 MG TAB PO PRN (01:05)
[2022-12-17] MEDS ORDERED: LORazepam 2 MG/ML INJ IM PRN (01:06)
[2022-12-17] MEDS: LORazepam 1 MG TAB PO PRN ×4 (03:47→20:12)
[2022-12-17] MEDS: DIVALPROEX ER 250 MG TAB.ER.24H PO SCH ×3 (08:04→17:53)
[2022-12-17] MEDS: NICOTINE 14MG/24HR PATCH TRANSDERM SCH (08:04)
[2022-12-17] MEDS: SERTRALINE 50 MG TAB PO SCH (08:04)
[2022-12-17] MEDS: TAMSULOSIN 0.4 MG CAP.ER.24H PO SCH (08:04)
[2022-12-17] MEDS: DIVALPROEX ER 500 MG TAB.ER.24H PO SCH (20:12)
[2022-12-17] MEDS: QUEtiapine 400 MG TAB PO SCH (20:13)
[2022-12-17] MEDS: QUEtiapine 100 MG TAB PO SCH (20:13)
[2022-12-18] MEDS: TAMSULOSIN 0.4 MG CAP.ER.24H PO SCH (08:27)
[2022-12-18] MEDS: SERTRALINE 50 MG TAB PO SCH (08:28)
[2022-12-18] MEDS: DIVALPROEX ER 250 MG TAB.ER.24H PO SCH ×3 (08:28→16:26)
[2022-12-18] MEDS: NICOTINE 14MG/24HR PATCH TRANSDERM SCH (08:28)
[2022-12-18] MEDS: QUEtiapine 400 MG TAB PO SCH (20:04)
[2022-12-18] MEDS: LORazepam 1 MG TAB PO PRN (20:04)
[2022-12-18] MEDS: DIVALPROEX ER 500 MG TAB.ER.24H PO SCH ×2 (20:04→22:09)
[2022-12-18] MEDS: QUEtiapine 100 MG TAB PO SCH (20:04)
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
--- NOTE | 2022-12-18 21:34 | P.PN ---
Progress Note - Text Progress Note Date: 12/18/22 Interval history: Patient was seen wandering the hallways and was directable and agreeable to speak with verse writer. He reports his mood is better today. Thought process is concrete and he still perseverates on the medications he gets from Dr. Martinez not being the same as the one's he gets from here. At this time patient denies any suicidal or homicidal ideation, intent or plan. Denies any auditory or visual hallucinations. Patient denies any side effects from the medications and has been compliant with meds. He requests an increase in his Depakote to 3,000 mg gabby; We discussed this may be too high for him, but we can increase the dose slightly and he agrees. Labs reviewed today with patient and his ammonia level is normal at 22. Mental status exam: General Appearance: Patient appears to be stated age is alert, tall mildly obese male, fair hygiene and grooming. Behavior: Patient is seated without any agitated behavior. Speech: Patient's speech is fluent and non-pressured. Mood/Affect: Patient reports their mood is "down, feeling bad about myself" and "messing me up", affect is congruent and constricted. Suicidality/Homicidality: Patient denies having any homicidal ideation intent or plan. Denies any suicidal ideation, intent or plan. Perceptions: Patient denies any visual hallucinations, and reports some auditory hallucinations. Though content/process: There is evidence of delusional thought content (paranoid about his meds). Thought process is concrete and perseverative. Memory and concentration: AOX3, grossly intact for the purposes of this session. Judgment and insight: fair Assessment/Plan: Continue with current diagnosis. Patient continues to meet criteria for inpatient psychiatric admission for symptom stabilization and safety. Continue Seroquel at 500 mg QHS with plan to increase to 600 mg QHS as tolerated. Increase Depakote to 1500 mg QHS plus 250 mg TID starting tomorrow for mood stabilization. Recheck Depakote level in 3-4 days. Continue Zoloft 50 mg daily for depression. Continue Risperdal Consta 50 mg q2 weeks. Next dose due 12/22/22 per records. Monitor for medication compliance and for any psychotropic medication side effects. Will continue to monitor ongoing response to treatment. Encouraged participation in milieu.
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
[2022-12-19] MEDS: DIVALPROEX ER 250 MG TAB.ER.24H PO SCH ×3 (08:06→17:01)
[2022-12-19] MEDS: TAMSULOSIN 0.4 MG CAP.ER.24H PO SCH (08:06)
[2022-12-19] MEDS: SERTRALINE 50 MG TAB PO SCH (08:06)
[2022-12-19] MEDS: NICOTINE 14MG/24HR PATCH TRANSDERM SCH (08:21)
--- NOTE | 2022-12-19 17:19 | P.PN ---
Progress Note - Text Progress Note Date: 12/19/22 Interval history: Patient was seen attending group and was directable and agreeable to speak with insurance writer. He reports his mood is down, reports he is still feeling down but wants to go home on Tuesday or Tuesday. He reports he sleep "like a rock" last night. Thought process is concrete and he still perseverates on wanting the same director religious education of the medications he is getting here. At this time patient denies any suicidal or homicidal ideation, intent or plan. Denies any auditory or visual hallucinations. Patient denies any side effects from the medications and has been compliant with meds. Ammonia level is normal at 22 on 12/18/21. Mental status exam: General Appearance: Patient appears to be stated age is alert, tall mildly obese male, fair hygiene and grooming. Behavior: Patient is seated without any agitated behavior. Speech: Patient's speech is fluent and non-pressured. Mood/Affect: Patient reports their mood is "down, feeling bad about myself" and "messing me up", affect is congruent and constricted. Suicidality/Homicidality: Patient denies having any homicidal ideation intent or plan. Denies any suicidal ideation, intent or plan. Perceptions: Patient denies any visual hallucinations, and reports some auditory hallucinations. Though content/process: There is evidence of delusional thought content (paranoid about his meds). Thought process is concrete and perseverative. Memory and concentration: AOX3, grossly intact for the purposes of this session. Judgment and insight: fair Assessment/Plan: Continue with current diagnosis. Patient continues to meet criteria for inpatient psychiatric admission for symptom stabilization and safety. Continue Seroquel 500 mg QHS for mood. Continue Depakote 1500 mg QHS plus 250 mg TID for mood stabilization. Continue Zoloft 50 mg daily for depression. Continue Risperdal Consta 50 mg q2 weeks. Next dose due 12/22/22 per records. Check Depakote level on Tuesday morning. Monitor for medication compliance and for any psychotropic medication side effects. Will continue to monitor ongoing response to treatment. Encouraged participation in milieu.
[2022-12-19] MEDS: QUEtiapine 400 MG TAB PO SCH (19:45)
[2022-12-19] MEDS: QUEtiapine 100 MG TAB PO SCH (19:45)
[2022-12-19] MEDS: DIVALPROEX ER 500 MG TAB.ER.24H PO SCH (19:46)
[2022-12-19] MEDS: LORazepam 1 MG TAB PO PRN (19:47)
[2022-12-20] MEDS: DIVALPROEX ER 250 MG TAB.ER.24H PO SCH ×3 (08:08→16:12)
[2022-12-20] MEDS: SERTRALINE 50 MG TAB PO SCH (08:08)
[2022-12-20] MEDS: NICOTINE 14MG/24HR PATCH TRANSDERM SCH (08:08)
[2022-12-20] MEDS: TAMSULOSIN 0.4 MG CAP.ER.24H PO SCH (08:10)
--- NOTE | 2022-12-20 17:03 | P.PN ---
Progress Note - Text Progress Note Date: 12/20/22 Interval history: Patient was seen this morning walking the hallway and was directable and agreeable to speak with editorial writer. He reports his mood is "so-so" and reports he is ready to go home. His sleep was good, slept through the night. Thought process is concrete. At this time patient denies any suicidal or homicidal ideation, intent or plan. Denies any auditory or visual hallucinations. Patient denies any side effects from the medications and has been compliant with meds. Ammonia level is normal at 22 on 12/18/21. Mental status exam: General Appearance: Patient appears to be stated age is alert, tall mildly obese male, fair hygiene and grooming. Behavior: Patient is seated without any agitated behavior. Speech: Patient's speech is fluent and non-pressured. Mood/Affect: Patient reports their mood is improving, affect is congruent and constricted. Suicidality/Homicidality: Patient denies having any homicidal ideation intent or plan. Denies any suicidal ideation, intent or plan. Perceptions: Patient denies any visual hallucinations, and reports some auditory hallucinations. Though content/process: There is evidence of delusional thought content (paranoid about his meds) but improving. Thought process is concrete. Memory and concentration: AOX3, grossly intact for the purposes of this session. Judgment and insight: fair Assessment/Plan: Continue with current diagnosis. Patient continues to meet criteria for inpatient psychiatric admission for symptom stabilization and safety. Continue Seroquel 500 mg QHS for mood. Continue Depakote 1500 mg QHS plus 250 mg TID for mood stabilization. Continue Zoloft 50 mg daily for depression. Continue Risperdal Consta 50 mg q2 weeks. Last dose given on 12/08/22. Next dose due 12/22/22 per records. Can given on 12/21/22 prior to discharge, but will defer to primary psychiatrist for that day. Check Depakote level on Tuesday morning; order placed. Monitor for medication compliance and for any psychotropic medication side effects. Will continue to monitor ongoing response to treatment. Encouraged participat ion in milieu. Consider discharge tomorrow if continues to stabilize.
[2022-12-20] MEDS: DIVALPROEX ER 500 MG TAB.ER.24H PO SCH (20:04)
[2022-12-20] MEDS: QUEtiapine 100 MG TAB PO SCH (20:04)
[2022-12-20] MEDS: QUEtiapine 400 MG TAB PO SCH (20:04)
[2022-12-20] MEDS: LORazepam 1 MG TAB PO PRN (20:05)
[2022-12-21 06:28] VITALS: BP 117/63; PULSE 68; RESP 18; TEMP 97.5
[2022-12-21] MEDS: NICOTINE 14MG/24HR PATCH TRANSDERM SCH (08:52)
[2022-12-21] MEDS: SERTRALINE 50 MG TAB PO SCH (08:52)
[2022-12-21] MEDS: TAMSULOSIN 0.4 MG CAP.ER.24H PO SCH (08:52)
[2022-12-21] MEDS: DIVALPROEX ER 250 MG TAB.ER.24H PO SCH ×2 (10:05→12:42)
--- NOTE | 2022-12-21 11:19 | P.DS ---
Providers Date of admission: 12/17/22 00:31 Expected date of discharge: 12/21/22 Attending physician: Flaquito Mark MD Consults: 12/17/22 01:01 Consult Physician Routine Consulting Provider: Alex Mcconnell Consult Reason/Comments: H&P medical managment Do you want consulting provider notified?: Yes, Notify in am Primary care physician: Ava Vera - Discharge Diagnosis(es) (1) Schizoaffective disorder, bipolar type Current Visit: Yes Status: Acute Priority: High (2) Nicotine dependence Current Visit: Yes Status: Acute Priority: Low Hospital Course: Admission HPI: Admission note was completed by Dr Knapp "Patient is a 57 yo male with history of schizophrenia and depression, who lives with his sister. Patient presented to the hospital on 12/17/22, and per ER notes he presented to the emergency room due to "suicidal ideations. Per patient's report he has had multiple episodes of suicide attempt. Does have history of schizoaffective disorder. He denies any attempt at harming himself tonight. States that he has been taking his medications without any missed doses. Denies drug and alcohol use. No other alleviating, precipitating or modifying factors". I evaluated patient on 12/17/22 with nurse and nursing students present. Patient presents with somewhat anxious demeanor but is cooperative with concrete and perseverative thought process. He states she doesn't like "Dr. Martinez's meds" because they "are going right through me" and states they have a different number on the pill likely from a different sole sewer hand. He likes for his pills to look the same. The numbers have pills on them. He denies depressed mood. He denies wishes. He denies thoughts of killing myself, but does report feeling down and feeling bad about himself. He was having thoughts of hurting himself prior to getting his medications. He reports medication compliance, and takes his medications daily at 9am, 1pm, 4pm, 9pm. He sleeps about 7-8 hours per night but stays in bed between 7-9pm, wake up between 7-9am. He denies auditory or visual hallucinations. He reports auditory hallucinations "I hear voices from God saying save your life, Go get help from [facility]." He reports decreased sleep. His current medications are: Risperdal Consta 50 mg q2 weeks Zoloft 50 mg depression - Seroquel 400 mg QHS - wants it increased for sleep Depakote ER 1000 mg QHS plus 250 mg TID but he wants it at 2000 mg QHS He reports difficulty with concentration, has difficulty paying attention while watching movies, feeling down. Patient denies any suicidal or homicidal ideations intent or plan. He reports fair sleep and good appetite. Patient admits to using smoking 20-30 cigarettes per day; wearing patch, goal is to quit He denies drug or alcohol use." Hospital course: Upon admission to the unit patient was directable and agreeable to commence treatment and signed adult voluntary form. Patient got along well with other patients on the unit and followed unit protocol. Patient was compliant with the medications and denied any side effects throughout hospital course. Patient was started on Seroquel and increased to a dose of 500 mg daily at bedtime for psychosis/insomnia/mood stabilization, Depakote 1000 mg daily at bedtime +250 mg 3 times a day for mood stabilization, Zoloft 50 mg daily for mood/anxiety, Risperdal Consta 50 mg IM every 2 weeks, will be given last dose on day of discharge 12/21 and will be due for next dose in 2 weeks on 01/04. Patient spoke of his stressors and engaged in therapy both group and individual. Patient was also seen by medical team for history and physical exam. Patient had 2 Depakote levels which showed 58.3 and 81.8.] Throughout the course of the hospitalization patient gradually improved with regards to mood, anxiety, psychosis, sleep and returned back to their baseline level of functioning. On the day of discharge patient denied any suicidal or homicidal ideations intent or plan denied any auditory or visual hallucinations. Patient endorsed wanting to live for his health and family. The patient denied any access to guns or weapons. Patient denied any paranoia and did not endorse any delusions. Patient does not have a significant history of substance abuse and was counseled on abstaining from all substances including alcohol and marijuana. Patient was also counseled on the medications and need for regular compliance and was encouraged to follow-up with their outpatient appointment for mental health and also for primary care. Prior to discharge a family meeting will be arranged by family welfare social work professor to answer any questions and ensure safety upon discharge. She will be followed by his outpatient psychiatrist and team at [facility]. Mental status exam: General Appearance: Patient appears to be tall, wearing glasses, stated age is alert, pleasant, and cooperative. Patient is in no acute distress and has improved hygiene and grooming Behavior: Patient is calmly seated without any agitated behavior. Speech: Patient's speech is fluent and nonpressured. Mood/Affect: Patient reports their mood is "good", affect is congruent Suicidality/Homicidality: Patient denies having any suicidal or homicidal larissa ation intent or plan. Perceptions: Patient denies any auditory or visual hallucinations. Though content/process: There is no evidence of any delusional thought content and thought process is linear and goal-directed. Memory and concentration: AOX3, grossly intact for the purposes of this session. Can spell "WORLD" backwards correctly. Judgment and insight: improved with guarded prognosis Impression: Schizoaffective disorder bipolar type Nicotine dependence Plan: -Continue with discharge today as patient has improved and stabilized psychiatrically and is not currently an imminent threat to himself and/or others. Patient will remain at chronically elevated risk for harm to self and/or others due to his impulsivity and chronic mental illness. -Continue medications: Seroquel 500 mg daily at bedtime for psychosis/insomnia/mood stabilization, Depakote 1000 mg daily at bedtime +250 mg 3 times a day for mood stabilization, Zoloft 50 mg daily for mood/anxiety, Risperdal Consta 50 mg IM every 2 weeks, last dose given on day of discharge 12/21 next dose will be due at [facility] on 01/04. -Patient was counseled on the need for medication compliance and appropriate follow-up at mental health and also primary care for medical issues. Patient verbalized understanding and agreed. -Social work to arrange for and conduct family meeting to ensure safety upon discharge and answer any questions/concerns. Social work also to arrange for patients follow up appointments with [facility] for psychiatric care along with follow up with primary care provider. -Patient counseled on abstaining from recreational drugs and marijuana and alcohol. Was informed/educated on the adverse effects on their physical and mental health. Patient verbally agreed and understood. -Patient was instructed to return to the hospital or seek immediate medical care if their psychiatric or medical symptoms do worsen or reoccur. Allergies Allergy/AdvReac Type Severity Reaction Status Date / Time Iodinated Contrast Media Allergy Unknown Verified 12/17/22 02:25 latex Allergy Rash/Hives Verified 12/17/22 02:25 lithium Allergy Chronic Verified 12/17/22 02:25 Kidney Disease Laboratory Results Ammonia 22 umol/L (<30) 12/17/22 14:30 Vit D 1,25-Dihydroxy 43 pg/mL (20 - 79) 12/17/22 14:30 Urine Opiates Screen Not Detected (NotDetected) 12/16/22 22:35 Ur Oxycodone Screen Not Detected (NotDetected) 12/16/22 22:35 Urine Methadone Screen Not Detected (NotDetected) 12/16/22 22:35 Ur Propoxyphene Screen Not Detected (NotDetected) 12/16/22 22:35 Ur Barbiturates Screen Not Detected (NotDetected) 12/16/22 22:35 Valproic Acid 81.8 ug/mL 12/21/22 09:25 U Tricyclic Antidepress Not Detected (NotDetected) 12/16/22 22:35 Ur Phencyclidine Scrn Not Detected (NotDetected) 12/16/22 22:35 Ur Amphetamines Screen Not Detected (NotDetected) 12/16/22 22:35 U Methamphetamines Scrn Not Detected (NotDetected) 12/16/22 22:35 U Benzodiazepines Scrn Not Detected (NotDetected) 12/16/22 22:35 Urine Cocaine Screen Not Detected (NotDetected) 12/16/22 22:35 U Marijuana (THC) Screen Not Detected (NotDetected) 12/16/22 22:35 Coronavirus (PCR) Not Detected (Not Detectd) 12/17/22 01:00 Vital Signs Temp 97.5 F L 12/21/22 06:00 Pulse 68 12/21/22 06:00 Resp 18 12/21/22 06:00 BP 117/63 12/21/22 06:00 Pulse Ox 96 12/21/22 06:00 FiO2 Patient Condition at Discharge: Stable Plan - Discharge Summary Discharge Rx Participant: Yes New Discharge Prescriptions: New Nicotine 14Mg/24Hr Patch [Habitrol] 1 patch TRANSDERM DAILY 14 Days #14 patch QUEtiapine [SEROquel] 100 mg PO HS 30 Days #30 tab Continue Divalproex ER [Depakote ER] 250 mg PO TID@0900,1200,1700 30 Days #90 tab QUEtiapine [SEROquel] 400 mg PO HS 30 Days #60 tab Divalproex ER [Depakote ER] 1,000 mg PO HS 30 Days #60 tab Tamsulosin [Flomax] 0.4 mg PO PC-BRKFST 30 Days #30 cap risperiDONE MICROSPHERES [RisperDAL CONSTA] 50 mg IM Q14D #1 each Sertraline [Zoloft] 50 mg PO DAILY 30 Days #30 tab Discharge Medication List Divalproex ER [Depakote ER] 1,000 mg PO HS 30 Days #60 tab 12/21/22 [Rx] Divalproex ER [Depakote ER] 250 mg PO TID@0900,1200,1700 30 Days #90 tab 12/21/22 [Rx] Nicotine 14Mg/24Hr Patch [Habitrol] 1 patch TRANSDERM DAILY 14 Days #14 patch 12/21/22 [Rx] QUEtiapine [SEROquel] 100 mg PO HS 30 Days #30 tab 12/21/22 [Rx] QUEtiapine [SEROquel] 400 mg PO HS 30 Days #60 tab 12/21/22 [Rx] Sertraline [Zoloft] 50 mg PO DAILY 30 Days #30 tab 12/21/22 [Rx] Tamsulosin [Flomax] 0.4 mg PO PC-BRKFST 30 Days #30 cap 12/21/22 [Rx] risperiDONE MICROSPHERES [RisperDAL CONSTA] 50 mg IM Q14D #1 each 12/21/22 [Rx] Follow up Appointment(s)/Referral(s): [facility] [Outside] - 01/05/23 3:00 pm (01/05/2023 3:00PM - 3:30PM [facility] ) Ava Vera MD [Primary Care Provider] - 1-2 days Activity/Diet/Wound Care/Special Instructions: Avoid the use of street drugs and alcohol. Take all medications as prescribed. When you are in need of refills on your medications, please contact your medical provider and/or outpatient psychiatrist to have this done. Please go to scheduled outpatient appointments for aftercare treatment. If symptoms return or become worse, call the crisis line at and/or go to the nearest emergency room for evaluation. Discharge Disposition: HOME SELF-CARE
== END 2022-12-21 13:50 | disposition home or self-care (01) | DRG 885 ==
LOC: EC 18:52 → 3MHU 12-17 00:31
PROVIDERS: ADMIT Psychiatry & Neurology Psychiatry; ATTEND Psychiatry & Neurology Psychiatry
DX: F25.0 Schizoaffective disorder, bipolar type (principal); R45.851 Suicidal ideations; F41.9 Anxiety disorder, unspecified; F90.9 Attention-deficit hyperactivity disorder, unspecified type; G47.00 Insomnia, unspecified; I10 Essential (primary) hypertension; F79 Unspecified intellectual disabilities; Z71.89 Other specified counseling; Z28.311 Partially vaccinated for COVID-19; Z28.21 Immunization not carried out because of patient refusal; Z79.899 Other long term (current) drug therapy; Z91.51 Personal history of suicidal behavior; F17.210 Nicotine dependence, cigarettes, uncomplicated; Z91.041 Radiographic dye allergy status; Z91.040 Latex allergy status; Z88.8 Allergy status to other drugs, medicaments and biological substances; E66.9 Obesity, unspecified; Z68.31 Body mass index [BMI] 31.0-31.9, adult
CPT/HCPCS: 80164; 80306; 82075; 82140; 82652; 87635; 99285

== ENCOUNTER → 2023-04-21 | Outpatient (CLI) | payer MEDICARE, OTHER ==
--- NOTE | 2023-04-21 11:54 | MR ---
EXAMINATION TYPE: MR lumbar spine wo con DATE OF EXAM: 04/21/2023 11:37 AM COMPARISON: None. CLINICAL INDICATION: Male, 57 years old with history of M43.07 SPONDYLOLYSIS, LUMBOSACRAL REGION; Low back pain into олег lower extremities TECHNIQUE: Multi planar, multi sequence imaging was performed utilizing: T1-weighted, T2-weighted, a nd turbo inversion recovery imaging of the lumbar spine. IV Contrast: None. FINDINGS: Alignment: The lumbar vertebral bodies have preserved heights. There is straightening of the spine. G rade 1 anterolisthesis of L1 on L2 and L2 on L3. Cord: The conus medullaris and the distal spinal cord appear unremarkable with regards to their signa l intensity and morphology. Bones/Discs: High T1/high T2 signal L3 vertebral body hemangioma. Bone signal is within normal limits . No abnormal bony edema on inversion recovery sequences. Multilevel disc degenerative is noted and m ost pronounced at the . Intervertebral disc signal is maintained. T12-L1: No evidence of significant spinal canal stenosis or neural foraminal stenosis. L1-L2: Disc uncovering from grade 1 anterolisthesis and facet joint arthropathy with to moderate spin al canal stenosis and moderate bilateral neural foraminal stenosis. L2-L3: Disc uncovering from grade 1 anterolisthesis and facet joint arthropathy with moderate to tali re spinal canal stenosis and moderate bilateral neural foraminal stenosis. L3-L4: Disc bulge and facet joint arthropathy result in mild to moderate spinal canal and moderate bi lateral neural foraminal stenosis. L4-L5: Disc bulge and facet joint arthropathy result in mild spinal canal and moderate to severe bila teral neural foraminal stenosis. L5-S1: The disc is rounded posterior morphology without significant spinal canal stenosis. Facet join t arthropathy with mild neural foraminal stenosis. No significant spinal canal or neural foraminal stenosis in the remainder of the visualized levels. Other findings: Right renal cyst. IMPRESSION: 1. L2-L3 Grade 1 anterolisthesis of L2 on L3 with facet joint arthropathy result in moderate to sever e spinal canal stenosis. 2. L1-L2 grade 1 atrial listhesis L1-L2 with facet joint arthropathy result in moderate spinal canal stenosis. 3. Multilevel disc degeneration changes with moderate to severe neural foraminal stenosis at L4-L5
== END | disposition home or self-care (01) ==
LOC: RADMRIMAIN 10:31
PROVIDERS: ATTEND Orthopaedic Surgery
DX: M51.16 Intervertebral disc disorders with radiculopathy, lumbar region (principal); M99.73 Connective tissue and disc stenosis of intervertebral foramina of lumbar region; M48.061 Spinal stenosis, lumbar region without neurogenic claudication; M43.16 Spondylolisthesis, lumbar region; M47.26 Other spondylosis with radiculopathy, lumbar region
CPT/HCPCS: 72148

== ENCOUNTER → 2023-05-05 | Outpatient (CLI) | payer MEDICARE, OTHER ==
--- NOTE | 2023-05-05 12:57 | CT ---
EXAMINATION TYPE: CT lumbar spine wo con CT DLP: 2166.6 mGycm, Automated exposure control for dose reduction was used. DATE OF EXAM: 05/05/2023 11:28 AM COMPARISON: MR lumbar spine 04/21/2023, lumbar spine radiographs 03/07/2023. CT head and pelvis 09/30/19. CLINICAL INDICATION:Male, 57 years old with history of M54.50 LUMBAGO WITH SCIATICA; PHH, Low back pa in TECHNIQUE: Multiple axial images were obtained from the midportion of T11 through the sacroiliac jayne nts. Soft tissue and bone windows in coronal and sagittal planes were obtained and reviewed. FINDINGS: Alignment: There are 5 lumbar type vertebral bodies. Grade 1 anterior stasis of L1 on L2 and L2 on L3 are redemonstrated. Mild retrolisthesis of L3 on L4 and L4 on L5. Bone: No evidence of fracture is identified. Discs: T12-L1: No spinal canal or neural foraminal stenosis is identified. L1-L2: Greater 1 anterolisthesis. Broad-based disc bulge with facet arthropathy contribute to moderat e central canal stenosis. Moderate bilateral neuroforaminal stenosis. L2-L3: Grade 1 anterolisthesis. Broad-based disc bulge with bilateral facet arthropathy contributing to moderate central canal stenosis. Moderate bilateral neuroforaminal stenosis. L3-L4: Disc bulge with endm-rd-xvprloez central canal stenosis. Bilateral facet arthropathy with mode rate bilateral neuroforaminal stenosis. L4-L5: Disc bulge with mild effacement of anterior thecal sac. Bilateral facet arthropathy. Moderate bilateral neuroforaminal stenosis. L5-S1: No spinal canal or neural foraminal stenosis is identified. Other: Right upper pole 3.7 cm cyst with thin peripheral calcification consistent with a Bosniak [address] Atherosclerotic calcification of the aorta. IMPRESSION: 1. No evidence of fracture of the lumbar spine. 2. L1-L2 and L2-L3 grade 1 anterolisthesis with mild retrolisthesis at L3-L4 and L4-L5. 3. Multilevel degenerative disc disease and facet arthropathy as described above. This is most promin ent at L1-L4. This corresponds to recent lumbar spine MRI.
== END | disposition home or self-care (01) ==
LOC: RADCTMAIN 11:02
PROVIDERS: ATTEND Orthopaedic Surgery
DX: M51.36 Other intervertebral disc degeneration, lumbar region (principal); M47.817 Spondylosis without myelopathy or radiculopathy, lumbosacral region; M54.40 Lumbago with sciatica, unspecified side; M43.16 Spondylolisthesis, lumbar region
CPT/HCPCS: 72131

== ENCOUNTER → 2023-07-07 | Outpatient (CLI) | payer MEDICARE, OTHER ==
--- NOTE | 2023-07-07 15:34 | CT ---
EXAMINATION TYPE: CT chest wo con CT DLP: 673.6 mGycm, Automated exposure control for dose reduction was used. DATE OF EXAM: 07/07/2023 3:21 PM COMPARISON: CT chest abdomen 01/07/2022, chest radiograph 11/01/2022, CT abdomen pelvis 09/30/2022 CLINICAL INDICATION:Male, 57 years old with history of R93.89 abnormal chest xray; PHH, abnormal cxr TECHNIQUE: Multiple axial images were obtained through the chest without IV contrast. Lack of IV or o ral contrast limits evaluation of solid and hollow organ viscera. . Coronal and sagittal reformats re viewed. FINDINGS: LUNGS/ PLEURA: Stable scarring within the left upper lobe. Mild paraseptal emphysematous changes. No suspicious pulmonary nodule or mass. No pleural effusion, pneumothorax, focal consolidation. AIRWAY: Patent and unremarkable.. HEART: Size within normal limits. No pericardial effusion.. MEDIASTINUM: No gross evidence of adenopathy. VASCULATURE: No aortic aneurysm. Mild atherosclerotic calcification of the aorta and its branches. MUSCULOSKELETAL: No acute osseous abnormalities SOFT TISSUES/LYMPH NODES: Unremarkable. LOWER NECK: No significant findings. UPPER ABDOMEN: Postcholecystectomy changes. Similar right renal upper pole cystic lesion within calci fication measuring 3.9 cm. Moderate size epigastric fat filled ventral wall hernia with defect measur ing 3.0 cm in diameter. IMPRESSION: 1. No acute thoracic process. 2. Redemonstration of indeterminate right renal upper pole complex cystic lesion. Further evaluation with MR abdomen renal mass protocol is again recommended. 3. Redemonstration of moderate-sized epigastric fat filled ventral wall hernia.
--- NOTE | 2023-07-07 15:51 | US ---
EXAMINATION TYPE: US thyroid st tissue head/neck DATE OF EXAM: 07/07/2023 COMPARISON: NONE CLINICAL INDICATION: Male, 57 years old with history of E04.1 THYROID B-SCAN; GLAND SIZE: Right Lobe: 5.0 x 1.8 x 1.8 cm Overall Parenchyma: homogenous Left Lobe: 4.8 x 1.9 x cm Overall Parenchyma: homogenous Isthmus Thickness: 0.4 cm NODULES RIGHT: # of nodules measured on right: 1 1. 1.5 X 1.2 x 1.0 cm, lower lateral, mixed cystic and solid, hypoechoic nodule, which is circular, with ill-defined margins, with echogenic foci. TR 4 no prior ultrasound LEFT: # of nodules measured on left: 1 1. 0.6 X 0.5 x 0.5 cm, mid lateral, solid or almost completely solid, hypoechoic nodule, which is w ider than tall, with ill-defined margins, without echogenic foci. TR 4 no prior ultrasound ISTHMUS: # of nodules measured in the isthmus: 0 Bilateral neck scanned, no evidence of lymphadenopathy. Difficult exam IMPRESSION: 1. Right thyroid lobe 1.5 cm TR 4 nodule. Fine-needle aspiration is recommended. 2. Left thyroid lobe 0.6 cm TR 4 nodule. Follow-up ultrasound in one year is recommended.
== END | disposition home or self-care (01) ==
LOC: RADCTMAIN 14:55
PROVIDERS: ATTEND Family Medicine
DX: E04.2 Nontoxic multinodular goiter (principal); K43.6 Other and unspecified ventral hernia with obstruction, without gangrene; R93.89 Abnormal findings on diagnostic imaging of other specified body structures; Z72.0 Tobacco use
CPT/HCPCS: 71250; 76536

== ENCOUNTER → 2023-08-25 | Outpatient (CLI) | payer MEDICARE, OTHER ==
[2023-08-25 13:52] VITALS: BP 129/80; PULSE 95; RESP 16
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
--- NOTE | 2023-08-25 19:21 | XR ---
EXAMINATION TYPE: XR cervical spine limited DATE OF EXAM: 08/25/2023 2:05 PM CLINICAL INDICATION:Male, 57 years old with history of M50.30 OTHER CERVICAL DISC DEGENERA; COMPARISON: 08/24/2022 TECHNIQUE: The cervical spine was imaged in frontal, lateral, and odontoid. FINDINGS: The osseous structures show normal alignment without evidence of an acute fracture. There are osteoph ytes noted throughout the cervical spine on the anterior and lateral aspects of the vertebral bodies. The intervertebral disk spaces are narrowed at multiple levels Pedicles are intact. Soft tissues ar e within normal limits. The odontoid appears intact. IMPRESSION: 1. No fracture or dislocation. 2. Mild degenerative disc disease changes of the cervical spine.
== END ==
LOC: PNWHC3 13:03
PROVIDERS: ATTEND Specialist
DX: M50.322 Other cervical disc degeneration at C5-C6 level (principal); M51.36 Other intervertebral disc degeneration, lumbar region; M54.51 Vertebrogenic low back pain; M47.812 Spondylosis without myelopathy or radiculopathy, cervical region; M19.90 Unspecified osteoarthritis, unspecified site; I10 Essential (primary) hypertension; F41.9 Anxiety disorder, unspecified; F31.9 Bipolar disorder, unspecified; F98.8 Other specified behavioral and emotional disorders with onset usually occurring in childhood and adolescence; F90.9 Attention-deficit hyperactivity disorder, unspecified type; M25.78 Osteophyte, vertebrae; E66.9 Obesity, unspecified; F17.200 Nicotine dependence, unspecified, uncomplicated; Z91.041 Radiographic dye allergy status; Z91.040 Latex allergy status; Z88.8 Allergy status to other drugs, medicaments and biological substances; Z68.39 Body mass index [BMI] 39.0-39.9, adult
CPT/HCPCS: 72040; G0463; 99211

== ENCOUNTER → 2023-11-21 | Outpatient (CLI) | payer MEDICARE, OTHER ==
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
[2023-11-21 15:13] VITALS: BP 142/76; PULSE 76; RESP 15; TEMP 98.6
== END ==
LOC: PNWHC3 13:57
PROVIDERS: ATTEND Specialist
DX: M50.30 Other cervical disc degeneration, unspecified cervical region (principal); F17.200 Nicotine dependence, unspecified, uncomplicated; Z91.041 Radiographic dye allergy status; Z91.040 Latex allergy status; Z88.8 Allergy status to other drugs, medicaments and biological substances
CPT/HCPCS: 99211

== ENCOUNTER 2023-12-06 13:03 | Day surgery (SDC) | payer MEDICARE, OTHER ==
[2023-12-06] MEDS: ALPRAZolam 0.5 MG TAB PO STA (13:35)
[2023-12-06 14:23] VITALS: TEMP 98.4
--- NOTE | 2023-12-06 15:29 | US ---
EXAMINATION TYPE: US FNA thyroid first lesion DATE OF EXAM: 12/06/2023 2:55 PM CLINICAL INDICATION:Male, 58 years old with history of E04.1 thyroid nodule; thyroid nodule. COMPARISON: Thyroid 07/07/2023 ATTENDING: Dr. Juan Herring PROCEDURE: Informed consent was obtained. The risks and benefits of the procedure were discussed with the patien t. The site was marked. Timeout procedure was performed Ultrasound imaging of the thyroid demonstrates the deep right thyroid nodule The patient was prepped, draped in the usual sterile fashion, and locally anesthetized with 1% lidoca ine. 3 fine needle aspiration were then performed with a 25 gauge needle. The patient was swallowing and moving which is extremely difficult along with its deep location to successfully biopsy. Samples were sent to the pathology department for further analysis. Patient tolerated the procedure without incident and was sent home in stable condition. IMPRESSION: Technically challenging ultrasound-guided attempted biopsy of the right parotid gland lesion. Correla te with pathology for a successful biopsy.
[2023-12-06 15:48] VITALS: BP 136/88; PULSE 97; RESP 16
== END 2023-12-06 15:10 | disposition home or self-care (01) ==
LOC: RADPROMAIN 13:03
PROVIDERS: ATTEND Family Medicine
DX: E04.1 Nontoxic single thyroid nodule (principal)
CPT/HCPCS: 10005; 88173; 88305

== ENCOUNTER → 2024-01-31 | Outpatient (CLI) | payer MEDICARE, OTHER ==
--- NOTE | 2024-02-05 18:25 | CT ---
EXAMINATION TYPE: CT abdomen wo con DATE OF EXAM: 01/31/2024 COMPARISON: 09/30/2022 INDICATION: neoplasm right kidney DLP: 2137.5 mGycm, Automated exposure control for dose reduction was used. CONTRAST: 0 mL of Isovue 300. Study performed without Oral Contrast TECHNIQUE: Axial images were obtained from above the diaphragm to the pubic rami in the axial plane a t 5 mm thick sections. Reconstructed images are reviewed on the computer in the coronal plane. FINDINGS: Limited CT sections are obtained the lung bases. The lung bases are clear. CT ABDOMEN: Liver: Normal Spleen: Normal Pancreas: Normal Adrenal glands: The adrenal glands are normal. Gallbladder: Surgically absent Kidneys: No masses are evident. No hydronephrosis is present. There is a 3.7 cm posterior lateral r ight apical cyst measuring 16 Hounsfield units. This may contain some calcification No renal stones a re evident. Aorta: Vascular calcification is within the aorta. Inferior vena cava: Normal. CT PELVIS: Within the subcutaneous tissues below the incision point is a 5.0 x 1.5 cm hypodense colle ction. This could be an underlying seroma or hematoma. Abscess formation could be considered differen tial. Follow-up is recommended. Loops of bowel within the abdomen and pelvis are normal. Study is without oral contrast limits marilee wel evaluation. Large fecal bolus of the rectum. Appendix: Normal as visualized. Urinary bladder: Normal. Genitourinary structures: Prostate is normal Osseous structures: No suspicious lytic or sclerotic lesions. IMPRESSION: 1. What can be compatible with a cyst at this posterior superior pole right kidney. Follow-up can be performed. 2. Low-density collection within the subcutaneous tissues anterior to the abdominal wall. Seroma, hem atoma, and abscess are within the differential. Follow-up is recommended.
== END | disposition home or self-care (01) ==
LOC: RADCTMAIN 12:01
PROVIDERS: ATTEND Urology
DX: D41.01 Neoplasm of uncertain behavior of right kidney (principal); K31.89 Other diseases of stomach and duodenum; Z90.49 Acquired absence of other specified parts of digestive tract
CPT/HCPCS: 74150

== ENCOUNTER → 2024-03-01 | Outpatient (CLI) | payer MEDICARE, OTHER ==
[2024-03-01 14:38] LABS: Basophils # (A) 0.04 X 10*3/uL (0.00-0.10); Basophils % (A) 0.5 %; Eosinophils # (A) 0.18 X 10*3/uL (0.04-0.35); Eosinophils % (A) 2.1 %; HCT 47.7 % (39.6-50.0); HGB 15.7 g/dL (13.0-17.0); Lymphocytes # (A) 3.86 X 10*3/uL (0.90-5.00); MCH 32.3 pg (27.0-32.0); MCHC 32.9 g/dL (32.0-37.0); MCV 98.1 FL (80.0-97.0); Mean Platelet Volume 9.9 FL (9.5-12.2); Monocytes # (A) 0.86 X 10*3/uL (0.20-1.00); Monocytes % (A) 9.8 %; NRBC Per 100 WBC 0 X 10*3/uL (0.00-0.01); Neutrophils # (A) 3.82 X 10*3/uL (1.80-7.70); Neutrophils % (A) 43.5 %; Platelet Count 309 X 10*3/uL (140-440); RBC 4.86 X 10*6/uL (4.40-5.60); RDW 13.5 % (11.5-14.5); WBC 8.77 X 10*3/uL (4.50-10.00)
[2024-03-01 15:30] LABS: ALT 28 U/L (10-49); AST 26 U/L (14-35); Albumin 4.3 g/dL (3.8-4.9); Albumin/Globulin Ratio 1.72 Ratio (1.60-3.17); Alkaline Phosphatase 53 U/L (41-126); BUN/Creat Ratio 19.46 Ratio (12.00-20.00); Blood Urea Nitrogen 25.3 mg/dL (9.0-27.0); Calcium 10.1 mg/dL (8.7-10.3); Carbon Dioxide 23.6 mmol/L (21.6-31.8); Chloride 103 mmol/L (96-109); Globulin 2.5 g/dL (1.6-3.3); Glucose 94 mg/dL (70-110); LDL Cholesterol,Calculated 80.8 mg/dL (0.0-131.0); Potassium 4.9 mmol/L (3.5-5.5); Sodium 139 mmol/L (135-145); Total Bilirubin 0.3 mg/dL (0.3-1.2); Total Protein 6.8 g/dL (6.2-8.2)
[2024-03-01 15:31] LABS: T4, Free (Free Thyroxine) 0.98 ng/dL (0.80-1.80)
[2024-03-01 19:55] LABS: Valproic Acid (Depakene) 64.2 UG/ML (50.0-100.0)
== END | disposition home or self-care (01) ==
LOC: LABWHC1 10:33
PROVIDERS: ATTEND Psychiatry & Neurology Psychiatry
DX: F25.1 Schizoaffective disorder, depressive type (principal); Z79.899 Other long term (current) drug therapy
CPT/HCPCS: 36415; 80053; 80061; 80164; 82306; 83036; 84439; 84443; 85025

== ENCOUNTER → 2024-04-09 | Outpatient (CLI) | payer MEDICARE, OTHER | END | disposition home or self-care (01) | LOC: LABPAT 10:21 | PROVIDERS: ATTEND Orthopaedic Surgery | DX: Z01.812 Encounter for preprocedural laboratory examination (principal); M48.061 Spinal stenosis, lumbar region without neurogenic claudication; M47.26 Other spondylosis with radiculopathy, lumbar region; Z22.322 Carrier or suspected carrier of Methicillin resistant Staphylococcus aureus | CPT/HCPCS: 86850; 86900; 86901 ==

== ENCOUNTER 2025-03-19 10:00 | Emergency (ER) | payer MEDICARE, OTHER ==
[2025-03-19 10:20] VITALS: TEMP 98.5
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
[2025-03-19 11:43] LABS: Basophils # (A) 0.03 10*3/uL (0.00-0.10); Basophils % (A) 0.4 %; Eosinophils # (A) 0.24 10*3/uL (0.04-0.35); Eosinophils % (A) 3.3 %; HCT 40.5 % (39.6-50.0); HGB 13.5 g/dL (13.0-17.0); Lymphocytes # (A) 2.92 10*3/uL (0.90-5.00); Lymphocytes % (A) 39.6 %; MCH 33.8 pg (27.0-32.0); MCHC 33.3 g/dL (32.0-37.0); MCV 101.5 fL (80.0-97.0); Monocytes # (A) 0.75 10*3/uL (0.20-1.00); Monocytes % (A) 10.2 %; Neutrophils # (A) 3.42 10*3/uL (1.80-7.70); Neutrophils % (A) 46.4 %; Platelet Count 294 10*3/uL (140-440); RBC 3.99 10*6/uL (4.40-5.60); RDW 13.7 % (11.5-14.5); WBC 7.37 10*3/uL (4.50-10.00)
[2025-03-19 11:55] LABS: Anion Gap 6 mmol/L; Blood Urea Nitrogen 13 mg/dL (9-20); Carbon Dioxide 29 mmol/L (22-30); Chloride 103 mmol/L (98-107); Glucose 75 mg/dL (74-99); Sodium 138 mmol/L (137-145)
[2025-03-19 11:56] LABS: ALT 32 U/L (4-49); African American GFR (CKD) >90 (>60 ml/min/1.73 sqM); Albumin 3.8 g/dL (3.5-5.0); Calcium 9.5 mg/dL (8.4-10.2); Non-African American GFR(CKD) 79 (>60 ml/min/1.73 sqM); Total Protein 6.8 g/dL (6.3-8.2)
[2025-03-19 12:04] LABS: NT-Pro-B-Type Natriuretic Pept 372 pg/mL
[2025-03-19 12:10] LABS: AST 49 U/L (17-59); Alkaline Phosphatase 42 U/L (38-126); Potassium 5.0 mmol/L (3.5-5.1)
--- NOTE | 2025-03-19 12:20 | XR ---
EXAMINATION TYPE: XR chest 2V DATE OF EXAM: 03/19/2025 12:09 PM COMPARISON: 11/01/2022 CLINICAL INDICATION: Male, 59 years old with history of bilateral lower extremity swelling, , TECHNIQUE: Frontal and lateral views FINDINGS: Heart mildly enlarged. Interstitial and vascular prominence. Large body habitus further limits the po rtable exam as is breathing motion. No consolidation or pleural effusion. IMPRESSION: Mild cardiomegaly and pulmonary vascular congestion. [facility], Workstation: [facility], 03/19/2025 12:18 PM
[2025-03-19] MEDS: HYDROmorphone 0.5 MG/0.5 ML SYRINGE IVP STA (13:02)
--- NOTE | 2025-03-19 13:32 | US ---
EXAMINATION TYPE: US venous doppler duplex LE BI DATE OF EXAM: 03/19/2025 12:49 PM COMPARISON: NONE CLINICAL INDICATION: Male, 59 years old with history of bilateral lower extremity pain and swelling; known DVT in right leg since January, on thinners, increase in swelling per patient. TECHNIQUE: The lower extremity deep venous system is examined utilizing real time linear array sonog sania with graded compression, doppler sonography and color-flow sonography. Grayscale, color doppler , spectral doppler imaging performed of the deep veins of the lower extremities FINDINGS: SIDE PERFORMED: Bilateral VESSELS IMAGED: Common Femoral Vein Deep Femoral Vein Greater Saphenous Vein * Femoral Vein Popliteal Vein Small Saphenous Vein * (* superficial vessels) Right Leg: Negative for DVT; There is normal flow, compressibility, vascular waveforms. Left Leg: Negative for DVT; There is normal flow, compressibility, vascular waveforms. IMPRESSION: No evidence for DVT within the bilateral lower extremities imaged from the groin to the knees. [facility], , 03/19/2025 1:30 PM
[2025-03-19 15:36] VITALS: BP 174/108; PULSE 61; RESP 17
== END 2025-03-19 15:36 | disposition home or self-care (01) ==
LOC: EC 10:00
DX: R60.0 Localized edema (principal); Z86.718 Personal history of other venous thrombosis and embolism; Z79.01 Long term (current) use of anticoagulants; F17.210 Nicotine dependence, cigarettes, uncomplicated; Z91.040 Latex allergy status; Z91.041 Radiographic dye allergy status; Z88.8 Allergy status to other drugs, medicaments and biological substances
CPT/HCPCS: 36415; 83880; 80053; 84484; 85025; 71046; 93970; 99284; 96374; J1171

== ENCOUNTER → 2025-03-22 | Outpatient (CLI) | payer MEDICARE, OTHER ==
[2025-03-22 14:11] LABS: African American GFR (CKD) 75 (>60 ml/min/1.73 sqM); Blood Urea Nitrogen 16 mg/dL (9-20); Non-African American GFR(CKD) 65 (>60 ml/min/1.73 sqM)
--- NOTE | 2025-03-22 14:44 | CT ---
EXAMINATION TYPE: CT abdomen wo con CT DLP: 1006 mGycm, Automated exposure control for dose reduction was used. 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 Coronal and sa gittal reformats were performed. Limited examination due to lack of intravenous contrast. FINDINGS: LOWER CHEST: Linear scarring within the right middle lobe. ABDOMEN LIVER: Diffusely hypoattenuating parenchyma. GALLBLADDER AND BILE DUCTS: The gallbladder is surgically absent. No biliary ductal dilatation. PANCREAS: Unremarkable noncontrast appearance. SPLEEN: Unremarkable noncontrast appearance. ADRENAL GLANDS: Unremarkable noncontrast appearance.. KIDNEYS AND URETERS: No evidence of hydronephrosis or renal calculus. Lobulated appearance of both ki dneys. Stable posterior lateral right renal upper pole 3.5 cm simple attenuating cyst. Similar subtle peripheral calcification. BLADDER: Unremarkable noncontrast appearance. REPRODUCTIVE: Unremarkable noncontrast appearance. STOMACH AND BOWEL: Stomach and duodenum are unremarkable. Enteric contrast reaches the mid small abram l. No evidence of bowel obstruction. No focal bowel wall thickening or surrounding inflammatory beyer es. The appendix is within normal limits. PERITONEUM: No evidence of pneumoperitoneum or free fluid. VASCULATURE: Mild atherosclerotic calcifications are present throughout the abdominal aorta and its b ranches. No evidence of aortic aneurysm. MUSCULOSKELETAL: No acute osseous abnormalities. No aggressive osseous lesion. Grade 1 anterolisthesi s of L1 on L2 and L2 on L3. LYMPH NODES: No gross evidence for lymphadenopathy. SOFT TISSUE/ABDOMINAL WALL: Postsurgical changes of the midline anterior abdominal wall with marginal decrease in size of previously seen seroma along the midline anterior abdomen wall. This measures 1. 2 x 6.2 x 5.4 cm in AP, TV, CC dimensions. Redemonstration of ventral wall epigastric fat-containing hernia with small mesenteric vessels. The defect measures 3.3 cm in diameter. The hernia sac measures 9.0 cm in diameter. Bilateral gluteal subcutaneous tissue granulomas. IMPRESSION: 1. Stable right renal upper pole simple tailoring cyst with some peripheral calcification dating mame k to 2021. Stability from prior exams suggests a benign process. 2. Postsurgical changes with marginal decrease in size of anterior abdominal wall seroma. 3. Redemonstration of moderate size ventral wall epigastric hernia containing fat and a small mesente niranjan vessels. [facility], , 03/22/2025 2:42 PM
== END | disposition home or self-care (01) ==
LOC: RADCTMAIN 13:12
PROVIDERS: ATTEND Urology
DX: D41.01 Neoplasm of uncertain behavior of right kidney (principal); K43.9 Ventral hernia without obstruction or gangrene; N28.1 Cyst of kidney, acquired; Z98.890 Other specified postprocedural states
CPT/HCPCS: 74150; 82565; 84520